=== PATIENT | female | born 1945 | race Caucasian/White ===

== ENCOUNTER 2017-08-01 10:32 | Emergency (ER) | payer MEDICARE, OTHER, SELFPAY ==
[2017-07-31 15:16] VITALS: BP 123/61; BMI 22.6
[2017-08-01 10:36] VITALS: BP 123/53; PULSE 64; RESP 14; TEMP 36.9; O2SAT 100; BMI 22.4
--- NOTE | 2017-08-01 11:00 | RAD_ITS ---
STUDY: X-RAY CHEST REASON FOR EXAM: Female, 71 years old. Weakness. TECHNIQUE: Single AP portable view of the chest. COMPARISON: None. FINDINGS: EKG electrodes are seen. Hyperinflation. The lungs are clear. There is no demonstrated pleural abnormality. Sternal cerclage wires and vascular clips are present from a prior sternotomy and coronary artery bypass graft procedure (CABG). Normal mediastinum and brendan. Normal visualized pulmonary arteries. There is atherosclerotic calcification of the aortic arch with tortuosity. Normal visualized thoracic spine. Normal visualized ribs, clavicles, and shoulders. There is no demonstrated abnormality of the visualized soft tissue structures of the upper abdomen. RAD/Chest 1 View (Portable) IMPRESSION: Hyperinflation. The lungs are clear. Electronically Signed: Erick Peter MD at 12:28 EST Tel [phone], Service support ,
--- NOTE | 2017-08-01 11:00 | EKG12_ITS ---
Test Reason : Blood Pressure : / mmHG Vent. Rate : 057 BPM Atrial Rate : 057 BPM P-R Int : 142 ms QRS Dur : 108 ms QT Int : 420 ms P-R-T Axes : 068 020 003 degrees QTc Int : 408 ms Sinus bradycardia Incomplete right bundle branch block ST & T wave abnormality, consider anterior ischemia Abnormal ECG Confirmed by SHAHID ROJAS, DALE ([id number]), editor index SAWYER WELLS ([id number]) on 08/06/2017 8:47:02 AM Referred By: ESTELITA BENNETT Confirmed By:DALE KEY MD
--- NOTE | 2017-08-01 11:01 | RAD_ITS ---
STUDY: X-RAY - RIGHT HUMERUS REASON FOR EXAM: Female, 71 years old. Known humeral fracture. TECHNIQUE: AP and lateral view(s) of the humerus. COMPARISON: None. FINDINGS: Impacted fracture of the surgical neck of the humerus with medial and superior displacement of the distal fracture fragment. Soft tissue swelling. RAD/Humerus min 2 Views IMPRESSION: Impacted fracture of the surgical neck of the humerus with medial and superior displacement of the distal fracture fragment Electronically Signed: Erick Peter MD at 12:30 EST Tel [phone], Service support ,
[2017-08-01] MEDS: 0.9% Normal Saline 1,000 ML 150 ML IV (11:14)
[2017-08-01 11:24] LABS: Absolute Lymphocyte Count 1.11 X10^3/ul (0.83-4.51); Absolute Neutrophil Count 4.7 X10^3/uL (2.0-7.7); Basophil# 0.03 X10^3/uL; Basophil% 0.5 % (0-1); Eosinophils% 1.5 % (0-5); Hematocrit 31.2 % (37-47); Hemoglobin 10.3 g/dl (12.0-15.0); Lymphocyte # 1.11 X10^3/ul (4.0); Lymphocyte % 16.9 % (19-41); Mean Corpuscular Hgb 31.9 pg (27.0-32.0); Mean Corpuscular Volume 96.6 fL (81-99); Mean Platelet Vol. 11.1 fl (6.2-12.0); Monocyte# 0.65 X10^3/uL; Monocyte% 9.9 % (0-10); Neutrophil # 4.65 X10^3/uL (2.7-7.7); POSITIVE COUNT NO; POSITIVE DIFFERENTIAL NO; POSITIVE MORPHOLOGY NO; Platelet Count 267 K/mm3 (150-450); RBC Distribution Width CV 14.1 % (11.6-14.6); RBC Distribution Width SD 49.9 fl (35.1-43.9); Red Blood Count 3.23 M/mm3 (4.2-5.4); White Blood Count 6.6 K/mm3 (4.4-11.0)
--- NOTE | 2017-08-01 11:34 | CM.ED ---
CM referred to see patient d/t patient's daughter expressing concerns of her mother's weakness and safety in the home. CM spoke with patient and daughter. Patient is scheduled for surgery on fractured humerus on Saturday. Patient's daughter states she has only a half-bath on the first level of the home and it took three hours to get her mother upstairs to the shower. Patient's daughter states she was given strict instructions to keep the operative site clean prior to surgery and is concerned she may be unable to do this properly given the circumstances. I called Juani Osuna, from . is not able to accept the patient at this time and given condition. I discussed home health care with patient and daughter. [facility] anticipates that they will be able to treat the patient, should she be discharged to home. I also suggested attempting sponge baths on the first level of home and aide services for bathing can be provided as long as patient is receiving skilled therapy from [facility]. I did inform the patient and daughter that it may take a few days until aide services and therapy services are begun. Test results are pending and care plan is undetermined at this time. RN TRINIDAD will follow-up with needs as plan develops. Daisy GARCIA, MAMADOU ABDI
[2017-08-01 11:47] LABS: Anion Gap 6 (5-15); BUN 26 mg/dL (7-18); BUN/Creat Ratio 27.7 RATIO (10-20); Calcium,Total 8.6 mg/dL (8.5-10.1); Chloride 101 mmol/L (98-107); Creatinine, Serum 0.94 mg/dL (0.55-1.02); EST Glomerular Filtration Rate 63 mL/min (>60); Est Glom Filt Rate - Afr Amer 76 mL/min (>60); Estimated Creatinine Clearance 44.26 ml/min; Glucose 80 mg/dL (70-110); Potassium 4.1 mmol/L (3.5-5.1); Sodium Level 136 mmol/L (136-145)
--- NOTE | 2017-08-01 12:52 | ED.DCSUM_ITS ---
- ER Visit Summary Date of Service: 08/01/17 Chief Complaint: Generalized weakness History of Present Illness: The patient is a 71 F who sees Mary Ann Bernabe and Dr. Rommel Sellers. She reports that she fell July 25 and has a fracture of her right proximal humerus. She was seen by Dr. Sellers 2 days ago and is scheduled to have surgery for this in 4 days. States there is 50% displacement of this. Family is concerned because she is now having bruising and swelling to her right elbow. She denies pain in this area. Family that has been caring for her at home had reports that she has had progressively increasing weakness. This is generalized. Patient complains of a headache is 2 out of 10 severity. She denies any other complaints. Physical Examination: Vitals: Stable. Afebrile. General: Well-nourished and well-developed. Head: Normocephalic atraumatic. Neck: Supple, no lymphadenopathy. No JVD. Nontender. Cardiovascular: Regular rate and rhythm. No murmurs. Respiratory: No respiratory distress. Clear to auscultation bilaterally. Abdominal: Soft, nontender, nondistended, normal bowel sounds. No guarding, rebound, or peritoneal signs. Back: Nontender. Extremities: Severe tenderness palpation with contusion over her right shoulder. This is not moved. She has edema and contusion that is dependent to the right elbow. This is not tender to palpation.. Skin: Normal color, no rash. Neurologic: Alert and oriented ?3. Cranial nerves II through XII are intact. Normal strength and sensation. Psych: Normal affect. Test Results: EKG is sinus at 60 with right bundle branch block. There is no old EKG for comparison. Troponin was negative. Chem-7 is more for BUN 26. CBC is more for an H&H 10.3 and 31.2, 7 neutrophils 71, lymphs at 17. Chest x- ray shows no acute disease. Right humerus x-ray shows an impacted surgical neck fracture with medial and superior displacement of the distal fracture fragment. Emergency Department Course and Treatment: She is resting comfortably without complaint. She was seen by case management and they were able to arrange home health with the patient and family are happy with. Treatment Plan: Patient will be discharged instructions to follow-up with surgery as previously scheduled. Return to the emergency department for any worsening symptoms. Disposition: To home in improved and stable condition. Impression: 1. Right proximal humerus fracture. 2. Generalized weakness. This note was generated with [employer] dictation software. It may contain incorrect words, spelling, and punctuation that were not noted in review of the chart prior to signing ED Disposition - Plan for ED Patient: Disposition: Home or Assisted Living Chief Complaint: Upper Extremity Injury Instructions: ED Fx Shoulder Referrals: Rommel Sellers DO [STAFF PHYSICIAN] - Keep Lyubov appointment
[2017-08-01 13:10] VITALS: PULSE 60; RESP 16; O2SAT 98
--- NOTE | 2017-08-01 13:10 | ED.RN ---
pt is waiting for case management for f/u on home care after surgery, then d/c.
--- NOTE | 2017-08-01 13:27 | CM.ED ---
CM notified patient and daughter that [facility] will be calling them to schedule start of care. Projected start of care is tomorrow or Saturday. Patient and daughter state agreement with this plan of care. Patient is staying at her daughter's house at this time: [id number] [place], [place] [id number] sent with confirmation to [facility].
== END 2017-08-01 13:30 | disposition home or self-care (01) ==
LOC: ED 11:34
PROVIDERS: Emergency Provider Emergency Medicine
DX: M62.81 Muscle weakness (generalized) (principal); S42.211D Unspecified displaced fracture of surgical neck of right humerus, subsequent encounter for fracture with routine healing; I45.10 Unspecified right bundle-branch block; I25.10 Atherosclerotic heart disease of native coronary artery without angina pectoris; I10 Essential (primary) hypertension; E78.00 Pure hypercholesterolemia, unspecified; E03.9 Hypothyroidism, unspecified; Z79.891 Long term (current) use of opiate analgesic; Z79.899 Other long term (current) drug therapy; W19.XXXD Unspecified fall, subsequent encounter
CPT/HCPCS: 71045; 73060; 80048; 84484; 85025; 93005; 96360; 96361; 99284; J7050; A4216

== ENCOUNTER 2017-08-05 14:35 | Observation (INO) | payer MEDICARE, OTHER, SELFPAY ==
[2017-07-31 15:16] VITALS: BP 123/61; PULSE 52; RESP 17; TEMP 36.8; O2SAT 99; BMI 22.6
[2017-07-31 16:29] LABS: Hematocrit 31.1 % (37-47); Hemoglobin 10.2 g/dl (12.0-15.0); Mean Corp Hgb Conc 32.8 g/gl (32-36); Mean Corpuscular Hgb 32.1 pg (27.0-32.0); Mean Corpuscular Volume 97.8 fL (81-99); Mean Platelet Vol. 11.9 fl (6.2-12.0); Platelet Count 243 K/mm3 (150-450); RBC Distribution Width SD 47.2 fl (35.1-43.9); Red Blood Count 3.18 M/mm3 (4.2-5.4); White Blood Count 6.7 K/mm3 (4.4-11.0)
[2017-07-31 16:31] LABS: Scan Indicated on CBC? Y/N NO
[2017-07-31 16:57] LABS: Hemoglobin A1c 5.1 % (4.2-6.3)
[2017-07-31 17:01] LABS: Anion Gap 7 (5-15); BUN 19 mg/dL (7-18); BUN/Creat Ratio 31.8 RATIO (10-20); Calcium,Total 8.6 mg/dL (8.5-10.1); Chloride 101 mmol/L (98-107); EST Glomerular Filtration Rate 105 mL/min (>60); Est Glom Filt Rate - Afr Amer 127 mL/min (>60); Glucose 100 mg/dL (70-110); Potassium 4.3 mmol/L (3.5-5.1); Sodium Level 138 mmol/L (136-145)
[2017-08-01 10:36] VITALS: BP 123/53
[2017-08-05] VITALS (9 sets, daily range): BP systolic 115–129; BP diastolic 53–59; PULSE 54–70; RESP 14–18; TEMP 36.2–36.6; O2SAT 98–100; BMI 22.6
[2017-08-05 09:51] LABS: Bedside Glucose 96 mg/dL (70-110)
--- NOTE | 2017-08-05 11:15 | RAD_ITS ---
STUDY: X-RAY - RIGHT HUMERUS REASON FOR EXAM: Female, 71 years old. ORIF of the proximal humeral fracture. TECHNIQUE: 3 intraoperative view(s) of the humerus. COMPARISON: Comparison is made with prior study dated August 01, 2017. FINDINGS: The patient is status post ORIF of the proximal humeral fracture using multiple screws and side plate fixation device. There is good alignment. RAD/Humerus min 2 Views IMPRESSION: Satisfactory ORIF of the proximal humeral fracture. Electronically Signed: Erick Peter MD at 15:21 EST Tel [phone], Service support ,
[2017-08-05] MEDS: Cefazolin 1 GM/50 ML BAG IV (13:09)
--- NOTE | 2017-08-05 14:48 | PCM.OPRPT ---
Report of Operation Date of Procedure: 08/05/17 Pre-Operative Diagnosis: Near type II proximal humerus fracture right Post-Operative Diagnosis: Same Surgery/Procedure Performed:: Open reduction with internal fixation of right proximal humerus Description of Surgical Findings:: Type II proximal humerus fracture with minimally displaced tuberosity split Type of Anesthesia:: General/Regional Anesthesiologist: Nuno Nascimento Specimen's removed: None Estimated Blood Loss (mL): 50 Fluids Replaced: See anesthesia report Description of Procedure: Implants: German periarticular locking plate with assorted screws locking and nonlocking Surgical indications: Toni is a 71-year-old female that fell approximately 1 week ago. She has a displaced proximal humerus fracture near type II with approximately 2 cm of displacement of the surgical neck of the above procedure Procedure description: Patient was greeted in the preoperative area. The right shoulder was marked with surgical marker. Preoperative antibiotics were administered. The patient was then taken or Suite in stable condition. After adequate anesthesia was obtained and airway secured the patient was placed in a semi-leggett's position. All bony prominences were well-padded and head was secured in the beachchair positioner. Patient's surgical arm was then prepped and draped in usual sterile fashion. Surgical timeout was performed and surgery was commenced. The Aktivito arm montanez was used during the procedure for use of manipulating the arm. Standard deltopectoral approach was then performed. Incision planned and carried out from the coracoid process towards the deltoid tuberosity. Hemostasis was perfect with Bovie cautery. Dissection was then carried to the interval between the pectoralis major and the deltoid. Cephalic vein was identified and protected. It was retracted laterally. Blunt dissection was then carried down to the anterior aspect of the humerus. Conjoined tendon was noted and a self-retaining retractor was then placed. Did use a Ventura to slightly release the deltoid. Also release the proximal one third of the pectoralis major attachment for easier exposure. The fracture was then identified. There is a displaced fracture at the surgical neck. There is also a split in between the tuberosities. This is approximately 4-5 mm in the distance. The splint was held in a reduced fashion and 2 2 mm K wires were then placed in order to maintain this in reduced fashion. I then placed the appropriate length plate approximately 1 cm distal to the greater tuberosity. This was pinned in position. I then placed locking screws in both of the tuberosities and into the humeral head. Once adequate control and fixation was identified and performed proximally I then used a pointed reduction forcep and reduce the shaft to the plate. This was held in a reduced fashion and 2 nonlocking screws were then placed to hold this in position. He was used to confirm the presence of adequate reduction. There is approximately 3 mm of step-off medial calcar which I accepted as reasonable to proceed. Additional locking screws were then placed in the proximal humerus followed by one locking screw distally and the remaining screws were filled and placed nonlocking bicortically. After confirmation of appropriate placement of all the screws and the plate was performed using biplanar fluoroscopic imaging the wound was then irrigated and closed in layers. Surgical rciki were placed in the skin and occlusive dressing was applied. Patient was then placed in a sling. Postoperatively I am going to allow the patient to initiate pendulum exercises elbow wrist and hand range of motion and gentle range of motion of the shoulder as tolerated. Nonweightbearing through this extremity. Patient is being placed in observation as she has some psychosocial limitations at home and requires some additional assistance - Admit VTE Documentation VTE Present on Admission: Yes VTE Mechan Device Prophylaxis: SCD's, Thigh High JUANCHO Hose VTE Pharm Prophylaxis ordered?: Yes
[2017-08-05 15:01] LABS: Bedside Glucose 140 mg/dL (70-110)
--- NOTE | 2017-08-05 15:52 | CASEMGMT ---
This CM spoke with the patient and family on her prior ED visit and determined would benefit from home health services including PT/OT/Aide services for bathing. Face to face was completed by ED physician and faxed to [facility] at time of ED visit. I notified Merry, from [facility], that the patient was out of surgery. Merry states that she will plan to visit with the patient and daughter today to discuss home health plans. Daisy GARCIA, RN CM
[2017-08-05] MEDS: Lactated Ringers 1,000 ML 125 ML IV (17:49)
[2017-08-05] MEDS: HYDROcodone Bitartrate/Apap 5/325 Tablet PO ×2 (21:15→21:24)
[2017-08-05] MEDS: Metoprolol Tartrate 25 MG Tablet PO (21:21)
[2017-08-06] VITALS (7 sets, daily range): BP systolic 101–120; BP diastolic 49–61; PULSE 59–70; RESP 16–18; TEMP 36.4–37.4; O2SAT 96–100
[2017-08-06] MEDS: Lactated Ringers 1,000 ML 125 ML IV (01:41)
[2017-08-06] MEDS: oxyCODONE 5 MG Tablet PO ×3 (02:44→17:27)
[2017-08-06] MEDS: Levothyroxine 75 MCG Tablet PO (06:03)
[2017-08-06] MEDS: HYDROcodone Bitartrate/Apap 5/325 Tablet PO ×2 (06:05→11:53)
[2017-08-06] MEDS: 0.9% NaCl Peripheral Flush Adult/Peds IV (06:07)
--- NOTE | 2017-08-06 07:57 | PCM.PN.ORT ---
Subjective: Patient sitting up in bed, with daughter at her bedside. Patient states she has been extremely painful through the night. Patient does not think she is able to return home at this time due to severe ongoing pain. Patient states pain is localized within her shoulder in the operative area. Denies any numbness or tingling of her hand or weakness. Denies chest pain, shortness of breath, calf pain, nausea vomiting. Objective: Dressing is clean dry intact. Patient's vitals labs all within normal limits. Patient is afebrile, neurovascular is intact. Patient has good flexion-extension of the risk of supination pronation of the right wrist good biochemist strength neurovascular is intact. - Physical Exam General: Alert, Oriented x3, Cooperative HEENT: PERRLA Oral: Moist Mucosa Neurological: Cranial nerves II-XII grossly intact Psych/Mental Status: Normal Affect, Alert and oriented to time, place, person, mood and affect Vital Signs Temp Pulse Resp BP Pulse Ox 97.6 F L 59 L 18 120/61 96 08/06/17 01:40 08/06/17 01:40 08/06/17 01:40 08/06/17 01:40 08/06/17 01:40 Oxygen Delivery Method Room Air Weight: 50.7 kg Body Mass Index (BMI) 22.6 Intake and Output for Last 24 Hours 08/04/17 08/05/17 08/06/17 23:59 23:59 23:59 Intake Total 2742 / 2742 2311 / 2311 Output Total 200 / 200 1999 / 1999 Balance 2542 / 2542 311 / 311 POC Glucose 08/05/17 08/05/17 14:55 09:43 POC Glucose 140 H 96 Assessment/Plan Post ORIF proximal humerus fracture right arm Plan 1. Continue all pain medications as prescribed 2. Begin physical therapy today 3. Continue ice to operative/fracture site 4. Continue aspirin 81 mg 1 p.o. daily 5. Possible discharge home tomorrow
--- NOTE | 2017-08-06 08:00 | PN.ORTHO_ITS ---
Subjective: Patient sitting up in bed, with daughter at her bedside. Patient states she has been extremely painful through the night. Patient does not think she is able to return home at this time due to severe ongoing pain. Patient states pain is localized within her shoulder in the operative area. Denies any numbness or tingling of her hand or weakness. Denies chest pain, shortness of breath, calf pain, nausea vomiting. Objective: Dressing is clean dry intact. Patient's vitals labs all within normal limits. Patient is afebrile, neurovascular is intact. Patient has good flexion- extension of the risk of supination pronation of the right wrist good assembly inspector strength neurovascular is intact. - Physical Exam General: Alert, Oriented x3, Cooperative HEENT: PERRLA Oral: Moist Mucosa Neurological: Cranial nerves II-XII grossly intact Psych/Mental Status: Normal Affect, Alert and oriented to time, place, person, mood and affect Vital Signs Temp Pulse Resp BP Pulse Ox 97.6 F L 59 L 18 120/61 96 08/06/17 01:40 08/06/17 01:40 08/06/17 01:40 08/06/17 01:40 08/06/17 01:40 Oxygen Delivery Method Room Air Weight: 50.7 kg Body Mass Index (BMI) 22.6 Intake and Output for Last 24 Hours 08/04/17 08/05/17 08/06/17 23:59 23:59 23:59 Intake Total 2742 / 2742 2311 / 2311 Output Total 200 / 200 1999 / 1999 Balance 2542 / 2542 311 / 311 POC Glucose 08/05/17 08/05/17 14:55 09:43 POC Glucose 140 H 96 Assessment/Plan Post ORIF proximal humerus fracture right arm Plan 1. Continue all pain medications as prescribed 2. Begin physical therapy today 3. Continue ice to operative/fracture site 4. Continue aspirin 81 mg 1 p.o. daily 5. Possible discharge home tomorrow
--- NOTE | 2017-08-06 10:37 | CASEMGMT ---
MAMADOU ABDI Face to Face with patient for initial transition planning/care coordination assessment. MAMADOU ABDI introduced self and role at [facility]. Patient lying in bed, alert and oriented, daughter at bedside. Patient willing to participate in assessment and is able to answer all questions appropriately. Care providers, pharmacy, and demographics verified. See link attached. Pt wishes to discharge to daughters home after discharge with [facility] with [facility]. Patient has been accepted by [facility]. Patient is requesting script for shower chair. MAMADOU ABDI will assist with obtaining script for shower chair. Patient states she has no further needs or concerns at this time. CM to follow for discharge planning needs that may arise. Disposition Plan: patient to discharge to daughters home with [facility], family support, and follow-up plans in place.
[2017-08-06] MEDS: Lisinopril 10 MG Tablet PO (11:50)
[2017-08-06] MEDS: Metoprolol Tartrate 25 MG Tablet PO ×2 (11:50→20:35)
[2017-08-06] MEDS: Aspirin 81 MG TAB.CHEW PO (11:50)
[2017-08-06] MEDS: Acetaminophen 500 MG Tablet 1000 MG PO (20:36)
[2017-08-07 05:30] VITALS: BP 109/55; PULSE 58; RESP 18; TEMP 36.9; O2SAT 97
[2017-08-07] MEDS: Levothyroxine 75 MCG Tablet PO (06:25)
[2017-08-07] MEDS: Acetaminophen 500 MG Tablet 1000 MG PO ×2 (06:25→13:24)
[2017-08-07] MEDS: oxyCODONE 5 MG Tablet PO (07:02)
--- NOTE | 2017-08-07 09:01 | NURSING ---
OT working with patient right now. reports pain 2/10. Will check vs and given AM meds after therapy is finished.
[2017-08-07 09:26] VITALS: BP 116/54; PULSE 67; RESP 18; TEMP 36.7; O2SAT 98
[2017-08-07 09:29] VITALS: PULSE 67
[2017-08-07] MEDS: Aspirin 81 MG TAB.CHEW PO (09:29)
[2017-08-07] MEDS: Metoprolol Tartrate 25 MG Tablet PO (09:29)
[2017-08-07] MEDS: Lisinopril 10 MG Tablet PO (09:29)
--- NOTE | 2017-08-07 09:30 | CASEMGMT ---
Social Work Note Face to face with the pt and her daughter, Mikki, to complete HCPOA paperwork per pt's request. Introduced self and role at [facility]. Pt is alert and oriented to person, place and time. Pt wanting to make her daughter he HCPOA as all other family lives 800+ miles away. Spent 20 minutes discussing advanced care planning and identifying pt's values, beliefs and desires for end of life care with pt and her daughter. Encourage to continue to openly communicate as these may change as the pt ages. Understanding expressed. Copy of newly completed HCPOA on chart and original provided to pt. No additional needs at this time. Khloe Amaya, LOGISTICS TECH, ELEVATED MOTORMAN
--- NOTE | 2017-08-07 09:47 | CASEMGMT ---
Medicare Outpatient Observation Notice reviewed with patient and daughter. Patient voiced understanding and requested daughter sign notice due to difficulty with ORIF right humerus fracture. Signed copy provided to patient and original filed on chart. Patient voiced no concerns or questions at this time.
--- NOTE | 2017-08-07 12:18 | PCM.PN.ORT ---
Subjective: Patient sitting up in bed patient's daughter at bedside. Pain is well-managed. Ready for discharge home. No other complaints. Objective: Dressing clean dry intact. Good theatrical variety agent strength right hand good flexion, extension, supination pronation of the right wrist. Neurovascular is otherwise intact. Patient vital signs labs all within normal limits. - Physical Exam General: Alert, Oriented x3, Cooperative HEENT: PERRLA Oral: Moist Mucosa Neurological: Cranial nerves II-XII grossly intact Psych/Mental Status: Normal Affect, Alert and oriented to time, place, person, mood and affect Vital Signs Temp Pulse Resp BP Pulse Ox 98.1 F 67 18 116/54 L 98 08/07/17 09:26 08/07/17 09:29 08/07/17 09:26 08/07/17 09:26 08/07/17 09:26 Oxygen Delivery Method Room Air Weight: 50.7 kg Body Mass Index (BMI) 22.6 Intake and Output for Last 24 Hours 08/05/17 08/06/17 08/07/17 23:59 23:59 23:59 Intake Total 2742 / 2742 3111 / 3111 1200 / 1200 Output Total 200 / 200 2300 / 2300 100 / 100 Balance 2542 / 2542 811 / 811 1100 / 1100 Assessment/Plan Post ORIF proximal humerus fracture right arm Plan 1. Continue all pain medications as prescribed 2. Continue physical therapy at [facility] 3. Continue ice to operative/fracture site 4. Continue aspirin 81 mg 1 p.o. daily 5. Discharge home today
--- NOTE | 2017-08-07 12:25 | PCM.DC.ORTHO ---
Discharge Diet: No Restrictions Discharge Activity: May Not Drive May shower in (days): 3 Ice area for (Minutes): 20 - Every hour while awake. Weight Bearing Status: Weight bearing as tolerated Keep extremity elevated above heart level: Operative Extremity Call your doctor if your incision/area has: Continuous Slow Oozing, Sudden Increased Bleeding, Increased Pain/ Swelling, Increased Redness, Foul Smelling Discharge Call your doctor if you observe: Fever of 101 or Higher, Coldness, Increased Pain, Numbness or Tingling, Change in Color, Calf discomfort Remove Dressing in (days):: 9 Allergies/Adverse Reactions: Allergies alendronate sodium [From Fosamax] Allergy (Verified 08/01/17 10:38) Unknown meloxicam Allergy (Verified 08/01/17 10:38) Unknown Sulfa (Sulfonamide Antibiotics) Allergy (Verified 08/01/17 10:38) Rash Medications to take at Discharge Levothyroxine [Synthroid] 75 mcg PO DAILY 07/31/17 Lisinopril [Zestril] 10 mg PO DAILY 07/31/17 Metoprolol Tartrate [Lopressor (beta riaz)] 25 mg PO BID 07/31/17 Acetaminophen [Tylenol] 1,000 mg PO Q8 #90 tab 08/07/17 Aspirin [Aspirin, Baby] 81 mg PO DAILY@0800 tab.chew 08/07/17 MorphINE [Ms Contin] 15 mg PO BID 7 Days #14 tab 08/07/17 Oxycodone [Oxyir] 1 - 2 tab PO Q6H PRN PRN 7 Days #45 tab 08/07/17 The following prescriptions were given: Oxycodone [Oxyir] 1 - 2 tab PO Q6H PRN PRN 7 Days #45 tab PRN Reason: Pain Acetaminophen [Tylenol] 1,000 mg PO Q8 #90 tab MorphINE [Ms Contin] 15 mg PO BID 7 Days #14 tab Primary Care Physician: Mary Ann Bernabe DO [Primary Care Provider] - Please Follow Up With: Rommel Sellers DO When: see pink sheet
[2017-08-07 13:40] VITALS: BP 94/48; PULSE 62; RESP 18; TEMP 36.9; O2SAT 100
--- NOTE | 2017-08-07 13:59 | CASEMGMT ---
MAMADOU ABDI obtain script for shower chair. RN TRINIDAD gave script to patient's daughter. Daughter stated she had no questions or concerns at this time. MAMADOU ABDI will continue to follow this patient and plan for a safe discharge.
== END 2017-08-07 14:45 | disposition home health service (06) ==
LOC: SDC 15:31
PROVIDERS: Anesthesiology; Admitting Provider Orthopaedic Surgery; Visit Provider Orthopaedic Surgery
PROC: (CPT 23472; principal; 2017-08-05 10:45)
DX: S42.221A 2-part displaced fracture of surgical neck of right humerus, initial encounter for closed fracture (principal); S42.254A Nondisplaced fracture of greater tuberosity of right humerus, initial encounter for closed fracture; W19.XXXA Unspecified fall, initial encounter; Y92.9 Unspecified place or not applicable; M19.90 Unspecified osteoarthritis, unspecified site; I10 Essential (primary) hypertension; E78.00 Pure hypercholesterolemia, unspecified; G47.30 Sleep apnea, unspecified; E07.9 Disorder of thyroid, unspecified; Z79.899 Other long term (current) drug therapy; E11.9 Type 2 diabetes mellitus without complications; R00.1 Bradycardia, unspecified
CPT/HCPCS: 23615; 73060; 76000; 80048; 82962; 83036; 84443; 85027; 87081; 93005; 96361; 96374; 96376; 97110; 97162; 97166; 97530; 99218; J7120; A4216; G0378; G0379; J2405

== ENCOUNTER 2018-09-19 19:49 | Emergency (ER) | payer MEDICARE, OTHER, SELFPAY ==
[2017-08-05 15:41] VITALS: BMI 22.6
[2018-09-19 19:50] VITALS: BP 155/85; PULSE 60; RESP 18; TEMP 36.8; O2SAT 98; BMI 23.3
[2018-09-19 20:39] LABS: Bacteria 0 SEEN /hpf (None Seen); Mucous, Urine 0 SEEN /hpf (<or=2+); Red Blood Cells-Urine 0 SEEN /hpf (0-5); White Blood Cells 0 SEEN /hpf (0-5)
[2018-09-19 20:45] LABS: Color, Urine Yellow (Yellow); Glucose, Dipstick Normal (Normal); Ketone-Dipstick Negative (Negative); Leukocyte Esterase-Dipstick Negative /ul (Negative); Nitrite-Dipstick Negative (Negative); Occult Blood-Urine Negative /ul (Negative); Protein-Dipstick Negative (Negative); Urine Bilirubin Dipstick Negative (Negative); Urine Clarity Sl. Cloudy (Clear); Urine Urobilinogen Normal (Normal)
--- NOTE | 2018-09-19 20:50 | CM.ED ---
Social Work Assessment Referral Date: 09/19/18 Date of Assessment: 09/19/18 Informant: DR. AZEVEDO Reason for Consult: DEPRESSION Information obtained from: PATIENT AND PATIENT'S DAUGHTER, SULEMAN Living Arrangements: PATIENT LIVES HOME ALONE IN AN APARTMENT BESIDE HER DAUGHTER. Employment/Financial: RETIRED Supports: PATIENT HAS GOOD SUPPORT FROM FAMILY AND NEIGHBORS. Social/Family Stressors: PATIENT STATES ISSUES WITH MEDICATIONS. DAUGHTER REPORTS CONCERNS FOR PATIENT DEPRESSION IS NOT GETTING BETTER. DAUGHTER FEELS PATIENT WOULD BENEFIT FROM SEEING A PSYCHIATRIST. Mental Health History: PER DAUGHTER, PATIENT HAS BEEN DIAGNOSED WITH DEPRESSION, PTSD, AND ADHD. Substance Abuse History: PATIENT AND DAUGHTER DENY ANY HX OF SUBSTANCE ABUSE. Interventions: SOCIAL SERVICE ASSESSMENT REFERRAL TO [facility]. Assessment: PATIENT IS A 72 Y/O FEMALE WHO PRESENTS TO ED WITH DEPRESSION. PATIENT REPORTS MEDICATION HAVE BEEN ADJUSTED WITHOUT ANY IMPROVEMENT. PATIENT DENIES ANY SUICIDAL IDEATION. PATIENT LIVES HOME ALONE IN AN APARTMENT NEXT DOOR TO DAUGHTER. PATIENT WITH HX OF DEPRESSION, PTSD, AND ADHD. PATIENT HAS BEEN FOLLOWING WITH THE [facility]SELING [facility]ENTER AND ATTENDS APPOINTMENTS EVERY 2 WEEKS. DAUGHTER STATES THERE HAS BEEN ISSUES WITH SCHEDULING AND SOMETIMES PATIENT IS NOT SEEN FOR 2 WEEKS. DISCUSSED OPTIONS FOR MORE INTENSIVE TREATMENT. PATIENT IN AGREEMENT WITH REFERRAL TO THE [facility]. INTAKE APPOINTMENT SCHEDULED FOR 2PM ON SATURDAY, 08/2518. UPDATED DR. AZEVEDO AND NURSING. PLAN: HOME BEFORE WITH REFERRAL TO [facility].
[2018-09-19 20:52] LABS: Squamous Epithelial Cells - UA 0-5 SEEN /hpf (5-10)
[2018-09-19 21:02] VITALS: RESP 16
[2018-09-19 21:09] LABS: Absolute Lymphocyte Count 1.09 X10^3/ul (0.83-4.51); Absolute Neutrophil Count 4.2 X10^3/uL (2.0-7.7); Basophil# 0.04 X10^3/uL; Basophil% 0.6 % (0-1); Eosinophil# 0.14 X10^3/uL; Eosinophils% 2.2 % (0-5); Hematocrit 37.5 % (37-47); Hemoglobin 12.1 g/dl (12.0-15.0); Lymphocyte # 1.09 X10^3/ul (4.0); Lymphocyte % 17.1 % (19-41); Mean Corp Hgb Conc 32.3 g/gl (32-36); Mean Corpuscular Hgb 31.6 pg (27.0-32.0); Mean Corpuscular Volume 97.9 fL (81-99); Mean Platelet Vol. 11.8 fl (6.2-12.0); Monocyte# 0.93 X10^3/uL; Monocyte% 14.6 % (0-10); Neutrophil # 4.15 X10^3/uL (2.7-7.7); Neutrophil % 65.3 % (47-70); Platelet Count 201 K/mm3 (150-450); RBC Distribution Width CV 12.8 % (11.6-14.6); RBC Distribution Width SD 44.9 fl (35.1-43.9); Red Blood Count 3.83 M/mm3 (4.2-5.4); White Blood Count 6.4 K/mm3 (4.4-11.0)
[2018-09-19 21:10] LABS: POSITIVE COUNT NO; POSITIVE DIFFERENTIAL NO; POSITIVE MORPHOLOGY NO
[2018-09-19 21:24] LABS: Amphetamine Urine VISTA NEGATIVE (<1000 ng/mL); Barbiturate Urine VISTA NEGATIVE (< 200 ng/mL); Benzodiazepine Urine VISTA NEGATIVE (< 200 ng/mL); Cocaine Urine VISTA NEGATIVE (< 300 ng/mL); Ecstacy Urine VISTA NEGATIVE (< 500 ng/mL); Methadone Urine VISTA NEGATIVE (< 300 ng/mL); PCP Urine VISTA NEGATIVE (< 25 ng/mL); THC Urine VISTA NEGATIVE (< 50 ng/mL); Vista UDS pH Range 6
[2018-09-19 21:31] LABS: Anion Gap 1 (5-15); BUN 21 mg/dL (7-18); Calcium,Total 8.8 mg/dL (8.5-10.1); Chloride 105 mmol/L (98-107); Creatinine, Serum 1.62 mg/dL (0.55-1.02); EST Glomerular Filtration Rate 33 mL/min (>60); Est Glom Filt Rate - Afr Amer 40 mL/min (>60); Estimated Creatinine Clearance 22.88 ml/min; Glucose 82 mg/dL (74-106); Potassium 4.8 mmol/L (3.5-5.1); Sodium Level 138 mmol/L (136-145); Thyroid Stim Hormone (TSH) 5.06 uIU/mL (0.358-3.74)
[2018-09-19 21:33] LABS: Alcohol, Blood (Medical)-Serum < 3.0 mg/dL
--- NOTE | 2018-09-19 21:33 | CM.ED ---
SOCIAL WORK NOTE REFERRAL FAXED TO [facility]. MIQUEL WELLS, LAUNDRY SUPERINTENDENT, CUSTOMER ASSOCIATE.
[2018-09-19 22:16] VITALS: BP 142/71; PULSE 60; RESP 18; O2SAT 99
--- NOTE | 2018-09-19 22:31 | ED.VISSUMM ---
- ER Visit Summary Date of Service: 09/19/18 Chief Complaint: Depression History of Present Illness: The patient is a 72 F who presents with depression that has been getting worse over the past several months. Patient denies any suicidal ideations. Patient daughter states that patient had a depression score done at her sleep apnea physician's office today which resulted with a level of 30. This indicates severe depression. 1 of the questions was regarding suicidal ideation. Daughter states the patient was having difficulty answering that. Patient currently denies any suicidal ideations. Daughter states patient has had decreased interest in her normal activities. Physical Examination: Vital signs are stable. Patient is afebrile. Patient is in no acute distress. Oral mucosa is pink and moist. Neck is supple. Heart was regular rate and rhythm. Lungs are clear and equal bilateral. Abdomen is soft and nontender. Cranial nerves II through XII are intact. There are no focal motor or sensory deficits noted. Patient does have a depressed mood and flat affect. Patient denies any suicidal or homicidal ideations at the present time. Test Results: CBC was normal. Basic metabolic profile shows slightly elevated creatinine 1.62. TSH was also slightly elevated at 5.06. Tox screen and a serum alcohol level were normal. Emergency Department Course and Treatment: material requirements worker was in to talk with the patient and was able to arrange for an appointment with the counseling center. Patient and her daughter were instructed to follow-up with this appointment. Patient was instructed to drink plenty of fluids. Patient was also instructed to follow-up with her primary care physician regarding her TSH. Patient and her daughter understood and were agreeable with the plan. All questions were answered. Disposition: Discharge home Impression: Depression This note was generated with [employer] dictation software. It may contain incorrect words, spelling, and punctuation that were not noted in review of the chart prior to signing ED Disposition - Plan for ED Patient: Disposition: Home or Assisted Living Diagnosis: Depression Instructions: ED Depression Referrals: Mary Ann Bernabe DO [Primary Care Provider] - Additional Instructions: Follow-up with counseling center as scheduled. Drink plenty of fluids.
--- NOTE | 2018-09-19 22:38 | ED.DCSUM_ITS ---
- ER Visit Summary Date of Service: 09/19/18 Chief Complaint: Depression History of Present Illness: The patient is a 72 F who presents with depression that has been getting worse over the past several months. Patient denies any suicidal ideations. Patient daughter states that patient had a depression score done at her sleep apnea physician's office today which resulted with a level of 30. This indicates severe depression. 1 of the questions was regarding suicidal ideation. Daughter states the patient was having difficulty answering that. Patient currently denies any suicidal ideations. Daughter states patient has had decreased interest in her normal activities. Physical Examination: Vital signs are stable. Patient is afebrile. Patient is in no acute distress. Oral mucosa is pink and moist. Neck is supple. Heart was regular rate and rhythm. Lungs are clear and equal bilateral. Abdomen is soft and nontender. Cranial nerves II through XII are intact. There are no focal motor or sensory deficits noted. Patient does have a depressed mood and flat affect. Patient denies any suicidal or homicidal ideations at the present time. Test Results: CBC was normal. Basic metabolic profile shows slightly elevated creatinine 1.62. TSH was also slightly elevated at 5.06. Tox screen and a serum alcohol level were normal. Emergency Department Course and Treatment: transfer and line up worker was in to talk with the patient and was able to arrange for an appointment with the counseling center. Patient and her daughter were instructed to follow-up with this appointment. Patient was instructed to drink plenty of fluids. Patient was also instructed to follow-up with her primary care physician regarding her TSH. Patient and her daughter understood and were agreeable with the plan. All questions were ans wered. Disposition: Discharge home Impression: Depression This note was generated with [employer] dictation software. It may contain incorrect words, spelling, and punctuation that were not noted in review of the chart prior to signing ED Disposition - Plan for ED Patient: Disposition: Home or Assisted Living Diagnosis: Depression Instructions: ED Depression Referrals: Mary Ann Bernabe DO [Primary Care Provider] - Additional Instructions: Follow-up with counseling center as scheduled. Drink plenty of fluids.
[2018-09-19 22:52] VITALS: RESP 16
== END 2018-09-19 22:52 | disposition home or self-care (01) ==
PROVIDERS: Emergency Provider Emergency Medicine
DX: F32.9 Major depressive disorder, single episode, unspecified (principal); E03.9 Hypothyroidism, unspecified; I10 Essential (primary) hypertension; F90.9 Attention-deficit hyperactivity disorder, unspecified type; F43.10 Post-traumatic stress disorder, unspecified; Z79.899 Other long term (current) drug therapy
CPT/HCPCS: 36415; 80048; 80307; 80320; 81001; 84443; 85025; 99282; G0480

== ENCOUNTER 2019-05-22 12:40 | Emergency (ER) | payer MEDICARE, OTHER, SELFPAY ==
[2019-05-22 12:41] VITALS: BP 165/74; PULSE 67; RESP 14; TEMP 36.6; O2SAT 100; BMI 21.9
--- NOTE | 2019-05-22 13:12 | EKG12_ITS ---
Test Reason : CHF Blood Pressure : / mmHG Vent. Rate : 062 BPM Atrial Rate : 062 BPM P-R Int : 116 ms QRS Dur : 112 ms QT Int : 396 ms P-R-T Axes : -17 001 -21 degrees QTc Int : 401 ms Normal sinus rhythm Incomplete right bundle branch block ST & T wave abnormality, consider anterior ischemia Abnormal ECG Confirmed by SHHAID ROJAS, DALE ([id number]), international editorial producer YOLANDA YU ([id number]) on 05/25/2019 9:45:42 AM Referred By: LOIDA Confirmed By:DALE KEY MD
--- NOTE | 2019-05-22 13:26 | ED.VIS.GEN ---
History of Present Illness Chief Complaint: Abn Labs Detail of Chief Complaint: Evaded BNP Informant: Patient, Family Onset: Days Timing: Intermittent Quality: Shortness of breath, dyspnea on exertion and malaise Location: Home Current Severity: Mild Maximum Severity: Moderate Worsened by: Activity Relieved by: Rest Associated Symptoms: Swelling of her legs and dyspnea Narrative: She is an elderly woman with history of coronary bypass surgery, 3 vessels, many years ago, hypertension and hypercholesterolemia who presents with elevated BNP and swelling of her legs. She reports malaise with dyspnea on exertion since Saturday/Saturday. Patient denies chest pain. She denies bilateral extremity pain, neck pain or jaw pain. She denies diaphoresis or nausea. She denies orthopnea or PND. She denies black or maroon stool. She had blood work performed at outside facility. CBC is unremarkable. White count is 5.2 thousand. H&H is 12.7 and 38.4. Differential is unremarkable. Basic metabolic panel is unremarkable. Sodium is 134. Potassium is 4.9. CO2 was 30. BUN and creatinine are 15 and 0.58 respectively. GFR is 102. Cholesterol is elevated to 75. TSH is normal at 2.87. History was supplemented by family member. Prior similar symptoms: Yes Recent Illness/Hospitalization: No - Past Medical History (1) History of coronary artery disease Status: Acute (2) History of hypertension Status: Acute (3) History of hypercholesterolemia Status: Acute Past Medical History - Allergies and Home Meds Allergies/Adverse Reactions: Allergies alendronate sodium [From Fosamax] Allergy (Verified 05/22/19 12:47) Unknown meloxicam Allergy (Verified 05/22/19 12:47) Unknown Sulfa (Sulfonamide Antibiotics) Allergy (Verified 05/22/19 12:47) Rash Primary Care Physician: Mary Ann Bernabe DO [Primary Care Provider] - Prior records reviewed: Yes Surgical History: coronary bypass surgery Lives: With Family Smoking Status: Never smoker Alcohol: None Drugs: None Review of Systems General: Reports: Malaise. Denies: Chills, Fever, Subjective, Sweats Eyes: Denies: Visual changes - bilaterally, Blurred Vision - bilaterally, Diplopia ENT: Denies: Bilateral ear pain, Rhinorrhea, Sore throat Cardiovascular: Denies: Chest pain, Palpitations, Heart racing Respiratory: Reports: Dyspnea, Dyspnea on exertion. Denies: Cough, Sputum, Orthopnea, Paroxysmal nocturnal dyspnea, -, - Gastrointestinal: Denies: Abdominal pain, Nausea, Vomiting, Diarrhea, Melena, Hematochezia Genitourinary: Denies: Dysuria, Hematuria, Frequency Musculoskeletal: Reports: Swelling. Denies: Myalgias, Arthralgias, Neck pain, Back pain, Extremity Pain Skin: Denies: Rash, Wounds Neurological: Denies: Headache, Weakness, Numbness Hematologic: Denies: Easy bruising, Easy bleeding Physical Exam Vital Signs/Narrative: Vital Signs Temp Pulse Resp BP Pulse Ox 05/22/19 12:41 97.9 F 67 14 165/74 H 100 Inital Vital Signs reviewed: Yes General: Well nourished, Well developed, No Acute Distress Head: Normocephalic, Atraumatic Eyes: Perrl, EOMI. Negative for: Pale conjunctiva, Scleral icterus ENT: Moist mucous membranes, No rhinorrhea Neck: Supple, Nontender, No lymphadenopathy, No JVD Cardiovascular: Regular rate, Regular rhythm, No murmurs, Normal S1, Normal S2 Respiratory: No distress, CTA bilaterally, Chest nontender Abdomen: Soft, Nontender, Nondistended, Normal bowel sounds Back: Nontender, Normal Inspection Extremities: Nontender, Edema - 2-3+ pitting Skin: Normal color, No rash, No Trauma. Negative for: Cyanosis, Diaphoresis, Jaundice Neurological: Alert, Oriented x3, Cranial nerves II-XII grossly intact, Normal Strength, Normal Sensation Psychological: Normal affect, Normal Mood Diagnostic/Tx/Re-eval Chest X-Ray - ED: 2 View, Read by ED Physician, Read by Radiologist, Normal, Heart, Lungs, Mediastinum, Bony Structures, No Acute Disease, - - Clear with mild hyper aeration. Impressions Chest X-Ray 05/22/19 13:30 IMPRESSION: Hyperinflation. The lungs are clear. Electronically Signed: Erick Peter, at 13:39 EST , Service support , 05/22/19 13:30 Chest PA and Lateral [RAD] Stat Laboratory Results 05/22/19 05/22/19 13:00 13:00 Troponin I < 0.015 B-Natriuretic Peptide 316.0 H Troponin is normal with days of symptoms. BNP is slightly elevated. Clinically patient is fluid overloaded and will place on diuretic. She will not require admission to the hospital. - Medical Decision Making Obtain chest x-ray to evaluate for evidence of CHF, pneumonia, pleural effusion. Troponin was obtained to evaluate for ischemia since symptoms have been going on for the past 4 days. EKG was obtained to evaluate for acute EKG changes. ED Disposition - Plan for ED Patient: Disposition: Home or Assisted Living Diagnosis: Bilateral edema of lower extremity, Fluid overload, History of coronary artery disease, History of hypercholesterolemia, History of hypertension Instructions: Lymphedema Prescriptions: Furosemide [Lasix] 20 mg PO DAILY #30 tab Prescription Printed Referrals: Mary Ann Bernabe DO [Primary Care Provider] - 5-7 Days
--- NOTE | 2019-05-22 13:30 | RAD_ITS ---
STUDY: X-RAY CHEST REASON FOR EXAM: Female, 73 years old. Hypertension. TECHNIQUE: PA and lateral views of the chest. COMPARISON: Comparison is made with prior study dated August 01, 2017. FINDINGS: EKG electrodes are seen. Hyperinflation. The lungs are clear. There is no demonstrated pleural abnormality. Sternal cerclage wires and vascular clips are present from a prior sternotomy and coronary artery bypass graft procedure (CABG). Normal mediastinum and brendan. Normal visualized pulmonary arteries. There is atherosclerotic calcification of the aortic arch with tortuosity. There is demineralization of the osseous structures. Increased kyphosis. Prior open reduction and internal fixation of the proximal right humerus. There is no demonstrated abnormality of the visualized soft tissue structures of the upper abdomen. RAD/Chest PA and Lateral IMPRESSION: Hyperinflation. The lungs are clear. Electronically Signed: Erick Peter, at 13:39 EST , Service support ,
[2019-05-22 14:40] VITALS: PULSE 59; RESP 16; O2SAT 100
[2019-05-22] MEDS: Furosemide 20 MG Tablet PO (15:03)
== END 2019-05-22 15:07 | disposition home or self-care (01) ==
PROVIDERS: Emergency Provider Emergency Medicine
DX: I89.0 Lymphedema, not elsewhere classified (principal); I25.10 Atherosclerotic heart disease of native coronary artery without angina pectoris; Z95.1 Presence of aortocoronary bypass graft; I10 Essential (primary) hypertension; E78.00 Pure hypercholesterolemia, unspecified; Z79.899 Other long term (current) drug therapy; R06.02 Shortness of breath
CPT/HCPCS: 71046; 83880; 84484; 93005; 99285; A4216

== ENCOUNTER 2023-09-08 19:23 | Emergency (ER) | payer MEDICARE, OTHER, SELFPAY ==
[2023-09-08 19:24] VITALS: BP 178/77; PULSE 65; RESP 15; TEMP 36; O2SAT 100; BMI 23.8
--- NOTE | 2023-09-08 19:52 | EKG12_ITS ---
Test Reason : CP Blood Pressure : / mmHG Vent. Rate : 065 BPM Atrial Rate : 065 BPM P-R Int : 152 ms QRS Dur : 114 ms QT Int : 428 ms P-R-T Axes : 057 007 -03 degrees QTc Int : 445 ms Normal sinus rhythm Incomplete right bundle branch block ST & T wave abnormality, consider anterior ischemia Abnormal ECG Confirmed by Leobardo Wilson ([id number]), newspaper editor managing SUPA SADLER ([id number]) on 09/10/2023 8:19:13 AM Referred By: Confirmed By:Leobardo Wilson
--- NOTE | 2023-09-08 19:57 | EDS_ITS ---
<Statement entered by Alivia Alfred MD - 09/08/23 23:08> I have personally performed a face to face assessment of the patient and have reviewed the CHAUNCEY Note. Patient presents secondary to chest pain. She has a history of coronary artery bypass. She states she was not feeling well earlier today and did not go to nondenominational this morning. She has felt very fatigued. She went out of the house tonight and after breathing in the cold air had pain in the central portion of her chest. It persisted after she went inside to the warm air lasted for about 30 minutes. She did not particularly feel short of breath. Patient sitting upright in bed no acute distress. Alert and talkative. Head and neck examination unremarkable. Heart is regular rate and rhythm. Lung sounds are clear. Abdomen is soft and nontender. Lower EXTR examination was no calf tenderness or edema. EKG is sinus with no evidence of acute ischemia. Right bundle branch block noted. Lab work is unremarkable. Troponin x 2 is normal. Two-view chest x-ray per my interpretation was chronic changes with no evidence of focal infiltrate. Radiology interpretation reviewed and agrees. On repeat examination patient resting comfortably has had no recurrent symptoms. She was recently seen by her sprinkling system installer and is scheduled for an echocardiogram this upcoming week as routine monitoring. She will follow-up for this testing and return instructions have been provided. HPI History of Present Illness Chief Complaint: Chest Pain Narrative Narrative: Patient presenting today due to an episode of chest pain that occurred this evening around 6 PM. She reports that she went outside to get into her daughter's car to go to nondenominational this afternoon and when she stepped outside in the cold she noticed midsternal chest pain. She reports that the pain did radiate to the left side. She got inside of the car and the pain persisted for about 30 minutes and then resolved. Her daughter then took her to the fire station where they did a twelve-lead EKG which looked normal but still recommended she be seen in the ED. Patient reports that she has felt fatigued today, she did not go to nondenominational this morning due to not feeling well. She does report a history of CABG in 2006. She had a stress test last year and is scheduled to have an echo cardiogram in the next few weeks. Patient reports that she always has slight shortness of breath with exertion that has not gotten worse. No history of blood clots/recent surgery/procedures/travel/immobilization. PMH includes CAD, hypertension, and hypothyroidism PFSH PFSH Home Medications levothyroxine 75 mcg tablet 75 mcg PO DAILY THYROID 07/31/17 [History Last Taken 08/05/17 08:00 75 MCG] lisinopril 10 mg tablet (Zestril) 10 mg PO DAILY BP 07/31/17 [History Last Taken 08/05/17 08:00 10 MG] metoprolol tartrate 25 mg tablet 25 mg PO BID HEART 07/31/17 [History Last Taken 08/05/17 08:00 25 MG] furosemide 20 mg tablet 20 mg PO DAILY #30 tabs 05/22/19 [Rx Last Taken Unknown] venlafaxine 75 mg tablet 150 mg PO BID 05/22/19 [History Last Taken Unknown] Allergy/AdvReac Type Severity Reaction Status Date / Time alendronate sodium Allergy Unknown Verified 09/08/23 19:26 [From Fosamax] meloxicam Allergy Unknown Verified 09/08/23 19:26 Sulfa (Sulfonamide Allergy Rash Verified 09/08/23 19:26 Antibiotics) Social History Smoking Status: Never smoker ROS ROS ED Constitutional Constitutional ED: Denies chills or fever(s) Cardiovascular Cardiovascular: Reports chest pain; Denies palpitations Respiratory/Chest Respiratory/Chest: Reports dyspnea on exertion; Denies cough Gastrointestinal Gastrointestinal: Denies abdominal pain, nausea or vomiting Musculoskeletal Musculoskeletal: Denies arthralgias or myalgias Integumentary Denies rash Neurologic Neurologic: Denies weakness EXAM Physical Exam Const Vital Signs: 09/08/23 19:24 09/08/23 20:24 09/08/23 20:24 Temperature 96.8 F L Temperature Source Temporal Pulse Rate 65 60 Respiratory Rate 15 17 Respiratory Effort Normal Non-Labored Blood Pressure 178/77 H 152/64 H Blood Pressure Mean 110 93 Pulse Ox 100 98 Oxygen Delivery Method Room Air Room Air Positive well nourished, well developed and no apparent distress General Appearance ED: well developed HEENT Reports normocephalic and head/scalp atraumatic Mouth ED: Yes moist mucous membranes normal Eyes PERRL and EOMs intact bilaterally Neck full ROM and supple Chest Wall inspection of chest normal Chest Narrative: Tenderness along the left parasternal border. Resp normal respiratory effort and clear to auscultation bilaterally Cardio regular rate and regular rhythm GI soft to palpation, non-tender, non-distended and no masses Back/Spine normal ROM and normal to inspection Extremity normal to inspection and full ROM Neuro oriented x3, CN's II-XII intact bilaterally, moves all extremities, no focal motor deficits and no sensory deficits noted Sensorium / Orientation: awake and alert Psych mental status grossly normal and thought process normal Skin no rashes or lesions noted and no wounds MDM MDM MDM Narrative Medical decision making narrative: Patient presenting due to an episode of chest pain that started around 6 PM. It started when she walked outside into the cold air. She is not sure if the air was irritating her lungs and causing the pain. However I did not go away for about 30 minutes causing her daughter to become concerned, she had an EKG performed at the fire station but still wanted to come in for evaluation. Her pain has resolved. She does have tenderness to palpation to the left parasternal border. Given her cardiac history, cardiac labs will be obtained to rule out ACS. She has a low Wells score, low suspicion for PE. Chest x-ray oscar l be obtained to rule out cardiopulmonary abnormality. Delta troponin is pending. Lab Data Attestation: I reviewed the patient's lab results. Lab results narrative: H&H 11.3 and 34.5, initial troponin 6 Labs: Laboratory Results - last 24 hr 09/08/23 20:09 WBC 7.0 RBC 3.65 L Hgb 11.3 L Hct 34.5 L MCV 94.5 MCH 31.0 MCHC 32.8 RDW Std Deviation 45.7 H RDW Coeff of Ade 13.1 Plt Count 183 MPV 11.8 Immature Gran % (Auto) 0.300 Neut % (Auto) 67.7 Lymph % (Auto) 18.2 L [place] % (Auto) 10.9 H Eos % (Auto) 2.3 Baso % (Auto) 0.6 Absolute Neuts (auto) 4.8 Absolute Lymphs (auto) 1.28 Nucleated RBC % 0 Sodium 141 Potassium 4.0 Chloride 105 Carbon Dioxide 32.0 Anion Gap 4 L BUN 15 Creatinine 0.78 Estim Creat Clear Calc 42.97 Est GFR (MDRD) Af Amer 92 Est GFR (MDRD) Non-Af 76 BUN/Creatinine Ratio 19.2 Glucose 129 H Calcium 9.2 Troponin I High Sens 6 EKG Initial EKG: Comments: 65 bpm, normal sinus rhythm, incomplete right bundle branch block, no ST elevation, reviewed and interpreted by attending ED physician EKG from 05/22/2019 shows incomplete right bundle branch block Discharge Plan Triage Chief Complaint: Chest Pain ED Midlevel Provider: Rosi Garcia ED Provider: Alivia Alfred Dx/Rx/DC Orders Prescriptions: No Action levothyroxine 75 MCG tablet 75 mcg PO DAILY lisinopril [Zestril] 10 MG tablet 10 mg PO DAILY metoprolol tartrate 25 MG tablet 25 mg PO BID venlafaxine 75 MG tablet 150 mg PO BID furosemide 20 MG tablet 20 mg PO DAILY Qty: 30 0RF Primary Care Provider: Mary Ann Bernabe Referrals: Mary Ann Bernabe DO [Primary Care Provider] -
--- OUTSIDE RECORDS SUMMARY | 2023-09-08 20:15 | XMS RPT_ITS | CCD ---
Author Name Unknown Address [address] [place] [address] Organization [facility] Care Team Providers Care Sales Coordinator Name Role Phone Emmanuel Sims Primary Care Provider LEVI AGUAYO, DR BENITEZ Primary Care Physician Garrett SIN, Nurys Unavailable Unavailable LEVI DO, DR BENITEZ Primary Care Physician KRISTIE HERNANDEZ Attending Unavailable EMMANUEL SIMS Primary Care Unavailable TIERNEY RN LPN [employer]ER TOWER, KURTIS Payne Attending Unavai lable LEVI DO, DR BENITEZ Primary Care Unavailable FISH RN LPN [employer]IE[employer] TOWER, KENN Attending Unavailab le LEVI DO, DR BENITEZ Primary Care Unavailable TIERNEY RN LPN [employer] TOWER, KURTIS Payne Attending Unavai lable LEVI DO, DR BENITEZ Primary Care Unavailable TJ RN LPN [employer]IE[employer] TOWER, ISELA Alcazar Attending Unavai lable LEVI DO, DR BENITEZ Primary Care Unavailable CHUCKY ROJAS, PACHECO Guillen Unavailable VIRGIL ROJAS, DR ANGEL Attending Unavailabl e LEVI DO, DR BENITEZ Primary Care Unavailable VIRGIL ROJSA, DR ANGEL Attending Unavailabl e LEVI DO, DR BENITEZ Primary Care Unavailable LEVI DO, DR BENITEZ Primary Care Unavailable LEVI DO, DR BENITEZ Attending Unavailable LEVI DO, DR BENITEZ Primary Care Unavailable LEVI DO, DR BENITEZ Attending Unavailable TIERNEY RN LPN LVN-CHIEF CONTROLLER TOWER, KURTIS Payne Attending Unavai lable LEVI DO, DR BENITEZ Primary Care Unavailable LEVI DO, DR BENITEZ Primary Care Unavailable LEVI DO, DR BENITEZ Attending Unavailable LEVI DO, DR BENITEZ Primary Care Unavailable LEVI DO, DR BENITEZ Attending Unavailable LEVI DO, DR BENITEZ Primary Care Unavailable HI ALBRIGHT MD Attending Unavailable DR EMMANUEL SIMS DO Primary Care Unavailable HI ALBRIGHT MD Attending Unavailable LEVI AGUAYO, DR BENITEZ Primary Care Unavailable LEVI AGUAYO, DR BENITEZ Attending Unavailable Allergies Allergy Classification Reported Allergen(s) Allergy Type Date of Onset Reaction(s) Facility (1 source) Alendronate Drug Allergy 9 [place], [place] (18 sources) meloxicam; 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: [meloxicam] Drug Allergy 9 Unknown (qualifier value) [place] (20 sources) Sulfamethoxazole / Trimethoprim; 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: [sulfamethoxazole-tr imethoprim] Drug Allergy 9 Unknown (qualifier value), Eruption of skin (disorder) [place] (20 sources) Alendronate; 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: [alendronate] Drug Allergy Unknown [facility] Work Phone: (20 sources) Estrogens, Conjugated (PRISON); 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: [conjugated estrogens] Drug Allergy Unknown (qualifier value) [facility] Work Phone: (17 sources) Pollen Drug allergy Unknown (qualifier value) [facility] Work Phone: (17 sources) Sulfamethoxazole; 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: [sulfamethoxazole] Drug Allergy Rash [facility] Work Phone: Medications Current Medications Medication Drug Class(es) Dates Sig (Normalized) Sig (Original) ascorbic acid 100 mg/ml oral solution (1 source) Vitamin C Start: 05-12-2019 take 1 mg by mouth once daily Vitamin C 500 mg/5 mL oral liquid mg = mL, Oral, qDay, 0 Refill(s) Start Date: 05/12/19 Status: Ordered Cholecalciferol (1 source) Vitamin D Cholecalciferol (VITAMIN D PO) Take by mouth 0 Active CoQ10 300 mg oral capsule (5 sources) Start: 10-16-2019 CoQ10 300 mg oral capsule Dose : 300 mg = 1 cap(s), Oral, qDay, # 100 cap(s), 0 Refill(s) Start Date: 4/17/20 Status: Ordered fluticasone propionate 0.05 mg/actuat metered dose nasal spray (16 sources) Corticosteroid Start: 05-28-2023 take 1 dose nasal route twice daily fluticasone 50 mcg/inh NASAL spray Dose = 1 spray(s), Nostril, each, BID, # 16 gram(s), 2 Refill(s), Pharmacy: [facility], Nasal congestion, 149.9, cm, 02/06/23 11:36:00 EDT, Height, kg, 02/06/23 11:36:00 EDT, Dosing Weight Start Date: 05/28/23 Status: Ordered Completed/Discontinued Medications Medication Drug Class(es) Dates Sig (Normalized) Sig (Original) 1 ml denosumab 60 mg/ml prefilled syringe (5 sources) RANK Ligand Inhibitor Start: 01-24-2023 Prolia 60 mg/mL subcutaneous solution Dose : 60 mg = 1 mL, Subcutaneous, q6mo, # 1 mL, 0 Refill(s) Start Date: 01/24/23 Status: Ordered Problems Active Problems Problem Classification Problem Date Documented Da te Episodic/Chronic Anxiety disorders (17 sources) Anxiety 05-07-2019 Chronic Attention-deficit, conduct, and disruptive behavior disorders (17 sources) Attention deficit hyperactivity disorder, 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 Congestive heart failure; nonhypertensive (17 sources) Acute diastolic heart failure 10-14-2019 Chronic Past or Other Problems Problem Classification Problem Date Documented Da te Episodic/Chronic Residual codes; unclassified (3 sources) Other general symptoms and signs; 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: [Other general symptoms and signs] Onset: 06-03-2023 Episodic Results Test Name Value Interpretation Reference Range Facil ity Vital Signs Date Time Vital Sign Value Performing Clinician Chavez lity 03-14-2023 11:25-0400 Body temperature 95.36 [degF] DR EMMANUEL SIMS DO [facility] 03-14-2023 11:25-0400 Diastolic Blood Pressure Non-Invasive [address] EMMANUEL SIMS DO [facility] 03-14-2023 11:25-0400 Heart rate 62 /min DR EMMANUEL SIMS DO [facility] 03-14-2023 11:25-0400 Systolic Blood Pressure Non-Invasive [address] EMMANUEL SIMS DO [facility] 09-10-2022 11:04-0400 Blood Pressure Cuff Size DR JEANNE HERMAN MD [facility] 09-10-2022 11:04-[address] JEANNE HERMAN MD [facility] 09-10-2022 11:04-[address] JEANNE HERMAN MD [facility] 09-10-2022 11:04-0400 Body height 149.[address] JEANNE HERMAN MD [facility] 09-10-2022 11:04-0400 Body temperature 97.52 [degF] DR JEANNE HERMAN MD [facility] 09-10-2022 11:04-0400 Body weight 47.[address] JEANNE HERMAN MD [facility] 09-10-2022 11:04-0400 Diastolic Blood Pressure Non-Invasive [address] JEANNE HERMAN MD [facility] 09-10-2022 11:04-0400 Heart rate 60 /min DR JEANNE HERMAN MD [facility] 09-10-2022 11:04-0400 Systolic Blood Pressure Non-Invasive [address] JEANNE HERMAN MD [facility] Encounters Encounter Date Encounter Type Care Provider Facility Start: 09-04-[address] EMMANUEL SIMS DO Fac ility:B Start: 09-04-2023 ambulatory KENN THOMAS RN LPN [employer]OWER Facility:B Start: 08-09-2023 End: 08-10-[address] EMMANUEL SIMS DO Facility:B Start: 08-09-2023 End: 08-09-2023 Patient encounter procedure HI ALBRIGHT MD [facility] Start: 08-07-2023 End: 08-08-[address] EMMANUEL SIMS DO Facility:B Start: 07-12-2023 End: 07-17-[address] EMMANUEL SIMS DO Facility:B Start: 07-12-2023 End: 07-16-[address] EMMANUEL SIMS DO [facility] Start: 07-04-2023 End: 07-05-2023 ambulatory KURTIS TIERNEY RN LPN [employer] Facility:B Start: 06-03-2023 End: 06-08-2023 ambulatory KURTIS TIERNEY RN LPN [employer] Facility:B Start: 06-03-2023 End: 06-03-2023 Patient encounter procedure KURTIS TIERNEY RN LPN [employer]OWER [facility] Start: 03-28-2023 End: 03-28-[address] [facility] Start: 03-14-2023 End: 03-14-[address] EMMANUEL SIMS DO Facility:B Start: 03-14-2023 End: 03-14-[address] EMMANUEL SIMS DO [facility] Start: 02-13-2023 End: 02-14-[address] EMMANUEL SIMS DO Facility:B Start: 02-13-2023 End: 02-13-[address] EMMANUEL SIMS DO [facility] Start: 01-07-2023 End: 01-08-[address] EMMANUEL SIMS DO Facility:B Start: 01-07-2023 End: 01-07-[address] EMMANUEL SIMS DO [facility] Start: 10-09-2022 End: 10-10-2022 ambulatory ISELA SPENCER RN LPN [employer] Facility:A Start: 10-09-2022 End: 10-09-2022 Patient encounter procedure ISELA SPENCER RN LPN [employer]OWER [facility] Start: 09-24-2022 End: 09-24-2022 ambulatory PACHECO LOCKE MD Facility:A Start: 09-10-2022 End: 09-11-[address] JEANNE HERMAN MD Facility:A Start: 09-10-2022 End: 09-10-[address] JEANNE HERMAN MD [facility] Start: 08-23-2022 End: 08-23-[address] JEANNE HERMAN MD [facility] Start: 08-10-2022 End: 08-10-2022 Patient encounter procedure KENN THOMAS RN LPN [employer] [facility] Start: 08-08-2022 End: 08-08-2022 Patient encounter procedure ISELA SPENCER RN LPN [employer] [facility] Start: 07-16-2022 End: 07-16-[address] EMMANUEL SIMS DO [facility] Start: 07-12-2022 End: 07-12-[address] EMMANUEL SIMS DO [facility] Start: 07-09-2022 End: 07-09-[address] EMMANUEL SIMS DO [facility] Start: 06-04-2022 End: 06-04-[address] EMMANUEL SIMS DO [facility] Start: 12-01-2021 End: 12-01-[address] EMMANUEL SIMS DO [facility] Start: 09-07-2021 End: 09-07-[address] EMMANUEL SIMS DO [facility] Start: 02-12-2019 End: 02-12-2019 Subsequent hospital visit by physician Amna Brown Work Phone: [facility] Dept Procedures Date Procedure Procedure Detail Performing Clinician Start: 07-01-[address] SA MURRAY HERMAN MD Start: 05-27-[address] DAQUAN SIMS DO Plan of Treatment Date Care Activity Detail Author Start: 06-04-2019 End: 06-04-2019 Office Visit 06/04/2019 Office Visit Geriatric Medicine Amna Brown MD [address] [place] [address] [facility] Start: 03-01-2019 Influenza vaccination Flu vaccine (#1) [place] Start: 12-08-2011 DEXA (modify frequency per FRAX score) DEXA (modify frequency per FRAX score) [place] Start: 12-08-2011 Pneumococcal 65+ years Vaccine (1 of 2 - PCV13) Pneumococcal 65+ years Vaccine (1 of 2 - PCV13) [place] Start: 2009 Annual Wellness Visit (AWV) Annual Wellness Visit (AWV) [place] Start: 1996 Breast cancer screen Breast cancer screen [place] Start: 1996 Colon cancer screen colonoscopy Colon cancer screen colonoscopy [place] Start: 1996 Shingles Vaccine (1 of 2) Shingles Vaccine (1 of 2) [place] Start: 1986 Lipid screen Lipid screen [place] Start: 1965 DTaP/Tdap/Td vaccine (1 - Tdap) DTaP/Tdap/Td vaccine (1 - Tdap) [place] Start: 1946 Creatinine monitoring Creatinine monitoring [place], [place] Start: 1946 Hepatitis C screen Hepatitis C screen [place], [place] Start: 1946 Potassium monitoring Potassium monitoring [place] Immunizations Immunization Date Immunization Notes Care Provider Ankush esparza 07-25-2017 tetanus toxoid, redu sergey diphtheria toxoid, and acellular pertussis vaccine, adsorbed; 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: [Boostrix (Tdap)] DR EMMANUEL SIMS DO [facility] Payers Date Payer Category Payer Unknown [id number] 2018 Medicare MEDICARE MEDICAR E PART A AND B xxxxxxxxxxx 2018-Present [phone] [place] [address] xxxxxxxxxxx [id number] 2018 Unknown [employer] [facility] MEDICARE SUPP xxxxxx-xx 2018-Present [phone] ATTN INDIVIDUAL CLAIMS [id number] [place] [address] xxxxxx-xx [id number] 2011 Medicare [id number] 1945 Unknown [id number] 1945 Unknown [id number] [id number]. 1946 Unknown [id number] 2.16.840.1.477574.3.579.2. 1945 Unknown [id number] 2.16.840.1.868809.3.579.2. 1945 Unknown [id number] 2.16840.1.905413.3.579.2. 1946 Unknown [id number] 2.16.840.1.227155.3.579.2. 1946 Unknown [id number] 2.16.840.1.450503.3.579.2. 1946 Unknown [id number] 2.16840.1.227402.3.579.2. 1946 Unknown [id number] 2.16840.1.195062.3.579.2. 1945 Unknown [id number] 2.16.840.1.617648.3.579.2. 1945 Unknown [id number] 2.16840.1.890351.3.579.2. 1945 Unknown [id number] 2.16840.1.102042.3.579.2. 1945 Unknown [id number] 2.840.1.722129.3.579.2. 1945 Unknown [id number] 2.16840.1.077169.3.579.2. Social History Date Type Detail Facility Start: 01-15-2019 End: 03-24-2020 Tobacco smoking status NHIS Never smoker [place] Start: 01-15-2019 Alcohol intake Never [place] Start: 01-15-2019 History SDOH Alcohol Frequency 1 [place] Sex Assigned At Not on file [place] Sex Assigned At [facility] Clinical Notes 07-09-2022 to 08-09-2023 LaboratoryLaboratoryLaboratoryRadiologyLaboratoryLaboratoryRadiologyLaboratoryRa diologyLaboratoryRadiologyLaboratoryRadiologyRadiologyRadiologyLaboratoryRadiolo gyLaboratory Note Date & Type Note Facility 08-09-2023 Note ORIGINAL HISTORY: Neuro cognitive disorder COMPARISON: No TECHNIQUE: Routine non-contrast head CT with sagittal and coronal reconstructions This exam was performed according to our departmental dose optimization program, and includes the following measures where applicable: automated exposure control, adjustment of the mAs and/or kVp according to patient size and/or exam, and an iterative reconstruction algorithm. FINDINGS: The ventricles and sulci are mildly enlarged. There are no abnormal intra or extra-axial fluid collections. There is mild irregular decreased attenuation in the cerebral white matter. Pimentel-white matter differentiation is maintained. The calvaria and the bones of the base of the skull are intact. IMPRESSION: Mild volume loss and small vessel ischemic disease. Interpreted by: Hamilton Mesa MD Preliminary Report By: Hamilton Mesa MD Electronically signed By Hamilton Mesa MD Dictated Date: 08/09/2023 2:05:09 PM Prelim Date: 08/09/2023 2:06:00 PM Sign Date: 08/09/2023 2:06:00 PM Ordering Provider: [facility] 06-05-2023 Note . MICRO - Microbiology PROCEDURE: Urine Culture [*1] SOURCE: Urine, Clean Catch BODY SITE: COLLECTED DATE/TIME: 06/03/2023 16:05 EST RECEIVED DATE/TIME: 06/03/2023 21:02 EST START DATE/TIME: 06/03/2023 21:02 EST FREE TEXT SOURCE: FINAL REPORTS Final Report [] Verified Date/Time/Personnel: 06/05/2023 08:12 EST No growth at 48 hours. PRELIMINARY REPORTS Preliminary Report [] Verified Date/Time/Personnel: 06/04/2023 10:13 EST No growth to date Performing Locations *1: This test was performed at: [facility], [address] [place] [address], [phone] , [facility] ([place]) 08-10-2022 Note ORIGINAL RI MYOCARDIAL SPECT STRESS/REST CLINICAL STATEMENT: CAD TECHNIQUE: Lexiscan dose:0.4 mg Radiopharmaceutical (stress): Tc-99m Sestamibi Dose:32.9 mCi Radiopharmaceutical (rest): Tc-99m Sestamibi Dose:10.7 mCi SPECT acquisition and processing Reconstruction and reorientation of SPECT images into short axis, vertical and horizontal long axis planes Quantitative LVEF assessment COMPARISON:None REPORT:Overall, image quality is good. Rotating planar images show no significant patient motion. SPECT perfusion images during rest and stress show homogeneous radiotracer uptake. No defects to suggest ischemia or infarction. Gated SPECT images show normal LV size and function. Ejection fraction is calculated at greater than 70%. IMPRESSION: 1. No evidence for ischemia. 2. No evidence of prior infarction. 3. Normal LV size and function. 4. No previous for comparison Interpreted By: Nabil Ballard Preliminary Report By: Nabil Ballard Electronically Signed By: Nabil Ballard Dictated Date: 08/10/2022 11:12:30 AM Prelim Date: 08/10/2022 11:12:30 AM Sign Date: 08/10/2022 11:14:31 AM Ordering Provider:Kenn Thomas [facility] 08-10-2022 Note ORIGINAL NM MYOCARDIAL SPECT STRESS/REST CLINICAL STATEMENT: CAD TECHNIQUE: Lexiscan dose:0.4 mg Radiopharmaceutical (stress): Tc-99m Sestamibi Dose:32.9 mCi Radiopharmaceutical (rest): Tc-99m Sestamibi Dose:10.7 mCi SPECT acquisition and processing Reconstruction and reorientation of SPECT images into short axis, vertical and horizontal long axis planes Quantitative LVEF assessment COMPARISON:None REPORT:Overall, image quality is good. Rotating planar images show no significant patient motion. SPECT perfusion images during rest and stress show homogeneous radiotracer uptake. No defects to suggest ischemia or infarction. Gated SPECT images show normal LV size and function. Ejection fraction is calculated at greater than 70%. IMPRESSION: 1. No evidence for ischemia. 2. No evidence of prior infarction. 3. Normal LV size and function. 4. No previous for comparison Interpreted By: Nabil Ballard Preliminary Report By: Nabil Ballard Electronically Signed By: Nabil Ballard Dictated Date: 08/10/2022 11:12:30 AM Prelim Date: 08/10/2022 11:12:30 AM Sign Date: 08/10/2022 11:14:31 AM Ordering Provider:Kenn Thomas [facility] 07-16-2022 Note ORIGINAL FROM: [facility] [address] [id number] PROCEDURE FOR: LESLEY BOLTON [address] [place] [address] Home: PID#: [id number] Exam#: [id number] : 1945 Age: 76 TO: EMMANUEL SIMS DO [address] [place] [address] Fax: NO FAX EXAMINATION: ULTRASOUND OF THE RIGHT BREAST AND AXILLA 07/16/2022 12:50 pm TECHNIQUE: Color flow and real-time targeted ultrasound of the right breast upper outer quadrant and right axilla were performed. COMPARISON: 07/09/2022 HISTORY: ORDERING SYSTEM PROVIDED HISTORY: Reason for Exam: ABNORMAL MAMMOGRAM Architectural distortion right breast 11 o'clock FINDINGS: There is a 1.3 cm irregular hypoechoic shadowing mass in the right breast at 11 o'clock middle depth 3 cm from the nipple. This correlates with the mammographic finding. No vascularity is seen. An incidental benign macrocalcification is seen. Normal appearing lymph nodes are seen in the right axilla. IMPRESSION: The 1.3 cm irregular mass in the right breast at 11 o'clock appears suspicious for malignancy. An ultrasound guided biopsy is recommended. BIRADS: MAMMOGRAM BI-RADS: 4: Suspicious abnormality RECALL: immediate RECALL TYPE: Biopsy followup LETTER SENT: Biopsy Recommended BI-RADS 4 and 5 Interpreted by: Mateusz Marcelino MD Preliminary Report By: Mateusz Marcelino MD Electronically signed By Mateusz Marcelino MD Dictated Date: 07/16/2022 1:21:50 PM Prelim Date: 07/16/2022 2:44:27 PM Sign Date: 07/16/2022 2:44:27 PM Ordering Provider: EMMANUEL SIMS CLINICAL: MAMMOGRAPHIC DENSITY RIGHT BREAST. Day Care Provider: ANABEL JHA RT(Inge) RDMT letter sent: Biopsy Recommended BI-RADS 4 and 5 Ultrasound BI-RADS: 4 Suspicious for malignancy [facility] 07-16-2022 Note ORIGINAL FROM: [facility] [address] [place], [place] [address] PROCEDURE FOR: LESLEY BOLTON [address] [place] [address] Home: PID#: [id number] Exam#: [id number] : 1945 Age: 76 TO: EMMANUEL SIMS DO [address] [place] [id number] Fax: NO FAX EXAMINATION: ULTRASOUND OF THE RIGHT BREAST AND AXILLA 07/16/2022 12:50 pm TECHNIQUE: Color flow and real-time targeted ultrasound of the right breast upper outer quadrant and right axilla were performed. COMPARISON: 07/09/2022 HISTORY: ORDERING SYSTEM PROVIDED HISTORY: Reason for Exam: ABNORMAL MAMMOGRAM Architectural distortion right breast 11 o'clock FINDINGS: There is a 1.3 cm irregular hypoechoic shadowing mass in the right breast at 11 o'clock middle depth 3 cm from the nipple. This correlates with the mammographic finding. No vascularity is seen. An incidental benign macrocalcification is seen. Normal appearing lymph nodes are seen in the right axilla. IMPRESSION: The 1.3 cm irregular mass in the right breast at 11 o'clock appears suspicious for malignancy. An ultrasound guided biopsy is recommended. BIRADS: MAMMOGRAM BI-RADS: 4: Suspicious abnormality RECALL: immediate RECALL TYPE: Biopsy followup LETTER SENT: Biopsy Recommended BI-RADS 4 and 5 Interpreted by: Mateusz Marcelino MD Preliminary Report By: Mateusz Marcelino MD Electronically signed By Mateusz Marcelino MD Dictated Date: 07/16/2022 1:21:50 PM Prelim Date: 07/16/2022 2:44:27 PM Sign Date: 07/16/2022 2:44:27 PM Ordering Provider: EMMANUEL SIMS CLINICAL: MAMMOGRAPHIC DENSITY RIGHT BREAST. Day Care Provider: ANABEL JIN(Inge) RDMS letter sent: Biopsy Recommended BI-RADS 4 and 5 Ultrasound BI-RADS: 4 Suspicious for malignancy [facility] 07-09-2022 Note ORIGINAL EXAMINATION: BONE DENSITOMETRY07/09/2022 10:43 am TECHNIQUE: Dual energy bone densitometry lumbar spine and left hip. COMPARISON: None. HISTORY: Reason for Exam: screening Osteoporosis screening. FINDINGS: Total bone mineral density of the L1-L4 is 0.924 grams per square centimeters, and T-score being -1.1, indicating that this patient has osteopenia. Bone mineral density of the left femoral neck is 0.577 grams per square centimeters, and T-score being -2.5, indicating that this patient has osteoporosis. Total bone mineral density of the left hip is 0.710 grams per square centimeters, and T-score being -1.9, indicating that this patient has normal bone mineral density. IMPRESSION: The patient has osteoporosis based on the left femoral neck T-score. I have personally reviewed the images of this examination and agree with the resident's findings and interpretation. Interpreted by: Debbi Valentine MD Preliminary Report By: Senait Garcia Electronically signed By Debbi Valentine MD Dictated Date: 07/09/2022 4:24:26 PM Prelim Date: 07/09/2022 11:39:29 PM Sign Date: 07/09/2022 11:39:29 PM Ordering Provider: EMMANUEL SIMS [facility] 07-09-2022 Note ORIGINAL EXAMINATION: BONE DENSITOMETRY07/09/2022 10:43 am TECHNIQUE: Dual energy bone densitometry lumbar spine and left hip. COMPARISON: None. HISTORY: Reason for Exam: screening Osteoporosis screening. FINDINGS: Total bone mineral density of the L1-L4 is 0.924 grams per square centimeters, and T-score being -1.1, indicating that this patient has osteopenia. Bone mineral density of the left femoral neck is 0.577 grams per square centimeters, and T-score being -2.5, indicating that this patient has osteoporosis. Total bone mineral density of the left hip is 0.710 grams per square centimeters, and T-score being -1.9, indicating that this patient has normal bone mineral density. IMPRESSION: The patient has osteoporosis based on the left femoral neck T-score. I have personally reviewed the images of this examination and agree with the resident's findings and interpretation. Interpreted by: Debbi Valentine MD Preliminary Report By: Senait Garcia Electronically signed By Debbi Valentine MD Dictated Date: 07/09/2022 4:24:26 PM Prelim Date: 07/09/2022 11:39:29 PM Sign Date: 07/09/2022 11:39:29 PM Ordering Provider: EMMANUEL SIMS [facility] Evaluation + Plan note Future Appointments Appointment Date:09/14/2021 10:30:00 AM Scheduled Provider:EMMANUEL SIMS DO Location:[facility] Appointment Type:PC OV Appointment Date:01/11/2022 03:00:00 PM Scheduled Provider:KENN THOMAS Location:[facility] Appointment Type:CV OV [facility] Evaluation + Plan note Future Appointments Appointment Date:12/05/2021 10:00:00 AM Scheduled Provider:EMMANUEL SIMS DO Location:[facility] Appointment Type:PC OV Appointment Date:01/11/2022 03:00:00 PM Scheduled Provider:KENN THOMAS Location:[facility] Appointment Type:CV OV [facility] Evaluation + Plan note Future Appointments Appointment Date:06/05/2022 10:00:00 AM Scheduled Provider:EMMANUEL SIMS DO Location:[facility] Appointment Type:PC OV Appointment Date:07/23/2022 10:00:00 AM Scheduled Provider:KENN THOMAS Location:[facility] Appointment Type:CV OV Future Scheduled TestsPTH, Intact 12/05/21 [facility] Evaluation + Plan note Future Appointments Appointment Date:07/23/2022 10:00:00 AM Scheduled Provider:KENN THOMAS Location:[facility] Appointment Type:CV OV Appointment Date:12/04/2022 10:00:00 AM Scheduled Provider:EMMANUEL SIMS DO Location:[facility] Appointment Type:PC OV Future Scheduled TestsThyroid Stimulating Hormone 06/05/22Thyroid Stimulating Hormone 12/04/22A1C Hemoglobin 12/04/22Complete Blood Count 12/04/22Lipid Profile 12/04/22PTH, Intact 6/7/22Vitamin D Level 12/04/22Complete Metabolic Panel 12/04/22 [facility] Evaluation + Plan note Future Appointments Appointment Date:07/16/2022 01:00:00 PM Scheduled Provider: Location:[facility] Appointment Type:US Breast Right Limited Appointment Date:07/23/2022 10:00:00 AM Scheduled Provider:KENN THOMAS Location:[facility] Appointment Type:CV OV Appointment Date:12/04/2022 10:00:00 AM Scheduled Provider:EMMANUEL SIMS DO Location:[facility] Appointment Type:PC OV Future Scheduled TestsThyroid Stimulating Hormone 12/04/22A1C Hemoglobin 12/04/22Complete Blood Count 12/04/22Lipid Profile 12/04/22PTH, Intact 6/7/22Vitamin D Level 12/04/22Complete Metabolic Panel 12/04/22US Breast Right Limited 07/16/22 [facility] Evaluation + Plan note Future Appointments Appointment Date:07/23/2022 10:00:00 AM Scheduled Provider:KENN THOMAS Location:[facility] Appointment Type:CV OV Appointment Date:12/04/2022 10:00:00 AM Scheduled Provider:EMMANUEL SIMS DO Location:[facility] Appointment Type:PC OV Future Scheduled TestsThyroid Stimulating Hormone 12/04/22A1C Hemoglobin 12/04/22Complete Blood Count 6/Lipid Profile 6/23PTH, Intact 6/7/22Vitamin D Level 12/04/22Complete Metabolic Panel 12/04/22 [facility] Evaluation + Plan note Future Appointments Appointment Date:08/10/2022 08:00:00 AM Scheduled Provider: Location:[facility] Appointment Type:NM Myocardial Spect Rest/Stress Appointment Date:12/04/2022 10:00:00 AM Scheduled Provider:EMMANUEL SIMS DO Location:[facility] Appointment Type:PC OV Appointment Date:01/23/2023 09:00:00 AM Scheduled Provider:KENN THOMAS Location:[facility] Appointment Type:CV OV Future Scheduled TestsThyroid Stimulating Hormone 12/04/22A1C Hemoglobin 12/04/22Complete Blood Count 12/04/23Lipid Profile 23PTH, Intact 6/7/22Vitamin D Level 12/04/22Complete Metabolic Panel 12/04/22NM Myocardial Spect Rest/Stress 08/10/22NM Myocardial Spect Rest/Stress 07/23/22 [facility] Evaluation + Plan note Future Appointments Appointment Date:12/04/2022 10:00:00 AM Scheduled Provider:EMMANUEL SIMS DO Location:[facility] Appointment Type:PC OV Appointment Date:01/23/2023 09:00:00 AM Scheduled Provider:KENN THOMAS Location:[facility] Appointment Type:CV OV Future Scheduled TestsThyroid Stimulating Hormone 12/04/22A1C Hemoglobin 12/04/22Complete Blood Count 23Lipid Profile 23PTH, Intact 6/7/22Vitamin D Level 12/04/22Complete Metabolic Panel 23NM Myocardial Spect Rest/Stress 07/23/22 [facility] Evaluation + Plan note Future Appointments Appointment Date:10/09/2022 11:00:00 AM Scheduled Provider:ISELA SPENCER Location:[facility] Appointment Type:BS OV Post Op Appointment Date:12/04/2022 10:00:00 AM Scheduled Provider:EMMANUEL SIMS DO Location:[facility] Appointment Type:PC OV Appointment Date:01/23/2023 09:00:00 AM Scheduled Provider:KENN THOMAS Location:[facility] Appointment Type:CV OV Future Scheduled TestsThyroid Stimulating Hormone 12/04/22A1C Hemoglobin 23Complete Blood Count 12/04/23Lipid Profile 6//23PTH, Intact 6/7/22Vitamin D Level 12/04/Complete Metabolic Panel //NM Myocardial Spect Rest/Stress 07/23/22 [facility] Evaluation + Plan note Future Appointments Appointment Date:11/28/2022 10:30:00 AM Scheduled Provider:KENN THOMAS Location:[facility] Appointment Type:CV OV Appointment Date:12/04/2022 10:00:00 AM Scheduled Provider:EMMANUEL SIMS DO Location:[facility] Appointment Type:PC OV Appointment Date:01/23/2023 09:00:00 AM Scheduled Provider:KENN THOMAS Location:[facility] Appointment Type:CV OV Future Scheduled TestsThyroid Stimulating Hormone 12/04/22A1C Hemoglobin 12/04/22Complete Blood Count 12/04/22Lipid Profile 12/04/23PTH, Intact 6/7/22Vitamin D Level 12/04/Complete Metabolic Panel //23NM Myocardial Spect Rest/Stress 07/23/22 [facility] Evaluation + Plan note Future Appointments Appointment Date:01/10/2023 11:30:00 AM Scheduled Provider:EMMANUEL SIMS DO Location:[facility] Appointment Type:PC OV Appointment Date:01/23/2023 09:00:00 AM Scheduled Provider:KENN THOMAS Location:[facility] Appointment Type:CV OV Future Scheduled TestsNM Myocardial Spect Rest/Stress 07/23/22 [facility] Evaluation + Plan note Future Appointments Appointment Date:07/12/2023 10:00:00 AM Scheduled Provider:EMMANUEL SIMS DO Location:[facility] Appointment Type:PC OV Appointment Date:09/04/2023 10:30:00 AM Scheduled Provider:KENN THOMAS Location:[facility] Appointment Type:CV OV Future Scheduled TestsNM Myocardial Spect Rest/Stress 07/23/22 [facility] Evaluation + Plan note Future Appointments Appointment Date:09/04/2023 10:30:00 AM Scheduled Provider:KENN THOMAS Location:[facility] Appointment Type:CV OV Appointment Date:01/16/2024 02:00:00 PM Scheduled Provider:EMMANUEL SIMS DO Location:[facility] Appointment Type:PC OV Future Scheduled TestsFerritin 01/10/24Iron Level 01/10/24Thyroid Stimulating Hormone 01/10/24Vitamin B12 Level 01/10/24A1C Hemoglobin 01/10/24Complete Blood Count 01/10/24Lipid Profile 01/10/24Vitamin D Level 01/10/24Complete Metabolic Panel 01/10/24NM Myocardial Spect Rest/Stress 07/23/22 [facility] Evaluation + Plan note Future Appointments Appointment Date:09/04/2023 10:30:00 AM Scheduled Provider:KENN THOMAS Location:[facility] Appointment Type:CV OV Appointment Date:01/16/2024 02:00:00 PM Scheduled Provider:EMMANUEL SIMS DO Location:[facility] Appointment Type:PC OV Future Scheduled TestsFerritin 01/10/24Iron Level 01/10/24Thyroid Stimulating Hormone 01/10/24Vitamin B12 Level 01/10/24A1C Hemoglobin 01/10/24Complete Blood Count 01/10/24Lipid Profile 01/10/24Vitamin D Level 01/10/24Complete Metabolic Panel 01/10/24 [facility] Hospital course Narrative No data available for this section [facility] Hospital Discharge instructions No data available for this section [facility] Progress note No data available for this section [facility] Advance Directives No Advanced Directives Records FoundDocuments on File Type Date 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 Advance Directives and Jorge rivera Will Power of Electrical Technician 01/15/2019 8:21 AM LUIS Peña Power of Electrical Technician 01/15/2019 8:23 AM Ashanti rowell Summary Purpose Family History No Family History Records Found Additional Source Comments Care Team (unrecognized sect ion and content) Personnel Name: EMMANUEL SIMS DO Address: [address] [place] [address] Name: Taylor Tucker Clerk [employer] PT Care Team Personnel Name: [employer] Statistical Clerk [employer] Position: P3 Scheduling - Assistant Facility Manager Advanced Member Role: Other Name: EMMANUEL SIMS DO Position: P4 Physician - Primary Care Member Role: Primary Care Physician Address: Address: [address] [place] [address] Care Team Related Persons Name: DAVI BRISCOE Care Team Personnel Name: Taylor Tucker Clerk [employer] PT Position: P3 Scheduling - Assistant Facility Manager Advanced Member Role: Other Name: EMMANUEL SIMS DO Position: P4 Physician - Primary Care Member Role: Primary Care Physician Address: Address: [address] [place] [address] Care Team Related Persons Name: DAVI BRISCOE Care Team Personnel Name: [employer] Statistical Clerk [employer] PT Position: P3 Scheduling - Assistant Facility Manager Advanced Member Role: Other Name: EMMANUEL SIMS DO Position: P4 Physician - Primary Care Member Role: Primary Care Physician Address: Address: [address] [place] [address] Care Team Related Persons Name: LOUIS BRISCOEAE Care Team Personnel Name: [employer] Statistical Clerk [employer] Position: P3 Scheduling - Assistant Facility Manager Advanced Member Role: Other Name: EMMANUEL SIMS DO Position: P4 Physician - Primary Care Member Role: Primary Care Physician Address: Address: [address] [place] [address] Care Team Related Persons Name: DAVI BRISCOE Care Team Personnel Name: [employer] Statistical Clerk [employer] PT Position: P3 Scheduling - Assistant Facility Manager Advanced Member Role: Other Name: EMMANUEL SIMS DO Position: P4 Physician - Primary Care Member Role: Primary Care Physician Address: Address: [address] [place] [address]- Care Team Related Persons Name: LUIS FELIPEDAVI Care Team Personnel Name: Taylor Tucker Clerk [employer] PT Position: P3 Scheduling - Assistant Facility Manager Advanced Member Role: Other Name: EMMANUEL SIMS DO Position: P4 Physician - Primary Care Member Role: Primary Care Physician Address: Address: [address] [place] [address]- Care Team Related Persons Name: DAVI BRISCOE Care Team Personnel Name: Taylor Tucker Clerk [employer] PT Position: P3 Scheduling - Assistant Facility Manager Advanced Member Role: Other Name: EMMANUEL SIMS DO Position: P4 Physician - Primary Care Member Role: Primary Care Physician Address: Address: [address] [place] [address]- Care Team Related Persons Name: DAVI BRISCOE Care Team (unrecognized sect ion and content) Care Team Personnel Name: Taylor Tucker Clerk [employer] PT Position: P3 Scheduling - Assistant Facility Manager Advanced Member Role: Other Name: EMMANUEL SIMS DO Position: P4 Physician - Primary Care Member Role: Primary Care Physician Address: Address: [address] [place] [address]- Care Team Related Persons Name: DAVI BRISCOE Address: [address] [place], [place] [phone] [place] Care Team Personnel Name: Taylor Tucker Clerk [employer] PT Position: P3 Scheduling - Assistant Facility Manager Advanced Member Role: Other Name: EMMANUEL SIMS DO Position: P4 Physician - Primary Care Member Role: Primary Care Physician Address: Address: [address] [place] [address]- Care Team Related Persons Name: DAVI BRISCOE Address: Home [address] [place], [place] [phone] [place] Care Team Personnel Name: Taylor Tucker Clerk [employer] PT Position: P3 Scheduling - Assistant Facility Manager Advanced Member Role: Other Name: EMMANUEL SIMS DO Position: P4 Physician - Primary Care Member Role: Primary Care Physician Address: Address: [address] [place] [address] Care Team Related Persons Name: DAVI BRISCOE Address: Home [address] [place], [place] [phone] [place] Care Team Personnel Name: Taylor Tucker Clerk [employer] PT Position: P3 Scheduling - Assistant Facility Manager Advanced Member Role: Other Name: EMMANUEL SIMS DO Position: P4 Physician - Primary Care Member Role: Primary Care Physician Address: Address: [address] [place] [address] Care Team Related Persons Name: DAVI BRISCOE Kerry Address: [place] [address] [place] [phone] [place] Care Team Personnel Name: Taylor Tucker Clerk [employer] PT Position: P3 Scheduling - Assistant Facility Manager Advanced Member Role: Other Name: EMMANUEL SIMS DO Position: P4 Physician - Primary Care Member Role: Primary Care Physician Address: Address: [address] [place] [address] Care Team Related Persons Name: DAVI BRISCOE Address: Home [address] [place], [place] [phone] [place] Care Team Personnel Name: Taylor Tucker Clerk [employer]ur[employer] PT Position: P3 Scheduling - Assistant Facility Manager Advanced Member Role: Other Name: EMMANUEL SIMS DO Position: P4 Physician - Primary Care Member Role: Primary Care Physician Address: Address: [address] [place] [address]- Care Team Related Persons Name: LUIS FELIPE DAVI Kerry Address: Home [address] [place], [place] [phone] [place] Care Team Personnel Name: Taylor Tucker Clerk Nurys PT Position: P3 Scheduling - Assistant Facility Manager Advanced Member Role: Other Name: EMMANUEL SIMS DO Position: P4 Physician - Primary Care Member Role: Primary Care Physician Address: Address: [address] [place] [id number] Care Team Related Persons Name: DAVI BRISCOE Address: Home [address] [place], [place] [phone] Care Team Personnel Name: Taylor Tucker Clerk Nurys SIN Position: P3 Scheduling - Assistant Facility Manager Advanced Member Role: Other Name: EMMANUEL SIMS DO Position: P4 Physician - Primary Care Member Role: Primary Care Physician Address: Address: [address] [place] [address] [place] Care Team Related Persons Name: DAVI BRISCOE INFORMATION SOURCE (unrecogn ized section and content) DATE CREATED AUTHOR AUTHOR'S ORGANIZ ATION 09/05/2023 [facility] [employer] ([place]) FOR RECORDS PERTAINING TO PATIENTS WHO ARE OR HAVE BEEN ENROLLED IN A CHEMICAL DEPENDENCY/SUBSTANCEABUSE PROGRAM, SOME INFORMATION MAY BE OMITTED. This clinical summary was aggregated from multiple sources. Caution should be exercised in using it in the provision of clinical care. This summary normalizes information from multiple sources, and as a consequence, information in this document may materially change the coding, format and clinical context of patient data. In addition, data may be omitted in some cases. CLINICAL DECISIONS SHOULD BE BASED ON THE PRIMARY CLINICAL RECORDS. [facility] [employer] [facility]. provides no warranty or guarantee of the accuracy or completeness of information in this document.
[2023-09-08 20:24] VITALS: BP 152/64; PULSE 60; RESP 17; O2SAT 98
[2023-09-08 20:27] LABS: Absolute Lymphocyte Count 1.28 X10^3/uL (0.83-4.51); Absolute Neutrophil Count 4.8 X10^3/uL (2.0-7.7); Basophil# 0.04 X10^3/uL; Basophil% 0.6 % (0-1); Eosinophil# 0.16 X10^3/uL; Eosinophils% 2.3 % (0-5); Hematocrit 34.5 % (37-47); Hemoglobin 11.3 g/dL (12.0-15.0); Lymphocyte # 1.28 X10^3/ul (0.83-4.51); Lymphocyte % 18.2 % (19-41); Mean Corp Hgb Conc 32.8 g/dL (32-36); Mean Corpuscular Volume 94.5 fL (81-99); Mean Platelet Vol. 11.8 fl (6.2-12.0); Monocyte# 0.77 X10^3/uL; Monocyte% 10.9 % (0-10); NRBC Flagged by Analyzer 0 % (0-5); Neutrophil # 4.77 X10^3/uL (2.7-7.7); Neutrophil % 67.7 % (47-70); Platelet Count 183 K/mm3 (150-450); RBC Distribution Width CV 13.1 % (11.6-14.6); RBC Distribution Width SD 45.7 fl (35.1-43.9); Red Blood Count 3.65 M/mm3 (4.2-5.4)
[2023-09-08 20:34] LABS: Anion Gap 4 (5-15); BUN 15 mg/dL (7-18); BUN/Creat Ratio 19.2 RATIO (10-20); Calcium,Total 9.2 mg/dL (8.5-10.1); Chloride 105 mmol/L (98-107); Creatinine, Serum 0.78 mg/dL (0.55-1.02); EST Glomerular Filtration Rate 76 mL/min (>60); Est Glom Filt Rate - Afr Amer 92 mL/min (>60); Estimated Creatinine Clearance 42.97 ml/min; Glucose 129 mg/dL (74-106); Sodium Level 141 mmol/L (136-145); Troponin-I HS (w/2H Reflex) 6 pg/mL (3.0-54.0)
[2023-09-08 21:00] VITALS: BP 158/64; PULSE 74; RESP 18; O2SAT 98
--- NOTE | 2023-09-08 21:40 | RAD_ITS ---
INDICATION: chest pain EXAMINATION/TECHNIQUE: X-RAY - XR Chest 2 Views COMPARISON: 05/22/2019 FINDINGS: LINES/DEVICES: None. LUNGS: No consolidation. No pneumothorax. MEDIASTINUM: Unremarkable. CARDIAC SILHOUETTE: Not enlarged. Sternal wires. BONES AND SOFT TISSUES: No acute abnormalities. Degenerative changes dorsal spine. Surgical hardware in the right humerus. RAD/Chest PA and Lateral IMPRESSION: No evidence of active intrathoracic disease. Electronically Signed: Tita Camacho MD at 22:26 EDT ,
[2023-09-08 22:13] LABS: Reflex Troponin-HS? (from REC) Y
[2023-09-08 22:43] LABS: Troponin-I HS 6 pg/mL (3.0-54.0)
[2023-09-08 23:05] VITALS: BP 158/64; PULSE 75; RESP 18; TEMP 36.2; O2SAT 97
== END 2023-09-08 23:06 | disposition home or self-care (01) ==
PROVIDERS: Physician Assistant; Emergency Provider Emergency Medicine; Visit Provider Emergency Medicine
DX: R07.89 Other chest pain (principal); I10 Essential (primary) hypertension; I25.10 Atherosclerotic heart disease of native coronary artery without angina pectoris; Z95.5 Presence of coronary angioplasty implant and graft; I45.10 Unspecified right bundle-branch block; E03.9 Hypothyroidism, unspecified; R06.9 Unspecified abnormalities of breathing
CPT/HCPCS: 71046; 80048; 84484; 85025; 93005; 99284; A4216

== ENCOUNTER 2023-11-16 14:20 | Emergency (ER) | payer MEDICARE, OTHER, SELFPAY ==
[2023-11-16 14:21] VITALS: BP 141/74; PULSE 82; RESP 14; TEMP 36.1; O2SAT 98; BMI 24.2
--- NOTE | 2023-11-16 14:44 | CT_ITS ---
EXAM: CT HEAD WITHOUT INTRAVENOUS CONTRAST CLINICAL INDICATION: confusion TECHNIQUE: Multiple axial images were obtained of the head without intravenous contrast. This CT exam was performed using one or more of the following dose reduction techniques: automated exposure control, adjustment of the mA and/or kV according to patient size, and/or use of iterative reconstruction technique. COMPARISON: No relevant prior studies available. FINDINGS: BRAIN AND EXTRA-AXIAL SPACES: No hemorrhage or mass effect. No acute ischemia. Areas of diminished white matter density noted within both cerebral hemispheres suggestive of chronic microvascular change. Prominence of the cortical sulci and ventricles related to volume loss change. BONES/JOINTS: Normal calvarium. SINUSES: No acute sinusitis. MASTOID AIR CELLS: Normal. Clear. CT/Brain/Head without Contrast IMPRESSION: 1. No acute intracranial abnormality. 2. Senescent changes. Electronically Signed: Collins Bradley MD at 15:31 EDT ,
--- NOTE | 2023-11-16 14:45 | EKG12_ITS ---
Test Reason : NEURO Blood Pressure : / mmHG Vent. Rate : 077 BPM Atrial Rate : 077 BPM P-R Int : 148 ms QRS Dur : 112 ms QT Int : 402 ms P-R-T Axes : 046 024 -21 degrees QTc Int : 454 ms Normal sinus rhythm Low voltage QRS Right bundle branch block Abnormal ECG Confirmed by Leobardo Wilson ([id number]), video editor SUPA SADLER ([id number]) on 11/18/2023 9:04:36 AM Referred By: Confirmed By:Leobardo Wilson
--- NOTE | 2023-11-16 15:07 | EDS_ITS ---
HPI <CORBIN Pratt - Last Filed: 11/16/23 20:21> History of Present Illness Chief Complaint: Confusion Narrative Narrative: 77-year-old female with past medical history of hypertension, hypothyroidism, Alzheimer's dementia was brought in by her daughter after acute behavioral changes over the last week. Patient lives alone and daughter lives in the house next-door. She has had longstanding history of memory issues and the neurologist is treating her for Alzheimer's with oral medications. Over the last week she has been paranoid and wandering and leaving her house knocking on the neighbors door at all times of nights. Her daughter administers her medications so she knows she is taking them but the patient is barely eating and drinking. Urinalysis is a mass. She has had no fever or illness. PFSH <CORBIN Pratt - Last Filed: 11/16/23 20:21> [facility] Home Medications ?Medication ?Instructions ?Recorded ?Last Taken ?Type levothyroxine 75 mcg tablet 75 mcg PO DAILY THYROID 07/31/17 08/05/17 08:00 History 75 MCG lisinopril 10 mg tablet (Zestril) 10 mg PO DAILY BP 07/31/17 08/05/17 08:00 History 10 MG metoprolol tartrate 25 mg tablet 25 mg PO BID HEART 07/31/17 08/05/17 08:00 History 25 MG furosemide 20 mg tablet 20 mg PO DAILY #30 tabs 05/22/19 Unknown Rx venlafaxine 75 mg tablet 150 mg PO BID 05/22/19 Unknown History Allergy/AdvReac Type Severity Reaction Status Date / Time alendronate sodium (From Allergy Unknown Verified 11/16/23 14:23 Fosamax) meloxicam Allergy Unknown Verified 11/16/23 14:23 Sulfa (Sulfonamide Allergy Rash Verified 11/16/23 14:23 Antibiotics) Social History Smoking Status: Never smoker ROS <CORBIN Pratt - Last Filed: 11/16/23 20:21> ROS ED ROS Narrative Constitutional: Negative for fever, chills, malaise. CVS: Negative for chest pain. Respiratory: Negative for shortness of breath, cough. GI: Negative for abdominal pain, nausea, vomiting, diarrhea. EXAM <CORBIN Pratt - Last Filed: 11/16/23 20:21> Physical Exam Narrative Exam Narrative: CONST: Patient sitting in no acute distress. EYES: Normal inspection. NECK: Normal inspection. RESP: No respiratory distress, CTAB. CVS: Regular rate and rhythm, no murmur, no gallop. SKIN: Color normal, no rash, warm, dry, intact. EXTREMITIES: Normal appearance, no pedal edema. NEURO: Alert to self and place. During examination noted on tangents about church themes. Sometimes hard to redirect. Follows commands, moving all extremities. PSYCH: Normal affect. Const Vital Signs: 11/16/23 14:21 11/16/23 16:21 11/16/23 18:00 Temperature 96.9 F L Temperature Source Temporal Pulse Rate 82 81 74 Respiratory Rate 14 16 16 Blood Pressure 141/74 H 136/68 H 133/96 H Blood Pressure Mean 96 90 108 Pulse Ox 98 98 98 Oxygen Delivery Method Room Air Room Air Room Air 11/16/23 20:00 Temperature Temperature Source Pulse Rate 82 Respiratory Rate 16 Blood Pressure 126/55 H Blood Pressure Mean 78 Pulse Ox 98 Oxygen Delivery Method Room Air <Dr. Husam Gaytan DO - Last Filed: 11/16/23 18:14> Physical Exam Const Vital Signs: 11/16/23 14:21 11/16/23 16:21 11/16/23 18:00 Temperature 96.9 F L Temperature Source Temporal Pulse Rate 82 81 74 Respiratory Rate 14 16 16 Blood Pressure 141/74 H 136/68 H 133/96 H Blood Pressure Mean 96 90 108 Pulse Ox 98 98 98 Oxygen Delivery Method Room Air Room Air Room Air 11/16/23 20:00 Temperature Temperature Source Pulse Rate 82 Respiratory Rate 16 Blood Pressure 126/55 H Blood Pressure Mean 78 Pulse Ox 98 Oxygen Delivery Method Room Air MDM <CORBIN Pratt - Last Filed: 11/16/23 20:21> [facility] MDM Narrative Medical decision making narrative: History gathered from: Patient and daughter Consults: Crisis Counselor Differential: Metabolic abnormality, infectious abnormality such as UTI, dementia, psychiatric condition Patient has a history of Alzheimer's dementia and over the last week developed increased confusion and behavioral disturbance. Daughter states she is suspicious and paranoid and wandering outside of her home. She appears well and nontoxic. Vital signs stable. Awake and alert to self and place. During examination she will go on tangents preoccupied with church themes or stating she lied about things. She has no focal neurological deficits. Labs show normal white count of 7.4 and stable hemoglobin of 11.4. BMP overall unremarkable. Glucose 151. TSH slightly elevated at 11.30 consistent with a history of hypothyroidism but this is not the source of her symptoms. CXR and UA negative for infection. Urine drug screen and alcohol level negative. CT brain shows no acute process. There is no medical etiology to explain her symptoms and this may be worsening of her dementia with behavioral disturbance versus underlying psychiatric condition. At this point she is medically cleared and crisis was called for evaluation. Crisis feels the patient needs placed injury psychiatric review that she lives alone and is a danger to herself in the state. Patient was pink slipped. I have personally performed a face to face assessment of the patient and have reviewed the CHAUNCEY Note. I performed a substantive portion of the visit including all aspects of the following. My hidalgo findings include: History is 77-year-old female who lives alone with her daughter next-door has a history of Alzheimer's presenting with change in mental status. Patient has church preoccupation and delusions that her neighbors are stalking her have eyes for her. She has been wandering off. She does not know the year and believes that her is alive. He more than a decade ago. Family states that she has not been eating. They are already providing her medications for her. She has been wandering off down the road over the past several days and is becoming unsafe for her to be at home. She has been seeing a neurologist for the Alzheimer's. Exam is afebrile vital signs stable no acute distress. Patient is alert to self. She is knows that she is at hospital does not know the year. She speaks nonlinear. She has church preoccupations and ideas of delusions. She denies auditory or visual hallucinations to me. Medical Decison Making Pratibha psychiatric screening was obtained to medically clear her. Crisis was consulted. I filled out a pink slip and believe the patient's best interest would be for her to [facility]. Lab Data Attestation: I reviewed the patient's lab results. Labs: Laboratory Results - last 24 hr 05/18/24 05/18/24 15:03 15:52 WBC 7.4 RBC 3.68 L Hgb 11.4 L Hct 35.2 L MCV 95.7 MCH 31.0 MCHC 32.4 RDW Std Deviation 46.2 H RDW Coeff of Ade 13.2 Plt Count 193 MPV 11.4 Immature Gran % (Auto) 0.400 Neut % (Auto) 72.5 H Lymph % (Auto) 16.4 L [place] % (Auto) 9.0 Eos % (Auto) 1.2 Baso % (Auto) 0.5 Absolute Neuts (auto) 5.3 Absolute Lymphs (auto) 1.21 Nucleated RBC % 0 Sodium 137 Potassium 3.7 Chloride 103 Carbon Dioxide 28.0 Anion Gap 6 BUN 18 Creatinine 0.86 Estim Creat Clear Calc 39.97 Est GFR (MDRD) Af Amer 82 Est GFR (MDRD) Non-Af 68 BUN/Creatinine Ratio 20.9 H Glucose 151 H Calcium 9.2 Total Bilirubin 0.40 AST 39 H ALT 35 Alkaline Phosphatase 58 Troponin I High Sens 5 Total Protein 7.0 Albumin 3.8 Globulin 3.2 Albumin/Globulin Ratio 1.2 TSH 11.30 H Urine Color Yellow Urine Clarity Clear Urine pH 6.5 Ur Specific [place] 1.010 Urine Protein Negative Urine Glucose (UA) Normal Urine Ketones Negative Urine Occult Blood Negative Urine Nitrite Negative Urine Bilirubin Negative Urine Urobilinogen Normal Ur Leukocyte Esterase Negative Urine RBC 0 SEEN Urine WBC 0 SEEN Ur Squamous Epith Cells 0 SEEN Urine Bacteria 0 SEEN Urine Mucus 0 SEEN Urine Opiates Screen NEGATIVE Urine Methadone Screen NEGATIVE Ur Barbiturates Screen NEGATIVE Ur Phencyclidine Scrn NEGATIVE Ur Amphetamines Screen NEGATIVE MDMA (Ecstasy) Screen NEGATIVE U Benzodiazepines Scrn NEGATIVE Urine Cocaine Screen NEGATIVE U Cannabinoids Screen NEGATIVE Ur Drug Screen Comment Ethyl Alcohol < 3.0 Radiography Diagnostic Testing: Clinical Impression(s) from Imaging Studies Brain CT 11/16/23 14:44 IMPRESSION: 1. No acute intracranial abnormality. 2. Senescent changes. Electronically Signed: Collins Bradley MD at 15:31 EDT , Chest X-Ray 11/16/23 15:15 IMPRESSION: No acute cardiopulmonary abnormality. Electronically Signed: Collins Bradley MD at 15:38 EDT , ED attending interpretation of 1 view chest x-ray shows normal heart size, no acute infiltrate. EKG Initial EKG: Attestation: I personally reviewed and interpreted this EKG as follows: Interpretation: Sinus Rhythm and No Acute Injury Pattern Comments: Normal sinus rhythm at 77 bpm RBBB Normal intervals <Dr. Husam Gaytan, DO - Last Filed: 11/16/23 18:14> MDM MDM Narrative Medical decision making narrative: History gathered from: Patient and daughter Patient has a history of Alzheimer's dementia and over the last week developed increased confusion and behavioral disturbance. Daughter states she is suspicious and paranoid and wandering outside of her home. She appears well and nontoxic. Vital signs stable. Awake and alert to self and place. During examination she will go on tangents preoccupied with church themes or stating she lied about things. She has no focal neurological deficits. Labs show normal white count of 7.4 and stable hemoglobin of 11.4. BMP overall unremarkable. Glucose 151. TSH slightly elevated at 11.30 consistent with a history of hypothyroidism but this is not the source of her symptoms. CXR and UA negative for infection. Urine drug screen and alcohol level negative. CT brain shows no acute process. There is no medical etiology to explain her symptoms and this may be worsening of her dementia with behavioral disturbance versus underlying psychiatric condition. At this point she is medically cleared and crisis was called for evaluation. I have personally performed a face to face assessment of the patient and have reviewed the CHAUNCEY Note. I performed a substantive portion of the visit including all aspects of the following. My hidalgo findings include: History is 77-year-old female who lives alone with her daughter next-door has a history of Alzheimer's presenting with change in mental status. Patient has church preoccupation and delusions that her neighbors are stalking her have eyes for her. She has been wandering off. She does not know the year and believes that her is alive. He more than a decade ago. Family states that she has not been eating. They are already providing her medications for her. She has been wandering off down the road over the past several days and is becoming unsafe for her to be at home. She has been seeing a neurologist for the Alzheimer's. Exam is afebrile vital signs stable no acute distress. Patient is alert to self. She is knows that she is at hospital does not know the year. She speaks nonlinear. She has church preoccupations and ideas of delusions. She denies auditory or visual hallucinations to me. Medical Decison Making Prat[place] psychiatric screening was obtained to medically clear her. Crisis was consulted. I filled out a pink slip and believe the patient's best interest would be for her to be evaluated at a [facility] facility. History & Record Review Discussion w/independent historian: Patient and Family Lab Data Labs: Laboratory Results - last 24 hr 11/16/23 11/16/23 15:03 15:52 WBC 7.4 RBC 3.68 L Hgb 11.4 L Hct 35.2 L MCV 95.7 MCH 31.0 MCHC 32.4 RDW Std Deviation 46.2 H RDW Coeff of Ade 13.2 Plt Count 193 MPV 11.4 Immature Gran % (Auto) 0.400 Neut % (Auto) 72.5 H Lymph % (Auto) 16.4 L [place] % (Auto) 9.0 Eos % (Auto) 1.2 Baso % (Auto) 0.5 Absolute Neuts (auto) 5.3 Absolute Lymphs (auto) 1.21 Nucleated RBC % 0 Sodium 137 Potassium 3.7 Chloride 103 Carbon Dioxide 28.0 Anion Gap 6 BUN 18 Creatinine 0.86 Estim Creat Clear Calc 39.97 Est GFR (MDRD) Af Amer 82 Est GFR (MDRD) Non-Af 68 BUN/Creatinine Ratio 20.9 H Glucose 151 H Calcium 9.2 Total Bilirubin 0.40 AST 39 H ALT 35 Alkaline Phosphatase 58 Troponin I High Sens 5 Total Protein 7.0 Albumin 3.8 Globulin 3.2 Albumin/Globulin Ratio 1.2 TSH 11.30 H Urine Color Yellow Urine Clarity Clear Urine pH 6.5 Ur Specific [place] 1.010 Urine Protein Negative Urine Glucose (UA) Normal Urine Ketones Negative Urine Occult Blood Negative Urine Nitrite Negative Urine Bilirubin Negative Urine Urobilinogen Normal Ur Leukocyte Esterase Negative Urine RBC 0 SEEN Urine WBC 0 SEEN Ur Squamous Epith Cells 0 SEEN Urine Bacteria 0 SEEN Urine Mucus 0 SEEN Urine Opiates Screen NEGATIVE Urine Methadone Screen NEGATIVE Ur Barbiturates Screen NEGATIVE Ur Phencyclidine Scrn NEGATIVE Ur Amphetamines Screen NEGATIVE MDMA (Ecstasy) Screen NEGATIVE U Benzodiazepines Scrn NEGATIVE Urine Cocaine Screen NEGATIVE U Cannabinoids Screen NEGATIVE Ur Drug Screen Comment Ethyl Alcohol < 3.0 Radiography Diagnostic Testing: Clinical Impression(s) from Imaging Studies Brain CT 11/16/23 14:44 IMPRESSION: 1. No acute intracranial abnormality. 2. Senescent changes. Electronically Signed: Collins Bradley MD at 15:31 EDT , Chest X-Ray 11/16/23 15:15 IMPRESSION: No acute cardiopulmonary abnormality. Electronically Signed: Collins Bradley MD at 15:38 EDT , Discharge Plan Triage Chief Complaint: Confusion ED Midlevel Provider: Nurys Marsh ED Provider: Husam Gaytan Dx/Rx/DC Orders Clinical Impression: Dementia with behavioral disturbance, Altered mental state Prescriptions: No Action levothyroxine 75 MCG tablet 75 mcg PO DAILY lisinopril [Zestril] 10 MG tablet 10 mg PO DAILY metoprolol tartrate 25 MG tablet 25 mg PO BID venlafaxine 75 MG tablet 150 mg PO BID furosemide 20 MG tablet 20 mg PO DAILY Qty: 30 0RF Primary Care Provider: Mary Ann Bernabe Referrals: Mary Ann Bernabe, [Primary Care Provider] - Print Language: [place] Citizen
[2023-11-16 15:15] LABS: Absolute Lymphocyte Count 1.21 X10^3/uL (0.83-4.51); Absolute Neutrophil Count 5.3 X10^3/uL (2.0-7.7); Basophil# 0.04 X10^3/uL; Basophil% 0.5 % (0-1); Eosinophil# 0.09 X10^3/uL; Eosinophils% 1.2 % (0-5); Hematocrit 35.2 % (37-47); Hemoglobin 11.4 g/dL (12.0-15.0); Lymphocyte # 1.21 X10^3/ul (0.83-4.51); Lymphocyte % 16.4 % (19-41); Mean Corp Hgb Conc 32.4 g/dL (32-36); Mean Corpuscular Volume 95.7 fL (81-99); Mean Platelet Vol. 11.4 fl (6.2-12.0); Monocyte# 0.66 X10^3/uL; NRBC Flagged by Analyzer 0 % (0-5); Neutrophil # 5.33 X10^3/uL (2.7-7.7); Neutrophil % 72.5 % (47-70); Platelet Count 193 K/mm3 (150-450); RBC Distribution Width CV 13.2 % (11.6-14.6); RBC Distribution Width SD 46.2 fl (35.1-43.9); Red Blood Count 3.68 M/mm3 (4.2-5.4); White Blood Count 7.4 K/mm3 (4.4-11.0)
--- NOTE | 2023-11-16 15:15 | RAD_ITS ---
EXAM: XR CHEST, 1 VIEW CLINICAL INDICATION: confusion TECHNIQUE: Frontal view of the chest. COMPARISON: No relevant prior studies available. FINDINGS: LUNGS AND PLEURAL SPACES: Normal. No consolidation or edema. No pneumothorax. No effusion. 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 Normal heart size. MEDIASTINUM: No mediastinal or hilar mass. BONES/JOINTS: Surgical plate in place along the proximal right humerus. RAD/Chest 1 View (Portable) IMPRESSION: No acute cardiopulmonary abnormality. Electronically Signed: Collins Bradley MD at 15:38 EDT ,
[2023-11-16 15:32] LABS: Alcohol, Blood (Medical)-Serum < 3.0 mg/dL
[2023-11-16 15:45] LABS: ALB/GLOB Ratio 1.2 RATIO (0.9-2.4); AST(SGOT) 39 U/L (15-37); Alanine Aminotransfer ALT/SGPT 35 U/L (13-56); Albumin, Serum 3.8 g/dL (3.2-5.0); Alkaline Phosphatase 58 U/L (45-117); Anion Gap 6 (5-15); BUN 18 mg/dL (7-18); BUN/Creat Ratio 20.9 RATIO (10-20); Calcium,Total 9.2 mg/dL (8.5-10.1); Chloride 103 mmol/L (98-107); Creatinine, Serum 0.86 mg/dL (0.55-1.02); EST Glomerular Filtration Rate 68 mL/min (>60); Est Glom Filt Rate - Afr Amer 82 mL/min (>60); Estimated Creatinine Clearance 39.97 ml/min; Globulin 3.2 g/dL (2.2-4.2); Glucose 151 mg/dL (74-106); Potassium 3.7 mmol/L (3.5-5.1); Sodium Level 137 mmol/L (136-145); Troponin-I HS 5 pg/mL (3.0-54.0)
[2023-11-16 15:56] LABS: Bacteria 0 SEEN /hpf (None Seen); Mucous, Urine 0 SEEN /hpf (<or=2+); Red Blood Cells-Urine 0 SEEN /hpf (0-5); Squamous Epithelial Cells - UA 0 SEEN /hpf (5-10); White Blood Cells 0 SEEN /hpf (0-5)
[2023-11-16 15:59] LABS: Color, Urine Yellow (Yellow); Glucose, Dipstick Normal (Normal); Ketone-Dipstick Negative (Negative); Leukocyte Esterase-Dipstick Negative /ul (Negative); Nitrite-Dipstick Negative (Negative); Occult Blood-Urine Negative /ul (Negative); Protein-Dipstick Negative (Negative); Urine Bilirubin Dipstick Negative (Negative); Urine Clarity Clear (Clear); Urine Urobilinogen Normal (Normal); Urine pH 6.5 (5.0 - 8.0)
[2023-11-16 16:17] LABS: Amphetamine Urine VISTA NEGATIVE (<1000 ng/mL); Barbiturate Urine VISTA NEGATIVE (< 200 ng/mL); Benzodiazepine Urine VISTA NEGATIVE (< 200 ng/mL); Cocaine Urine VISTA NEGATIVE (< 300 ng/mL); Ecstacy Urine VISTA NEGATIVE (< 500 ng/mL); Methadone Urine VISTA NEGATIVE (< 300 ng/mL); PCP Urine VISTA NEGATIVE (< 25 ng/mL); THC Urine VISTA NEGATIVE (< 50 ng/mL); Vista UDS pH Range 6
--- NOTE | 2023-11-16 16:19 | ED.RN ---
CRISIS CALLED, CHART FAXED, COUNSELOR TO BE IN TO EVALUATE
[2023-11-16 16:21] VITALS: BP 136/68; PULSE 81; RESP 16; O2SAT 98
[2023-11-16 18:00] VITALS: BP 133/96; PULSE 74; RESP 16; O2SAT 98
[2023-11-16 20:00] VITALS: BP 126/55; PULSE 82; RESP 16; O2SAT 98
[2023-11-16 22:00] VITALS: BP 132/97; PULSE 80; RESP 13; O2SAT 98
[2023-11-17 06:30] VITALS: BP 145/57; PULSE 86; RESP 18; TEMP 36.7; O2SAT 99
[2023-11-17 10:04] VITALS: BP 123/98; PULSE 75; RESP 16; O2SAT 99
== END 2023-11-17 10:05 ==
LOC: ED 15:49
PROVIDERS: Physician Assistant; Emergency Provider Emergency Medicine; Visit Provider Emergency Medicine
DX: G30.9 Alzheimer's disease, unspecified (principal); F02.818 Dementia in other diseases classified elsewhere, unspecified severity, with other behavioral disturbance; I10 Essential (primary) hypertension; E03.9 Hypothyroidism, unspecified; Z79.899 Other long term (current) drug therapy
CPT/HCPCS: 70450; 71045; 80053; 80307; 80320; 81001; 84443; 84484; 85025; 93005; 99285; P9612; A4216; G0480

== ENCOUNTER → 2024-05-06 | Outpatient (REF) | payer MEDICARE, OTHER, SELFPAY ==
[2024-05-06 08:30] LABS: Vitamin B12 297 pg/mL (211-911)
[2024-05-06 09:05] LABS: T4 Total, Thyroxin 8.5 ug/dL (4.8-13.9)
[2024-05-06 09:21] LABS: Hemoglobin A1c 13.4 % (3.8-5.6)
== END ==
LOC: OLS.BROOKB 05:00
PROVIDERS: Visit Provider Family Medicine
DX: D64.9 Anemia, unspecified (principal); E53.9 Vitamin B deficiency, unspecified; I10 Essential (primary) hypertension; E03.9 Hypothyroidism, unspecified; Z79.899 Other long term (current) drug therapy
CPT/HCPCS: 36415; 82607; 83036; 84436; 84443

== ENCOUNTER → 2024-06-12 19:00 | Outpatient (REF) | payer MEDICARE, OTHER, SELFPAY ==
[2024-06-13 10:16] LABS: Bacteria 0 SEEN /hpf (None Seen); Mucous, Urine 0 SEEN /hpf (<or=2+); Red Blood Cells-Urine 0 SEEN /hpf (0-5); Squamous Epithelial Cells - UA 0 SEEN /hpf (5-10); White Blood Cells 0 SEEN /hpf (0-5)
[2024-06-13 10:28] LABS: Color, Urine Yellow (Yellow); Glucose, Dipstick 1000 mg/dl (Normal); Ketone-Dipstick Negative (Negative); Leukocyte Esterase-Dipstick Negative /ul (Negative); Nitrite-Dipstick Negative (Negative); Occult Blood-Urine Negative /ul (Negative); Protein-Dipstick Negative (Negative); Specific Gravity, Urine 1.005 (1.002-1.030); Urine Bilirubin Dipstick Negative (Negative); Urine Clarity Clear (Clear); Urine Urobilinogen Normal (Normal)
== END ==
LOC: OLS.BROOKB 19:00
PROVIDERS: Visit Provider Family Medicine
DX: N39.0 Urinary tract infection, site not specified (principal)
CPT/HCPCS: 81001; 87086; 87088

== ENCOUNTER → 2024-07-08 15:00 | Outpatient (REF) | payer MEDICARE, OTHER, SELFPAY ==
[2024-07-09 09:19] LABS: Bacteria 0 SEEN /hpf (None Seen); Mucous, Urine 0 SEEN /hpf (<or=2+); Red Blood Cells-Urine 0 SEEN /hpf (0-5); Squamous Epithelial Cells - UA 0 SEEN /hpf (5-10)
[2024-07-09 09:42] LABS: Color, Urine Yellow (Yellow); Glucose, Dipstick Normal (Normal); Ketone-Dipstick Negative (Negative); Leukocyte Esterase-Dipstick 25 /ul (Negative); Nitrite-Dipstick Negative (Negative); Occult Blood-Urine Negative /ul (Negative); Protein-Dipstick Negative (Negative); Urine Bilirubin Dipstick Negative (Negative); Urine Clarity Sl. Cloudy (Clear); Urine Urobilinogen Normal (Normal)
[2024-07-09 09:50] LABS: White Blood Cells 0-5 SEEN /hpf (0-5)
== END ==
LOC: OLS.BROOKB 15:00
PROVIDERS: Visit Provider Family Medicine
DX: R30.0 Dysuria (principal)
CPT/HCPCS: 81001; 87086

== ENCOUNTER → 2024-08-07 | Outpatient (REF) | payer MEDICARE, OTHER, SELFPAY ==
[2024-08-07 08:54] LABS: Hematocrit 37.6 % (37-47); Hemoglobin 12.1 g/dL (12.0-15.0); Mean Corp Hgb Conc 32.2 g/dL (32-36); Mean Corpuscular Hgb 30.5 pg (27.0-32.0); Mean Corpuscular Volume 94.7 fL (81-99); Mean Platelet Vol. 12.5 fl (6.2-12.0); Platelet Count 188 K/mm3 (150-450); RBC Distribution Width CV 13.2 % (11.6-14.6); RBC Distribution Width SD 46.1 fl (35.1-43.9); Red Blood Count 3.97 M/mm3 (4.2-5.4); White Blood Count 7.1 K/mm3 (4.4-11.0)
[2024-08-07 09:07] LABS: Vitamin D,25 Hydroxy 45.5 ng/mL
[2024-08-07 09:13] LABS: ALB/GLOB Ratio 1.1 RATIO (0.9-2.4); AST(SGOT) 34 U/L (15-37); Alanine Aminotransfer ALT/SGPT 45 U/L (13-56); Albumin, Serum 3.7 g/dL (3.2-5.0); Alkaline Phosphatase 84 U/L (45-117); Anion Gap 11 (5-15); BUN 14 mg/dL (7-18); BUN/Creat Ratio 18.6 RATIO (10-20); Calcium,Total 9.3 mg/dL (8.5-10.1); Chloride 106 mmol/L (98-107); Creatinine, Serum 0.75 mg/dL (0.55-1.02); EST Glomerular Filtration Rate 79 mL/min (>60); Est Glom Filt Rate - Afr Amer 96 mL/min (>60); Globulin 3.5 g/dL (2.2-4.2); Glucose 195 mg/dL (74-106); Potassium 4.5 mmol/L (3.5-5.1); Protein, Total 7.2 g/dL (6.4-8.2); Sodium Level 138 mmol/L (136-145)
[2024-08-09 15:07] LABS: Hemoglobin A1c 9.2 % (3.8-5.6)
== END ==
LOC: OLS.BROOKB 05:00
PROVIDERS: Visit Provider Family Medicine
DX: D64.9 Anemia, unspecified (principal); E11.65 Type 2 diabetes mellitus with hyperglycemia; M81.0 Age-related osteoporosis without current pathological fracture
CPT/HCPCS: 36415; 80053; 82306; 83036; 85027

== ENCOUNTER → 2024-11-09 | Outpatient (REF) | payer MEDICARE, OTHER, SELFPAY ==
[2024-11-09 10:09] LABS: Hemoglobin A1c 8.2 % (<=5.6)
== END ==
LOC: OLS.BROOKB 05:00
PROVIDERS: Visit Provider Family Medicine
DX: R73.9 Hyperglycemia, unspecified (principal)
CPT/HCPCS: 36415; 83036

== ENCOUNTER 2025-01-26 12:20 | Emergency (ER) | payer MEDICARE, OTHER, SELFPAY ==
[2025-01-26] VITALS (9 sets, daily range): BP systolic 94–123; BP diastolic 54–77; PULSE 60–73; RESP 13–18; TEMP 36.4; O2SAT 98–100; BMI 27.8
--- NOTE | 2025-01-26 12:31 | RAD_ITS ---
PROCEDURE: CHEST 1 VIEW (PORTABLE) 01/26/2025 REASON FOR EXAM: CHEST PAIN TECHNIQUE: Frontal view of the chest. COMPARISON: None FINDINGS: Hardware is noted in the proximal right humerus. Sternotomy wires are present. Heart size and mediastinal configuration are within normal limits. There is no focal infiltrate or consolidation. There is no pneumothorax or effusion. There is no acute bony abnormality. Aortic calcifications are visible. RAD/Chest 1 View (Portable) IMPRESSION: No acute process is identified in the chest. Reading Location: [facility]
--- NOTE | 2025-01-26 12:31 | EKG12_ITS ---
Test Reason : CP Blood Pressure : */* mmHG Vent. Rate : 70 BPM Atrial Rate : 70 BPM P-R Int : 158 ms QRS Dur : 118 ms QT Int : 414 ms P-R-T Axes : 45 -5 -9 degrees QTcB Int : 447 ms Normal sinus rhythm Incomplete right bundle branch block ST & T wave abnormality, consider anterior ischemia Abnormal ECG Confirmed by SHAHID ROJAS, DALE ([id number]), school photograph editor CARLOS GALAN ([id number]) on 01/27/2025 8:36:18 AM Referred By: AR/RU Confirmed By: DALE KEY MD
--- NOTE | 2025-01-26 12:32 | EX.ED.DYSGE1 ---
HPI History of Present Illness Chief Complaint: Chest Pain Detail of Chief Complaint: Chest pain Informant: patient and EMS Narrative Narrative: Patient presents to the emergency department from home with complaint of chest pain. Patient apparently had had some chest pain 15 minutes prior to EMS being called. On EMS arrival she denied any pain. Patient has history of dementia and coronary artery disease with prior CABG. Patient has no complaints at this time. She tells me she lives with her daughter who is currently not here. Patient denies recent travel or surgery. Patient does not recall having chest pain. [facility] Home Medications ?Medication ?Instructions ?Recorded ?Last Taken ?Type levothyroxine 75 mcg tablet 75 mcg PO DAILY THYROID 07/31/17 01/26/25 History furosemide 20 mg tablet 20 mg PO DAILY #30 tabs 05/22/19 01/26/25 Rx donepezil 10 mg tablet 10 mg PO DAILY 11/16/23 01/25/25 History isosorbide mononitrate 30 mg 30 mg PO DAILY 11/16/23 01/26/25 History tablet,extended release 24 hr metoprolol succinate 25 mg 25 mg PO DAILY 11/16/23 01/26/25 History tablet,extended release 24 hr mirtazapine 15 mg tablet 15 mg PO QHS 11/16/23 01/25/25 History atorvastatin 20 mg tablet 20 mg PO DAILY 01/26/25 01/25/25 History glipizide 5 mg tablet 2.5 mg PO BID 01/26/25 01/26/25 History lisinopril 5 mg tablet 5 mg PO DAILY 01/26/25 01/26/25 History metformin 1,000 mg tablet 1,000 mg PO DAILY 01/26/25 01/26/25 History metformin 1,000 mg tablet 500 mg PO DAILY 01/26/25 01/25/25 History quetiapine 50 mg tablet 25 mg PO DAILY 01/26/25 01/26/25 History quetiapine 50 mg tablet (Seroquel) 75 mg PO DAILY 01/26/25 01/25/25 History trazodone 50 mg tablet 50 mg PO QHS 01/26/25 01/25/25 History Allergy/AdvReac Type Severity Reaction Status Date / Time alendronate sodium (From Allergy Unknown Verified 01/26/25 12:22 Fosamax) meloxicam Allergy Unknown Verified 01/26/25 12:22 Sulfa (Sulfonamide Allergy Rash Verified 01/26/25 12:22 Antibiotics) Social History Smoking Status: Never smoker ROS ROS ED Review of Systems ROS Unobtainable: other Constitutional Constitutional ED: Reports lethargy; Denies chills, fever(s), sweats or weight loss Eyes Eyes: Denies blurry vision, change in vision or diplopia ENT ENT ED: Denies rhinorrhea or sore throat Cardiovascular Cardiovascular: Reports chest pain; Denies orthopnea or racing heartbeat Respiratory/Chest Respiratory/Chest: Denies cough, dyspnea, dyspnea on exertion, orthopnea or sputum Gastrointestinal Gastrointestinal: Denies abdominal pain, diarrhea, nausea or vomiting Genitourinary Genitourinary ED: Denies dysuria, hematuria or urinary frequency Musculoskeletal Musculoskeletal: Denies arthralgias, back pain, myalgias or neck pain Integumentary Denies abscess, Abrasions or rash Neurologic Neurologic: Denies headache(s) or weakness Psychiatric Psychiatric: Denies anxiety, depression or suicidal thoughts Endocrine Endocrinology: Denies polydipsia, polyphagia or polyuria Hematologic/Lymphatic Hematologic/Lymphatic: Denies easy bleeding, easy bruising or lymphadenopathy Allergic/Immunologic Allergic/Immunologic ED: Denies mouth swelling, tongue swelling or urticaria EXAM Physical Exam Const Vital Signs: 01/26/25 12:20 01/26/25 12:51 01/26/25 13:59 Temperature 97.6 F L Temperature Source Oral Pulse Rate 73 62 Respiratory Rate 18 15 Blood Pressure 123/75 H 94/54 L Blood Pressure Mean 91 67 Pulse Ox 98 100 Oxygen Delivery Method Room Air Room Air Room Air Positive well nourished and well developed General Appearance ED: well developed and NAD HEENT Reports TM's clear and moist mucous membranes normocephalic and atraumatic; Negative for trauma or tenderness Tympanic Membrane ED: Yes TM's clear Eyes PERRL and EOMs intact bilaterally General Eye ED: Negative for pale conjunctiva or scleral icterus Neck no lymphadenopathy, supple and no JVD General: Negative for tenderness Chest Wall inspection of chest normal and palpation of chest normal Chest Narrative: Healed anterior chest scar from prior CABG Chest: Negative for tenderness Resp normal respiratory effort and clear to auscultation bilaterally Effort and Inspection: Negative for respiratory distress or pain with movement Auscultation: Negative for rhonchi, wheezes or diminished lung sounds Cardio regular rate, regular rhythm, S1 normal heart sound, S2 normal heart sound and no murmurs Peripheral Pulses: pulses 2+ throughout GI normal to inspection, nondistended, normoactive bowel sounds, soft to palpation, non-tender, non-distended and no masses Back/Spine no CVA tenderness and no thoracic nor lumbar tenderness Extremity normal to inspection General Extremety ED: Negative for edema General Extremity: Negative for edema Neuro oriented x3, CN's II-XII intact bilaterally, no sensory deficits noted and gait normal Sensorium / Orientation: awake, alert, oriented to person, oriented to place and oriented to time Motor Exam: strength 5/5 throughout and strength abnormal Psych mental status grossly normal Skin no rashes or lesions noted and no wounds MDM MDM MDM Narrative Medical decision making narrative: Patient presents from home via EMS at request of her daughter who noted that patient was having chest pain this morning. Patient is a very poor historian due to history of dementia. Eventually patient's daughter arrived to the emergency department was able to get more history. IV line established on arrival. EKG obtained showed sinus rhythm with ventricular rate of [address] changes and incomplete right bundle branch block. CBC with differential shows a white count of 7.1 with hemoglobin 12.2 and platelet count of 241. Chemistries unremarkable. Troponin minimally elevated at 18. 1 view chest x-ray showed no acute disease process. Will obtain a 2-hour delta troponin. Patient remains pain-free. She did receive aspirin on arrival. Prior to today apparently patient has not been complaining of chest pain. She did have triple bypass surgery in 2006. Care of patient turned over to the afternoon physician awaiting delta troponin and final disposition. 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 Lab Data Attestation: I reviewed the patient's lab results. Labs: Laboratory Results - last 24 hr 01/26/25 12:52 WBC 7.1 RBC 3.79 L Hgb 12.2 Hct 36.2 L MCV 95.5 MCH 32.2 H MCHC 33.7 RDW Std Deviation 43.0 RDW Coeff of Ade 12.3 Plt Count 241 MPV 11.1 Immature Gran % (Auto) 1.400 H Neut % (Auto) 63.9 Lymph % (Auto) 20.4 [place] % (Auto) 11.5 H Eos % (Auto) 2.1 Baso % (Auto) 0.7 Absolute Neuts (auto) 4.5 Absolute Lymphs (auto) 1.45 Nucleated RBC % 0 Sodium 139 Potassium 3.5 Chloride 103 Carbon Dioxide 23.1 Anion Gap 13 BUN 17 Creatinine 0.68 L Estim Creat Clear Calc 47.81 L Est GFR (MDRD) Non-Af 89 BUN/Creatinine Ratio 24.7 H Glucose 141 H Calcium 9.2 Troponin T High Sens 18 H Urine Color Straw Urine Clarity Clear Urine pH 6.0 Ur Specific [place] 1.010 Urine Protein 15 H Urine Glucose (UA) Normal Urine Ketones Negative Urine Occult Blood Negative Urine Nitrite Negative Urine Bilirubin Negative Urine Urobilinogen Normal Ur Leukocyte Esterase 25 H Urine RBC 0 SEEN Urine WBC 0-5 SEEN Ur Squamous Epith Cells 0-5 SEEN Urine Bacteria 0 SEEN Urine Mucus 0 SEEN Radiography Diagnostic Testing: Clinical Impression(s) from Imaging Studies Chest X-Ray 01/26/25 12:31 IMPRESSION: No acute process is identified in the chest. Reading Location: [facility] 1 view chest x-ray obtained interpreted by myself as no evidence of infiltrate or pneumothorax or acute disease process. Radiology in agreement. EKG Initial EKG: Attestation: I personally reviewed and interpreted this EKG as follows: Comments: Sinus rhythm with ventricular rate of 70 bpm with incomplete right bundle branch block and nonspecific ST changes Discharge Plan Triage Chief Complaint: Chest Pain ED Provider: Osmin Lees Dx/Rx/DC Orders Clinical Impression: Chest pain Instructions: ED Chest Pain, Uncertain Cause Prescriptions: No Action levothyroxine 75 MCG tablet 75 mcg PO DAILY furosemide 20 MG tablet 20 mg PO DAILY Qty: 30 0RF isosorbide mononitrate 30 mg tablet extended release 24 hr 30 mg PO DAILY donepezil 10 mg tablet 10 mg PO DAILY mirtazapine 15 mg tablet 15 mg PO QHS metoprolol succinate 25 mg tablet extended release 24 hr 25 mg PO DAILY atorvastatin 20 mg tablet 20 mg PO DAILY trazodone 50 mg tablet 50 mg PO QHS metformin 1,000 mg tablet 1,000 mg PO DAILY Rx Instructions: AM lisinopril 5 mg tablet 5 mg PO DAILY glipizide 5 mg tablet 2.5 mg PO BID quetiapine 50 mg tablet 25 mg PO DAILY Rx Instructions: AM quetiapine [Seroquel] 50 mg tablet 75 mg PO DAILY Rx Instructions: HS metformin 1,000 mg tablet 500 mg PO DAILY Rx Instructions: PM Primary Care Provider: Neri Hollis Referrals: Mary Ann Bernabe DO [Non-Staff] - 3-5 Days Print Language: Divehi
[2025-01-26] MEDS: 0.9% Normal Saline (1000mL) 1,000 ML 150 ML IV (12:47)
[2025-01-26 13:05] LABS: Mucous, Urine 0 SEEN /hpf (<or=2+); Red Blood Cells-Urine 0 SEEN /hpf (0-5)
[2025-01-26 13:07] LABS: Color, Urine Straw (Yellow); Glucose, Dipstick Normal (Normal); Ketone-Dipstick Negative (Negative); Leukocyte Esterase-Dipstick 25 /ul (Negative); Nitrite-Dipstick Negative (Negative); Occult Blood-Urine Negative /ul (Negative); Protein-Dipstick 15 mg/dl (Negative); Specific Gravity, Urine 1.010 (1.002-1.030); Urine Bilirubin Dipstick Negative (Negative)
[2025-01-26 13:10] LABS: Hematocrit 36.2 % (37-47); Hemoglobin 12.2 g/dL (12.0-15.0); Immature Granulocytes Count 0.100 X10^3/uL (0.0-0.0); Mean Corp Hgb Conc 33.7 g/dL (32-36); Mean Corpuscular Volume 95.5 fL (81-99); Mean Platelet Vol. 11.1 fl (6.2-12.0); NRBC Flagged by Analyzer 0 % (0-5); Platelet Count 241 K/mm3 (150-450); RBC Distribution Width CV 12.3 % (11.6-14.6); RBC Distribution Width SD 43.0 fl (35.1-43.9); Red Blood Count 3.79 M/mm3 (4.2-5.4); White Blood Count 7.1 K/mm3 (4.4-11.0)
[2025-01-26 13:13] LABS: Squamous Epithelial Cells - UA 0-5 SEEN /hpf (5-10)
[2025-01-26 13:29] LABS: Anion Gap 13 (5-15); BUN 17 mg/dL (4-19); BUN/Creat Ratio 24.7 RATIO (10-20); Calcium,Total 9.2 mg/dL (7.6-11.0); Carbon Dioxide 23.1 mmol/L (21.0-32.0); Chloride 103 mmol/L (98-108); Estimated Creatinine Clearance 47.81 ml/min (50-250); Glucose 141 mg/dL (70-99); Potassium 3.5 mmol/L (3.3-5.1); Troponin T High Sensitivity 18 ng/L (<=14)
[2025-01-26 15:09] LABS: Troponin T High Sens 2 HR 16 ng/L (<=14)
--- OUTSIDE RECORDS SUMMARY | 2025-01-26 22:21 | XMS RPT_ITS | CCD ---
Author Organization [facility] CliniSyin Care Team Providers Care Window Treatment Installer Name Role Phone Emmanuel Sims Primary Care Provider [phone] SRINIVASA AGUAYO, DR BENITEZ Primary Care Physician Nurys Tucker PT Unavailable Unavailable SRINIVASA DO, DR BENITEZ Primary Care Physician [phone] SRINIVASA , DR BENITEZ Attending Unavailable SRINIVASA DO, DR BENITEZ Primary Care Unavailable SRINIVASA DO, DR BENITEZ Attending Unavailable SRINIVASA DO, DR BENITEZ Primary Care Unavailable TIERNEY SONOGRAM TECHNICIAN-SUPPORT TEAM ASSOC, KURTIS Payne Attending Unavai lable SRINIVASA DO, DR BENITEZ Primary Care Unavailable TIERNEY SONOGRAM TECHNICIAN-SUPPORT TEAM ASSOC, KURTIS Payne Attending Unavai lable SRINIVASA DO, DR BENITEZ Primary Care Unavailable TIERNEY SONOGRAM TECHNICIAN-ROBIN, KURTIS Payne Attending Unavai lable SRINIVASA DO, DR BENITEZ Primary Care Unavailable SRINIVASA DO, DR BENITEZ Attending Unavailable SRINIVASA DO, DR BENITEZ Primary Care Unavailable HI ALBRIGHT MD Attending Unavailable SRINIVASA DO, DR BENITEZ Primary Care Unavailable SRINIVASA DO, DR BENITEZ Attending Unavailable SRINIVASA DO, DR BENITEZ Primary Care Unavailable SRINIVASA DO, DR BENITEZ Attending Unavailable SRINIVASA DO, DR BENITEZ Primary Care Unavailable HI ALBRIGHT MD Attending Unavailable SRINIVASA DO, DR BENITEZ Primary Care Unavailable FISH SONOGRAM TECHNICIAN-SUPPORT TEAM ASSOCKENN Attending Unavailab le SRINIVASA DO, DR BENITEZ Primary Care Unavailable TIERNEY SONOGRAM TECHNICIAN-SUPPORT TEAM ASSOC, KURTIS Payne Attending Unavai lable SRINVIASA DO, DR BENITEZ Primary Care Unavailable KRISTIE HERNANDEZ Attending Unavailable EMMANUEL SIMS Primary Care Unavailable Srinivasa DO, Dr. Emmanuel Borges Primary Care Provider Bunny ROJAS, Dr. He Attending Provider Unavail able Srinivasa DO, Dr. Emmanuel Borges Primary Care Provider Dr. Neri Prieto MD Attending Provider Unavail able Neri Partida Attending Unavailable Emmanuel Sims Primary Care Unavailable Neri Partida Attending Unavailable Srinivasa, Emmanuel Borges Primary Care Unavailable Neri Partida Attending Unavailable Emmanuel Sims Primary Care Unavailable Neri Partida Attending Unavailable Srinivasa, Emmanuel Borges Primary Care Unavailable Neri Partida Attending Unavailable Srinivasa, Emmanuel Borges Primary Care Unavailable NERI PRIETO DO Primary Care Physician OLGA SONOGRAM TECHNICIAN-SUPPORT TEAM ASSOC, KENN Attending Unavailab sydnie SIMS DO, DR BENITEZ Primary Care Unavailable NERI PRIETO DO Primary Care Unavailable NERI PRIETO DO Attending Unavailable BUNNY AGUAYO, NERI Magaña Primary Care Unavailable BUNNY AGUAYO, NERI Magaña Attending Unavailable BUNNY AGUAYO, NERI Magaña Primary Care Unavailable BUNNY AGUAYO, NERI Magaña Attending Unavailable Srinivasa AGUAYO, Dr. Emmanuel Borges Primary Care Provider Dr. Neri Prieto MD Attending Provider Unavail able Dr. Osmin Lees DO Emergency Provider Dr. Neri Prieto DO Primary Care Provider Allergies Allergy Classification Reported Allergen(s) Allergy Type Date of Onset Reaction(s) Facility (6 sources) Alendronate; 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: [alendronate sodium] Drug Allergy 01-16-20 19 Unknown [place], [place] (20 sources) meloxicam; 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: [meloxicam] Drug Allergy 01-16-20 Unknown (qualifier value) [place] (20 sources) Sulfamethoxazole / Trimethoprim; 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: [sulfamethoxazole-tr imethoprim] Drug Allergy 01-16-20 Unknown (qualifier value), Eruption of skin (disorder) [place] (20 sources) Alendronate; 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: [alendronate] Drug Allergy Unknown [facility] (20 sources) Estrogens, Conjugated (ALF); 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: [conjugated estrogens] Drug Allergy Unknown (qualifier value) [facility] (20 sources) Pollen Drug allergy Unknown (qualifier value) [facility] (20 sources) Sulfamethoxazole; 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: [sulfamethoxazole] Drug Allergy Rash [facility] (4 sources) Sulfonamides (Antibiotic) Allergy to substance 09-08-19 [facility] (1 source) meloxicam Drug Allergy 11-16-19 [facility] (1 source) Sulfonamides (Antibiotic) Drug allergy (disorder) 11-16-19 [facility] Medications Current Medications Medication Drug Class(es) Dates Sig (Normalized) Sig (Original) ascorbic acid 100 mg/ml oral solution (1 source) Vitamin C Start: 05-12-2019 take 1 mg by mouth once daily Vitamin C 500 mg/5 mL oral liquid mg = mL, Oral, qDay, 0 Refill(s) Start Date: 05/12/19 Status: Ordered atorvastatin 20 mg oral tablet (3 sources) HMG-CoA Reductase Inhibitor Start: 01-26-2025 take 1 tablet by mouth once daily Atorvastatin 20 mg tablet Active 20 mg PO DAILY January 26, 2025 12:00am Start: 12-08-2024 atorvastatin 2 0 mg oral tablet 0 Refill(s) Start Date: 12/08/24 Status: Ordered Repeat number: 1 Cholecalciferol (1 source) Vitamin D Cholecalciferol (VITAMIN D PO) Take by mouth 0 Active CoQ10 300 mg oral capsule (5 sources) Start: 0 CoQ10 300 mg oral capsule Dose : 300 mg = 1 cap(s), Oral, qDay, # 100 cap(s), 0 Refill(s) Start Date: 10/16/19 Status: Ordered donepezil hydrochloride 10 mg oral tablet (9 sources) Start: 4 take 1 tablet by mouth once daily Donepezil 10 mg tablet Active 10 mg PO DAILY November 16, 2023 12:00am fluticasone propionate 0.05 mg/actuat metered dose nasal spray (20 sources) Corticosteroid Start: 3 take 1 dose nasal route twice daily fluticasone 50 mcg/inh NASAL spray Dose = 1 spray(s), Nostril, each, BID, # 16 gram(s), 2 Refill(s), [place] [facility] [place], 149.9, cm, 02/06/23 11:36:00 EDT, Height, kg, 02/06/23 11:36:00 EDT, Dosing Weight Start Date: 05/28/23 Status: Ordered Quantity: 16.0 Unit: g Repeat number: 3 Indications: Nasal congestion; Start: 01-10-2023 take 1 dose nasal [place] twice daily fluticasone 50 mcg/inh NASAL spray Dose = 1 spray(s), Nostril, each, BID, # 16 gram(s), 2 Refill(s), Pharmacy: [facility]/pharmacy #[id number], Nasal congestion, 149.9, cm, 01/10/23 11:28:00 EDT, Height, kg, 01/10/23 11:28:00 EDT, Dosing Weight Start Date: 01/10/23 Status: Ordered Start: 12-05-2021 take 1 dose nasal ro [place] twice daily fluticasone 50 mcg/inh NASAL spray Dose = 1 spray(s), Nostril, each, BID, # 16 gram(s), 2 Refill(s), [id number] Nasal congestion, 149, cm, 06/05/22 9:58:00 EST, Height, kg, 06/05/22 9:58:00 EST, Dosing Weight Start Date: 06/05/22 Status: Ordered Start: 09-14-2021 take 1 dose nasal ro [place] twice daily fluticasone 50 mcg/inh NASAL spray Dose = 1 spray(s), Nostril, each, BID, # 16 gram(s), 2 Refill(s), Pharmacy: [facility]/pharmacy #[id number], Nasal congestion, 151, cm, 07/13/21 15:50:00 EST, Height, kg, 09/14/21 10:39:00 EDT, Dosing Weight Start Date: 09/14/21 Status: Ordered fluticasone 50 mcg/inh NASAL spray (1 source) Start: 06-15-2021 take 1 dose nasal route twice daily fluticasone 50 mcg/inh NASAL spray Dose = 1 spray(s), Nostril, each, BID, # 16 gram(s), 2 Refill(s), Pharmacy: [facility]/pharmacy #[id number], Nasal congestion, 151, cm, 06/15/21 10:21:00 EST, Height, kg, 06/15/21 10:21:00 EST, Dosing Weight Start Date: 06/15/21 Status: Ordered FreeStyle Anabella 3+ Sensors (2 sources) Start: 12-09-2024 FreeStyle Libr e 3+ Sensors See Instructions, Place once sensor to the back of the upper arm every 15 days. Use reader or phone dania for daily blood sugar checks. 1 month supply, # 2 EA, 0 Refill(s), Pharmacy: [facility]/pharmacy #[id number], Type 2 diabetes mellitus with cardiac complication Type 2 diabetes mellitus with hyperlipidemia, 149.6, cm, 12/08/24 14:29:00 EDT, Height, 62.6, kg, 12/08/24 14:29:00 EDT, Dosing Weight Start Date: 12/09/24 Status: Ordered Quantity: 2.0 Unit: EA Repeat number: 1 Indications: Type 2 diabetes mellitus with other specified complication; Type 2 diabetes mellitus with other circulatory complications; furosemide 20 mg oral tablet (20 sources) Loop Diuretic Start: 06-15-2021 take 1 tablet by mouth every other day furosemide 20 mg oral tablet See Instructions, TAKE 1 TABLET BY MOUTH EVERY OTHER DAY, # 45 tab(s), 1 Refill(s), Pharmacy: [facility]/pharmacy #[id number], 151, cm, 06/15/21 10:21:00 EST, Height, kg, 06/15/21 10:21:00 EST, Dosing Weight Start Date: 06/15/21 Status: Ordered Start: 05-22-2019 take 1 tablet by jami th once daily Furosemide 20 MG tablet Active 20 mg PO DAILY 30 0 May 22, 2019 1:00am glipiZIDE 5 mg oral tablet (3 sources) Sulfonylurea Start: 01-26-2025 take 2.5 mg by mouth twice daily Glipizide 5 mg tablet Active 2.5 mg PO TWICE A DAY January 26, 2025 12:00am Start: 09-29-2024 glipiZIDE 5 mg oral tablet Dose : 5 mg = 1 tab(s), Oral, BIDAC, # 180 tab(s), 0 Refill(s) Start Date: 09/29/24 Status: Ordered Quantity: 180.0 Unit: tab(s) Repeat number: 1 24 hr isosorbide mononitrate 30 mg extended release oral tablet (16 sources) Nitrate Vasodilator Start: 05-28-2023 take 1 tablet by mouth once daily, then take 1 tablet by mouth every twenty-four hours Isosorbide Mononitrate 30 mg tablet extended release 24 hr Active 30 mg PO DAILY November 16, 2023 12:00am Start: 10-22-2022 isosorbide mon onitrate 30 mg oral tablet, extended release Dose : 30 mg = 1 tab(s), Oral, qAM, # 30 tab(s), 5 Refill(s), [id number] 149.9, cm, 09/27/22 10:04:00 EDT, Height, kg, 09/27/22 10:04:00 EDT, Dosing Weight Start Date: 10/22/22 Status: Ordered Start: 09-27-2022 isosorbide mon onitrate 30 mg oral tablet, extended release Dose : 30 mg = 1 tab(s), Oral, qAM, # 30 tab(s), 5 Refill(s), [id number], 149.9, cm, 09/27/22 10:04:00 EDT, Height Start Date: 09/27/22 Status: Ordered levothyroxine sodium 0.075 mg oral tablet (20 sources) l-Thyroxine Start: 12-08-2024 levothyroxine 75 mcg (0.075 mg) oral tablet 0 Refill(s) Start Date: 12/08/24 Status: Ordered Repeat number: 1 Start: 05-28-2023 levothyroxine 50 mcg (0.05 mg) oral tablet Dose : 50 mcg = 1 tab(s), Oral, qDay, # 90 tab(s), 1 Refill(s), [place] [facility] [place], [place], 02/06/23 11:36:00 EDT, Height, kg, 02/06/23 11:36:00 EDT, Dosing Weight Start Date: 05/28/23 Status: Ordered Start: 02-19-2023 levothyroxine 50 mcg (0.05 mg) oral tablet Dose : 50 mcg = 1 tab(s), Oral, qDay, # 90 tab(s), 1 Refill(s), [id number], 149.9, cm, 02/06/23 11:36:00 EDT, Height, kg, 02/06/23 11:36:00 EDT, Dosing Weight Start Date: 02/19/23 Status: Ordered Start: 01-10-2023 levothyroxine 50 mcg (0.05 mg) oral tablet Dose : 50 mcg = 1 tab(s), Oral, qDay, Discontinue 75 mcg tablet, # 30 tab(s), 1 Refill(s), [id number], 149.9, cm, 01/10/23 11:28:00 EDT, Height Start Date: 01/10/23 Status: Ordered Start: 06-05-2022 levothyroxine 75 mcg (0.075 mg) oral tablet Dose : 75 mcg = 1 tab(s), Oral, qAM, # 90 tab(s), 1 Refill(s), [id number], 149, cm, 06/05/22 9:58:00 EST, Height, kg, 06/05/22 9:58:00 EST, Dosing Weight Start Date: 07/13/22 Status: Ordered Start: 12-05-2021 levothyroxine 50 mcg (0.05 mg) oral tablet Dose : 50 mcg = 1 tab(s), Oral, qDay, # 90 tab(s), 1 Refill(s), [id number], 151, cm, 12/05/21 9:59:00 EDT, Height, kg, 12/05/21 9:59:00 EDT, Dosing Weight Start Date: 12/05/21 Status: Ordered Start: 06-15-2021 levothyroxine 50 mcg (0.05 mg) oral tablet Dose : 50 mcg = 1 tab(s), Oral, qDay, # 90 tab(s), 1 Refill(s), [id number], 151, cm, 06/15/21 10:21:00 EST, Height, kg, 06/15/21 10:21:00 EST, Dosing Weight Start Date: 06/15/21 Status: Ordered Start: 07-31-2017 take 1 tablet by jami th once daily Levothyroxine 75 MCG tablet Active 75 ug PO DAILY July 31, 2017 1:00am THYROID lisinopril 5 mg oral tablet (20 sources) Angiotensin Converting Enzyme Inhibitor Start: 01-26-2025 take 1 tablet by mouth once daily Lisinopril 5 mg tablet Active 5 mg PO DAILY January 26, 2025 12:00am Start: 05-28-2023 lisinopril 5 m g oral tablet Dose : 5 mg = 1 tab(s), Oral, qAM, dose change, # 90 tab(s), 3 Refill(s), [place] [facility] [place], cm, 02/06/23 11:36:00 EDT, Height, kg, 02/06/23 11:36:00 EDT, Dosing Weight Start Date: 05/28/23 Status: Ordered Quantity: 90.0 Unit: tab(s) Repeat number: 4 Start: 07-23-2022 lisinopril 5 m g oral tablet Dose : 5 mg = 1 tab(s), Oral, qAM, dose change, # 90 tab(s), 3 Refill(s), [id number] 149, cm, 07/23/22 9:51:00 EST, Height, kg, 07/23/22 9:51:00 EST, Dosing Weight Start Date: 07/23/22 Status: Ordered Start: 12-05-2021 lisinopril 5 m g oral tablet Dose : 5 mg = 1 tab(s), Oral, qDay, dose change, # 90 tab(s), 1 Refill(s), [id number], 151, cm, 12/05/21 9:59:00 EDT, Height, kg, 12/05/21 9:59:00 EDT, Dosing Weight Start Date: 12/05/21 Status: Ordered Start: 07-27-2021 lisinopril 5 m g oral tablet Dose : 5 mg = 1 tab(s), Oral, qDay, dose change, # 90 tab(s), 1 Refill(s), Pharmacy: [facility]/pharmacy #[id number], 151, cm, 07/13/21 15:50:00 EST, Height, kg, 07/13/21 15:50:00 EST, Dosing Weight Start Date: 07/27/21 Status: Ordered Start: 07-31-2017 End: 01-26-2025 take 5 mg by mouth once daily Lisinopril (Zestril) 10 MG tablet Discontinued 5 mg PO DAILY July 31, 2017 1:00am January 26, 2025 1:15pm BP Start: 07-31-2017 take 1 tablet by jami th once daily Lisinopril (Zestril) 10 MG tablet Active 10 MG PO DAILY July 31, 2017 1:00am Lopressor 25mg--USE metoprol ol tartrate 25 mg oral tablet (11 sources) Start: 06-05-2022 Lopressor 25mg --USE metoprolol tartrate 25 mg oral tablet Dose : 25 mg = 1 tab(s), Oral, BID, # 180 tab(s), 1 Refill(s), Pharmacy: [facility]/pharmacy #[id number], 149, cm, 06/05/22 9:58:00 EST, Height, kg, 06/05/22 9:58:00 EST, Dosing Weight Start Date: 06/05/22 Status: Ordered Start: 12-05-2021 Lopressor 25mg --USE metoprolol tartrate 25 mg oral tablet Dose : 25 mg = 1 tab(s), Oral, BID, # 180 tab(s), 1 Refill(s), Pharmacy: [facility]/pharmacy [id number], 151, cm, 12/05/21 9:59:00 EDT, Height, kg, 12/05/21 9:59:00 EDT, Dosing Weight Start Date: 12/05/21 Status: Ordered Start: 06-15-2021 Lopressor 25mg --USE metoprolol tartrate 25 mg oral tablet Dose : 25 mg = 1 tab(s), Oral, BID, # 180 tab(s), 1 Refill(s), Pharmacy: [facility]acy [id number], 151, cm, 06/15/21 10:21:00 EST, Height, kg, 06/15/21 10:21:00 EST, Dosing Weight Start Date: 06/15/21 Status: Ordered metFORMIN hydrochloride 1000 mg oral tablet (4 sources) Biguanide Start: 01-26-2025 take 1 tablet by mouth once daily Metformin 1,000 mg tablet Active 1000 mg PO DAILY January 26, 2025 12:00am AM Start: 01-26-2025 Metformin 1,00 0 mg tablet Active 500 mg PO DAILY January 26, 2025 12:00am PM Start: 09-29-2024 MetFORMIN (Eqv -Fortamet) 1000 mg oral tablet, EXTENDED RELEASE Dose : 1,000 mg = 1 tab(s), Oral, BID, Okay to substitute for generic Glucophage XR, # 60 tab(s), 0 Refill(s) Start Date: 09/29/24 Status: Ordered Quantity: 60.0 Unit: tab(s) Repeat number: 1 24 hr metoprolol succinate 25 mg extended release oral tablet (20 sources) beta-Adrenergic Federico Start: 05-28-2023 take 1 tablet by mouth once daily Metoprolol Succinate 25 mg tablet extended release 24 hr Active 25 mg PO DAILY November 16, 2023 12:00am Start: 02-06-2023 metoprolol suc cinate 25 mg oral TABLET extended release Dose : 25 mg = 1 tab(s), Oral, qDay, Do not crush or chew (controlled release), # 30 tab(s), 0 Refill(s) Start Date: 02/06/23 Status: Ordered Start: 07-31-2017 End: 11-16-2023 take 1 tablet by mouth twice daily Metoprolol Tartrate 25 MG tablet Discontinued 25 mg PO TWICE A DAY July 31, 2017 1:00am November 16, 2023 11:41pm HEART mirtazapine 15 mg oral tablet (20 sources) Start: 09-10-2022 take 1 tablet by mouth at bedtime Mirtazapine 15 mg tablet Active 15 mg PO AT BEDTIME November 16, 2023 12:00am Start: 10-15-2019 take 0.5 tablet by m outh once daily at bedtime mirtazapine 30 mg oral tablet 0.5, Oral, qHS, # 30 tab(s), 0 Refill(s) Start Date: 10/15/19 Status: Ordered Start: 10-15-2019 mirtazapine 30 mg oral tablet Dose : 30 mg = 1 tab(s), Oral, qHS, # 30 tab(s), 0 Refill(s) Start Date: 10/15/19 Status: Ordered mupirocin 0.02 mg/mg topical ointment (1 source) RNA Synthetase Inhibitor Antibacterial Start: 09-10-2022 mupirocin 2% topical ointment Apply 1 dania, Topical, BID, Bilateral intranasal application twice daily for 5 days prior to surgery &/or as many days leading up to surgery as possible due to surgical urgency/scheduling. Send to patient's preferred pharmacy., Apply to: nostril, each,... Start Date: 09/10/22 Status: Ordered nystatin 100 unt/mg topical powder (2 sources) Polyene Antifungal Start: 12-08-2024 nystatin 10 0,000 units/g topical powder Apply 1 dania, Topical, BID, # 30 gram(s), 0 Refill(s), [place] [facility] [place] 149.6, cm, 12/08/24 14:29:00 EDT, Height, 62.6, kg, 12/08/24 14:29:00 EDT, Dosing Weight Start Date: 12/08/24 Status: Ordered Quantity: 30.0 Unit: g Repeat number: 1 Indications: Erythema intertrigo; QUEtiapine 50 mg oral tablet (5 sources) Atypical Antipsychotic Start: 01-26-2025 Quetiapine 50 mg tab let Active 25 mg PO DAILY January 26, 2025 12:00am AM Start: 01-26-2025 Quetiapine (Se roquel) 50 mg tablet Active 75 mg PO DAILY January 26, 2025 12:00am HS Start: 03-23-2024 End: 01-06-2025 take 1 tablet by mouth twice daily QUEtiapine 50 mg oral tablet Dose : 75 mg = 1.5 tab(s), Oral, qHS, changed from 50mg BID on 12/08/24, 0 Refill(s) Start Date: 03/23/24 Stop Date: 01/06/25 Status: Ordered Repeat number: 1 12 hr ranolazine 500 mg extended release oral tablet (3 sources) Anti-anginal Start: 08-10-2022 Ranexa 500 mg oral tablet, extended release Dose : 500 mg = 1 tab(s), Oral, BID, # 60 tab(s), 5 Refill(s), Pharmacy: [facility]acy #[id number], 149, cm, 07/27/22 8:06:00 EST, Height Start Date: 08/10/22 Status: Ordered Red Yeast Rice 600 mg oral capsule (3 sources) Start: 07-23-2022 take 2 capsules by mouth once daily Red Yeast Rice 600 mg oral capsule 2 cap(s), Oral, Daily, # 60 cap(s), 0 Refill(s) Start Date: 07/23/22 Status: Ordered traZODone hydrochloride 50 mg oral tablet (4 sources) Serotonin Reuptake Inhibitor Start: 01-26-2025 take 1 tablet by mouth at bedtime Trazodone 50 mg tablet Active 50 mg PO AT BEDTIME January 26, 2025 12:00am Start: 03-23-2024 traZODone 50 m g oral tablet Dose : 50 mg = 1 tab(s), Oral, qHS, # 30 tab(s), 0 Refill(s) Start Date: 03/23/24 Status: Ordered Quantity: 30.0 Unit: tab(s) Repeat number: 1 ubidecarenone 300 mg oral capsule (1 source) Start: 10-16-2019 CoQ10 300 mg o ral capsule Dose : 300 mg = 1 cap(s), Oral, qDay, # 100 cap(s), 0 Refill(s) Start Date: 10/16/19 Status: Ordered venlafaxine 75 mg oral tablet (20 sources) Serotonin and Norepinephrine Reuptake Inhibitor Start: 07-12-2023 venlafaxine 75 mg oral tablet Dose : 75 mg = 1 tab(s), Oral, BID, # 360 tab(s), 1 Refill(s), [place] [facility] [place], cm, 07/12/23 10:08:00 EST, Height, kg, 07/12/23 10:08:00 EST, Dosing Weight Start Date: 07/12/23 Status: Ordered Quantity: 360.0 Unit: tab(s) Repeat number: 2 Start: 05-22-2019 take 150 mg by mouth twice daily Venlafaxine Active 150 MG PO TWICE A DAY May 22, 2019 1:00am Start: 04-09-2019 End: 01-26-2025 take 2 tablets by mouth twice daily Venlafaxine 75 MG tablet Discontinued 150 mg PO TWICE A DAY May 22, 2019 1:00am January 26, 2025 1:19pm Start: 04-09-2019 venlafaxine 75 mg oral tablet Dose : 75 mg = 1 tab(s), Oral, BID, # 360 tab(s), 1 Refill(s), Pharmacy: [facility] #[id number] Start Date: 04/09/19 Status: Ordered take 1 tablet by jami three times daily venlafaxine (EFFEXOR) 75 MG tablet Take 75 mg by mouth 3 times daily 0 Active vitamin B12 (6 sources) Vitamin B12 Start: 03-16-2021 Vitamin C 500 mg/5 mL oral liquid (5 sources) Start: 05-12-2019 take 1 mg by mouth once daily Vitamin C 500 mg/5 mL oral liquid mg = mL, Oral, qDay, 0 Refill(s) Start Date: 05/12/19 Status: Ordered Vitamin D3 (2 sources) Start: 05-12-2019 Vitamin D3 0 Refill(s) Start Date: 05/12/19 Status: Ordered Completed/Discontinued Medications Medication Drug Class(es) Dates Sig (Normalized) Sig (Original) acetaminophen 500 mg oral tablet (4 sources) Start: 07-31-2017 End: 08-07-2017 Acetaminophen (Tylenol Extra Strength) 500 MG tablet Discontinued 500 mg PO NEEDED as needed for Pain July 31, 2017 1:00am August 07, 2017 1:23pm 1 ml denosumab 60 mg/ml prefilled syringe (10 sources) RANK Ligand Inhibitor Start: 12-08-2024 inject 1 mL by subcutaneous injection in the evening Prolia 60 mg/mL subcutaneous solution Dose : 60 mg = 1 mL, Subcutaneous, q6mo, Signed 12/08/24 at 3:18 PM M81.0, # 1 mL, 1 Refill(s), Osteoporosis Start Date: 12/08/24 Status: Ordered Quantity: 1.0 Unit: mL Repeat number: 2 Indications: Age-related osteoporosis without current pathological fracture; Start: 08-22-2023 Prolia 60 mg/m L subcutaneous solution Dose : 60 mg = 1 mL, Subcutaneous, q6mo, # 1 mL, 0 Refill(s) Start Date: 08/22/23 Status: Ordered Start: 01-24-2023 Prolia 60 mg/m L subcutaneous solution Dose : 60 mg = 1 mL, Subcutaneous, q6mo, # 1 mL, 0 Refill(s) Start Date: 01/24/23 Status: Ordered LORazepam 0.5 mg oral tablet (1 source) Benzodiazepine Start: 03-23-2024 LORazepam 0.5 mg oral tablet Dose : 0.5 mg = 1 tab(s), Oral, BID, PRN as needed for anxiety, 0 Refill(s), 53.8 Start Date: 03/23/24 Status: Ordered memantine hydrochloride 10 mg oral tablet (5 sources) O-vummsc-L-aspartate Receptor Antagonist Start: 11-14-2023 End: 01-26-2025 take 1 tablet by mouth twice daily Memantine 10 mg tablet Discontinued 10 mg PO TWICE A DAY November 16, 2023 12:00am January 26, 2025 1:19pm oxyCODONE hydrochloride 5 mg oral tablet (4 sources) Opioid Agonist Start: 07-31-2017 End: 08-07-2017 Oxycodone 5 MG tablet Discontinued 1 - 2 {tbl} PO EVERY 6 HOURS NEEDED as needed for Pain July 31, 2017 1:00am August 07, 2017 1:23pm rosuvastatin calcium 20 mg oral tablet (20 sources) HMG-CoA Reductase Inhibitor Start: 05-28-2023 End: 01-26-2025 take 1 tablet by mouth at bedtime Rosuvastatin 20 mg tablet Discontinued 20 mg PO AT BEDTIME November 16, 2023 12:00am January 26, 2025 1:19pm Start: 07-23-2022 rosuvastatin 2 0 mg oral tablet Dose : 20 mg = 1 tab(s), Oral, qAM, # 90 tab(s), 3 Refill(s), Pharmacy: [id number], 149, cm, 07/23/22 9:51:00 EST, Height, kg, 07/23/22 9:51:00 EST, Dosing Weight Start Date: 07/23/22 Status: Ordered Start: 09-14-2021 take 1 tablet by jami th once daily rosuvastatin 20 mg oral tablet See Instructions, TAKE 1 TABLET BY MOUTH EVERY DAY, # 90 tab(s), 1 Refill(s), Pharmacy: [facility]/pharmacy #[id number], 149, cm, 06/05/22 9:58:00 EST, Height, kg, 06/05/22 9:58:00 EST, Dosing Weight Start Date: 06/05/22 Status: Ordered Start: 03-16-2021 take 1 tablet by jami th once daily rosuvastatin 20 mg oral tablet See Instructions, TAKE 1 TABLET BY MOUTH EVERY DAY, # 90 tab(s), 1 Refill(s), Pharmacy: [facility]/pharmacy #[id number], 151, cm, 03/16/21 14:44:00 EDT, Height, kg, 03/16/21 14:44:00 EDT, Dosing Weight Start Date: 03/16/21 Status: Ordered Problems Active Problems Problem Classification Problem Date Documented Date Episodic/Chronic Anxiety disorders (20 sources) Anxiety 05-07-2019 Chronic Attention-deficit, conduct, and disruptive behavior disorders (20 sources) Attention deficit hyperactivity disorder, 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 BNPT was elevated at 1042, chest x-ray was clear. Patient was initiated on Lasix 20 mg p.o. daily, and edema has resolved. Recent echocardiogram showed normal EF. Coronary atherosclerosis and other heart disease (20 sources) Coronary atherosclerosis Onset: 07-01-2009 10-14-2019 Chronic Comment on above: History of CABG, she had a heart cath in 2014 which showed the MOREIRA to the LAD patent and the radial from the proximal aorta to the distal R CA patent with excellent runoff. She denies any chest pain or shortness of breath.She has declined statin in the past, recent lab work showed an LDL of 191 therefore she was started on Crestor. She seems to be tolerating it well. Deficiency and other anemia (4 sources) Anemia; 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: [Anemia, unspecified] 06-21-2020 Episodic Deficiency and other anemia (1 source) Anemia, unspecified; 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: [Anemia, unspecified] Onset: 09-04-2024 Episodic Delirium, dementia, and amnestic and other cognitive disorders (6 sources) Dementia with behavioral disturbance; 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: [Dementia with behavioral disturbance] Onset: 01-05-2025 11-25-2023 Chronic Diabetes mellitus with complications (5 sources) Hypoglycemia due to type 2 diabetes mellitus; 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: [Type 2 diabetes mellitus with other circulatory complications] Onset: 01-05-2025 12-08-2024 Chronic Diabetes mellitus without complication (6 sources) Type 2 diabetes mellitus without complications; 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: [Type 2 diabetes mellitus] Onset: 09-04-2024 12-08-2024 Chronic Diabetes mellitus without complication (20 sources) Hyperglycemia; 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: [Hyperglycemia, unspecified] Onset: 11-27-2024 06-21-2020 Episodic Disorders of lipid metabolism (20 sources) Dyslipidemia; 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: [Hyperlipidemia] Onset: 11-27-2024 07-20-2020 Chronic Comment on above: She had been off the statin by her choice. She has been restarted on Crestor by her PCP. Esophageal disorders (20 sources) Gastroesophageal reflux disease 05-07-2019 Chronic Essential hypertension (20 sources) Essential hypertension; 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: [Essential (primary) hypertension] Onset: 07-12-2023 07-20-2020 Chronic Comment on above: Controlled. BP goal is average 130/80. Fluid and electrolyte disorders (4 sources) Hypervolemia; 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: [Fluid overload, unspecified] 05-23-2019 Episodic Heart valve disorders (20 sources) Tricuspid valve regurgitation 07-14-2019 Chronic Inflammation; infection of eye (except that caused by tuberculosis or sexually transmitteddisease) (10 sources) Conjunctivitis 12-11-2022 Episodic Mood disorders (20 sources) Recurrent major depressive episodes, moderate ; 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: [Depressive disorder] Onset: 03-28-2023 06-15-2021 Chronic Nonmalignant breast conditions (17 sources) Breast lump 07-19-2022 Episodic Nonspecific chest pain (5 sources) Chest pain; 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: [Chest pain, unspecified] 09-08-2023 Episodic Nutritional deficiencies (20 sources) Cobalamin deficiency; 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: [Vitamin B deficiency] Onset: 05-29-2024 05-12-2019 Episodic Osteoporosis (20 sources) Osteoporosis; 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: [Primary osteoporosis] Onset: 09-04-2024 05-07-2019 Chronic Other aftercare (1 source) Other intermediate (current) drug therapy; 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: [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] Onset: 01-07-2025 Episodic Other aftercare (1 source) Encounter for therapeutic drug level monitoring; 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: [Encounter for therapeutic drug level monitoring] Onset: 01-07-2025 Episodic Other and unspecified benign neoplasm (20 sources) Benign neoplasm of soft tissue 07-14-2019 Episodic Other circulatory disease (4 sources) H/O: hypertension; 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: [Personal history of other diseases of the circulatory system] 05-22-2019 Episodic Other circulatory disease (4 sources) H/O: heart disorder; 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: [Personal history of other diseases of the circulatory system] 05-22-2019 Episodic Other endocrine disorders (1 source) Hypoglycemia, unspecified; 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: [Hypoglycemia, unspecified] Onset: 01-05-2025 Chronic Other lower respiratory disease (20 sources) Air trapping 07-14-2019 Episodic Comment on above: venkatesh ER xray 05/01 9 Other lower respiratory disease (2 sources) Shortness of breath; 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: [Shortness of breath] Onset: 09-17-2023 Episodic Other nutritional; endocrine; and metabolic disorders (20 sources) Hypervitaminosis D; 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: [Hypervitaminosis D] 12-15-2020 Chronic Other nutritional; endocrine; and metabolic disorders (4 sources) History of hypercholesterolemia; 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: [Personal history of other endocrine, nutritional and metabolic disease] 05-22-2019 Episodic Other upper respiratory disease (20 sources) Nasal congestion 10-16-2019 Episodic Vanda-; endo-; and myocarditis; cardiomyopathy (except that caused by tuberculosis or sexually transmitted disease) (20 sources) Ejection murmur 05-12-2019 Chronic Residual codes; unclassified (20 sources) Obstructive sleep apnea syndrome; 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: [Obstructive sleep apnea (adult) (pediatric)] 10-14-2019 Chronic Comment on above: Patient is prescribe d a CPAP at night, she has been compliant with it. She feels more rested with continued use. Residual codes; unclassified (20 sources) Memory impairment 05-07-2019 Episodic Residual codes; unclassified (20 sources) Peripheral edema 07-14-2019 Episodic Residual codes; unclassified (1 source) Disorientated; 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: [Disorientation, unspecified] Episodic Residual codes; unclassified (4 sources) Bilateral lower limb edema; 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: [Localized edema] 05-23-2019 Episodic Residual codes; unclassified (3 sources) Altered mental status; 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: [Altered mental status, unspecified] 11-25-2023 Episodic Thyroid disorders (20 sources) Hypothyroidism; 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: [Hypothyroidism, unspecified] 10-16-2019 Chronic Unclassified (20 sources) Influenza vaccination declined 05-12-2019 Unclassified (2 sources) For resuscitation 12-08-2024 Past or Other Problems Problem Classification Problem Date Documented Da te Episodic/Chronic Genitourinary symptoms and ill-defined conditions (1 source) Dysuria; 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: [Dysuria] Onset: 07-17-2024 Episodic Residual codes; unclassified (3 sources) Other general symptoms and signs; 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: [Other general symptoms and signs] Onset: 06-03-2023 Episodic Urinary tract infections (1 source) Urinary tract infection, site not specified; 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: [Urinary tract infection, site not specified] Onset: 06-15-2024 Episodic Results Test Name Value Interpretation Reference Range Facility Absolute lymphocyte countOrd ered By: Osmin Lees on 01-26-2025 Lymphocytes Auto (Unsp spec) [#/Vol] 1.45 10*3/uL 0.83-4.51 [facility] Absolute neutrophil countOrd ered By: [facility] on 01-26-2025 Neutrophils (Bld) [#/Vol] 4.5 10*3/uL 2.0-7.7 [facility] Anion gap in Serum or Plasma Ordered By: Osmin Lees on 01-26-2025 Anion gap [Moles/Vol] 13 mmol/L 5-15 [facility] Automated lymphocyte count a s percentage of total leukocytesOrdered By: Osmin Lees on 01-26-2025 Lymphocytes/100 WBC Auto (Unsp spec) 20.4 % 19-41 [facility] BUN/creatinine ratioOrdered By: [facility] on 01-26-2025 Urea nitrogen/Creatinine [Mass ratio] 24.7 mg/mg High 10-20 [facility] Basophil percentageOrdered B y: Osmin Lees on 01-26-2025 Basophils/100 WBC (Bld) 0.7 % 0-1 [facility] Bilirubin Test strip Ql (U)O rdered By: Osmin Lees on 01-26-2025 Bilirubin Ql (U) Negative Negative [facility] Carbon dioxide, total [Moles /volume] in Central venous bloodOrdered By: Osmin Lees on 01-26-2025 CO2 [Moles/Vol] 23.1 mmol/L 21.0-32.0 [facility] Chloride assayOrdered By: Delaney Lees on 01-26-2025 Chloride [Moles/Vol] 103 mmol/L 98-108 [facility] Eosinophil percentageOrdered By: Osmin Lees on 01-26-2025 Eosinophils/100 WBC (Bld) 2.1 % 0-5 [facility] Erythrocyte distribution wid th ratioOrdered By: Osmin Lees on 01-26-2025 Erythrocyte distribution width (RBC) [Ratio] 12.3 % 11.6-14.6 [facility] Erythrocyte distribution wid th standard deviationOrdered By: Osmin Lees on 01-26-2025 Erythrocyte distribution width (RBC) [Ratio] 43.0 fl 35.1-43.9 [facility] Glomerular filtration rate ( GFR) estimation/1.73 sq m using serum, plasma, or whole bOrdered By: Osmin eLes on 01-26-2025 GFR/1.73 sq M.predicted among non-blacks MDRD (S/P/Bld) [Vol rate/Area] 89 mL/min/{1.73_m2} >60 [facility] Comment on above: mL/min/1.73m2 CKD-EP I Creatinine Equation (2020) Hematocrit Auto (Bld) [Volum e fraction]Ordered By: Osmin Lees on 01-26-2025 Hematocrit (Bld) [Volume fraction] 36.2 % Low 37-47 [facility] Hemoglobin measurementOrdere d By: Osmin Lees on 01-26-2025 Hemoglobin (Bld) [Mass/Vol] 12.2 g/dL 12.0-15.0 [facility] Immature granulocytes/100 WB C Auto (Bld)Ordered By: Osmin Lees on 01-26-2025 Immature granulocytes/100 WBC (Bld) 1.400 % High 0.0-0.9 [facility] Comment on above: IG% - Immature Granu locytes (promyelocytes, myelocytes and metamyelocytes) > 1% indicates that a LEFT SHIFT is Present. Ketones Test strip Ql (U)Ord ered By: Osmin Lees on 01-26-2025 Ketones Ql (U) Negative Negative [facility] MCV (mean corpuscular volume ) determinationOrdered By: Osmin Lees on 01-26-2025 MCV (RBC) [Entitic vol] 95.5 fL 81-99 [facility] Mean corpuscular hemoglobin (MCH) determinationOrdered By: Osmin Lees on 01-26-2025 MCH (RBC) [Entitic mass] 32.2 pg High 27.0-32.0 [facility] Mean corpuscular hemoglobin concentration (MCHC) determinationOrdered By: Osmin Lees on 01-26-2025 MCHC (RBC) [Mass/Vol] 33.7 g/dL 32-36 [facility] Mean platelet volume determi nationOrdered By: Osmin Lees on 01-26-2025 Platelet mean volume (Bld) [Entitic vol] 11.1 fL 6.2-12.0 [facility] Microscopic analysis of urin e for red blood cells (RBC)Ordered By: Osmin Lees on 01-26-2025 Microscopic analysis of urine for red blood cells (RBC) 0 SEEN /hpf 0-5 [facility] Monocyte percentageOrdered B y: Osmin Lees on 01-26-2025 Monocytes/100 WBC (Bld) 11.5 % High 0-10 [facility] Mucus LM Ql (Urine sed)Order ed By: Osmin Lees on 01-26-2025 Mucus Ql (Urine sed) 0 SEEN /hpf [facility] Neutrophil percentageOrdered By: Osmin Lees on 01-26-2025 Neutrophils/100 WBC (Bld) 63.9 % 47-70 [facility] Nitrite Test strip Ql (U)Ord ered By: Omsin Lees on 01-26-2025 Nitrite Ql (U) Negative Negative [facility] Nucleated red blood cell per centageOrdered By: Osmin Lees on 01-26-2025 Nucleated RBC/100 WBC (Bld) [Ratio] 0 % 0-5 [facility] Platelet countOrdered By: Delaney Lees on 01-26-2025 Platelets (Bld) [#/Vol] 241 10*3/uL 150-450 [facility] Potassium measurement (mass/ volume)Ordered By: Osmin Lees on 01-26-2025 Potassium (Unsp spec) [Mass/Vol] 3.5 mmol/L 3.3-5.1 [facility] Protein Test strip Ql (U)Ord ered By: Osmin Lees on 01-26-2025 Protein Ql (U) 15 mg/dl High Negative [facility] RBC Auto (Bld) [#/Vol]Ordere d By: Osmin Lees on 01-26-2025 RBC (Bld) [#/Vol] 3.79 10*6/uL Low 4.2-5.4 [facility] Serum creatinine measurement (mass/volume)Ordered By: Osmin Lees on 01-26-2025 Creatinine [Mass/Vol] 0.68 mg/dL Low 0.70-1.20 [facility] Serum glucose measurement (m ass/volume)Ordered By: Osmin Lees on 01-26-2025 Glucose [Mass/Vol] 141 mg/dL High 70-99 [facility] Serum or plasma calcium marta urement (mass/volume)Ordered By: Osmin Lees on 01-26-2025 Calcium [Mass/Vol] 9.2 mg/dL 7.6-11.0 [facility] Serum or plasma urea nitroge n measurement (mass/volume)Ordered By: Osmin Lees on 01-26-2025 Urea nitrogen [Mass/Vol] 17 mg/dL 4-19 [facility] Sodium levelOrdered By: Efren Lees on 01-26-2025 Sodium [Moles/Vol] 139 mmol/L 133-145 [facility] Squamous epithelial cells de tection in urine sediment by light microscopyOrdered By: Osmin Lees on 01-26-2025 Epithelial cells.squamous LM Ql (Urine sed) 0-5 SEEN /hpf 5-10 [facility] Troponin T.cardiac [Mass/vol ume] in Serum or Plasma by High sensitivity methodOrdered By: Osmin Lees on 01-26-2025 Troponin T.cardiac High sensitivity method [Mass/Vol] 16 ng/L High <14 [facility] Troponin T.cardiac High sensitivity method [Mass/Vol] 18 ng/L High <14 [facility] Urine clarityOrdered By: Neema Lees on 01-26-2025 Clarity (U) Clear Clear [facility] Urine color determinationOrd ered By: Osmin Lees on 01-26-2025 Color (U) Straw Yellow [facility] Urine glucose detectionOrder ed By: Osmin Lees on 01-26-2025 Glucose Ql (U) Normal mg/dl Normal [facility] Urine leukocyte esterase det ection by dipstickOrdered By: Osmin Lees on 01-26-2025 Leukocyte esterase Test strip Ql (U) 25 /ul High Negative [facility] Urine pHOrdered By: Osmin Un gur on 01-26-2025 pH (U) 6.0 [pH] 5.0 - 8.0 [facility] Urine sediment bacteria coun t by microscopy (number/high power field)Ordered By: Osmin Lees on 01-26-2025 Bacteria LM.HPF (Urine sed) [#/Area] 0 /[HPF] None Seen [facility] Urine specific gravity measu rementOrdered By: Osmin Lees on 01-26-2025 Specific gravity (U) [Rel density] 1.010 1.002-1.030 [facility] Urine urobilinogen measureme ntOrdered By: Osmin Lees on 01-26-2025 Urobilinogen Ql (U) Normal mg/dl Normal [facility] White blood cell (WBC) count Ordered By: Osmin Lees on 01-26-2025 WBC (Bld) [#/Vol] 7.1 10*3/uL 4.4-11.0 [facility] White blood cell countOrdere d By: Osmin Lees on 01-26-2025 White blood cell count 0-5 SEEN /hpf 0-5 [facility] FOLon 01-06-2025 Folate 20.27 ng/mL Normal 5.38-24.00 [facility] Comment on above: Performed By: #### L IPID, TSH, ADIFF, GFR, CBC, CMP, ANEU #### [place] [id number] [place], [place] [address] #### T4 #### [address] [address] .Auto Diffon 01-05-2025 Basophil, Absolute 0.0 10 3/mcL Normal 0.0-0.3 [facility] Comment on above: Performed By: #### C BC, FERR, FES, ADIFF, FT4, PHOS, CMP, GFR, A1C, VIDH, MG, TSHR, LIPID, ANEU #### [address] [address] #### FOL #### [address] [address] Basophils/100 WBC (Bld) 0.8 % Normal 0.0-2.5 [facility] Comment on above: Performed By: #### C BC, FERR, FES, ADIFF, FT4, PHOS, CMP, GFR, A1C, VIDH, MG, TSHR, LIPID, ANEU #### [address] [address] #### FOL #### [address] [address] Eosinophil, Absolute 0.2 10 3/mcL Normal 0.0-0.7 [facility] Comment on above: Performed By: #### C BC, FERR, FES, ADIFF, FT4, PHOS, CMP, GFR, A1C, VIDH, MG, TSHR, LIPID, ANEU #### [address] [address] #### FOL #### [address] [address] Eosinophils/100 WBC (Bld) 2.9 % Normal 0.0-6.0 [facility] Comment on above: Performed By: #### C BC, FERR, FES, ADIFF, FT4, PHOS, CMP, GFR, A1C, VIDH, MG, TSHR, LIPID, ANEU #### [place] [address] #### FOL #### [address] [address] Lymphocyte, Absolute 1.3 10 3/mcL Normal 0.9-4.3 [facility] Comment on above: Performed By: #### C BC, FERR, FES, ADIFF, FT4, PHOS, CMP, GFR, A1C, VIDH, MG, TSHR, LIPID, ANEU #### [address] [address] #### FOL #### [address] [address] Lymphocytes/100 WBC (Bld) 21.4 % Normal 20.0-40.0 [facility] Comment on above: Performed By: #### C BC, FERR, FES, ADIFF, FT4, PHOS, CMP, GFR, A1C, VIDH, MG, TSHR, LIPID, ANEU #### [address] [address] #### FOL #### [address] [address] Monocyte, Absolute 0.7 10 3/mcL Normal 0.1-1.4 [facility] Comment on above: Performed By: #### C BC, FERR, FES, ADIFF, FT4, PHOS, CMP, GFR, A1C, VIDH, MG, TSHR, LIPID, ANEU #### [address] [address] #### FOL #### [address] [address] Monocytes/100 WBC (Bld) 11.3 % Normal 2.0-13.0 [facility] Comment on above: Performed By: #### C BC, FERR, FES, ADIFF, FT4, PHOS, CMP, GFR, A1C, VIDH, MG, TSHR, LIPID, ANEU #### [address] [address] #### FOL #### [address] [address] Neutrophils/100 WBC (Bld) 63.6 % Normal 50.0-75.0 [facility] Comment on above: Performed By: #### C BC, FERR, FES, ADIFF, FT4, PHOS, CMP, GFR, A1C, VIDH, MG, TSHR, LIPID, ANEU #### [address] [address] #### FOL #### [place] [id number] .GFRon 01-05-2025 Estimated Glomerular Filtration Rate 83 ml/min/1.73sqm Normal [facility] Comment on above: Result Comment: Stages of Chronic Kidney Disease (CKD) Stage Description eGFR(ml/min/1.73 sq.m.) CKD 1 Normal kidney function or >=90 normal kindney function with possible kidney damage (ex. Proteinuria) CKD 2 Kidney damage with mild loss 60-89 of kidney function CKD 3a Mild to moderate loss of kidney 45-59 function CKD 3b Moderate to severe loss of 30-44 of kindey function CKD 4 Severe loss of kidney function 15-29 CKD 5 Kidney failure <15 Note: (go live 2024) the eGFR calculation was updated to the 2020 CKD-EPI creatinine equation without a race factor to calculate the eGFR results. Performed By: #### L IPID, TSH, ADIFF, GFR, CBC, CMP, ANEU #### [place] [address] #### T4 #### [place] [address] .NEUABSon 01-05-2025 Neutrophil, Absolute 3.8 10 3/mcL Normal 2.3-8.1 [facility] Comment on above: Performed By: #### L IPID, TSH, ADIFF, GFR, CBC, CMP, ANEU #### [place] [address] #### T4 #### [place] [address] A1Con 01-05-2025 Glucose [Mass/Vol] 171 mg/dL Normal [facility] Comment on above: Result Comment: Esther mated Average Glucose calculated by equation ((28.7xA1C)-46.7) Estimated average glucose (eAG) is a calculated value from Hemoglobin A1C and is ict sales representative of the average blood glucose level in the last 2-3 month period. Normal range: less than 114 mg/dL Performed By: #### L IPID, TSH, ADIFF, GFR, CBC, CMP, ANEU #### [place] [address] #### T4 #### [address] [address] HbA1c (Bld) [Mass fraction] 7.6 % High 4.3-6.4 [facility] Comment on above: Performed By: #### L IPID, TSH, ADIFF, GFR, CBC, CMP, ANEU #### [address] [address] #### T4 #### [address] [address] CBCon 01-05-2025 Erythrocyte distribution width (RBC) [Ratio] 13.4 % Normal 11.5-15.5 [facility] Comment on above: Performed By: #### C BC, FERR, FES, ADIFF, FT4, PHOS, CMP, GFR, A1C, VIDH, MG, TSHR, LIPID, ANEU #### [place] [address] #### FOL #### [place] [address] Hematocrit (Bld) [Volume fraction] 36.0 % Normal 34.0-46.0 [facility] Comment on above: Performed By: #### C BC, FERR, FES, ADIFF, FT4, PHOS, CMP, GFR, A1C, VIDH, MG, TSHR, LIPID, ANEU #### [address] [address] #### FOL #### [address] [address] Hgb 12.3 G/dL Normal 12.0-16.0 [facility] Comment on above: Performed By: #### C BC, FERR, FES, ADIFF, FT4, PHOS, CMP, GFR, A1C, VIDH, MG, TSHR, LIPID, ANEU #### [address] [address] #### FOL #### [address] [address] MCH (RBC) [Entitic mass] 32.4 pg Normal 27.0-33.0 [facility] Comment on above: Performed By: #### C BC, FERR, FES, ADIFF, FT4, PHOS, CMP, GFR, A1C, VIDH, MG, TSHR, LIPID, ANEU #### [address] [address] #### FOL #### [address] [address] MCHC 34.2 G/dL Normal 32.0-36.0 [facility] Comment on above: Performed By: #### C BC, FERR, FES, ADIFF, FT4, PHOS, CMP, GFR, A1C, VIDH, MG, TSHR, LIPID, ANEU #### [address] [address] #### FOL #### [address] [address] MCV (RBC) [Entitic vol] 94.8 fL Normal 80.0-99.0 [facility] Comment on above: Performed By: #### C BC, FERR, FES, ADIFF, FT4, PHOS, CMP, GFR, A1C, VIDH, MG, TSHR, LIPID, ANEU #### [place] [address] #### FOL #### [place] [address] Platelet 222 10 3/mcL Normal 150-450 [facility] Comment on above: Performed By: #### C BC, FERR, FES, ADIFF, FT4, PHOS, CMP, GFR, A1C, VIDH, MG, TSHR, LIPID, ANEU #### [place] [address] #### FOL #### [place] [address] Platelet mean volume (Bld) [Entitic vol] 9.2 fL Normal 6.6-10.5 [facility] Comment on above: Performed By: #### C BC, FERR, FES, ADIFF, FT4, PHOS, CMP, GFR, A1C, VIDH, MG, TSHR, LIPID, ANEU #### [place] [address] #### FOL #### [place] [address] RBC 3.80 10 6/mcL Low 4.10-5.30 [facility] Comment on above: Performed By: #### C BC, FERR, FES, ADIFF, FT4, PHOS, CMP, GFR, A1C, VIDH, MG, TSHR, LIPID, ANEU #### [place] [address] #### FOL #### [place] [address] WBC 5.9 10 3/mcL Normal 4.5-10.8 [facility] Comment on above: Performed By: #### C BC, FERR, FES, ADIFF, FT4, PHOS, CMP, GFR, A1C, VIDH, MG, TSHR, LIPID, ANEU #### [place] [address] #### FOL #### [place] [address] CMPon 01-05-2025 Albumin Level 3.7 G/dL Normal 3.4-4.8 [facility] Comment on above: Performed By: #### L IPID, TSH, ADIFF, GFR, CBC, CMP, ANEU #### [place] [address] #### T4 #### [place] [address] Albumin/Globulin [Mass ratio] 1.1 {ratio} Normal 1.1-2.5 [facility] Comment on above: Performed By: #### L IPID, TSH, ADIFF, GFR, CBC, CMP, ANEU #### [place] [address] #### T4 #### [place] [address] ALP [Catalytic activity/Vol] 90 U/L Normal 40-135 [facility] Comment on above: Performed By: #### L IPID, TSH, ADIFF, GFR, CBC, CMP, ANEU #### [address] [address] #### T4 #### [address] [address] ALT [Catalytic activity/Vol] 69 U/L High 14-59 [facility] Comment on above: Performed By: #### L IPID, TSH, ADIFF, GFR, CBC, CMP, ANEU #### [place] [address] #### T4 #### [place] [address] AST [Catalytic activity/Vol] 34 U/L Normal 10-40 [facility] Comment on above: Performed By: #### L IPID, TSH, ADIFF, GFR, CBC, CMP, ANEU #### [place] [address] #### T4 #### [place] [address] Bili Total 0.4 mg/dL Normal 0.2-1.0 [facility] Comment on above: Result Comment: Use of this assay is not recommended for patients undergoing treatment with eltrombopag due to the potential for falsely elevated results. Performed By: #### L IPID, TSH, ADIFF, GFR, CBC, CMP, ANEU #### [place] [address] #### T4 #### [place] [address] BUN/Creatinine Ratio 20 ratio Normal 7-27 [facility] Comment on above: Performed By: #### L IPID, TSH, ADIFF, GFR, CBC, CMP, ANEU #### [place] [address] #### T4 #### [place] [address] Calcium [Mass/Vol] 9.1 mg/dL Normal 8.4-10.2 [facility] Comment on above: Performed By: #### L IPID, TSH, ADIFF, GFR, CBC, CMP, ANEU #### [address] [address] #### T4 #### [address] [address] Chloride [Moles/Vol] 103 mmol/L Normal 98-107 [facility] Comment on above: Performed By: #### L IPID, TSH, ADIFF, GFR, CBC, CMP, ANEU #### [address] [address] #### T4 #### [address] [address] CO2 [Moles/Vol] 26 mmol/L Normal 23-31 [facility] Comment on above: Performed By: #### L IPID, TSH, ADIFF, GFR, CBC, CMP, ANEU #### [address] [address] #### T4 #### [address] [address] Creatinine [Mass/Vol] 0.74 mg/dL Normal 0.51-0.95 [facility] Comment on above: Performed By: #### L IPID, TSH, ADIFF, GFR, CBC, CMP, ANEU #### [address] [address] #### T4 #### [address] [address] Electrolyte Balance 11.0 mEq/L Normal 4.0-15.0 [facility] Comment on above: Performed By: #### L IPID, TSH, ADIFF, GFR, CBC, CMP, ANEU #### [address] [address] #### T4 #### [address] [address] Globulin 3.4 G/dL Normal 2.7-4.4 [facility] Comment on above: Performed By: #### L IPID, TSH, ADIFF, GFR, CBC, CMP, ANEU #### [address] [address] #### T4 #### [address] [address] Glucose [Mass/Vol] 169 mg/dL High 83-110 [facility] Comment on above: Performed By: #### L IPID, TSH, ADIFF, GFR, CBC, CMP, ANEU #### [address] [address] #### T4 #### [address] [address] Potassium [Moles/Vol] 4.4 mmol/L Normal 3.5-5.1 [facility] Comment on above: Performed By: #### L IPID, TSH, ADIFF, GFR, CBC, CMP, ANEU #### [address] [address] #### T4 #### [address] [address] Sodium [Moles/Vol] 140 mmol/L Normal 136-145 [facility] Comment on above: Performed By: #### L IPID, TSH, ADIFF, GFR, CBC, CMP, ANEU #### [address] [address] #### T4 #### [address] [address] Total Protein 7.1 G/dL Normal 6.4-8.2 [facility] Comment on above: Performed By: #### L IPID, TSH, ADIFF, GFR, CBC, CMP, ANEU #### [address] [address] #### T4 #### [address] [address] Urea nitrogen [Mass/Vol] 15 mg/dL Normal 7-18 [facility] Comment on above: Performed By: #### L IPID, TSH, ADIFF, GFR, CBC, CMP, ANEU #### [place] [address] #### T4 #### [address] [address] Dominique 01-05-2025 Ferritin [Mass/Vol] 66.0 ng/mL Normal 8.0-252.0 [facility] Comment on above: Performed By: #### L IPID, TSH, ADIFF, GFR, CBC, CMP, ANEU #### [address] [address] #### T4 #### [address] [address] FESon 01-05-2025 Iron [Mass/Vol] 92 ug/dL Normal 50-170 [facility] Comment on above: Performed By: #### L IPID, TSH, ADIFF, GFR, CBC, CMP, ANEU #### [address] [address] #### T4 #### [place] [address] Iron Sat 27 % Normal [facility] Comment on above: Performed By: #### L IPID, TSH, ADIFF, GFR, CBC, CMP, ANEU #### [address] [address] #### T4 #### [place] [address] TIBC 347 mcg/dL Normal 250-450 [facility] Comment on above: Performed By: #### L IPID, TSH, ADIFF, GFR, CBC, CMP, ANEU #### [address] [address] #### T4 #### [address] [address] FT4on 01-05-2025 Free T4 [Mass/Vol] 1.12 ng/dL Normal 0.76-1.46 [facility] Comment on above: Order Comment: Order ed by Discern Performed By: #### L IPID, TSH, ADIFF, GFR, CBC, CMP, ANEU #### [place] [address] #### T4 #### [place] [address] LABORATORYOrdered By: SYSTEM SYSTEM on 01-05-2025 25-hydroxyvitamin D3 [Mass/Vol] 78.1 ng/mL Invalid Interpretation Code AO ADM SS Comment on above: Interpretive Data: I nterpretive Values Based on Total 25(OH) Vitamin D: Deficient <20 ng/mL Insufficient 20 - <30 ng/mL Sufficient 30-100 ng/mL Albumin BCP dye [Mass/Vol] 3.7 G/dL Normal 3.4 - 4.8 G/dL AO ADM SS Albumin/Globulin [Mass ratio] 1.1 {ratio} Normal 1.1 - 2.5 ratio AO ADM SS ALP [Catalytic activity/Vol] 90 U/L Normal 40 - 135 U/L AO ADM SS ALT With P-5'-P [Catalytic activity/Vol] 69 U/L High 14 - 59 U/L AO ADM SS AST With P-5'-P [Catalytic activity/Vol] 34 U/L Normal 10 - 40 U/L AO ADM SS Basophils (Bld) [#/Vol] 0.0 103/mcL Normal 0.0 - 0.3 10^3/mcL AO Workflow SS Basophils/100 WBC (Bld) 0.8 % Normal 0.0 - 2.5 % AO Workflow SS Bilirubin [Mass/Vol] 0.4 mg/dL Normal 0.2 - 1 .0 mg/dL AO ADM SS Comment on above: Interpretive Data: U se of this assay is not recommended for patients undergoing treatment with eltrombopag due to the potential for falsely elevated results. Calcium [Mass/Vol] 9.1 mg/dL Normal 8.4 - 10. 2 mg/dL AO ADM SS Chloride [Moles/Vol] 103 mmol/L Normal 98 - 10 7 mmol/L AO ADM SS CO2 [Moles/Vol] 26 mmol/L Normal 23 - 31 mmol/L AO ADM SS Creatinine [Mass/Vol] 0.74 mg/dL Normal 0.51 - 0.95 mg/dL AO ADM SS Electrolyte Balance 11.0 mEq/L Normal 4.0 - 15 .0 mEq/L AO ADM SS Eosinophil, Absolute 0.2 103/mcL Normal 0.0 - 0 .7 10^3/mcL AO Workflow SS Eosinophils/100 WBC (Bld) 2.9 % Normal 0.0 - 6.0 % AO Workflow SS Erythrocyte distribution width (RBC) [Ratio] 13.4 % Normal 11.5 - 15.5 % AO Workflow SS Estimated Glomerular Filtration Rate 83 ml/min/1.73sqm Invalid Interpretation Code AO Chemistry S Comment on above: Interpretive Data: Stages of Chronic Kidney Disease (CKD) Stage Description eGFR(ml/min/1.73 sq.m.) CKD 1 Normal kidney function or >=90 normal kindney function with possible kidney damage (ex. Proteinuria) CKD 2 Kidney damage with mild loss 60-89 of kidney function CKD 3a Mild to moderate loss of kidney 45-59 function CKD 3b Moderate to severe loss of 30-44 of kindey function CKD 4 Severe loss of kidney function 15-29 CKD 5 Kidney failure <15 Note: (go live 2024) the eGFR calculation was updated to the 2020 CKD-EPI creatinine equation without a race factor to calculate the eGFR results. Ferritin [Mass/Vol] 66.0 ng/mL Normal 8.0 - 25 2.0 ng/mL AO ADM SS Free T4 [Mass/Vol] 1.12 ng/dL Normal 0.76 - 1. 46 ng/dL AO ADM SS Globulin 3.4 G/dL Normal 2.7 - 4.4 G/dL AO ADM SS Glucose [Mass/Vol] 169 mg/dL High 83 - 110 mg/dL AO ADM SS Glucose [Mass/Vol] 171 mg/dL Invalid Interpretation Code AO Chemistry S Comment on above: Interpretive Data: E stimated average glucose (eAG) is a calculated value from Hemoglobin A1C and is ict sales representative of the average blood glucose level in the last 2-3 month period. Normal range: less than 114 mg/dL HbA1c (Bld) [Mass fraction] 7.6 % High 4.3 - 6.4 % AO ADM SS Hematocrit (Bld) [Volume fraction] 36.0 % Normal 34.0 - 46.0 % AO Workflow SS Hemoglobin (Bld) [Mass/Vol] 12.3 G/dL Normal 12.0 - 16.0 G/dL AO Workflow SS Iron [Mass/Vol] 92 ug/dL Normal 50 - 170 mcg/dL AO ADM SS Iron binding capacity [Mass/Vol] 347 mcg/dL Normal 250 - 450 mcg/dL AO ADM SS Iron Sat 27 % Invalid Interpretation Code AO ADM SS Lymphocytes (Bld) [#/Vol] 1.3 103/mcL Normal 0.9 - 4.3 10^3/mcL AO Workflow SS Lymphocytes/100 WBC (Bld) 21.4 % Normal 20.0 - 40.0 % AO Workflow SS Magnesium [Mass/Vol] 1.6 mg/dL Low 1.8 - 2 .4 mg/dL AO ADM SS MCH (RBC) [Entitic mass] 32.4 pg Normal 27.0 - 33.0 pg AO Workflow SS MCHC 34.2 G/dL Normal 32.0 - 36.0 G/dL AO Workflow SS MCV (RBC) [Entitic vol] 94.8 fL Normal 80.0 - 99.0 fL AO Workflow SS Monocytes (Bld) [#/Vol] 0.7 103/mcL Normal 0.1 - 1.4 10^3/mcL AO Workflow SS Monocytes/100 WBC (Bld) 11.3 % Normal 2.0 - 13.0 % AO Workflow SS Neutrophils (Bld) [#/Vol] 3.8 103/mcL Normal 2.3 - 8.1 10^3/mcL AO Workflow SS Neutrophils/100 WBC (Bld) 63.6 % Normal 50.0 - 75.0 % AO Workflow SS Phosphate [Mass/Vol] 3.8 mg/dL Normal 2.3 - 4 .1 mg/dL AO ADM SS Platelet mean volume (Bld) [Entitic vol] 9.2 fL Normal 6.6 - 10.5 fL AO Workflow SS Platelets (Bld) [#/Vol] 222 103/mcL Normal 150 - 450 10^3/mcL AO Workflow SS Potassium [Moles/Vol] 4.4 mmol/L Normal 3.5 - 5.1 mmol/L AO ADM SS Protein [Mass/Vol] 7.1 G/dL Normal 6.4 - 8.2 G/dL AO ADM SS RBC (Bld) [#/Vol] 3.80 106/mcL Low 4.10 - 5.3 0 10^6/mcL AO Workflow SS Sodium [Moles/Vol] 140 mmol/L Normal 136 - 145 mmol/L AO ADM SS TSH Qn 0.14 m[IU]/L Low 0.36 - 3.74 mcIU/mL AO ADM SS Urea nitrogen [Mass/Vol] 15 mg/dL Normal 7 - 18 mg/dL AO ADM SS Urea nitrogen/Creatinine [Mass ratio] 20 ratio Normal 7 - 27 ratio AO ADM SS WBC (Bld) [#/Vol] 5.9 103/mcL Normal 4.5 - 10.8 10^3/mcL AO Workflow SS LABORATORYOrdered By: Joselyn Mixon on 01-05-2025 Cholesterol [Mass/Vol] 129 mg/dL Normal 0 - 2 00 mg/dL AO ADM SS Comment on above: Interpretive Data: C holesterol Reference Interval: Less than 200 Desirable 200-239 Borderline high risk 240 and above High risk Cholesterol in HDL [Mass/Vol] 38 mg/dL Low 40 - 60 mg/dL AO ADM SS Cholesterol in LDL [Mass/Vol] 51 mg/dL Normal 0 - 130 mg/dL AO ADM SS Triglyceride [Mass/Vol] 202 mg/dL High 0 - 150 mg/dL AO ADM SS Comment on above: Interpretive Data: T riglyceride Reference Interval: Less than 150 Normal 150-199 Borderline high risk 200-499 High risk 500 or higher Very high risk LIPIDon 01-05-2025 Cholesterol [Mass/Vol] 129 mg/dL Normal 0-200 [facility] Comment on above: Result Comment: Chol esterol Reference Interval: Less than 200 Desirable 200-239 Borderline high risk 240 and above High risk Performed By: #### L IPID, TSH, ADIFF, GFR, CBC, CMP, ANEU #### [address] [address] #### T4 #### [address] [address] Cholesterol in HDL [Mass/Vol] 38 mg/dL Low 40-60 [facility] Comment on above: Performed By: #### L IPID, TSH, ADIFF, GFR, CBC, CMP, ANEU #### [address] [address] #### T4 #### [address] [address] Cholesterol in LDL [Mass/Vol] 51 mg/dL Normal 0-130 [facility] Comment on above: Performed By: #### L IPID, TSH, ADIFF, GFR, CBC, CMP, ANEU #### [address] [address] #### T4 #### [place] [address] Triglyceride [Mass/Vol] 202 mg/dL High 0-150 [facility] Comment on above: Result Comment: Trig lyceride Reference Interval: Less than 150 Normal 150-199 Borderline high risk 200-499 High risk 500 or higher Very high risk Performed By: #### L IPID, TSH, ADIFF, GFR, CBC, CMP, ANEU #### [place] [address] #### T4 #### [place] [address] MGon 01-05-2025 Magnesium [Mass/Vol] 1.6 mg/dL Low 1.8-2.4 [facility] Comment on above: Performed By: #### L IPID, TSH, ADIFF, GFR, CBC, CMP, ANEU #### [place] [address] #### T4 #### [place] [address] PHOSon 01-05-2025 Phosphate [Mass/Vol] 3.8 mg/dL Normal 2.3-4.1 [facility] Comment on above: Performed By: #### L IPID, TSH, ADIFF, GFR, CBC, CMP, ANEU #### [place] [address] #### T4 #### [place] [address] TSHRon 01-05-2025 TSH Qn 0.14 m[IU]/L Low 0.36-3.74 [facility] Comment on above: Performed By: #### L IPID, TSH, ADIFF, GFR, CBC, CMP, ANEU #### [place] [address] #### T4 #### [place] [address] VIDHon 01-05-2025 Vit. D 25-Hydroxy 78.1 ng/mL Normal [facility] Comment on above: Result Comment: Inte rpretive Values Based on Total 25(OH) Vitamin D: Deficient <20 ng/mL Insufficient 20 - <30 ng/mL Sufficient 30-100 ng/mL Performed By: #### L IPID, TSH, ADIFF, GFR, CBC, CMP, ANEU #### [facility] [address] [place], [place] [address] #### T4 #### [facility] [address] [place] [address] Hemoglobin A1c percentageOrd ered By: Neri Prieto on 11-09-2024 HbA1c (Bld) [Mass fraction] 8.2 % High <5.7 [facility] Comment on above: Normal < 5.7 % Predi abetic 5.7 - 6.4 % Diabetic >or= 6.5 % Please note range changes. [id number] DOrdered By: Isabel Prieto on 08-07-2024 Vitamin D 25-Hydroxy 45.5 ng/mL [facility] Comment on above: Vitamin D 25(OH) Sta tus Range Deficiency <20 ng/mL (50nmol/L) Insufficiency 20 - 30 ng/mL (50 - 75 nmol/L) Sufficiency 30 - 100 ng/mL (75 - 250 nmol/L) Toxicity >100 ng/mL (>250 nmol/L) Albumin to globulin ratioOrd ered By: Neri Prieto on 08-07-2024 Albumin/Globulin [Mass ratio] 1.1 {ratio} 0.9-2.4 [facility] Bilirubin, totalOrdered By: Neri Prieto on 08-07-2024 Bilirubin [Mass/Vol] 0.40 mg/dL 0.20-1.00 [facility] Comment on above: For patients on eltr ombopag therapy, use of Dimension [place] TBIL is not recommended. Blood urea nitrogen (BUN)/cr eatinine ratioOrdered By: Neri Prieto on 08-07-2024 Urea nitrogen/Creatinine [Mass ratio] 18.6 mg/mg 10-20 [facility] Carbon dioxide measurementOr dered By: Neri Prieto on 08-07-2024 CO2 [Moles/Vol] 21.0 mmol/L 21.0-32.0 [facility] Chloride measurementOrdered By: Neri Prieto on 08-07-2024 Chloride [Moles/Vol] 106 mmol/L 98-107 [facility] Erythrocyte distribution wid th ratioOrdered By: Neri Prieto on 08-07-2024 Erythrocyte distribution width (RBC) [Ratio] 13.2 % 11.6-14.6 [facility] Erythrocyte distribution wid th standard deviationOrdered By: Neri Prieto on 08-07-2024 Erythrocyte distribution width (RBC) [Entitic vol] 46.1 fL High 35.1-43.9 [facility] Erythrocyte distribution width (RBC) [Ratio] 46.1 fl High 35.1-43.9 [facility] Estimated glomerular filtrat ion rate (GFR) AmericanOrdered By: Neri Prieto on 08-07-2024 Estimated GFR (MDRD) Amer 96 mL/min >60 [facility] Comment on above: GFR Calc Glomerular filtration rate ( GFR) estimationOrdered By: Neri Prieto on 08-07-2024 Estimated GFR (MDRD) Non-Af Amer 79 mL/min >60 [facility] Comment on above: Non- GFR Calc GFR/1.73 sq M.predicted among non-blacks MDRD (S/P/Bld) [Vol rate/Area] 79 mL/min/{1.73_m2} >60 [facility] Comment on above: Non- GFR Calc Glucose measurementOrdered B y: Neri Prieto on 08-07-2024 Glucose [Mass/Vol] 195 mg/dL High 74-106 [facility] Comment on above: Fasting Glucose resu lt greater than or equal to 126 mg/dL suggests DIABETES MELLITUS per A.D.A. criteria. Hematocrit Auto (Bld) [Volum e fraction]Ordered By: Neri Prieto on 08-07-2024 Hematocrit (Bld) [Volume fraction] 37.6 % 37-47 [facility] Hemoglobin A1c percentageOrd ered By: Neri Prieto on 08-07-2024 HbA1c (Bld) [Mass fraction] 9.2 % High 3.8-5.6 [facility] Comment on above: Normal < 5.7 % Predi abetic 5.7 - 6.4 % Diabetic >or= 6.5 % Please note range changes. Hemoglobin measurementOrdere d By: Neri Prieto on 08-07-2024 Hemoglobin (Bld) [Mass/Vol] 12.1 g/dL 12.0-15.0 [facility] Laboratory - Chemistry and C hemistry - challengeOrdered By: Neri Prieto on 08-07-2024 AST [Catalytic activity/Vol] 34 U/L 15-37 [facility] Comment on above: Slight Hemolysis, Re sult may be falsely increased. MCV (mean corpuscular volume ) determinationOrdered By: Neri Prieto on 08-07-2024 MCV (RBC) [Entitic vol] 94.7 fL 81-99 [facility] Mean corpuscular hemoglobin (MCH) determinationOrdered By: Neri Prieto on 08-07-2024 MCH (RBC) [Entitic mass] 30.5 pg 27.0-32.0 [facility] Mean corpuscular hemoglobin concentration (MCHC) determinationOrdered By: Neri Prieto on 08-07-2024 MCHC (RBC) [Mass/Vol] 32.2 g/dL 32-36 [facility] Mean platelet volume determi nationOrdered By: Neri Prieto on 08-07-2024 Platelet mean volume (Bld) [Entitic vol] 12.5 fL High 6.2-12.0 [facility] Platelet countOrdered By: Luther Prieto on 08-07-2024 Platelets (Bld) [#/Vol] 188 10*3/uL 150-450 [facility] Potassium measurementOrdered By: Neri Prieto on 08-07-2024 Potassium [Moles/Vol] 4.5 mmol/L 3.5-5.1 [facility] Comment on above: Slight Hemolysis, Re sult may be falsely increased. RBC Auto (Bld) [#/Vol]Ordere d By: Neri Prieto on 08-07-2024 RBC (Bld) [#/Vol] 3.97 10*6/uL Low 4.2-5.4 [facility] Serum anion gap measurementO rdered By: Neri Prieto on 08-07-2024 Anion gap [Moles/Vol] 11 mmol/L 5-15 [facility] Serum globulin measurementOr dered By: Neri Prieto on 08-07-2024 Globulin (S) [Mass/Vol] 3.5 g/dL 2.2-4.2 [facility] Serum or plasma alanine spaulding otransferase (ALT) measurementOrdered By: Neri Prieto on 08-07-2024 ALT [Catalytic activity/Vol] 45 U/L 13-56 [facility] Serum or plasma albumin marta urement (mass/volume)Ordered By: Neri Prieto on 08-07-2024 Albumin [Mass/Vol] 3.7 g/dL 3.2-5.0 [facility] Serum or plasma alkaline adelfo sphatase measurementOrdered By: Neri Prieto on 08-07-2024 ALP [Catalytic activity/Vol] 84 U/L 45-117 [facility] Serum or plasma calcium marta urement (mass/volume)Ordered By: Neri Prieto on 08-07-2024 Calcium [Mass/Vol] 9.3 mg/dL 8.5-10.1 [facility] Serum or plasma creatinine m easurement (mass/volume)Ordered By: Neri Prieto on 08-07-2024 Creatinine [Mass/Vol] 0.75 mg/dL 0.55-1.02 [facility] Comment on above: The validity of the calculated GFR & GFRAA in patients over 70 years has not been determined. Clinical correlation is essential. Serum or plasma urea nitroge n measurement (mass/volume)Ordered By: Neri Prieto on 08-07-2024 Urea nitrogen [Mass/Vol] 14 mg/dL 7-18 [facility] Sodium levelOrdered By: Fredy Prieto on 08-07-2024 Sodium [Moles/Vol] 138 mmol/L 136-145 [facility] Total proteinOrdered By: Avery Prieto on 08-07-2024 Protein [Mass/Vol] 7.2 g/dL 6.4-8.2 [facility] White blood cell (WBC) count Ordered By: Neri Prieto on 08-07-2024 WBC (Bld) [#/Vol] 7.1 10*3/uL 4.4-11.0 [facility] Bilirubin Test strip Ql (U)O rdered By: Neri Prieto on 07-08-2024 Bilirubin Ql (U) Negative Negative [facility] Epithelial cells.squamous LM Ql (Urine sed)Ordered By: Neri Prieto on 07-08-2024 Epithelial cells.squamous LM.HPF (Urine sed) [#/Area] 0 /[HPF] 5-10 [facility] Glucose Ql (U)Ordered By: Luther Prieto on 07-08-2024 Urine Glucose (UA) Normal mg/dl Normal [facility] Ketones Test strip Ql (U)Ord ered By: Neri Prieto on 07-08-2024 Ketones Ql (U) Negative Negative [facility] Microscopic analysis of urin e for red blood cells (RBC)Ordered By: Neri Prieto on 07-08-2024 Urine RBC 0 SEEN /hpf 0-5 [facility] Mucus LM Ql (Urine sed)Order ed By: Neri Prieto on 07-08-2024 Mucus Ql (Urine sed) 0 SEEN /hpf [facility] Nitrite Test strip Ql (U)Ord ered By: Neri Prieto on 07-08-2024 Nitrite Ql (U) Negative Negative [facility] Protein Test strip Ql (U)Ord ered By: Neri Prieto on 07-08-2024 Protein Ql (U) Negative Negative [facility] Urine blood detectionOrdered By: Neri Prieto on 07-08-2024 Urine Occult Blood Negative Negative [facility] Urine clarityOrdered By: Avery Prieto on 07-08-2024 Clarity (U) Sl. Cloudy Clear [facility] Urine color determinationOrd ered By: Neri Prieto on 07-08-2024 Color (U) Yellow Yellow [facility] Urine cultureOrdered By: Avery Prieto on 07-08-2024 Bacteria identified Cx Nom (U) Culture exhibits no growth. [facility] Urine leukocyte esterase det ection by dipstickOrdered By: Neri Prieto on 07-08-2024 Leukocyte esterase Test strip Ql (U) 25 /ul High Negative [facility] Urine pHOrdered By: Neri hill on 07-08-2024 pH (U) 6.0 [pH] 5.0 - 8.0 [facility] Urine sediment bacteria coun t by microscopy (number/high power field)Ordered By: Neri Prieto on 07-08-2024 Bacteria LM.HPF (Urine sed) [#/Area] 0 /[HPF] None Seen [facility] Urine specific gravity measu rementOrdered By: Neri Prieto on 07-08-2024 Specific gravity (U) [Rel density] 1.010 1.002-1.030 [facility] Urobilinogen Ql (U)Ordered B y: Neri Prieto on 07-08-2024 Urine Urobilinogen Normal mg/dl Normal [facility] White blood cell countOrdere d By: Neri Prieto on 07-08-2024 Urine WBC 0-5 SEEN /hpf 0-5 [facility] Bilirubin Test strip Ql (U)O rdered By: Neri Prieto on 06-12-2024 Bilirubin Ql (U) Negative Negative [facility] Epithelial cells.squamous LM Ql (Urine sed)Ordered By: Neri Prieto on 06-12-2024 Epithelial cells.squamous LM.HPF (Urine sed) [#/Area] 0 /[HPF] 5-10 [facility] Glucose Ql (U)Ordered By: Luther Prieto on 06-12-2024 Glucose (U) [Mass/Vol] 1000 mg/dL High Normal [facility] Ketones Test strip Ql (U)Ord ered By: Neri Prieto on 06-12-2024 Ketones Ql (U) Negative Negative [facility] Microscopic analysis of urin e for red blood cells (RBC)Ordered By: Neri Prieto on 06-12-2024 Urine RBC 0 SEEN /hpf 0-5 [facility] Mucus LM Ql (Urine sed)Order ed By: Neri Prieto on 06-12-2024 Mucus Ql (Urine sed) 0 SEEN /hpf [facility] Nitrite Test strip Ql (U)Ord ered By: Neri Prieto on 06-12-2024 Nitrite Ql (U) Negative Negative [facility] Protein Test strip Ql (U)Ord ered By: Neri Prieto on 06-12-2024 Protein Ql (U) Negative Negative [facility] Urine blood detectionOrdered By: Neri Prieto on 06-12-2024 Urine Occult Blood Negative Negative [facility] Urine clarityOrdered By: Avery Prieto on 06-12-2024 Clarity (U) Clear Clear [facility] Urine color determinationOrd ered By: Neri Prieto on 06-12-2024 Color (U) Yellow Yellow [facility] Urine cultureOrdered By: Avery Prieto on 12-13-2024 Bacteria identified Cx Nom (U) Positive Abnormal [facility] Urine leukocyte esterase det ection by dipstickOrdered By: Neri Prieto on 06-12-2024 Leukocyte esterase Test strip Ql (U) Negative Negative [facility] Urine pHOrdered By: Neri hill on 06-12-2024 pH (U) 7.0 [pH] 5.0 - 8.0 [facility] Urine sediment bacteria coun t by microscopy (number/high power field)Ordered By: Neri Prieto on 06-12-2024 Bacteria LM.HPF (Urine sed) [#/Area] 0 /[HPF] None Seen [facility] Urine specific gravity measu rementOrdered By: Neri Prieto on 06-12-2024 Specific gravity (U) [Rel density] 1.005 1.002-1.030 [facility] Urobilinogen Ql (U)Ordered B y: Neri Prieto on 06-12-2024 Urine Urobilinogen Normal mg/dl Normal [facility] White blood cell countOrdere d By: Neri Prieto on 06-12-2024 Urine WBC 0 SEEN /hpf 0-5 [facility] .Auto Diffon 03-23-2024 Basophil, Absolute 0.0 10 3/mcL Normal 0.0-0.2 [facility] Comment on above: Performed By: #### L IPID, TSH, ADIFF, GFR, CBC, CMP, ANEU #### [address] [address] #### T4 #### [address] [address] Basophils/100 WBC (Bld) 0.7 % Normal 0.0-2.5 [facility] Comment on above: Performed By: #### L IPID, TSH, ADIFF, GFR, CBC, CMP, ANEU #### [address] [address] #### T4 #### [address] [address] Eosinophil, Absolute 0.2 10 3/mcL Normal 0.0-0.7 [facility] Comment on above: Performed By: #### L IPID, TSH, ADIFF, GFR, CBC, CMP, ANEU #### [address] [address] #### T4 #### [address] [address] Eosinophils/100 WBC (Bld) 3.6 % Normal 0.0-7.0 [facility] Comment on above: Performed By: #### L IPID, TSH, ADIFF, GFR, CBC, CMP, ANEU #### [place] [address] #### T4 #### [address] [address] Lymphocyte, Absolute 1.0 10 3/mcL Normal 0.9-4.3 [facility] Comment on above: Performed By: #### L IPID, TSH, ADIFF, GFR, CBC, CMP, ANEU #### [place] [address] #### T4 #### [address] [address] Lymphocytes/100 WBC (Bld) 17.5 % Low 20.0-40.0 [facility] Comment on above: Performed By: #### L IPID, TSH, ADIFF, GFR, CBC, CMP, ANEU #### [place] [address] #### T4 #### [address] [address] Monocyte, Absolute 0.5 10 3/mcL Normal 0.1-1.4 [facility] Comment on above: Performed By: #### L IPID, TSH, ADIFF, GFR, CBC, CMP, ANEU #### [place] [address] #### T4 #### [address] [address] Monocytes/100 WBC (Bld) 9.7 % Normal 2.0-13.0 [facility] Comment on above: Performed By: #### L IPID, TSH, ADIFF, GFR, CBC, CMP, ANEU #### [address] [address] #### T4 #### [address] [address] Neutrophils/100 WBC (Bld) 68.5 % Normal 50.0-75.0 [facility] Comment on above: Performed By: #### L IPID, TSH, ADIFF, GFR, CBC, CMP, ANEU #### [address] [address] #### T4 #### [address] [address] .GFRon 03-23-2024 GFR Non- 53 ml/min/1.73sqm Normal [facility] Comment on above: Result Comment: GFR Population mean for , Non- Americans Ages 20-29 = 116 mL/min/1.73 sq.m. Ages 30-39 = 107 mL/min/1.73 sq.m. Ages 40-49 = 99 mL/min/1.73 sq.m. Ages 50-59 = 93 mL/min/1.73 sq.m. Ages 60-69 = 85 mL/min/1.73 sq.m. Ages 70+ = 75 mL/min/1.73 sq.m. Chronic Kidney Disease: Less than 60 mL/min/1.73 square meters End Stage Renal Disease: Less than 15 mL/min/1.73 square meters Performed By: #### L IPID, TSH, ADIFF, GFR, CBC, CMP, ANEU #### [address] [address] #### T4 #### [address] [address] GFR 64 ml/min/1.73sqm Normal [facility] Comment on above: Result Comment: GFR Population mean for , Non- Americans Ages 20-29 = 116 mL/min/1.73 sq.m. Ages 30-39 = 107 mL/min/1.73 sq.m. Ages 40-49 = 99 mL/min/1.73 sq.m. Ages 50-59 = 93 mL/min/1.73 sq.m. Ages 60-69 = 85 mL/min/1.73 sq.m. Ages 70+ = 75 mL/min/1.73 sq.m. Chronic Kidney Disease: Less than 60 mL/min/1.73 square meters End Stage Renal Disease: Less than 15 mL/min/1.73 square meters Performed By: #### L IPID, TSH, ADIFF, GFR, CBC, CMP, ANEU #### [place] [address] #### T4 #### [place] [address] .NEUABSon 03-23-2024 Neutrophil, Absolute 3.8 10 3/mcL Normal 2.3-8.1 [facility] Comment on above: Performed By: #### L IPID, TSH, ADIFF, GFR, CBC, CMP, ANEU #### [place] [address] #### T4 #### [place] [address] CBCon 03-23-2024 Erythrocyte distribution width (RBC) [Ratio] 13.8 % Normal 11.5-15.5 [facility] [facility] Comment on above: Performed By: #### L IPID, TSH, ADIFF, GFR, CBC, CMP, ANEU #### [place] [address] #### T4 #### [place] [address] Hematocrit (Bld) [Volume fraction] 37.8 % Normal 34.0-46.0 [facility] Comment on above: Performed By: #### L IPID, TSH, ADIFF, GFR, CBC, CMP, ANEU #### [place] [address] #### T4 #### [place] [address] Hgb 12.6 G/dL Normal 12.0-16.0 [facility] Comment on above: Performed By: #### L IPID, TSH, ADIFF, GFR, CBC, CMP, ANEU #### [place] [address] #### T4 #### [place] [address] MCH (RBC) [Entitic mass] 31.3 pg Normal 27.0-33.0 [facility] Comment on above: Performed By: #### L IPID, TSH, ADIFF, GFR, CBC, CMP, ANEU #### [place] [address] #### T4 #### [place] [address] MCHC 33.4 G/dL Normal 32.0-36.0 [facility] Comment on above: Performed By: #### L IPID, TSH, ADIFF, GFR, CBC, CMP, ANEU #### [place] [address] #### T4 #### [place] [address] MCV (RBC) [Entitic vol] 93.8 fL Normal 80.0-99.0 [facility] Comment on above: Performed By: #### L IPID, TSH, ADIFF, GFR, CBC, CMP, ANEU #### [place] [address] #### T4 #### [place] [address] Platelet 185 10 3/mcL Normal 150-450 [facility] Comment on above: Performed By: #### L IPID, TSH, ADIFF, GFR, CBC, CMP, ANEU #### [place] [address] #### T4 #### [place] [address] Platelet mean volume (Bld) [Entitic vol] 9.7 fL Normal 6.6-10.5 [facility] Comment on above: Performed By: #### L IPID, TSH, ADIFF, GFR, CBC, CMP, ANEU #### [place] [address] #### T4 #### [address] [address] RBC 4.03 10 6/mcL Low 4.10-5.30 [facility] Comment on above: Performed By: #### L IPID, TSH, ADIFF, GFR, CBC, CMP, ANEU #### [address] [address] #### T4 #### [place] [address] WBC 5.5 10 3/mcL Normal 4.5-10.8 [facility] Comment on above: Performed By: #### L IPID, TSH, ADIFF, GFR, CBC, CMP, ANEU #### [place] [address] #### T4 #### [place] [address] CMPon 03-23-2024 Albumin Level 3.7 G/dL Normal 3.4-4.8 [facility] Comment on above: Performed By: #### L IPID, TSH, ADIFF, GFR, CBC, CMP, ANEU #### [place] [address] #### T4 #### [place] [address] Albumin/Globulin [Mass ratio] 1.2 {ratio} Normal 1.1-2.5 [facility] Comment on above: Performed By: #### L IPID, TSH, ADIFF, GFR, CBC, CMP, ANEU #### [place] [address] #### T4 #### [place] [address] ALP [Catalytic activity/Vol] 102 U/L Normal 40-135 [facility] Comment on above: Performed By: #### L IPID, TSH, ADIFF, GFR, CBC, CMP, ANEU #### [place] [address] #### T4 #### [facility] [address] [place], [place] [address] ALT [Catalytic activity/Vol] 53 U/L Normal 14-59 [facility] Comment on above: Performed By: #### L IPID, TSH, ADIFF, GFR, CBC, CMP, ANEU #### [address] [address] #### T4 #### [address] [address] AST [Catalytic activity/Vol] 34 U/L Normal 10-40 [facility] Comment on above: Performed By: #### L IPID, TSH, ADIFF, GFR, CBC, CMP, ANEU #### [address] [address] #### T4 #### [place] [address] Bili Total 0.4 mg/dL Normal 0.2-1.0 [facility] Comment on above: Result Comment: Use of this assay is not recommended for patients undergoing treatment with eltrombopag due to the potential for falsely elevated results. Performed By: #### L IPID, TSH, ADIFF, GFR, CBC, CMP, ANEU #### [place] [address] #### T4 #### [place] [address] BUN/Creatinine Ratio 13 ratio Normal 7-27 [facility] Comment on above: Performed By: #### L IPID, TSH, ADIFF, GFR, CBC, CMP, ANEU #### [place] [address] #### T4 #### [address] [address] Calcium [Mass/Vol] 9.2 mg/dL Normal 8.4-10.2 [facility] Comment on above: Performed By: #### L IPID, TSH, ADIFF, GFR, CBC, CMP, ANEU #### [place] [address] #### T4 #### [place] [address] Chloride [Moles/Vol] 99 mmol/L Normal 98-107 [facility] Comment on above: Performed By: #### L IPID, TSH, ADIFF, GFR, CBC, CMP, ANEU #### [address] [address] #### T4 #### [address] [address] CO2 [Moles/Vol] 30 mmol/L Normal 23-31 [facility] Comment on above: Performed By: #### L IPID, TSH, ADIFF, GFR, CBC, CMP, ANEU #### [address] [address] #### T4 #### [address] [address] Creatinine [Mass/Vol] 1.01 mg/dL Normal 0.55-1.02 [facility] Comment on above: Result Comment: Test ing performed on Siemens Dimension EXL analyzer using a modified kinetic Alex technique. Performed By: #### L IPID, TSH, ADIFF, GFR, CBC, CMP, ANEU #### [address] [address] #### T4 #### [address] [address] Electrolyte Balance 8.0 mEq/L Normal 4.0-15.0 [facility] Comment on above: Performed By: #### L IPID, TSH, ADIFF, GFR, CBC, CMP, ANEU #### [address] [address] #### T4 #### [address] [address] Globulin 3.2 G/dL Normal [facility] Comment on above: Performed By: #### L IPID, TSH, ADIFF, GFR, CBC, CMP, ANEU #### [address] [address] #### T4 #### [address] [address] Glucose [Mass/Vol] 387 mg/dL High 83-110 [facility] Comment on above: Performed By: #### L IPID, TSH, ADIFF, GFR, CBC, CMP, ANEU #### [address] [address] #### T4 #### [address] [address] Potassium [Moles/Vol] 3.9 mmol/L Normal 3.5-5.1 [facility] Comment on above: Performed By: #### L IPID, TSH, ADIFF, GFR, CBC, CMP, ANEU #### [place] [address] #### T4 #### [address] [address] Sodium [Moles/Vol] 137 mmol/L Normal 136-145 [facility] Comment on above: Performed By: #### L IPID, TSH, ADIFF, GFR, CBC, CMP, ANEU #### [place] [address] #### T4 #### [address] [address] Total Protein 6.9 G/dL Normal 6.4-8.2 [facility] Comment on above: Performed By: #### L IPID, TSH, ADIFF, GFR, CBC, CMP, ANEU #### [place] [address] #### T4 #### [address] [address] Urea nitrogen [Mass/Vol] 13 mg/dL Normal 7-18 [facility] Comment on above: Performed By: #### L IPID, TSH, ADIFF, GFR, CBC, CMP, ANEU #### [place] [address] #### T4 #### [address] [address] LABORATORYOrdered By: SYSTEM SYSTEM on 03-23-2024 Albumin BCP dye [Mass/Vol] 3.7 G/dL Normal 3.4 - 4.8 G/dL AO ADM SS Albumin/Globulin [Mass ratio] 1.2 {ratio} Normal 1.1 - 2.5 ratio AO ADM SS ALP [Catalytic activity/Vol] 102 U/L Normal 40 - 135 U/L AO ADM SS ALT With P-5'-P [Catalytic activity/Vol] 53 U/L Normal 14 - 59 U/L AO ADM SS AST With P-5'-P [Catalytic activity/Vol] 34 U/L Normal 10 - 40 U/L AO ADM SS Basophils (Bld) [#/Vol] 0.0 103/mcL Normal 0.0 - 0.2 10^3/mcL AO Workflow SS Basophils/100 WBC (Bld) 0.7 % Normal 0.0 - 2.5 % AO Workflow SS Bilirubin [Mass/Vol] 0.4 mg/dL Normal 0.2 - 1 .0 mg/dL AO ADM SS Comment on above: Interpretive Data: U se of this assay is not recommended for patients undergoing treatment with eltrombopag due to the potential for falsely elevated results. Calcium [Mass/Vol] 9.2 mg/dL Normal 8.4 - 10. 2 mg/dL AO ADM SS Chloride [Moles/Vol] 99 mmol/L Normal 98 - 10 7 mmol/L AO ADM SS CO2 [Moles/Vol] 30 mmol/L Normal 23 - 31 mmol/L AO ADM SS Creatinine [Mass/Vol] 1.01 mg/dL Normal 0.55 - 1.02 mg/dL AO ADM SS Comment on above: Interpretive Data: T esting performed on Siemens Dimension EXL analyzer using a modified kinetic Alex technique. Electrolyte Balance 8.0 mEq/L Normal 4.0 - 15 .0 mEq/L AO ADM SS Eosinophil, Absolute 0.2 103/mcL Normal 0.0 - 0 .7 10^3/mcL AO Workflow SS Eosinophils/100 WBC (Bld) 3.6 % Normal 0.0 - 7.0 % AO Workflow SS Erythrocyte distribution width (RBC) [Ratio] 13.8 % Normal 11.5 - 15.5 % AO Workflow SS GFR/1.73 sq M.predicted among blacks MDRD (S/P/Bld) [Vol rate/Area] 64 ml/min/1.73sqm Invalid Interpretation Code AO Chemistry S Comment on above: Interpretive Data: GFR Population mean for , Non- Americans Ages 20-29 = 116 mL/min/1.73 sq.m. Ages 30-39 = 107 mL/min/1.73 sq.m. Ages 40-49 = 99 mL/min/1.73 sq.m. Ages 50-59 = 93 mL/min/1.73 sq.m. Ages 60-69 = 85 mL/min/1.73 sq.m. Ages 70+ = 75 mL/min/1.73 sq.m. Chronic Kidney Disease: Less than 60 mL/min/1.73 square meters End Stage Renal Disease: Less than 15 mL/min/1.73 square meters GFR/1.73 sq M.predicted among non-blacks MDRD (S/P/Bld) [Vol rate/Area] 53 ml/min/1.73sqm Invalid Interpretation Code AO Chemistry S Comment on above: Interpretive Data: GFR Population mean for , Non- Americans Ages 20-29 = 116 mL/min/1.73 sq.m. Ages 30-39 = 107 mL/min/1.73 sq.m. Ages 40-49 = 99 mL/min/1.73 sq.m. Ages 50-59 = 93 mL/min/1.73 sq.m. Ages 60-69 = 85 mL/min/1.73 sq.m. Ages 70+ = 75 mL/min/1.73 sq.m. Chronic Kidney Disease: Less than 60 mL/min/1.73 square meters End Stage Renal Disease: Less than 15 mL/min/1.73 square meters Globulin 3.2 G/dL Invalid Interpretation Code AO ADM SS Glucose [Mass/Vol] 387 mg/dL High 83 - 110 mg/dL AO ADM SS Hematocrit (Bld) [Volume fraction] 37.8 % Normal 34.0 - 46.0 % AO Workflow SS Hemoglobin (Bld) [Mass/Vol] 12.6 G/dL Normal 12.0 - 16.0 G/dL AO Workflow SS Lymphocytes (Bld) [#/Vol] 1.0 103/mcL Normal 0.9 - 4.3 10^3/mcL AO Workflow SS Lymphocytes/100 WBC (Bld) 17.5 % Low 20.0 - 40.0 % AO Workflow SS MCH (RBC) [Entitic mass] 31.3 pg Normal 27.0 - 33.0 pg AO Workflow SS MCHC 33.4 G/dL Normal 32.0 - 36.0 G/dL AO Workflow SS MCV (RBC) [Entitic vol] 93.8 fL Normal 80.0 - 99.0 fL AO Workflow SS Monocytes (Bld) [#/Vol] 0.5 103/mcL Normal 0.1 - 1.4 10^3/mcL AO Workflow SS Monocytes/100 WBC (Bld) 9.7 % Normal 2.0 - 13.0 % AO Workflow SS Neutrophils (Bld) [#/Vol] 3.8 103/mcL Normal 2.3 - 8.1 10^3/mcL AO Workflow SS Neutrophils/100 WBC (Bld) 68.5 % Normal 50.0 - 75.0 % AO Workflow SS Platelet mean volume (Bld) [Entitic vol] 9.7 fL Normal 6.6 - 10.5 fL AO Workflow SS Platelets (Bld) [#/Vol] 185 103/mcL Normal 150 - 450 10^3/mcL AO Workflow SS Potassium [Moles/Vol] 3.9 mmol/L Normal 3.5 - 5.1 mmol/L AO ADM SS Protein [Mass/Vol] 6.9 G/dL Normal 6.4 - 8.2 G/dL AO ADM SS RBC (Bld) [#/Vol] 4.03 106/mcL Low 4.10 - 5.3 0 10^6/mcL AO Workflow SS Sodium [Moles/Vol] 137 mmol/L Normal 136 - 145 mmol/L AO ADM SS T4 [Mass/Vol] 5.9 ug/dL Normal 4.5 - 10.9 mcg/dL AH ADM SS Comment on above: Interpretive Data: * *Note - New Reference Range in effect 20 TSH Qn 8.07 m[IU]/L High 0.36 - 3.74 mcIU/mL AO ADM SS Urea nitrogen [Mass/Vol] 13 mg/dL Normal 7 - 18 mg/dL AO ADM SS Urea nitrogen/Creatinine [Mass ratio] 13 ratio Normal 7 - 27 ratio AO ADM SS WBC (Bld) [#/Vol] 5.5 103/mcL Normal 4.5 - 10.8 10^3/mcL AO Workflow SS LABORATORYOrdered By: Alexandru Parker on 03-23-2024 Cholesterol [Mass/Vol] 180 mg/dL Normal 0 - 2 00 mg/dL AO ADM SS Comment on above: Interpretive Data: C holesterol Reference Interval: Less than 200 Desirable 200-239 Borderline high risk 240 and above High risk Cholesterol in HDL [Mass/Vol] 54 mg/dL Normal 40 - 60 mg/dL AO ADM SS Cholesterol in LDL [Mass/Vol] 91 mg/dL Normal 0 - 130 mg/dL AO ADM SS Triglyceride [Mass/Vol] 175 mg/dL High 0 - 150 mg/dL AO ADM SS Comment on above: Interpretive Data: T riglyceride Reference Interval: Less than 150 Normal 150-199 Borderline high risk 200-499 High risk 500 or higher Very high risk LIPIDon 03-23-2024 Cholesterol [Mass/Vol] 180 mg/dL Normal 0-200 [facility] Comment on above: Result Comment: Chol esterol Reference Interval: Less than 200 Desirable 200-239 Borderline high risk 240 and above High risk Performed By: #### L IPID, TSH, ADIFF, GFR, CBC, CMP, ANEU #### [address] [address] #### T4 #### [address] [address] Cholesterol in HDL [Mass/Vol] 54 mg/dL Normal 40-60 [facility] Comment on above: Performed By: #### L IPID, TSH, ADIFF, GFR, CBC, CMP, ANEU #### [address] [address] #### T4 #### [address] [address] Cholesterol in LDL [Mass/Vol] 91 mg/dL Normal 0-130 [facility] Comment on above: Performed By: #### L IPID, TSH, ADIFF, GFR, CBC, CMP, ANEU #### [address] [address] #### T4 #### [address] [address] Triglyceride [Mass/Vol] 175 mg/dL High 0-150 [facility] Comment on above: Result Comment: Trig lyceride Reference Interval: Less than 150 Normal 150-199 Borderline high risk 200-499 High risk 500 or higher Very high risk Performed By: #### L IPID, TSH, ADIFF, GFR, CBC, CMP, ANEU #### [place] [address] #### T4 #### [address] [address] T4on 03-23-2024 T4 [Mass/Vol] 5.9 ug/dL Normal 4.5-10.9 [facility] Comment on above: Result Comment: No te - New Reference Range in effect 20 Performed By: #### L IPID, TSH, ADIFF, GFR, CBC, CMP, ANEU #### [place] [address] #### T4 #### [place] [address] TSHon 03-23-2024 TSH Qn 8.07 m[IU]/L High 0.36-3.74 [facility] Comment on above: Performed By: #### L IPID, TSH, ADIFF, GFR, CBC, CMP, ANEU #### [place] [address] #### T4 #### [address] [address] 36on 12-19-2023 36 Spoke w Aylin, josefats daughter. Pnt has been moved to a new facility and they are taking care of all her psychiatry needs. If there are any questions please call [facility] .Auto Diffon 11-14-2023 Basophil, Absolute 0.0 10 3/mcL Normal 0.0-0.2 [facility] ([place]) Comment on above: Performed By: #### A DIFF, TSH, VIDH, ANEU, CMP, GFR, CBC #### [place] [address] #### B12 #### [address] [address] Basophils/100 WBC (Bld) 0.8 % Normal 0.0-2.5 [facility] ([place]) Comment on above: Performed By: #### A DIFF, TSH, VIDH, ANEU, CMP, GFR, CBC #### [place] [address] #### B12 #### [address] [address] Eosinophil, Absolute 0.1 10 3/mcL Normal 0.0-0.4 [facility] ([place]) Comment on above: Performed By: #### A DIFF, TSH, VIDH, ANEU, CMP, GFR, CBC #### [place] [address] #### B12 #### [address] [address] Eosinophils/100 WBC (Bld) 1.7 % Normal 0.0-7.0 [facility] ([place]) Comment on above: Performed By: #### A DIFF, TSH, VIDH, ANEU, CMP, GFR, CBC #### [place] [address] #### B12 #### [address] [address] Lymphocyte, Absolute 1.0 10 3/mcL Normal 0.8-3.9 [facility] ([place]) Comment on above: Performed By: #### A DIFF, TSH, VIDH, ANEU, CMP, GFR, CBC #### [place] [address] #### B12 #### [address] [address] Lymphocytes/100 WBC (Bld) 20.7 % Normal 10.0-50.0 [facility] ([place]) Comment on above: Performed By: #### A DIFF, TSH, VIDH, ANEU, CMP, GFR, CBC #### [place] [address] #### B12 #### [address] [address] Monocyte, Absolute 0.6 10 3/mcL Normal 0.2-1.0 [facility] ([place]) Comment on above: Performed By: #### A DIFF, TSH, VIDH, ANEU, CMP, GFR, CBC #### [address] [address] #### B12 #### [address] [address] Monocytes/100 WBC (Bld) 12.5 % Normal 1.7-13.0 [facility] ([place]) Comment on above: Performed By: #### A DIFF, TSH, VIDH, ANEU, CMP, GFR, CBC #### [address] [address] #### B12 #### [address] [address] Neutrophils/100 WBC (Bld) 64.3 % Normal 37.0-80.0 [facility] ([place]) Comment on above: Performed By: #### A DIFF, TSH, VIDH, ANEU, CMP, GFR, CBC #### [address] [address] #### B12 #### [address] [address] .GFRon 11-14-2023 GFR 76 ml/min/1.73sqm Normal [facility] ([place]) Comment on above: Result Comment: GFR Population mean for , Non- Americans Ages 20-29 = 116 mL/min/1.73 sq.m. Ages 30-39 = 107 mL/min/1.73 sq.m. Ages 40-49 = 99 mL/min/1.73 sq.m. Ages 50-59 = 93 mL/min/1.73 sq.m. Ages 60-69 = 85 mL/min/1.73 sq.m. Ages 70+ = 75 mL/min/1.73 sq.m. Chronic Kidney Disease: Less than 60 mL/min/1.73 square meters End Stage Renal Disease: Less than 15 mL/min/1.73 square meters Performed By: #### A DIFF, TSH, VIDH, ANEU, CMP, GFR, CBC #### [address] [address] #### B12 #### [address] [address] GFR Non- 62 ml/min/1.73sqm Normal [facility] ([place]) Comment on above: Result Comment: GFR Population mean for , Non- Americans Ages 20-29 = 116 mL/min/1.73 sq.m. Ages 30-39 = 107 mL/min/1.73 sq.m. Ages 40-49 = 99 mL/min/1.73 sq.m. Ages 50-59 = 93 mL/min/1.73 sq.m. Ages 60-69 = 85 mL/min/1.73 sq.m. Ages 70+ = 75 mL/min/1.73 sq.m. Chronic Kidney Disease: Less than 60 mL/min/1.73 square meters End Stage Renal Disease: Less than 15 mL/min/1.73 square meters Performed By: #### A DIFF, TSH, VIDH, ANEU, CMP, GFR, CBC #### [place] [address] #### B12 #### [place] [address] .NEUABSon 11-14-2023 Neutrophil, Absolute 3.0 10 3/mcL Normal 2.9-6.2 [facility] ([place]) Comment on above: Performed By: #### A DIFF, TSH, VIDH, ANEU, CMP, GFR, CBC #### [address] [address] #### B12 #### [place] [address] B12on 11-14-2023 Cobalamin (Vitamin B12) [Mass/Vol] 285 pg/mL Normal 211-911 [facility] ([place]) Comment on above: Performed By: #### A DIFF, TSH, VIDH, ANEU, CMP, GFR, CBC #### [place] [id number] #### B12 #### [address] [address] CBCon 11-14-2023 Erythrocyte distribution width (RBC) [Ratio] 13.8 % Normal 11.5-14.5 [facility] ([place]) Comment on above: Performed By: #### A DIFF, TSH, VIDH, ANEU, CMP, GFR, CBC #### [place] [address] #### B12 #### [address] [address] Hematocrit (Bld) [Volume fraction] 34.7 % Low 37.0-47.0 [facility] ([place]) Comment on above: Performed By: #### A DIFF, TSH, VIDH, ANEU, CMP, GFR, CBC #### [place] [address] #### B12 #### [place] [address] Hgb 12.2 G/dL Normal 12.0-16.0 [facility] ([place]) Comment on above: Performed By: #### A DIFF, TSH, VIDH, ANEU, CMP, GFR, CBC #### [place] [address] #### B12 #### [place] [address] MCH (RBC) [Entitic mass] 32.0 pg High 27.0-31.2 [facility] ([place]) Comment on above: Performed By: #### A DIFF, TSH, VIDH, ANEU, CMP, GFR, CBC #### [place] [address] #### B12 #### [place] [address] MCHC 35.1 G/dL Normal 33.0-37.0 [facility] ([place]) Comment on above: Performed By: #### A DIFF, TSH, VIDH, ANEU, CMP, GFR, CBC #### [place] [address] #### B12 #### [place] [address] MCV (RBC) [Entitic vol] 91.0 fL Normal 80.0-94.0 [facility] ([place]) Comment on above: Performed By: #### A DIFF, TSH, VIDH, ANEU, CMP, GFR, CBC #### [place] [address] #### B12 #### [place] [address] Platelet 186 10 3/mcL Normal 130-400 [facility] ([place]) Comment on above: Performed By: #### A DIFF, TSH, VIDH, ANEU, CMP, GFR, CBC #### [place] [address] #### B12 #### [place] [address] Platelet mean volume (Bld) [Entitic vol] 10.3 fL Normal 7.4-10.4 [facility] ([place]) Comment on above: Performed By: #### A DIFF, TSH, VIDH, ANEU, CMP, GFR, CBC #### [place] [address] #### B12 #### [place] [address] RBC 3.81 10 6/mcL Low 4.20-5.40 [facility] ([place]) Comment on above: Performed By: #### A DIFF, TSH, VIDH, ANEU, CMP, GFR, CBC #### [place] [address] #### B12 #### [place] [address] WBC 4.7 10 3/mcL Normal 4.6-10.8 [facility] ([place]) Comment on above: Performed By: #### A DIFF, TSH, VIDH, ANEU, CMP, GFR, CBC #### [place] [address] #### B12 #### [place] [address] CMPon 11-14-2023 Albumin Level 3.7 G/dL Normal 3.4-4.8 [facility] ([place]) Comment on above: Performed By: #### A DIFF, TSH, VIDH, ANEU, CMP, GFR, CBC #### [place] [address] #### B12 #### [address] [address] Albumin/Globulin [Mass ratio] 1.2 {ratio} Normal 1.1-2.5 [facility] ([place]) Comment on above: Performed By: #### A DIFF, TSH, VIDH, ANEU, CMP, GFR, CBC #### [place] [address] #### B12 #### [address] [address] ALP [Catalytic activity/Vol] 58 U/L Normal 40-135 [facility] ([place]) Comment on above: Performed By: #### A DIFF, TSH, VIDH, ANEU, CMP, GFR, CBC #### [place] [address] #### B12 #### [place] [address] ALT [Catalytic activity/Vol] 38 U/L Normal 14-59 [facility] ([place]) Comment on above: Performed By: #### A DIFF, TSH, VIDH, ANEU, CMP, GFR, CBC #### [place] [address] #### B12 #### [address] [address] AST [Catalytic activity/Vol] 29 U/L Normal 10-40 [facility] ([place]) Comment on above: Performed By: #### A DIFF, TSH, VIDH, ANEU, CMP, GFR, CBC #### [place] [address] #### B12 #### [place] [id number] Bili Total 0.4 mg/dL Normal 0.2-1.0 [facility] ([place]) Comment on above: Result Comment: Use of this assay is not recommended for patients undergoing treatment with eltrombopag due to the potential for falsely elevated results. Performed By: #### A DIFF, TSH, VIDH, ANEU, CMP, GFR, CBC #### [address] [address] #### B12 #### [address] [address] BUN/Creatinine Ratio 19 ratio Normal 7-27 [facility] ([place]) Comment on above: Performed By: #### A DIFF, TSH, VIDH, ANEU, CMP, GFR, CBC #### [place] [address] #### B12 #### [address] [address] Calcium [Mass/Vol] 9.0 mg/dL Normal 8.4-10.2 [facility] ([place]) Comment on above: Performed By: #### A DIFF, TSH, VIDH, ANEU, CMP, GFR, CBC #### [place] [address] #### B12 #### [address] [address] Chloride [Moles/Vol] 103 mmol/L Normal 98-107 [facility] ([place]) Comment on above: Performed By: #### A DIFF, TSH, VIDH, ANEU, CMP, GFR, CBC #### [place] [address] #### B12 #### [address] [address] CO2 [Moles/Vol] 32 mmol/L High 23-31 [facility] ([place]) Comment on above: Performed By: #### A DIFF, TSH, VIDH, ANEU, CMP, GFR, CBC #### [place] [address] #### B12 #### [address] [address] Creatinine [Mass/Vol] 0.88 mg/dL Normal 0.55-1.02 [facility] ([place]) Comment on above: Performed By: #### A DIFF, TSH, VIDH, ANEU, CMP, GFR, CBC #### [place] [address]147 #### B12 #### [address] [address] Electrolyte Balance 6.0 mEq/L Normal 4.0-15.0 [facility] ([place]) Comment on above: Performed By: #### A DIFF, TSH, VIDH, ANEU, CMP, GFR, CBC #### [address] [address] #### B12 #### [address] [address] Globulin 3.1 G/dL Normal [facility] ([place]) Comment on above: Performed By: #### A DIFF, TSH, VIDH, ANEU, CMP, GFR, CBC #### [address] [address] #### B12 #### [address] [address] Glucose [Mass/Vol] 140 mg/dL High 83-110 [facility] ([place]) Comment on above: Performed By: #### A DIFF, TSH, VIDH, ANEU, CMP, GFR, CBC #### [address] [address] #### B12 #### [address] [address] Potassium [Moles/Vol] 4.8 mmol/L Normal 3.5-5.1 Formerly [facility] ([place]) Comment on above: Performed By: #### A DIFF, TSH, VIDH, ANEU, CMP, GFR, CBC #### [address] [address] #### B12 #### [address] [address] Sodium [Moles/Vol] 141 mmol/L Normal 136-145 [facility] ([place]) Comment on above: Performed By: #### A DIFF, TSH, VIDH, ANEU, CMP, GFR, CBC #### [address] [address] #### B12 #### [address] [address] Total Protein 6.8 G/dL Normal 6.4-8.2 [facility]ly [facility] ([place]) Comment on above: Performed By: #### A DIFF, TSH, VIDH, ANEU, CMP, GFR, CBC #### [address] [address] #### B12 #### [place] [address] Urea nitrogen [Mass/Vol] 17 mg/dL Normal 7-18 [facility] ([place]) Comment on above: Performed By: #### A DIFF, TSH, VIDH, ANEU, CMP, GFR, CBC #### [address] [address] #### B12 #### [place] [address] LABORATORYOrdered By: SYSTEM SYSTEM on 11-14-2023 25-hydroxyvitamin D3 [Mass/Vol] 98.2 ng/mL Invalid Interpretation Code AO ADM SS Comment on above: Interpretive Data: I nterpretive Values Based on Total 25(OH) Vitamin D: Deficient <20 ng/mL Insufficient 20 - <30 ng/mL Sufficient 30-100 ng/mL Albumin BCP dye [Mass/Vol] 3.7 G/dL Normal 3.4 - 4.8 G/dL AO ADM SS Albumin/Globulin [Mass ratio] 1.2 {ratio} Normal 1.1 - 2.5 ratio AO ADM SS ALP [Catalytic activity/Vol] 58 U/L Normal 40 - 135 U/L AO ADM SS ALT With P-5'-P [Catalytic activity/Vol] 38 U/L Normal 14 - 59 U/L AO ADM SS AST With P-5'-P [Catalytic activity/Vol] 29 U/L Normal 10 - 40 U/L AO ADM SS Basophil, Absolute 0.0 103/mcL Normal 0.0 - 0.2 10^3/mcL AO Workflow SS Basophils/100 WBC (Bld) 0.8 % Normal 0.0 - 2.5 % AO Workflow SS Bilirubin [Mass/Vol] 0.4 mg/dL Normal 0.2 - 1 .0 mg/dL AO ADM SS Comment on above: Interpretive Data: U se of this assay is not recommended for patients undergoing treatment with eltrombopag due to the potential for falsely elevated results. Calcium [Mass/Vol] 9.0 mg/dL Normal 8.4 - 10. 2 mg/dL AO ADM SS Chloride [Moles/Vol] 103 mmol/L Normal 98 - 10 7 mmol/L AO ADM SS CO2 [Moles/Vol] 32 mmol/L High 23 - 31 mmol/L AO ADM SS Cobalamin (Vitamin B12) [Mass/Vol] 285 pg/mL Normal 211 - 911 pg/mL AH ADM SS Creatinine [Mass/Vol] 0.88 mg/dL Normal 0.55 - 1.02 mg/dL AO ADM SS Electrolyte Balance 6.0 mEq/L Normal 4.0 - 15 .0 mEq/L AO ADM SS Eosinophil, Absolute 0.1 103/mcL Normal 0.0 - 0 .4 10^3/mcL AO Workflow SS Eosinophils/100 WBC (Bld) 1.7 % Normal 0.0 - 7.0 % AO Workflow SS Erythrocyte distribution width (RBC) [Ratio] 13.8 % Normal 11.5 - 14.5 % AO Workflow SS GFR/1.73 sq M.predicted among blacks MDRD (S/P/Bld) [Vol rate/Area] 76 ml/min/1.73sqm Invalid Interpretation Code AO Chemistry S Comment on above: Interpretive Data: GFR Population mean for , Non- Americans Ages 20-29 = 116 mL/min/1.73 sq.m. Ages 30-39 = 107 mL/min/1.73 sq.m. Ages 40-49 = 99 mL/min/1.73 sq.m. Ages 50-59 = 93 mL/min/1.73 sq.m. Ages 60-69 = 85 mL/min/1.73 sq.m. Ages 70+ = 75 mL/min/1.73 sq.m. Chronic Kidney Disease: Less than 60 mL/min/1.73 square meters End Stage Renal Disease: Less than 15 mL/min/1.73 square meters GFR/1.73 sq M.predicted among non-blacks MDRD (S/P/Bld) [Vol rate/Area] 62 ml/min/1.73sqm Invalid Interpretation Code AO Chemistry S Comment on above: Interpretive Data: GFR Population mean for , Non- Americans Ages 20-29 = 116 mL/min/1.73 sq.m. Ages 30-39 = 107 mL/min/1.73 sq.m. Ages 40-49 = 99 mL/min/1.73 sq.m. Ages 50-59 = 93 mL/min/1.73 sq.m. Ages 60-69 = 85 mL/min/1.73 sq.m. Ages 70+ = 75 mL/min/1.73 sq.m. Chronic Kidney Disease: Less than 60 mL/min/1.73 square meters End Stage Renal Disease: Less than 15 mL/min/1.73 square meters Globulin 3.1 G/dL Invalid Interpretation Code AO ADM SS Glucose [Mass/Vol] 140 mg/dL High 83 - 110 mg/dL AO ADM SS Hematocrit (Bld) [Volume fraction] 34.7 % Low 37.0 - 47.0 % AO Workflow SS Hemoglobin (Bld) [Mass/Vol] 12.2 G/dL Normal 12.0 - 16.0 G/dL AO Workflow SS Lymphocyte, Absolute 1.0 103/mcL Normal 0.8 - 3 .9 10^3/mcL AO Workflow SS Lymphocytes/100 WBC (Bld) 20.7 % Normal 10.0 - 50.0 % AO Workflow SS MCH (RBC) [Entitic mass] 32.0 pg High 27.0 - 31.2 pg AO Workflow SS MCHC 35.1 G/dL Normal 33.0 - 37.0 G/dL AO Workflow SS MCV (RBC) [Entitic vol] 91.0 fL Normal 80.0 - 94.0 fL AO Workflow SS Monocyte, Absolute 0.6 103/mcL Normal 0.2 - 1.0 10^3/mcL AO Workflow SS Monocytes/100 WBC (Bld) 12.5 % Normal 1.7 - 13.0 % AO Workflow SS Neutrophil, Absolute 3.0 103/mcL Normal 2.9 - 6 .2 10^3/mcL AO Workflow SS Neutrophils/100 WBC (Bld) 64.3 % Normal 37.0 - 80.0 % AO Workflow SS Platelet mean volume (Bld) [Entitic vol] 10.3 fL Normal 7.4 - 10.4 fL AO Workflow SS Platelets (Bld) [#/Vol] 186 103/mcL Normal 130 - 400 10^3/mcL AO Workflow SS Potassium [Moles/Vol] 4.8 mmol/L Normal 3.5 - 5.1 mmol/L AO ADM SS Protein [Mass/Vol] 6.8 G/dL Normal 6.4 - 8.2 G/dL AO ADM SS RBC (Bld) [#/Vol] 3.81 106/mcL Low 4.20 - 5.4 0 10^6/mcL AO Workflow SS Sodium [Moles/Vol] 141 mmol/L Normal 136 - 145 mmol/L AO ADM SS TSH Qn 13.63 m[IU]/L High 0.36 - 3.74 mcIU/mL AO ADM SS Urea nitrogen [Mass/Vol] 17 mg/dL Normal 7 - 18 mg/dL AO ADM SS Urea nitrogen/Creatinine [Mass ratio] 19 ratio Normal 7 - 27 ratio AO ADM SS WBC (Bld) [#/Vol] 4.7 103/mcL Normal 4.6 - 10.8 10^3/mcL AO Workflow SS TSHon 11-14-2023 TSH Qn 13.63 m[IU]/L High 0.36-3.74 [facility] ([place]) Comment on above: Performed By: #### A DIFF, TSH, VIDH, ANEU, CMP, GFR, CBC #### [address] [address] #### B12 #### [address] 11-14-2023 Vit. D 25-Hydroxy 98.2 ng/mL Normal [facility] ([place]) Comment on above: Result Comment: Inte rpretive Values Based on Total 25(OH) Vitamin D: Deficient <20 ng/mL Insufficient 20 - <30 ng/mL Sufficient 30-100 ng/mL Performed By: #### A DIFF, TSH, VIDH, ANEU, CMP, GFR, CBC #### [address] [address] #### B12 #### [address] [address] Absolute lymphocyte countOrd ered By: Rosi Garcia on 09-08-2023 Lymphocytes Auto (Unsp spec) [#/Vol] 1.28 10*3/uL 0.83-4.51 [facility] Automated lymphocyte count a s percentage of total leukocytesOrdered By: Rosi Garcia on 09-08-2023 Lymphocytes/100 WBC Auto (Unsp spec) 18.2 % 19-41 [facility] Basophil percentageOrdered B y: Rosi Garcia on 09-08-2023 Basophils/100 WBC (Bld) 0.6 % 0-1 [facility] Chloride [Moles/Vol] 105 mmol/L 98-107 [facility] Eosinophils/100 WBC (Bld) 2.3 % 0-5 [facility] Glucose [Mass/Vol] 129 mg/dL 74-106 [facility] Comment on above: Fasting Glucose resu lt greater than or equal to 126 mg/dL suggests DIABETES MELLITUS per A.D.A. criteria. Hemoglobin (Bld) [Mass/Vol] 11.3 g/dL 12.0-15.0 [facility] Monocytes/100 WBC (Bld) 10.9 % 0-10 [facility] Neutrophils (Bld) [#/Vol] 4.8 10*3/uL 2.0-7.7 [facility] Neutrophils/100 WBC (Bld) 67.7 % 47-70 [facility] Potassium [Moles/Vol] 4.0 mmol/L 3.5-5.1 [facility] Sodium [Moles/Vol] 141 mmol/L 136-145 [facility] WBC (Bld) [#/Vol] 7.0 10*3/uL 4.4-11.0 [facility] Determination of erythrocyte mean corpuscular volume (MCV)Ordered By: Rosi Garcia on 09-08-2023 MCV (RBC) [Entitic vol] 94.5 fL 81-99 [facility] Erythrocyte distribution wid th ratioOrdered By: Rosi Garcia on 09-08-2023 Erythrocyte distribution width (RBC) [Ratio] 13.1 % 11.6-14.6 [facility] Erythrocyte distribution wid th standard deviationOrdered By: Rosi Garcia on 09-08-2023 Erythrocyte distribution width (RBC) [Entitic vol] 45.7 fL 35.1-43.9 [facility] Hematocrit Auto (Bld) [Volum e fraction]Ordered By: Rosi Garcia on 09-08-2023 Hematocrit (Bld) [Volume fraction] 34.5 % 37-47 [facility] Immature granulocytes/100 WB C Auto (Bld)Ordered By: Rosi Garcia on 09-08-2023 Immature granulocytes/100 WBC (Bld) 0.300 % 0.0-0.9 [facility] Comment on above: IG% - Immature Granu locytes (promyelocytes, myelocytes and metamyelocytes) > 1% indicates that a LEFT SHIFT is Present. Laboratory - Chemistry and C hemistry - challengeOrdered By: Rosi Garcia on 09-08-2023 CO2 [Moles/Vol] 32.0 mmol/L 21.0-32.0 [facility] Urea nitrogen/Creatinine [Mass ratio] 19.2 mg/mg 10-20 [facility] Laboratory - Hematology and Cell countsOrdered By: Rosi Garcia on 09-08-2023 MCH (RBC) [Entitic mass] 31.0 pg 27.0-32.0 [facility] MCHC (RBC) [Mass/Vol] 32.8 g/dL 32-36 [facility] Nucleated RBC/100 WBC (Bld) [Ratio] 0 % 0-5 [facility] Platelet mean volume (Bld) [Entitic vol] 11.8 fL 6.2-12.0 [facility] Platelets (Bld) [#/Vol] 183 10*3/uL 150-450 [facility] No Panel InformationOrdered By: Rosi Garcia on 09-08-2023 Troponin I High Sensitivity 6 pg/mL 3.0-54.0 [facility] Comment on above: Please Note: New Barbra t Units and Gender Specific Reference Ranges. For more information see Policy Stat Procedure [place] High Sensitivity Troponin (TNIH) and attachments. Estimated Creatinine Clearance Calc 42.97 ml/min [facility] Estimated GFR (MDRD) Amer 92 mL/min >60 [facility] Comment on above: GFR Calc Estimated GFR (MDRD) Non-Af Amer 76 mL/min >60 [facility] Comment on above: Non- GFR Calc RBC Auto (Bld) [#/Vol]Ordere d By: Rosi Garcia on 09-08-2023 RBC (Bld) [#/Vol] 3.65 10*6/uL 4.2-5.4 [facility] Serum or plasma calcium marta urement (mass/volume)Ordered By: Rosi Garcia on 09-08-2023 Calcium [Mass/Vol] 9.2 mg/dL 8.5-10.1 [facility] Serum or plasma creatinine m easurement (mass/volume)Ordered By: Rosi Garcia on 09-08-2023 Creatinine [Mass/Vol] 0.78 mg/dL 0.55-1.02 [facility] Comment on above: The validity of the calculated GFR & GFRAA in patients over 70 years has not been determined. Clinical correlation is essential. Serum or plasma urea nitroge n measurement (mass/volume)Ordered By: Rosi Garcia on 09-08-2023 Urea nitrogen [Mass/Vol] 15 mg/dL 7-18 [facility] Thin prep Papanicolaou smear with manual screeningOrdered By: Rosi Garcia on 09-08-2023 Thin prep Papanicolaou smear with manual screening 4 - [facility] Misc LCon 08-14-2023 Order Number [id number] Normal [facility]) Comment on above: Performed By: #### [id number] ####[address]ash [place] Test Name beta amyloid Normal [facility]) Comment on above: Performed By: #### [id number] ####Arash [address] Test Source blood Normal [facility]) Comment on above: Performed By: #### 9 [id number] ####Arash [address] [place], [place] [address] CT HEAD OR BRAIN W/O CONTRAS Ton 08-09-2023 CT HEAD OR BRAIN W/O CONTRAST ORIGINAL HISTORY: Neuro cognitive disorder COMPARISON: No [...] Sign Date: 08/09/2023 2:06:00 PM Ordering Provider: HI ALBRIGHT [facility] ([place]) [facility] 08-09-2023 [facility] Result COMMENT [facility]) Comment on above: Result Comment: Test Ordered: [id number] Beta Amyloid 42/40 Ratio Beta-amyloid 42/40 Ratio 0.096 [L ] BN Reference Range: >0.102 This test was developed and its performance characteristics determined by [facility]. It has not been cleared or approved by the Food and Drug Administration. Beta-amyloid 42 17.47 pg/mL BN This test was developed and its performance characteristics determined by [facility]. It has not been cleared or approved by the Food and Drug Administration. Beta-amyloid 40 181.13 pg/mL BN This test was developed and its performance characteristics determined by [facility]. It has not been cleared or approved by the Food and Drug Administration. Plasma beta-amyloid 1-42/1-40 ratios less than or equal to 0.102 suggest a higher probability of a patient being clinically diagnosed with Alzheimer's Disease (AD), while values above 0.102 suggest a lower probability of AD diagnosis. Precise plasma testing of Beta Amyloid 42 and Beta Amyloid 40 has demonstrated comparable effectiveness to traditional cerebrospinal fluid testing and amyloid positron emission tomography (PET) scans. When assessing the risk of AD pathology as the underlying cause for mild cognitive impairment (MCI) or dementia, it is important to consider various factors such as medical and family history, nutritional deficiency biomarkers, neuroimaging, and physical, neurological, and neuropsychological examinations. Methodology: [employer] Chemiluminescence Enzyme Immunoassay (CLEIA). Values obtained with different methods cannot be used interchangeably. Performed At: [facility] [address] [id number] Thanh Pride PhD Ph:[phone] Performed At: [facility] [address] [id number] Fabio Slade MD Ph:[phone] Performed By: #### 9 [id number] ####Arash [address] [place], [place] [address] LABORATORYOrdered By: Barbie Shipman on 07-12-2023 Albumin DL <= 20 mg/L (U) [Mass/Vol] 141 mcg/dL Invalid Interpretation Code AO ADM SS Albumin/Creatinine DL <= 20 mg/L (U) [Mass ratio] Unable to Calcu Invalid Interpretation Code 0 - 30 AO Chemistry S Creatinine (U) [Mass/Vol] mg/dL Low 28.0 - 117.0 mg/dL AO ADM SS MALBRon 07-12-2023 U Creatinine <13.0 Low 28.0-117.0 [facility] ([place]) Comment on above: Performed By: #### M ALBR ####[address] [place] [place], [place] [address] U Microalb 141 mcg/dL Normal [facility] ([place]) Comment on above: Performed By: #### M ALBR ####[address] [place] [place], [place] [address] U Ratio Alb/Cre Unable to Calcu Normal 0-30 [facility] ([place]) Comment on above: Performed By: #### M ALBR ####[address] [place] [place], [place] [address] TSHon 07-04-2023 TSH Qn 4.13 m[IU]/L High 0.36-3.74 [facility] ([place]) Comment on above: Performed By: #### T SH ####[address] [place] [place], [place] [address] .Auto Diffon 06-03-2023 Basophil, Absolute 0.0 10 3/mcL Normal 0.0-0.2 [facility] ([place]) Comment on above: Performed By: #### A DIFF, TSH, VIDH, ANEU, CMP, GFR, CBC #### Arash [address] [address] #### B12 #### [address] [address] Basophils/100 WBC (Bld) 0.5 % Normal 0.0-2.5 A [facility] ([place]) Comment on above: Performed By: #### A DIFF, TSH, VIDH, ANEU, CMP, GFR, CBC #### [address] [address] #### B12 #### [address] [address] Eosinophil, Absolute 0.1 10 3/mcL Normal 0.0-0.4 [facility] ([place]) Comment on above: Performed By: #### A DIFF, TSH, VIDH, ANEU, CMP, GFR, CBC #### [address] [address] #### B12 #### [address] [address] Eosinophils/100 WBC (Bld) 0.8 % Normal 0.0-7.0 [facility] ([place]) Comment on above: Performed By: #### A DIFF, TSH, VIDH, ANEU, CMP, GFR, CBC #### [place] [address] #### B12 #### [address] [address] Lymphocyte, Absolute 1.1 10 3/mcL Normal 0.8-3.9 [facility] ([place]) Comment on above: Performed By: #### A DIFF, TSH, VIDH, ANEU, CMP, GFR, CBC #### [address] [address] #### B12 #### [address] [address] Lymphocytes/100 WBC (Bld) 15.7 % Normal 10.0-50.0 [facility] ([place]) Comment on above: Performed By: #### A DIFF, TSH, VIDH, ANEU, CMP, GFR, CBC #### [place] [address] #### B12 #### [address] [address] Monocyte, Absolute 0.8 10 3/mcL Normal 0.2-1.0 [facility] ([place]) Comment on above: Performed By: #### A DIFF, TSH, VIDH, ANEU, CMP, GFR, CBC #### [address] [address] #### B12 #### [address] [address] Monocytes/100 WBC (Bld) 11.1 % Normal 1.7-13.0 A [facility] ([place]) Comment on above: Performed By: #### A DIFF, TSH, VIDH, ANEU, CMP, GFR, CBC #### [address] [address] #### B12 #### [address] [address] Neutrophils/100 WBC (Bld) 71.9 % Normal 37.0-80.0 [facility] ([place]) Comment on above: Performed By: #### A DIFF, TSH, VIDH, ANEU, CMP, GFR, CBC #### [address] [address] #### B12 #### [address] [address] .GFRon 06-03-2023 GFR Non- 74 ml/min/1.73sqm Normal [facility] ([place]) Comment on above: Result Comment: GFR Population mean for , Non- Americans Ages 20-29 = 116 mL/min/1.73 sq.m. Ages 30-39 = 107 mL/min/1.73 sq.m. Ages 40-49 = 99 mL/min/1.73 sq.m. Ages 50-59 = 93 mL/min/1.73 sq.m. Ages 60-69 = 85 mL/min/1.73 sq.m. Ages 70+ = 75 mL/min/1.73 sq.m. Chronic Kidney Disease: Less than 60 mL/min/1.73 square meters End Stage Renal Disease: Less than 15 mL/min/1.73 square meters Performed By: #### A DIFF, TSH, VIDH, ANEU, CMP, GFR, CBC #### [address] [address] #### B12 #### [address] [address] GFR 90 ml/min/1.73sqm Normal [facility] ([place]) Comment on above: Result Comment: GFR Population mean for , Non- Americans Ages 20-29 = 116 mL/min/1.73 sq.m. Ages 30-39 = 107 mL/min/1.73 sq.m. Ages 40-49 = 99 mL/min/1.73 sq.m. Ages 50-59 = 93 mL/min/1.73 sq.m. Ages 60-69 = 85 mL/min/1.73 sq.m. Ages 70+ = 75 mL/min/1.73 sq.m. Chronic Kidney Disease: Less than 60 mL/min/1.73 square meters End Stage Renal Disease: Less than 15 mL/min/1.73 square meters Performed By: #### A DIFF, TSH, VIDH, ANEU, CMP, GFR, CBC #### [place] [address] #### B12 #### [address] [address] .NEUABSon 06-03-2023 Neutrophil, Absolute 5.1 10 3/mcL Normal 2.9-6.2 [facility] ([place]) Comment on above: Performed By: #### A DIFF, TSH, VIDH, ANEU, CMP, GFR, CBC #### [address] [address] #### B12 #### [address] [address] B12on 06-03-2023 Cobalamin (Vitamin B12) [Mass/Vol] 222 pg/mL Normal 211-911 [facility] ([place]) Comment on above: Performed By: #### A DIFF, TSH, VIDH, ANEU, CMP, GFR, CBC #### [place] [address] #### B12 #### [address] [address] CBCon 06-03-2023 Erythrocyte distribution width (RBC) [Ratio] 13.6 % Normal 11.5-14.5 [facility] ([place]) Comment on above: Performed By: #### A DIFF, TSH, VIDH, ANEU, CMP, GFR, CBC #### [place] [address] #### B12 #### [place] [address] Hematocrit (Bld) [Volume fraction] 31.7 % Low 37.0-47.0 [facility] ([place]) Comment on above: Performed By: #### A DIFF, TSH, VIDH, ANEU, CMP, GFR, CBC #### [place] [address] #### B12 #### [place] [address] Hgb 10.5 G/dL Low 12.0-16.0 [facility] ([place]) Comment on above: Performed By: #### A DIFF, TSH, VIDH, ANEU, CMP, GFR, CBC #### [place] [address] #### B12 #### [place] [address] MCH (RBC) [Entitic mass] 31.0 pg Normal 27.0-31.2 [facility] ([place]) Comment on above: Performed By: #### A DIFF, TSH, VIDH, ANEU, CMP, GFR, CBC #### [place] [address] #### B12 #### [place] [address] MCHC 33.2 G/dL Normal 33.0-37.0 [facility] ([place]) Comment on above: Performed By: #### A DIFF, TSH, VIDH, ANEU, CMP, GFR, CBC #### [place] [address] #### B12 #### [place] [address] MCV (RBC) [Entitic vol] 93.4 fL Normal 80.0-94.0 A [facility] ([place]) Comment on above: Performed By: #### A DIFF, TSH, VIDH, ANEU, CMP, GFR, CBC #### [place] [address] #### B12 #### [place] [address] Platelet 183 10 3/mcL Normal 130-400 [facility] ([place]) Comment on above: Performed By: #### A DIFF, TSH, VIDH, ANEU, CMP, GFR, CBC #### [place] [address] #### B12 #### [place] [address] Platelet mean volume (Bld) [Entitic vol] 9.2 fL Normal 7.4-10.4 [facility] ([place]) Comment on above: Performed By: #### A DIFF, TSH, VIDH, ANEU, CMP, GFR, CBC #### [place] [address] #### B12 #### [place] [address] RBC 3.39 10 6/mcL Low 4.20-5.40 [facility] ([place]) Comment on above: Performed By: #### A DIFF, TSH, VIDH, ANEU, CMP, GFR, CBC #### [place] [address] #### B12 #### [place] [address] WBC 7.0 10 3/mcL Normal 4.6-10.8 [facility] ([place]) Comment on above: Performed By: #### A DIFF, TSH, VIDH, ANEU, CMP, GFR, CBC #### [place] [address] #### B12 #### [place] [address] CMPon 06-03-2023 Albumin Level 3.5 G/dL Normal 3.4-4.8 [facility] ([place]) Comment on above: Performed By: #### A DIFF, TSH, VIDH, ANEU, CMP, GFR, CBC #### [address] [address] #### B12 #### [address] [address] Albumin/Globulin [Mass ratio] 1.2 {ratio} Normal 1.1-2.5 [facility] ([place]) Comment on above: Performed By: #### A DIFF, TSH, VIDH, ANEU, CMP, GFR, CBC #### [address] [address] #### B12 #### [address] [address] ALP [Catalytic activity/Vol] 69 U/L Normal 40-135 [facility] ([place]) Comment on above: Performed By: #### A DIFF, TSH, VIDH, ANEU, CMP, GFR, CBC #### [address] [address] #### B12 #### [address] [address] ALT [Catalytic activity/Vol] 29 U/L Normal 14-59 [facility] ([place]) Comment on above: Performed By: #### A DIFF, TSH, VIDH, ANEU, CMP, GFR, CBC #### [address] [address] #### B12 #### [address] [address] AST [Catalytic activity/Vol] 27 U/L Normal 10-40 [facility] ([place]) Comment on above: Performed By: #### A DIFF, TSH, VIDH, ANEU, CMP, GFR, CBC #### [address] [address] #### B12 #### [address] [address] Bili Total 0.2 mg/dL Normal 0.2-1.0 [facility] ([place]) Comment on above: Result Comment: Use of this assay is not recommended for patients undergoing treatment with eltrombopag due to the potential for falsely elevated results. Performed By: #### A DIFF, TSH, VIDH, ANEU, CMP, GFR, CBC #### [address] [address] #### B12 #### [address] [address] BUN/Creatinine Ratio 18 ratio Normal 7-27 [facility] ([place]) Comment on above: Performed By: #### A DIFF, TSH, VIDH, ANEU, CMP, GFR, CBC #### [place] [address] #### B12 #### [address] [address] Calcium [Mass/Vol] 8.4 mg/dL Normal 8.4-10.2 [facility] ([place]) Comment on above: Performed By: #### A DIFF, TSH, VIDH, ANEU, CMP, GFR, CBC #### [place] [address] #### B12 #### [address] [address] Chloride [Moles/Vol] 100 mmol/L Normal 98-107 [facility] ([place]) Comment on above: Performed By: #### A DIFF, TSH, VIDH, ANEU, CMP, GFR, CBC #### [place] [address] #### B12 #### [address] [address] CO2 [Moles/Vol] 28 mmol/L Normal 23-31 [facility] ([place]) Comment on above: Performed By: #### A DIFF, TSH, VIDH, ANEU, CMP, GFR, CBC #### [place] [address] #### B12 #### [address] [address] Creatinine [Mass/Vol] 0.76 mg/dL Normal 0.55-1.02 [facility] ([place]) Comment on above: Performed By: #### A DIFF, TSH, VIDH, ANEU, CMP, GFR, CBC #### [address] [address] #### B12 #### [address] [address] Electrolyte Balance 8.0 mEq/L Normal 4.0-15.0 [facility] ([place]) Comment on above: Performed By: #### A DIFF, TSH, VIDH, ANEU, CMP, GFR, CBC #### [address] [address] #### B12 #### [address] [address] Globulin 2.8 G/dL Normal [facility] ([place]) Comment on above: Performed By: #### A DIFF, TSH, VIDH, ANEU, CMP, GFR, CBC #### [address] [address] #### B12 #### [address] [address] Glucose [Mass/Vol] 92 mg/dL Normal 83-110 [facility] ([place]) Comment on above: Performed By: #### A DIFF, TSH, VIDH, ANEU, CMP, GFR, CBC #### [address] [address] #### B12 #### [address] [address] Potassium [Moles/Vol] 4.4 mmol/L Normal 3.5-5.1 [facility] ([place]) Comment on above: Performed By: #### A DIFF, TSH, VIDH, ANEU, CMP, GFR, CBC #### [address] [address] #### B12 #### [address] [address] Sodium [Moles/Vol] 136 mmol/L Normal 136-145 [facility] ([place]) Comment on above: Performed By: #### A DIFF, TSH, VIDH, ANEU, CMP, GFR, CBC #### [address] [address] #### B12 #### [place] [address] Total Protein 6.3 G/dL Low 6.4-8.2 [facility] ([place]) Comment on above: Performed By: #### A DIFF, TSH, VIDH, ANEU, CMP, GFR, CBC #### [place] [address] #### B12 #### [place] [address] Urea nitrogen [Mass/Vol] 14 mg/dL Normal 7-18 [facility] ([place]) Comment on above: Performed By: #### A DIFF, TSH, VIDH, ANEU, CMP, GFR, CBC #### [place] [address] #### B12 #### [place] [address] FEon 06-03-2023 Iron [Mass/Vol] 62 ug/dL Normal 50-170 [facility] ([place]) Comment on above: Performed By: #### A DIFF, TSH, VIDH, ANEU, CMP, GFR, CBC #### [place] [id number] #### B12 #### [place] [address] LABORATORYOrdered By: SYSTEM SYSTEM on 06-03-2023 25-hydroxyvitamin D3 [Mass/Vol] 98.2 ng/mL Invalid Interpretation Code AO ADM SS Comment on above: Interpretive Data: I nterpretive Values Based on Total 25(OH) Vitamin D: Deficient <20 ng/mL Insufficient 20 - <30 ng/mL Sufficient 30-100 ng/mL Albumin BCP dye [Mass/Vol] 3.5 G/dL Normal 3.4 - 4.8 G/dL AO ADM SS Albumin/Globulin [Mass ratio] 1.2 {ratio} Normal 1.1 - 2.5 ratio AO ADM SS ALP [Catalytic activity/Vol] 69 U/L Normal 40 - 135 U/L AO ADM SS ALT With P-5'-P [Catalytic activity/Vol] 29 U/L Normal 14 - 59 U/L AO ADM SS AST With P-5'-P [Catalytic activity/Vol] 27 U/L Normal 10 - 40 U/L AO ADM SS Basophil, Absolute 0.0 103/mcL Normal 0.0 - 0.2 10^3/mcL AO Workflow SS Basophils/100 WBC (Bld) 0.5 % Normal 0.0 - 2.5 % AO Workflow SS Bilirubin [Mass/Vol] 0.2 mg/dL Normal 0.2 - 1 .0 mg/dL AO ADM SS Comment on above: Interpretive Data: U se of this assay is not recommended for patients undergoing treatment with eltrombopag due to the potential for falsely elevated results. Calcium [Mass/Vol] 8.4 mg/dL Normal 8.4 - 10. 2 mg/dL AO ADM SS Chloride [Moles/Vol] 100 mmol/L Normal 98 - 10 7 mmol/L AO ADM SS CO2 [Moles/Vol] 28 mmol/L Normal 23 - 31 mmol/L AO ADM SS Cobalamin (Vitamin B12) [Mass/Vol] 222 pg/mL Normal 211 - 911 pg/mL AH ADM SS Creatinine [Mass/Vol] 0.76 mg/dL Normal 0.55 - 1.02 mg/dL AO ADM SS Electrolyte Balance 8.0 mEq/L Normal 4.0 - 15 .0 mEq/L AO ADM SS Eosinophil, Absolute 0.1 103/mcL Normal 0.0 - 0 .4 10^3/mcL AO Workflow SS Eosinophils/100 WBC (Bld) 0.8 % Normal 0.0 - 7.0 % AO Workflow SS Erythrocyte distribution width (RBC) [Ratio] 13.6 % Normal 11.5 - 14.5 % AO Workflow SS GFR/1.73 sq M.predicted among blacks MDRD (S/P/Bld) [Vol rate/Area] 90 ml/min/1.73sqm Invalid Interpretation Code AO Chemistry S Comment on above: Interpretive Data: GFR Population mean for , Non- Americans Ages 20-29 = 116 mL/min/1.73 sq.m. Ages 30-39 = 107 mL/min/1.73 sq.m. Ages 40-49 = 99 mL/min/1.73 sq.m. Ages 50-59 = 93 mL/min/1.73 sq.m. Ages 60-69 = 85 mL/min/1.73 sq.m. Ages 70+ = 75 mL/min/1.73 sq.m. Chronic Kidney Disease: Less than 60 mL/min/1.73 square meters End Stage Renal Disease: Less than 15 mL/min/1.73 square meters GFR/1.73 sq M.predicted among non-blacks MDRD (S/P/Bld) [Vol rate/Area] 74 ml/min/1.73sqm Invalid Interpretation Code AO Chemistry S Comment on above: Interpretive Data: GFR Population mean for , Non- Americans Ages 20-29 = 116 mL/min/1.73 sq.m. Ages 30-39 = 107 mL/min/1.73 sq.m. Ages 40-49 = 99 mL/min/1.73 sq.m. Ages 50-59 = 93 mL/min/1.73 sq.m. Ages 60-69 = 85 mL/min/1.73 sq.m. Ages 70+ = 75 mL/min/1.73 sq.m. Chronic Kidney Disease: Less than 60 mL/min/1.73 square meters End Stage Renal Disease: Less than 15 mL/min/1.73 square meters Globulin 2.8 G/dL Invalid Interpretation Code AO ADM SS Glucose [Mass/Vol] 92 mg/dL Normal 83 - 110 mg/dL AO ADM SS Hematocrit (Bld) [Volume fraction] 31.7 % Low 37.0 - 47.0 % AO Workflow SS Hemoglobin (Bld) [Mass/Vol] 10.5 G/dL Low 12.0 - 16.0 G/dL AO Workflow SS Iron [Mass/Vol] 62 ug/dL Normal 50 - 170 mcg/dL AO ADM SS Lymphocyte, Absolute 1.1 103/mcL Normal 0.8 - 3 .9 10^3/mcL AO Workflow SS Lymphocytes/100 WBC (Bld) 15.7 % Normal 10.0 - 50.0 % AO Workflow SS MCH (RBC) [Entitic mass] 31.0 pg Normal 27.0 - 31.2 pg AO Workflow SS MCHC 33.2 G/dL Normal 33.0 - 37.0 G/dL AO Workflow SS MCV (RBC) [Entitic vol] 93.4 fL Normal 80.0 - 94.0 fL AO Workflow SS Monocyte, Absolute 0.8 103/mcL Normal 0.2 - 1.0 10^3/mcL AO Workflow SS Monocytes/100 WBC (Bld) 11.1 % Normal 1.7 - 13.0 % AO Workflow SS Neutrophil, Absolute 5.1 103/mcL Normal 2.9 - 6 .2 10^3/mcL AO Workflow SS Neutrophils/100 WBC (Bld) 71.9 % Normal 37.0 - 80.0 % AO Workflow SS Platelet mean volume (Bld) [Entitic vol] 9.2 fL Normal 7.4 - 10.4 fL AO Workflow SS Platelets (Bld) [#/Vol] 183 103/mcL Normal 130 - 400 10^3/mcL AO Workflow SS Potassium [Moles/Vol] 4.4 mmol/L Normal 3.5 - 5.1 mmol/L AO ADM SS Protein [Mass/Vol] 6.3 G/dL Low 6.4 - 8.2 G/dL AO ADM SS RBC (Bld) [#/Vol] 3.39 106/mcL Low 4.20 - 5.4 0 10^6/mcL AO Workflow SS Sodium [Moles/Vol] 136 mmol/L Normal 136 - 145 mmol/L AO ADM SS TSH Qn 8.36 m[IU]/L High 0.36 - 3.74 mcIU/mL AO ADM SS Urea nitrogen [Mass/Vol] 14 mg/dL Normal 7 - 18 mg/dL AO ADM SS Urea nitrogen/Creatinine [Mass ratio] 18 ratio Normal 7 - 27 ratio AO ADM SS WBC (Bld) [#/Vol] 7.0 103/mcL Normal 4.6 - 10.8 10^3/mcL AO Workflow SS TSHon 06-03-2023 TSH Qn 8.36 m[IU]/L High 0.36-3.74 [facility] ([place]) Comment on above: Performed By: #### A DIFF, TSH, VIDH, ANEU, CMP, GFR, CBC #### [place] [address] [place], [place] [address] #### B12 #### [address] [address] VIDHon 06-03-2023 Vit. D 25-Hydroxy 98.2 ng/mL Normal [facility] ([place]) Comment on above: Result Comment: Inte rpretive Values Based on Total 25(OH) Vitamin D: Deficient <20 ng/mL Insufficient 20 - <30 ng/mL Sufficient 30-100 ng/mL Performed By: #### A DIFF, TSH, VIDH, ANEU, CMP, GFR, CBC #### [place] [address] [place], [place] [address] #### B12 #### [facility] [address] [place] [address] 36on 05-28-2023 36 Name of caller: Willie Musa Contact phone number: [phone] Relationship to Patient: Daughter Provider: Kristie Hernandez [facility] Practice: [facility]/ location Chief Complaint/Reason for Call: 05.28.23 Pt Daughter calling to change Pts PHARMACY in chart to USE [facility] [address] [facility] [address] Pls call DAUGHTER and confirm change Best time of day caller can be reached: AM Patient advised that office/PCP has 24-48 business hours to return their call: Yes [facility] Office Visiton 03-28-2023 Follow-up visit [id number] Lesley Barillas 1945 F Date Provider Department Center 03/28/2023 [id number] None Family History Problem Relation Age of Onset Alzheimer's disease Mother Heart attack Father Diabetes Brother Diabetes Brother Family Status - Relation Status Age at Mother Father Brother Alive Brother Alive Brother Alive Level of Service:66157 [place] OFFICE/OUTPATIENT ESTABLISHED LOW MDM 20-29 MIN Reason for Visit and Comments: Follow-up [[id number]] Med Refill [[id number]] Normal [facility] Progress Noteon 03-28-2023 Progress Note Lesley Barillas is a 77 y.o. female Subjective: Chief Complaint Patient presents with Follow-up Med Refill HPI: Visit Duration: :15/11:30/15 min Interim History: Pt present for 1 yr f/u, established with this provider Jul 2019. Daughter (Aylin) accompanied her and remained in the waiting area. Pt continues to manage her mild cognitive impairment noted but no dx of dementia. Pt is slightly mildly seasonally affected, enjoys the warmer weather. Pt reports sleep good. Wearing CPAP nightly. Appetite good. Still taking Venlafaxine IR 75mg bid and also Mirtazapine 15mg. Medications are effective in managing mood. Denies adverse SEs. Agreed to continue current regime. Mood slightly better, eating more and sleep has improved. Pt is attending the adult day center every other week or so. Denies auditory hallucinations, delusions, paranoia. Denies instability of mood, denies OCD symptoms. Denies self harm, SI HI Target Signs/Symptoms: Anxiety, depression- improved with medication therapy.. Body Maker History: post menopausal Medications: Current Outpatient Medications Medication Sig Dispense Refill fluticasone (Flonase) 50 MCG/ACT nasal spray Dose = 1 spray(s), Nostril, each, BID, # 16 gram(s), 2 Refill(s), Pharmacy: [facility]/pharmacy #[id number], Nasal congestion, 149.9, cm, 01/10/23 11:28:00 EDT, Height, kg, 01/10/23 11:28:00 EDT, Dosing Weight furosemide (Lasix) 20 MG tablet TAKE 1 TABLET BY MOUTH EVERY DAY NEEDED LOWER LEG SWELLING levothyroxine (Synthroid, Levoxyl) 50 MCG tablet Take 50 mcg by mouth daily. lisinopril 5 MG tablet TAKE 1 TABLET BY MOUTH EVERY DAY - DOSE CHANGE metoprolol succinate XL (Toprol-XL) 25 MG 24 hr tablet 25 mg. rosuvastatin (Crestor) 20 MG tablet Take 20 mg by mouth daily. mirtazapine (Remeron) 15 MG tablet Take 1 tablet (15 mg) by mouth Nightly. 90 tablet 3 venlafaxine (Effexor) 75 MG tablet Take 1 tablet (75 mg) by mouth 2 times daily. 180 tablet 3 No current facility-administered medications for this visit. Allergies: Allergies Allergen Reactions Meloxicam Unknown Sulfamethoxazole-Trim ethoprim Rash and Unknown Objective: Examination: Mental Status Exam: Appearance appropriate Demeanor cooperative Activity normal. Eye Contact good SPEECH Rate normal Volume appropriate Articulation clear. Coherent yes. Spontaneous no. MOOD & AFFECT :. Depression moderate Anxiety moderate Anger denies Anhedonia mild Euphoria denies Irritability mild Affect Improved, less depressed, less anxious Associations logical at times, some memory issues Process Blocking THOUGHT CONTENT :. Hallucinations No Delusions. No Suicidality no plan Homicidality no plan Judgement fair Insight Limited Orientation time yes person yes situation yes place yes. Attention fair Concentration fair Memory Recent: intact Remote: intact. Language Naming: intact Repetition: intact. Condition: not changed Prognosis: fair ASSESSMENT/PLAN: Problem List Items Addressed This Visit None Visit Diagnoses Moderate episode of recurrent major depressive disorder (HCC) Relevant Medications mirtazapine (Remeron) 15 MG tablet venlafaxine (Effexor) 75 MG tablet Discussed medications- importance of compliance, risks, benefits and interactions. FOLLOW-UP: 1 yr Encouraged healthy lifestyle- which includes keeping a sleep schedule, healthy diet and daily activity/exercise as tolerated. Limit caffeine intake. Electronically signed by Kristie Hernandez APRN - [employer] EQUIPMENT OPERATOR Normal [facility] .Auto Diffon 02-13-2023 Basophil, Absolute 0.0 10 3/mcL Normal 0.0-0.2 [facility] ([place]) Comment on above: Performed By: #### F T4, ADIFF, TSH, CBC, FERR, FE, FT3, ANEU ####[place] [address]#### B12 ####[address] [address] Basophils/100 WBC (Bld) 0.8 % Normal 0.0-2.5 A [facility] ([place]) Comment on above: Performed By: #### F T4, ADIFF, TSH, CBC, FERR, FE, FT3, ANEU ####[place] [address]#### B12 ####[address] [address] Eosinophil, Absolute 0.1 10 3/mcL Normal 0.0-0.4 [facility] ([place]) Comment on above: Performed By: #### F T4, ADIFF, TSH, CBC, FERR, FE, FT3, ANEU ####[place] [address]#### B12 ####[address] [address] Eosinophils/100 WBC (Bld) 2.3 % Normal 0.0-7.0 [facility] ([place]) Comment on above: Performed By: #### F T4, ADIFF, TSH, CBC, FERR, FE, FT3, ANEU ####[place] [address]#### B12 ####[address] [address] Lymphocyte, Absolute 1.4 10 3/mcL Normal 0.8-3.9 [facility] ([place]) Comment on above: Performed By: #### F T4, ADIFF, TSH, CBC, FERR, FE, FT3, ANEU ####[place] [address]#### B12 ####[address] [address] Lymphocytes/100 WBC (Bld) 27.7 % Normal 10.0-50.0 [facility] ([place]) Comment on above: Performed By: #### F T4, ADIFF, TSH, CBC, FERR, FE, FT3, ANEU ####[place] [address]#### B12 ####[address] [address] Monocyte, Absolute 0.7 10 3/mcL Normal 0.2-1.0 [facility] ([place]) Comment on above: Performed By: #### F T4, ADIFF, TSH, CBC, FERR, FE, FT3, ANEU ####[place] [address]#### B12 ####[address] [address] Monocytes/100 WBC (Bld) 13.8 % High 1.7-13.0 A [facility] ([place]) Comment on above: Performed By: #### F T4, ADIFF, TSH, CBC, FERR, FE, FT3, ANEU ####[place] [address]#### B12 ####[address] [address] Neutrophils/100 WBC (Bld) 55.4 % Normal 37.0-80.0 [facility] ([place]) Comment on above: Performed By: #### F T4, ADIFF, TSH, CBC, FERR, FE, FT3, ANEU ####[place] [address]#### B12 ####[place] [address] .NEUABSon 02-13-2023 Neutrophil, Absolute 2.8 10 3/mcL Low 2.9-6.2 [facility] ([place]) Comment on above: Performed By: #### F T4, ADIFF, TSH, CBC, FERR, FE, FT3, ANEU ####[place] [address]#### B12 ####[place] [address] B12on 02-13-2023 Cobalamin (Vitamin B12) [Mass/Vol] 233 pg/mL Normal 211-911 [facility] ([place]) Comment on above: Performed By: #### A DIFF, TSH, VIDH, ANEU, CMP, GFR, CBC #### [place] [address] #### B12 #### [place] [address] CBCon 02-13-2023 Erythrocyte distribution width (RBC) [Ratio] 13.2 % Normal 11.5-14.5 [facility] ([place]) Comment on above: Performed By: #### F T4, ADIFF, TSH, CBC, FERR, FE, FT3, ANEU ####[place] [address]#### B12 ####[place] [address] Hematocrit (Bld) [Volume fraction] 35.6 % Low 37.0-47.0 [facility] ([place]) Comment on above: Performed By: #### F T4, ADIFF, TSH, CBC, FERR, FE, FT3, ANEU ####[place] [id number]#### B12 ####[place] [address] Hgb 11.9 G/dL Low 12.0-16.0 [facility] ([place]) Comment on above: Performed By: #### F T4, ADIFF, TSH, CBC, FERR, FE, FT3, ANEU ####[place] [address]#### B12 ####[place] [address] MCH (RBC) [Entitic mass] 30.6 pg Normal 27.0-31.2 [facility] ([place]) Comment on above: Performed By: #### F T4, ADIFF, TSH, CBC, FERR, FE, FT3, ANEU ####[place] [address]#### B12 ####[place] [address] MCHC 33.4 G/dL Normal 33.0-37.0 [facility] ([place]) Comment on above: Performed By: #### F T4, ADIFF, TSH, CBC, FERR, FE, FT3, ANEU ####[place] [address]#### B12 ####[place] [address] MCV (RBC) [Entitic vol] 91.5 fL Normal 80.0-94.0 A [facility] ([place]) Comment on above: Performed By: #### F T4, ADIFF, TSH, CBC, FERR, FE, FT3, ANEU ####[place] [address]#### B12 ####[place] [address] Platelet 161 10 3/mcL Normal 130-400 [facility] ([place]) Comment on above: Performed By: #### F T4, ADIFF, TSH, CBC, FERR, FE, FT3, ANEU ####[place] [address]#### B12 ####[place] [address] Platelet mean volume (Bld) [Entitic vol] 10.2 fL Normal 7.4-10.4 [facility] ([place]) Comment on above: Performed By: #### F T4, ADIFF, TSH, CBC, FERR, FE, FT3, ANEU ####[place] [address]#### B12 ####[place] [address] RBC 3.89 10 6/mcL Low 4.20-5.40 [facility] ([place]) Comment on above: Performed By: #### F T4, ADIFF, TSH, CBC, FERR, FE, FT3, ANEU ####[place] [address]#### B12 ####[place] [address] WBC 5.0 10 3/mcL Normal 4.6-10.8 [facility] ([place]) Comment on above: Performed By: #### F T4, ADIFF, TSH, CBC, FERR, FE, FT3, ANEU ####[place] [address]#### B12 ####[place] [address] FEon 02-13-2023 Iron [Mass/Vol] 76 ug/dL Normal 50-170 [facility] ([place]) Comment on above: Performed By: #### F T4, ADIFF, TSH, CBC, FERR, FE, FT3, ANEU ####[place] [address]#### B12 ####[place] [address] Dominique 02-13-2023 Ferritin [Mass/Vol] 105.0 ng/mL Normal 8.0-252.0 [facility] ([place]) Comment on above: Performed By: #### F T4, ADIFF, TSH, CBC, FERR, FE, FT3, ANEU ####[facility] [place], [place] [address]#### B12 ####[facility] [place] [address] FT3on 02-13-2023 Free T3 [Mass/Vol] 1.75 pg/mL Low 2.30-4.00 [facility] ([place]) Comment on above: Performed By: #### A DIFF, TSH, VIDH, ANEU, CMP, GFR, CBC #### [place] [address] [place], [place] [address] #### B12 #### [facility] [address] [place] [address] FT4on 02-13-2023 Free T4 [Mass/Vol] 0.85 ng/dL Normal 0.76-1.46 [facility] ([place]) Comment on above: Performed By: #### F T4, ADIFF, TSH, CBC, FERR, FE, FT3, ANEU ####[address] [place], [place] [address]#### B12 ####[place] [address] LABORATORYOrdered By: SYSTEM SYSTEM on 02-13-2023 Basophil, Absolute 0.0 103/mcL Invalid Interpretation Code 0.0 - 0.2 10^3/mcL AO Workflow SS Basophils/100 WBC (Bld) 0.8 % Invalid Interpretation Code 0.0 - 2.5 % AO Workflow SS Cobalamin (Vitamin B12) [Mass/Vol] 233 pg/mL Invalid Interpretation Code 211 - 911 pg/mL ADM SS Eosinophil, Absolute 0.1 103/mcL Invalid Interpretation Code 0.0 - 0.4 10^3/mcL AO Workflow SS Eosinophils/100 WBC (Bld) 2.3 % Invalid Interpretation Code 0.0 - 7.0 % AO Workflow SS Erythrocyte distribution width (RBC) [Ratio] 13.2 % Invalid Interpretation Code 11.5 - 14.5 % AO Workflow SS Ferritin [Mass/Vol] 105.0 ng/mL Invalid Interpretation Code 8.0 - 252.0 ng/mL AO ADM SS Free T3 [Mass/Vol] 1.75 pg/mL Invalid Interpretation Code 2.30 - 4.00 pg/mL AO ADM SS Free T4 [Mass/Vol] 0.85 ng/dL Invalid Interpretation Code 0.76 - 1.46 ng/dL AO ADM SS Hematocrit (Bld) [Volume fraction] 35.6 % Invalid Interpretation Code 37.0 - 47.0 % AO Workflow SS Hemoglobin (Bld) [Mass/Vol] 11.9 G/dL Invalid Interpretation Code 12.0 - 16.0 G/dL AO Workflow SS Iron [Mass/Vol] 76 ug/dL Invalid Interpretation Code 50 - 170 mcg/dL AO ADM SS Lymphocyte, Absolute 1.4 103/mcL Invalid Interpretation Code 0.8 - 3.9 10^3/mcL AO Workflow SS Lymphocytes/100 WBC (Bld) 27.7 % Invalid Interpretation Code 10.0 - 50.0 % AO Workflow SS MCH (RBC) [Entitic mass] 30.6 pg Invalid Interpretation Code 27.0 - 31.2 pg AO Workflow SS MCHC 33.4 G/dL Invalid Interpretation Code 33.0 - 37.0 G/dL AO Workflow SS MCV (RBC) [Entitic vol] 91.5 fL Invalid Interpretation Code 80.0 - 94.0 fL AO Workflow SS Monocyte, Absolute 0.7 103/mcL Invalid Interpretation Code 0.2 - 1.0 10^3/mcL AO Workflow SS Monocytes/100 WBC (Bld) 13.8 % Invalid Interpretation Code 1.7 - 13.0 % AO Workflow SS Neutrophil, Absolute 2.8 103/mcL Invalid Interpretation Code 2.9 - 6.2 10^3/mcL AO Workflow SS Neutrophils/100 WBC (Bld) 55.4 % Invalid Interpretation Code 37.0 - 80.0 % AO Workflow SS Platelet mean volume (Bld) [Entitic vol] 10.2 fL Invalid Interpretation Code 7.4 - 10.4 fL AO Workflow SS Platelets (Bld) [#/Vol] 161 103/mcL Invalid Interpretation Code 130 - 400 10^3/mcL AO Workflow SS RBC (Bld) [#/Vol] 3.89 106/mcL Invalid Interpretation Code 4.20 - 5.40 10^6/mcL AO Workflow SS TSH Qn 2.18 m[IU]/L Invalid Interpretation Code 0.36 - 3.74 mcIU/mL AO ADM SS WBC (Bld) [#/Vol] 5.0 103/mcL Invalid Interpretation Code 4.6 - 10.8 10^3/mcL AO Workflow SS TSHon 02-13-2023 TSH Qn 2.18 m[IU]/L Normal 0.36-3.74 [facility] ([place]) Comment on above: Performed By: #### F T4, ADIFF, TSH, CBC, FERR, FE, FT3, ANEU ####[address] [address]#### B12 ####[address] [address] .Auto Diffon 01-07-2023 Basophil, Absolute 0.0 10 3/mcL Normal 0.0-0.2 [facility] ([place]) Comment on above: Performed By: #### A DIFF, TSH, VIDH, ANEU, CMP, GFR, CBC #### [place] [address] #### B12 #### [address] [address] Basophils/100 WBC (Bld) 0.7 % Normal 0.0-2.5 A [facility] ([place]) Comment on above: Performed By: #### A DIFF, TSH, VIDH, ANEU, CMP, GFR, CBC #### [place] [address] #### B12 #### [address] [address] Eosinophil, Absolute 0.1 10 3/mcL Normal 0.0-0.4 [facility] ([place]) Comment on above: Performed By: #### A DIFF, TSH, VIDH, ANEU, CMP, GFR, CBC #### [place] [address] #### B12 #### [address] [address] Eosinophils/100 WBC (Bld) 2.0 % Normal 0.0-7.0 [facility] ([place]) Comment on above: Performed By: #### A DIFF, TSH, VIDH, ANEU, CMP, GFR, CBC #### [place] [address] #### B12 #### [address] [address] Lymphocyte, Absolute 1.4 10 3/mcL Normal 0.8-3.9 [facility] ([place]) Comment on above: Performed By: #### A DIFF, TSH, VIDH, ANEU, CMP, GFR, CBC #### [address] [address] #### B12 #### [address] [address] Lymphocytes/100 WBC (Bld) 25.1 % Normal 10.0-50.0 [facility] ([place]) Comment on above: Performed By: #### A DIFF, TSH, VIDH, ANEU, CMP, GFR, CBC #### [address] [address] #### B12 #### [address] [address] Monocyte, Absolute 0.7 10 3/mcL Normal 0.2-1.0 [facility] ([place]) Comment on above: Performed By: #### A DIFF, TSH, VIDH, ANEU, CMP, GFR, CBC #### [address] [address] #### B12 #### [address] [address] Monocytes/100 WBC (Bld) 12.7 % Normal 1.7-13.0 A [facility] ([place]) Comment on above: Performed By: #### A DIFF, TSH, VIDH, ANEU, CMP, GFR, CBC #### [address] [address] #### B12 #### [address] [address] Neutrophils/100 WBC (Bld) 59.5 % Normal 37.0-80.0 [facility] ([place]) Comment on above: Performed By: #### A DIFF, TSH, VIDH, ANEU, CMP, GFR, CBC #### [address] [address] #### B12 #### [address] [address] .GFRon 01-07-2023 GFR 97 ml/min/1.73sqm Normal [facility] ([place]) Comment on above: Result Comment: GFR Population mean for , Non- Americans Ages 20-29 = 116 mL/min/1.73 sq.m. Ages 30-39 = 107 mL/min/1.73 sq.m. Ages 40-49 = 99 mL/min/1.73 sq.m. Ages 50-59 = 93 mL/min/1.73 sq.m. Ages 60-69 = 85 mL/min/1.73 sq.m. Ages 70+ = 75 mL/min/1.73 sq.m. Chronic Kidney Disease: Less than 60 mL/min/1.73 square meters End Stage Renal Disease: Less than 15 mL/min/1.73 square meters Performed By: #### A DIFF, TSH, VIDH, ANEU, CMP, GFR, CBC #### [address] [address] #### B12 #### [address] [address] GFR Non- 80 ml/min/1.73sqm Normal [facility] ([place]) Comment on above: Result Comment: GFR Population mean for , Non- Americans Ages 20-29 = 116 mL/min/1.73 sq.m. Ages 30-39 = 107 mL/min/1.73 sq.m. Ages 40-49 = 99 mL/min/1.73 sq.m. Ages 50-59 = 93 mL/min/1.73 sq.m. Ages 60-69 = 85 mL/min/1.73 sq.m. Ages 70+ = 75 mL/min/1.73 sq.m. Chronic Kidney Disease: Less than 60 mL/min/1.73 square meters End Stage Renal Disease: Less than 15 mL/min/1.73 square meters Performed By: #### A DIFF, TSH, VIDH, ANEU, CMP, GFR, CBC #### [address] [address] #### B12 #### [address] [address] .NEUABSon 01-07-2023 Neutrophil, Absolute 3.4 10 3/mcL Normal 2.9-6.2 [facility] ([place]) Comment on above: Performed By: #### A DIFF, TSH, VIDH, ANEU, CMP, GFR, CBC #### [address] [address] #### B12 #### [place] [address] A1Con 01-07-2023 HbA1c (Bld) [Mass fraction] 6.1 % Normal 4.3-6.4 [facility] ([place]) Comment on above: Performed By: #### A DIFF, TSH, VIDH, ANEU, CMP, GFR, CBC #### [place] [address] #### B12 #### [place] [address] CBCon 01-07-2023 Erythrocyte distribution width (RBC) [Ratio] 13.5 % Normal 11.5-14.5 [facility] ([place]) Comment on above: Performed By: #### A DIFF, TSH, VIDH, ANEU, CMP, GFR, CBC #### [place] [address] #### B12 #### [place] [address] Hematocrit (Bld) [Volume fraction] 31.3 % Low 37.0-47.0 [facility] ([place]) Comment on above: Performed By: #### A DIFF, TSH, VIDH, ANEU, CMP, GFR, CBC #### [place] [address] #### B12 #### [place] [address] Hgb 10.5 G/dL Low 12.0-16.0 [facility] ([place]) Comment on above: Performed By: #### A DIFF, TSH, VIDH, ANEU, CMP, GFR, CBC #### [place] [address] #### B12 #### [place] [address] MCH (RBC) [Entitic mass] 31.0 pg Normal 27.0-31.2 [facility] ([place]) Comment on above: Performed By: #### A DIFF, TSH, VIDH, ANEU, CMP, GFR, CBC #### [place] [address] #### B12 #### [place] [address] MCHC 33.6 G/dL Normal 33.0-37.0 [facility] ([place]) Comment on above: Performed By: #### A DIFF, TSH, VIDH, ANEU, CMP, GFR, CBC #### [place] [address] #### B12 #### [place] [address] MCV (RBC) [Entitic vol] 92.3 fL Normal 80.0-94.0 A [facility] ([place]) Comment on above: Performed By: #### A DIFF, TSH, VIDH, ANEU, CMP, GFR, CBC #### [place] [address] #### B12 #### [place] [address] Platelet 183 10 3/mcL Normal 130-400 Formerly [facility], [facility] ([place]) Comment on above: Performed By: #### A DIFF, TSH, VIDH, ANEU, CMP, GFR, CBC #### [place] [address] #### B12 #### [place] [address] Platelet mean volume (Bld) [Entitic vol] 9.8 fL Normal 7.4-10.4 [facility]ly [facility] ([place]) Comment on above: Performed By: #### A DIFF, TSH, VIDH, ANEU, CMP, GFR, CBC #### [place] [address] #### B12 #### [place] [address] RBC 3.40 10 6/mcL Low 4.20-5.40 [facility] ([place]) Comment on above: Performed By: #### A DIFF, TSH, VIDH, ANEU, CMP, GFR, CBC #### [address] [address] #### B12 #### [place] [address] WBC 5.7 10 3/mcL Normal 4.6-10.8 [facility] ([place]) Comment on above: Performed By: #### A DIFF, TSH, VIDH, ANEU, CMP, GFR, CBC #### [address] [address] #### B12 #### [place] [address] CMPon 01-07-2023 Albumin Level 3.8 G/dL Normal 3.4-4.8 [facility] ([place]) Comment on above: Performed By: #### A DIFF, TSH, VIDH, ANEU, CMP, GFR, CBC #### [address] [address] #### B12 #### [place] [address] Albumin/Globulin [Mass ratio] 1.4 {ratio} Normal 1.1-2.5 [facility] ([place]) Comment on above: Performed By: #### A DIFF, TSH, VIDH, ANEU, CMP, GFR, CBC #### [address] [address] #### B12 #### [address] [address] ALP [Catalytic activity/Vol] 73 U/L Normal 40-135 [facility] ([place]) Comment on above: Performed By: #### A DIFF, TSH, VIDH, ANEU, CMP, GFR, CBC #### [address] [address] #### B12 #### [place] [address] ALT [Catalytic activity/Vol] 30 U/L Normal 14-59 [facility] ([place]) Comment on above: Performed By: #### A DIFF, TSH, VIDH, ANEU, CMP, GFR, CBC #### [address] [address] #### B12 #### [address] [address] AST [Catalytic activity/Vol] 25 U/L Normal 10-40 [facility] ([place] Comment on above: Performed By: #### A DIFF, TSH, VIDH, ANEU, CMP, GFR, CBC #### [address] [address] #### B12 #### [address] [address] Bili Total 0.2 mg/dL Normal 0.2-1.0 [facility] ([place]) Comment on above: Result Comment: Use of this assay is not recommended for patients undergoing treatment with eltrombopag due to the potential for falsely elevated results. Performed By: #### A DIFF, TSH, VIDH, ANEU, CMP, GFR, CBC #### [address] [address] #### B12 #### [address] [address] BUN/Creatinine Ratio 25 ratio Normal 7-27 [facility] ([place]) Comment on above: Performed By: #### A DIFF, TSH, VIDH, ANEU, CMP, GFR, CBC #### [address] [address] #### B12 #### [address] [address] Calcium [Mass/Vol] 8.7 mg/dL Normal 8.4-10.2 [facility] ([place]) Comment on above: Performed By: #### A DIFF, TSH, VIDH, ANEU, CMP, GFR, CBC #### [address] [address] #### B12 #### [address] [address] Chloride [Moles/Vol] 102 mmol/L Normal 98-107 [facility] ([place]) Comment on above: Performed By: #### A DIFF, TSH, VIDH, ANEU, CMP, GFR, CBC #### [place] [address] #### B12 #### [address] [address] CO2 [Moles/Vol] 33 mmol/L High 23-31 [facility] ([place] Comment on above: Performed By: #### A DIFF, TSH, VIDH, ANEU, CMP, GFR, CBC #### [place] [address] #### B12 #### [place] [address] Creatinine [Mass/Vol] 0.71 mg/dL Normal 0.55-1.02 Formerly [facility] ([place]) Comment on above: Performed By: #### A DIFF, TSH, VIDH, ANEU, CMP, GFR, CBC #### [place] [address] #### B12 #### [place] [address] Electrolyte Balance 2.0 mEq/L Low 4.0-15.0 Formerly [facility] ([place]) Comment on above: Performed By: #### A DIFF, TSH, VIDH, ANEU, CMP, GFR, CBC #### [place] [address] #### B12 #### [place] [address] Globulin 2.8 G/dL Normal [facility] ([place] Comment on above: Performed By: #### A DIFF, TSH, VIDH, ANEU, CMP, GFR, CBC #### [place] [address] #### B12 #### [place] [address] Glucose [Mass/Vol] 85 mg/dL Normal 83-110 [facility] ([place] Comment on above: Performed By: #### A DIFF, TSH, VIDH, ANEU, CMP, GFR, CBC #### [address] [address] #### B12 #### [address] [address] Potassium [Moles/Vol] 4.6 mmol/L Normal 3.5-5.1 [facility] ([place]) Comment on above: Performed By: #### A DIFF, TSH, VIDH, ANEU, CMP, GFR, CBC #### [place] [address] #### B12 #### [address] [address] Sodium [Moles/Vol] 137 mmol/L Normal 136-145 [facility] ([place] Comment on above: Performed By: #### A DIFF, TSH, VIDH, ANEU, CMP, GFR, CBC #### [place] [address] #### B12 #### [place] [address] Total Protein 6.6 G/dL Normal 6.4-8.2 [facility] ([place] Comment on above: Performed By: #### A DIFF, TSH, VIDH, ANEU, CMP, GFR, CBC #### [place] [address] #### B12 #### [address] [address] Urea nitrogen [Mass/Vol] 18 mg/dL Normal 7-18 [facility] ([place] Comment on above: Performed By: #### A DIFF, TSH, VIDH, ANEU, CMP, GFR, CBC #### [place] [address] #### B12 #### [address] [address] LABORATORYOrdered By: SYSTEM SYSTEM on 01-07-2023 25-hydroxyvitamin D3 [Mass/Vol] 112.8 ng/mL Invalid Interpretation Code AO ADM SS Albumin BCP dye [Mass/Vol] 3.8 G/dL Invalid Interpretation Code 3.4 - 4.8 G/dL AO ADM SS Albumin/Globulin [Mass ratio] 1.4 {ratio} Invalid Interpretation Code 1.1 - 2.5 ratio AO ADM SS ALP [Catalytic activity/Vol] 73 U/L Invalid Interpretation Code 40 - 135 U/L AO ADM SS ALT With P-5'-P [Catalytic activity/Vol] 30 U/L Invalid Interpretation Code 14 - 59 U/L AO ADM SS AST With P-5'-P [Catalytic activity/Vol] 25 U/L Invalid Interpretation Code 10 - 40 U/L AO ADM SS Basophil, Absolute 0.0 103/mcL Invalid Interpretation Code 0.0 - 0.2 10^3/mcL AO Workflow SS Basophils/100 WBC (Bld) 0.7 % Invalid Interpretation Code 0.0 - 2.5 % AO Workflow SS Bilirubin [Mass/Vol] 0.2 mg/dL Invalid Interpretation Code 0.2 - 1.0 mg/dL AO ADM SS Calcium [Mass/Vol] 8.7 mg/dL Invalid Interpretation Code 8.4 - 10.2 mg/dL AO ADM SS Chloride [Moles/Vol] 102 mmol/L Invalid Interpretation Code 98 - 107 mmol/L AO ADM SS CO2 [Moles/Vol] 33 mmol/L Invalid Interpretation Code 23 - 31 mmol/L AO ADM SS Creatinine [Mass/Vol] 0.71 mg/dL Invalid Interpretation Code 0.55 - 1.02 mg/dL AO ADM SS Electrolyte Balance 2.0 mEq/L Invalid Interpretation Code 4.0 - 15.0 mEq/L AO ADM SS Eosinophil, Absolute 0.1 103/mcL Invalid Interpretation Code 0.0 - 0.4 10^3/mcL AO Workflow SS Eosinophils/100 WBC (Bld) 2.0 % Invalid Interpretation Code 0.0 - 7.0 % AO Workflow SS Erythrocyte distribution width (RBC) [Ratio] 13.5 % Invalid Interpretation Code 11.5 - 14.5 % AO Workflow SS GFR/1.73 sq M.predicted among blacks MDRD (S/P/Bld) [Vol rate/Area] 97 ml/min/1.73sqm Invalid Interpretation Code AO Chemistry S GFR/1.73 sq M.predicted among non-blacks MDRD (S/P/Bld) [Vol rate/Area] 80 ml/min/1.73sqm Invalid Interpretation Code AO Chemistry S Globulin 2.8 G/dL Invalid Interpretation Code AO ADM SS Glucose [Mass/Vol] 85 mg/dL Invalid Interpretation Code 83 - 110 mg/dL AO ADM SS HbA1c (Bld) [Mass fraction] 6.1 % Invalid Interpretation Code 4.3 - 6.4 % AO ADM SS Hematocrit (Bld) [Volume fraction] 31.3 % Invalid Interpretation Code 37.0 - 47.0 % AO Workflow SS Hemoglobin (Bld) [Mass/Vol] 10.5 G/dL Invalid Interpretation Code 12.0 - 16.0 G/dL AO Workflow SS Lymphocyte, Absolute 1.4 103/mcL Invalid Interpretation Code 0.8 - 3.9 10^3/mcL AO Workflow SS Lymphocytes/100 WBC (Bld) 25.1 % Invalid Interpretation Code 10.0 - 50.0 % AO Workflow SS MCH (RBC) [Entitic mass] 31.0 pg Invalid Interpretation Code 27.0 - 31.2 pg AO Workflow SS MCHC 33.6 G/dL Invalid Interpretation Code 33.0 - 37.0 G/dL AO Workflow SS MCV (RBC) [Entitic vol] 92.3 fL Invalid Interpretation Code 80.0 - 94.0 fL AO Workflow SS Monocyte, Absolute 0.7 103/mcL Invalid Interpretation Code 0.2 - 1.0 10^3/mcL AO Workflow SS Monocytes/100 WBC (Bld) 12.7 % Invalid Interpretation Code 1.7 - 13.0 % AO Workflow SS Neutrophil, Absolute 3.4 103/mcL Invalid Interpretation Code 2.9 - 6.2 10^3/mcL AO Workflow SS Neutrophils/100 WBC (Bld) 59.5 % Invalid Interpretation Code 37.0 - 80.0 % AO Workflow SS Platelet mean volume (Bld) [Entitic vol] 9.8 fL Invalid Interpretation Code 7.4 - 10.4 fL AO Workflow SS Platelets (Bld) [#/Vol] 183 103/mcL Invalid Interpretation Code 130 - 400 10^3/mcL AO Workflow SS Potassium [Moles/Vol] 4.6 mmol/L Invalid Interpretation Code 3.5 - 5.1 mmol/L AO ADM SS Protein [Mass/Vol] 6.6 G/dL Invalid Interpretation Code 6.4 - 8.2 G/dL AO ADM SS RBC (Bld) [#/Vol] 3.40 106/mcL Invalid Interpretation Code 4.20 - 5.40 10^6/mcL AO Workflow SS Sodium [Moles/Vol] 137 mmol/L Invalid Interpretation Code 136 - 145 mmol/L AO ADM SS TSH Qn 0.19 m[IU]/L Invalid Interpretation Code 0.36 - 3.74 mcIU/mL AO ADM SS Urea nitrogen [Mass/Vol] 18 mg/dL Invalid Interpretation Code 7 - 18 mg/dL AO ADM SS Urea nitrogen/Creatinine [Mass ratio] 25 ratio Invalid Interpretation Code 7 - 27 ratio AO ADM SS WBC (Bld) [#/Vol] 5.7 103/mcL Invalid Interpretation Code 4.6 - 10.8 10^3/mcL AO Workflow SS LABORATORYOrdered By: Kobe Bethea on 01-07-2023 Cholesterol [Mass/Vol] 141 mg/dL Invalid Interpretation Code 0 - 200 mg/dL AO ADM SS Cholesterol in HDL [Mass/Vol] 70 mg/dL Invalid Interpretation Code 40 - 60 mg/dL AO ADM SS Cholesterol in LDL [Mass/Vol] 53 mg/dL Invalid Interpretation Code 0 - 130 mg/dL AO ADM SS Triglyceride [Mass/Vol] 92 mg/dL Invalid Interpretation Code 0 - 150 mg/dL AO ADM SS LIPIDon 01-07-2023 Cholesterol [Mass/Vol] 141 mg/dL Normal 0-200 [facility] ([place]) Comment on above: Result Comment: Chol esterol Reference Interval: Less than 200 Desirable 200-239 Borderline high risk 240 and above High risk Performed By: #### A DIFF, TSH, VIDH, ANEU, CMP, GFR, CBC #### [address] [address] #### B12 #### [address] [address] Cholesterol in HDL [Mass/Vol] 70 mg/dL High 40-60 [facility] ([place]) Comment on above: Performed By: #### A DIFF, TSH, VIDH, ANEU, CMP, GFR, CBC #### [address] [address] #### B12 #### [address] [address] Cholesterol in LDL [Mass/Vol] 53 mg/dL Normal 0-130 [facility] ([place]) Comment on above: Performed By: #### A DIFF, TSH, VIDH, ANEU, CMP, GFR, CBC #### [place] [address] #### B12 #### [place] [address] Triglyceride [Mass/Vol] 92 mg/dL Normal 0-150 A [facility] ([place]) Comment on above: Result Comment: Trig lyceride Reference Interval: Less than 150 Normal 150-199 Borderline high risk 200-499 High risk 500 or higher Very high risk Performed By: #### A DIFF, TSH, VIDH, ANEU, CMP, GFR, CBC #### [place] [address] #### B12 #### [place] [address] TSHon 01-07-2023 TSH Qn 0.19 m[IU]/L Low 0.36-3.74 [facility] ([place]) Comment on above: Performed By: #### A DIFF, TSH, VIDH, ANEU, CMP, GFR, CBC #### [place] [address] #### B12 #### [place] [address] VIDHon 01-07-2023 Vit. D 25-Hydroxy 112.8 ng/mL Normal [facility] ([place]) Comment on above: Result Comment: Inte rpretive Values Based on Total 25(OH) Vitamin D: Deficient <20 ng/mL Insufficient 20 - <30 ng/mL Sufficient 30-100 ng/mL Performed By: #### A DIFF, TSH, VIDH, ANEU, CMP, GFR, CBC #### [place] [address] #### B12 #### [place] [address] LABORATORYOrdered By: Kobe Barajas on 09-10-2022 FLUAV RNA JAMARI+probe Ql (Resp) Negative 2 (09/10/22 12:21 PM) Invalid Interpretation Code Negative AH Auto Viro/Sero SS Comment on above: [place]: [place] [id number] FLUBV RNA JAMARI+probe Ql (Resp) Negative 3 (09/10/22 12:21 PM) Invalid Interpretation Code Negative Auto Viro/Sero SS Comment on above: Result Comment: [place] [id number] RSV PCR Negative 4 (09/10/22 12:21 PM) Invalid Interpretation Code Negative AH Auto Viro/Sero SS Comment on above: Result Comment: Note s [id number] SARS-CoV-2 (COVID-19) RNA JAMARI+probe Ql (Resp) Negative 1 (09/10/22 12:21 PM) Invalid Interpretation Code Negative Auto Viro/Sero SS Comment on above: Result Comment: [place] [id number] LABORATORYOrdered By: SYSTEM SYSTEM on 09-10-2022 Basophils (Bld) [#/Vol] 0.0 103/mcL Invalid Interpretation Code 0.0 - 0.3 10^3/mcL Workflow SS Basophils/100 WBC (Bld) 0.9 % Invalid Interpretation Code 0.0 - 2.5 % AH Workflow SS Calcium [Mass/Vol] 9.6 mg/dL Invalid Interpretation Code 8.7 - 10.4 mg/dL ADM SS Chloride [Moles/Vol] 105 mmol/L Invalid Interpretation Code 98 - 110 mEq/L ADM SS CO2 [Moles/Vol] 29 mmol/L Invalid Interpretation Code 22 - 32 mEq/L ADM SS Creatinine [Mass/Vol] 0.75 mg/dL Invalid Interpretation Code 0.50 - 1.20 mg/dL ADM SS Electrolyte Balance 5.0 mEq/L Invalid Interpretation Code 4.0 - 15.0 mEq/L ADM SS Eosinophils (Bld) [#/Vol] 0.1 103/mcL Invalid Interpretation Code 0.0 - 0.7 10^3/mcL Workflow SS Eosinophils/100 WBC (Bld) 2.5 % Invalid Interpretation Code 0.0 - 6.0 % Workflow SS Erythrocyte distribution width (RBC) [Ratio] 13.3 % Invalid Interpretation Code 11.5 - 15.5 % Workflow SS GFR/1.73 sq M.predicted among blacks MDRD (S/P/Bld) [Vol rate/Area] ml/min/1.73sqm Invalid Interpretation Code Chemistry S GFR/1.73 sq M.predicted among non-blacks MDRD (S/P/Bld) [Vol rate/Area] ml/min/1.73sqm Invalid Interpretation Code Chemistry S Glucose [Mass/Vol] 98 mg/dL Invalid Interpretation Code 82 - 115 mg/dL ADM SS Hematocrit (Bld) [Volume fraction] 32.7 % Invalid Interpretation Code 34.0 - 46.0 % AH Workflow SS Hemoglobin (Bld) [Mass/Vol] 11.0 G/dL Invalid Interpretation Code 12.0 - 16.0 G/dL AH Workflow SS Lymphocytes (Bld) [#/Vol] 1.1 103/mcL Invalid Interpretation Code 0.9 - 4.3 10^3/mcL AH Workflow SS Lymphocytes/100 WBC (Bld) 23.9 % Invalid Interpretation Code 20.0 - 40.0 % Workflow SS MCH (RBC) [Entitic mass] 31.1 pg Invalid Interpretation Code 27.0 - 33.0 pg AH Workflow SS MCHC 33.7 G/dL Invalid Interpretation Code 32.0 - 36.0 G/dL Workflow SS MCV (RBC) [Entitic vol] 92.2 fL Invalid Interpretation Code 80.0 - 99.0 fL Workflow SS Monocytes (Bld) [#/Vol] 0.6 103/mcL Invalid Interpretation Code 0.1 - 1.4 10^3/mcL Workflow SS Monocytes/100 WBC (Bld) 11.8 % Invalid Interpretation Code 2.0 - 13.0 % Workflow SS Neutrophils (Bld) [#/Vol] 2.9 103/mcL Invalid Interpretation Code 2.3 - 8.1 10^3/mcL Workflow SS Neutrophils/100 WBC (Bld) 60.9 % Invalid Interpretation Code 50.0 - 75.0 % Workflow SS Platelet mean volume (Bld) [Entitic vol] 10.4 fL Invalid Interpretation Code 6.6 - 10.5 fL AH Workflow SS Platelets (Bld) [#/Vol] 157 103/mcL Invalid Interpretation Code 150 - 450 10^3/mcL Workflow SS Potassium [Moles/Vol] 4.8 mmol/L Invalid Interpretation Code 3.5 - 5.0 mEq/L ADM SS RBC (Bld) [#/Vol] 3.55 106/mcL Invalid Interpretation Code 4.10 - 5.30 10^6/mcL AH Workflow SS Sodium [Moles/Vol] 139 mmol/L Invalid Interpretation Code 136 - 145 mEq/L ADM SS Urea nitrogen [Mass/Vol] 18.0 mg/dL Invalid Interpretation Code 8.0 - 22.0 mg/dL AH ADM SS Urea nitrogen/Creatinine [Mass ratio] 24.0 ratio Invalid Interpretation Code 10.0 - 22.0 ratio AH ADM SS WBC (Bld) [#/Vol] 4.8 103/mcL Invalid Interpretation Code 4.5 - 10.8 10^3/mcL AH Workflow SS LABORATORYOrdered By: SYSTEM SYSTEM on 07-12-2022 TSH Qn 1.32 m[IU]/L Invalid Interpretation Code 0.36 - 3.74 mcIU/mL AO ADM SS LABORATORYOrdered By: Ashley Dueñas on 06-04-2022 Albumin BCP dye [Mass/Vol] 3.9 G/dL Invalid Interpretation Code 3.4 - 4.8 G/dL AO ADM SS Albumin/Globulin [Mass ratio] 1.3 {ratio} Invalid Interpretation Code 1.1 - 2.5 ratio AO ADM SS ALP [Catalytic activity/Vol] 97 U/L Invalid Interpretation Code 40 - 135 U/L AO ADM SS ALT With P-5'-P [Catalytic activity/Vol] 24 U/L Invalid Interpretation Code 14 - 59 U/L AO ADM SS AST With P-5'-P [Catalytic activity/Vol] 26 U/L Invalid Interpretation Code 10 - 40 U/L AO ADM SS Bilirubin [Mass/Vol] 0.2 mg/dL Invalid Interpretation Code 0.2 - 1.0 mg/dL AO ADM SS Calcium [Mass/Vol] 9.1 mg/dL Invalid Interpretation Code 8.4 - 10.2 mg/dL AO ADM SS Chloride [Moles/Vol] 103 mmol/L Invalid Interpretation Code 98 - 107 mmol/L AO ADM SS Cholesterol [Mass/Vol] 186 mg/dL Invalid Interpretation Code 0 - 200 mg/dL AO ADM SS Cholesterol in HDL [Mass/Vol] 70 mg/dL Invalid Interpretation Code 40 - 60 mg/dL AO ADM SS Cholesterol in LDL [Mass/Vol] 99 mg/dL Invalid Interpretation Code 0 - 130 mg/dL AO ADM SS CO2 [Moles/Vol] 30 mmol/L Invalid Interpretation Code 23 - 31 mmol/L AO ADM SS Creatinine [Mass/Vol] 0.74 mg/dL Invalid Interpretation Code 0.55 - 1.02 mg/dL AO ADM SS Electrolyte Balance 8.0 mEq/L Invalid Interpretation Code 4.0 - 15.0 mEq/L AO ADM SS Globulin 2.9 G/dL Invalid Interpretation Code AO ADM SS Glucose [Mass/Vol] 99 mg/dL Invalid Interpretation Code 83 - 110 mg/dL AO ADM SS HbA1c (Bld) [Mass fraction] 5.9 % Invalid Interpretation Code 4.3 - 6.4 % AO ADM SS Potassium [Moles/Vol] 4.6 mmol/L Invalid Interpretation Code 3.5 - 5.1 mmol/L AO ADM SS Protein [Mass/Vol] 6.8 G/dL Invalid Interpretation Code 6.4 - 8.2 G/dL AO ADM SS Sodium [Moles/Vol] 141 mmol/L Invalid Interpretation Code 136 - 145 mmol/L AO ADM SS Triglyceride [Mass/Vol] 83 mg/dL Invalid Interpretation Code 0 - 150 mg/dL AO ADM SS TSH Qn 9.61 m[IU]/L Invalid Interpretation Code 0.36 - 3.74 mcIU/mL AO ADM SS Urea nitrogen [Mass/Vol] 16 mg/dL Invalid Interpretation Code 7 - 18 mg/dL AO ADM SS Urea nitrogen/Creatinine [Mass ratio] 22 ratio Invalid Interpretation Code 7 - 27 ratio AO ADM SS Vit. D 25-Hydroxy 133.9 ng/mL Invalid Interpretation Code AO ADM SS LABORATORYOrdered By: Chyna Spence on 06-04-2022 Basophil, Absolute 0.1 103/mcL Invalid Interpretation Code 0.0 - 0.2 10^3/mcL AO Workflow SS Basophils/100 WBC (Bld) 0.9 % Invalid Interpretation Code 0.0 - 2.5 % AO Workflow SS Eosinophil, Absolute 0.2 103/mcL Invalid Interpretation Code 0.0 - 0.4 10^3/mcL AO Workflow SS Eosinophils/100 WBC (Bld) 3.0 % Invalid Interpretation Code 0.0 - 7.0 % AO Workflow SS Erythrocyte distribution width (RBC) [Ratio] 14.0 % Invalid Interpretation Code 11.5 - 14.5 % AO Workflow SS Hematocrit (Bld) [Volume fraction] 35.6 % Invalid Interpretation Code 37.0 - 47.0 % AO Workflow SS Hemoglobin (Bld) [Mass/Vol] 12.0 G/dL Invalid Interpretation Code 12.0 - 16.0 G/dL AO Workflow SS Lymphocyte, Absolute 1.4 103/mcL Invalid Interpretation Code 0.8 - 3.9 10^3/mcL AO Workflow SS Lymphocytes/100 WBC (Bld) 24.8 % Invalid Interpretation Code 10.0 - 50.0 % AO Workflow SS MCH (RBC) [Entitic mass] 30.8 pg Invalid Interpretation Code 27.0 - 31.2 pg AO Workflow SS MCHC 33.6 G/dL Invalid Interpretation Code 33.0 - 37.0 G/dL AO Workflow SS MCV (RBC) [Entitic vol] 91.8 fL Invalid Interpretation Code 80.0 - 94.0 fL AO Workflow SS Monocyte, Absolute 0.7 103/mcL Invalid Interpretation Code 0.2 - 1.0 10^3/mcL AO Workflow SS Monocytes/100 WBC (Bld) 12.1 % Invalid Interpretation Code 1.7 - 13.0 % AO Workflow SS Neutrophil, Absolute 3.4 103/mcL Invalid Interpretation Code 2.9 - 6.2 10^3/mcL AO Workflow SS Neutrophils/100 WBC (Bld) 59.2 % Invalid Interpretation Code 37.0 - 80.0 % AO Workflow SS Platelet mean volume (Bld) [Entitic vol] 10.4 fL Invalid Interpretation Code 7.4 - 10.4 fL AO Workflow SS Platelets (Bld) [#/Vol] 179 103/mcL Invalid Interpretation Code 130 - 400 10^3/mcL AO Workflow SS RBC (Bld) [#/Vol] 3.88 106/mcL Invalid Interpretation Code 4.20 - 5.40 10^6/mcL AO Workflow SS WBC (Bld) [#/Vol] 5.7 103/mcL Invalid Interpretation Code 4.6 - 10.8 10^3/mcL AO Workflow SS LABORATORYOrdered By: SYSTEM SYSTEM on 06-04-2022 GFR 93 ml/min/1.73sqm Invalid Interpretation Code AO Chemistry S GFR Non- 77 ml/min/1.73sqm Invalid Interpretation Code AO Chemistry S LABORATORYOrdered By: Nav Valentine on 12-01-2021 Albumin BCP dye [Mass/Vol] 3.9 G/dL Invalid Interpretation Code 3.4 - 4.8 G/dL AO ADM SS Albumin/Globulin [Mass ratio] 1.4 {ratio} Invalid Interpretation Code 1.1 - 2.5 ratio AO ADM SS ALP [Catalytic activity/Vol] 92 U/L Invalid Interpretation Code 40 - 135 U/L AO ADM SS ALT With P-5'-P [Catalytic activity/Vol] 26 U/L Invalid Interpretation Code 14 - 59 U/L AO ADM SS AST With P-5'-P [Catalytic activity/Vol] 29 U/L Invalid Interpretation Code 10 - 40 U/L AO ADM SS Bilirubin [Mass/Vol] 0.2 mg/dL Invalid Interpretation Code 0.2 - 1.0 mg/dL AO ADM SS Calcium [Mass/Vol] 8.8 mg/dL Invalid Interpretation Code 8.4 - 10.2 mg/dL AO ADM SS Chloride [Moles/Vol] 102 mmol/L Invalid Interpretation Code 98 - 107 mmol/L AO ADM SS CO2 [Moles/Vol] 29 mmol/L Invalid Interpretation Code 23 - 31 mmol/L AO ADM SS Creatinine [Mass/Vol] 0.69 mg/dL Invalid Interpretation Code 0.55 - 1.02 mg/dL AO ADM SS Electrolyte Balance 7.0 mEq/L Invalid Interpretation Code 4.0 - 15.0 mEq/L AO ADM SS Globulin 2.7 G/dL Invalid Interpretation Code AO ADM SS Glucose [Mass/Vol] 93 mg/dL Invalid Interpretation Code 83 - 110 mg/dL AO ADM SS Potassium [Moles/Vol] 4.3 mmol/L Invalid Interpretation Code 3.5 - 5.1 mmol/L AO ADM SS Protein [Mass/Vol] 6.6 G/dL Invalid Interpretation Code 6.4 - 8.2 G/dL AO ADM SS Sodium [Moles/Vol] 138 mmol/L Invalid Interpretation Code 136 - 145 mmol/L AO ADM SS TSH Qn 3.36 m[IU]/L Invalid Interpretation Code 0.36 - 3.74 mcIU/mL AO ADM SS Urea nitrogen [Mass/Vol] 13 mg/dL Invalid Interpretation Code 7 - 18 mg/dL AO ADM SS Urea nitrogen/Creatinine [Mass ratio] 19 ratio Invalid Interpretation Code 7 - 27 ratio AO ADM SS Vit. D 25-Hydroxy 149.1 ng/mL Invalid Interpretation Code AO ADM SS LABORATORYOrdered By: Chyna Spence on 12-01-2021 Basophil, Absolute 0.0 103/mcL Invalid Interpretation Code 0.0 - 0.2 10^3/mcL AO Workflow SS Basophils/100 WBC (Bld) 0.8 % Invalid Interpretation Code 0.0 - 2.5 % AO Workflow SS Eosinophil, Absolute 0.1 103/mcL Invalid Interpretation Code 0.0 - 0.4 10^3/mcL AO Workflow SS Eosinophils/100 WBC (Bld) 2.1 % Invalid Interpretation Code 0.0 - 7.0 % AO Workflow SS Erythrocyte distribution width (RBC) [Ratio] 13.7 % Invalid Interpretation Code 11.5 - 14.5 % AO Workflow SS Hematocrit (Bld) [Volume fraction] 33.5 % Invalid Interpretation Code 37.0 - 47.0 % AO Workflow SS Hgb 11.2 G/dL Invalid Interpretation Code 12.0 - 16.0 G/dL AO Workflow SS Lymphocyte, Absolute 1.0 103/mcL Invalid Interpretation Code 0.8 - 3.9 10^3/mcL AO Workflow SS Lymphocytes/100 WBC (Bld) 17.5 % Invalid Interpretation Code 10.0 - 50.0 % AO Workflow SS MCH (RBC) [Entitic mass] 30.7 pg Invalid Interpretation Code 27.0 - 31.2 pg AO Workflow SS MCHC 33.4 G/dL Invalid Interpretation Code 33.0 - 37.0 G/dL AO Workflow SS MCV (RBC) [Entitic vol] 92.1 fL Invalid Interpretation Code 80.0 - 94.0 fL AO Workflow SS Monocyte, Absolute 0.7 103/mcL Invalid Interpretation Code 0.2 - 1.0 10^3/mcL AO Workflow SS Monocytes/100 WBC (Bld) 12.3 % Invalid Interpretation Code 1.7 - 13.0 % AO Workflow SS Neutrophil, Absolute 3.8 103/mcL Invalid Interpretation Code 2.9 - 6.2 10^3/mcL AO Workflow SS Neutrophils/100 WBC (Bld) 67.3 % Invalid Interpretation Code 37.0 - 80.0 % AO Workflow SS Platelet 176 103/mcL Invalid Interpretation Code 130 - 400 10^3/mcL AO Workflow SS Platelet mean volume (Bld) [Entitic vol] 10.1 fL Invalid Interpretation Code 7.4 - 10.4 fL AO Workflow SS RBC 3.64 106/mcL Invalid Interpretation Code 4.20 - 5.40 10^6/mcL AO Workflow SS WBC 5.7 103/mcL Invalid Interpretation Code 4.6 - 10.8 10^3/mcL AO Workflow SS LABORATORYOrdered By: SYSTEM SYSTEM on 12-01-2021 GFR 101 ml/min/1.73sqm Invalid Interpretation Code AO Chemistry S GFR Non- 83 ml/min/1.73sqm Invalid Interpretation Code AO Chemistry S Monocyte distribution width Auto (Bld) [Entitic vol] Not Performed 1 *NA* (12/01/21 8:43 AM) Invalid Interpretation Code 0.00 - 20.00 AO Hematology S Comment on above: Result Comment: MDW testing performed only on adult ER patients between the ages of 18-89 years. LABORATORYOrdered By: Ashley Dueñas on 12-01-2021 HbA1c (Bld) [Mass fraction] 5.8 % Invalid Interpretation Code 4.3 - 6.4 % AO ADM SS LABORATORYOrdered By: Kobe Eid on 09-07-2021 Albumin BCP dye [Mass/Vol] 4.0 G/dL Invalid Interpretation Code 3.4 - 4.8 G/dL AO ADM SS Albumin/Globulin [Mass ratio] 1.4 {ratio} Invalid Interpretation Code 1.1 - 2.5 ratio AO ADM SS ALP [Catalytic activity/Vol] 89 U/L Invalid Interpretation Code 40 - 135 U/L AO ADM SS ALT With P-5'-P [Catalytic activity/Vol] 30 U/L Invalid Interpretation Code 14 - 59 U/L AO ADM SS AST With P-5'-P [Catalytic activity/Vol] 29 U/L Invalid Interpretation Code 10 - 40 U/L AO ADM SS Basophil, Absolute 0.00 103/mcL Invalid Interpretation Code 0.00 - 0.19 10^3/mcL AO Auto Heme SS Basophils/100 WBC (Bld) 0.7 % Invalid Interpretation Code 0.0 - 2.5 % AO Auto Heme SS Bilirubin [Mass/Vol] 0.3 mg/dL Invalid Interpretation Code 0.2 - 1.0 mg/dL AO ADM SS Calcium [Mass/Vol] 8.8 mg/dL Invalid Interpretation Code 8.4 - 10.2 mg/dL AO ADM SS Chloride [Moles/Vol] 99 mmol/L Invalid Interpretation Code 98 - 107 mmol/L AO ADM SS Cholesterol [Mass/Vol] 169 mg/dL Invalid Interpretation Code 0 - 200 mg/dL AO ADM SS Cholesterol in HDL [Mass/Vol] 70 mg/dL Invalid Interpretation Code 40 - 60 mg/dL AO ADM SS Cholesterol in LDL [Mass/Vol] 87 mg/dL Invalid Interpretation Code 0 - 130 mg/dL AO ADM SS CO2 [Moles/Vol] 28 mmol/L Invalid Interpretation Code 23 - 31 mmol/L AO ADM SS Creatinine [Mass/Vol] 0.76 mg/dL Invalid Interpretation Code 0.55 - 1.02 mg/dL AO ADM SS Electrolyte Balance 10.0 mEq/L Invalid Interpretation Code 4.0 - 15.0 mEq/L AO ADM SS Eosinophil, Absolute 0.20 103/mcL Invalid Interpretation Code 0.00 - 0.40 10^3/mcL AO Auto Heme SS Eosinophils/100 WBC (Bld) 2.6 % Invalid Interpretation Code 0.0 - 7.0 % AO Auto Heme SS Erythrocyte distribution width (RBC) [Ratio] 13.5 % Invalid Interpretation Code 11.5 - 14.5 % AO Auto Heme SS Globulin 2.8 G/dL Invalid Interpretation Code AO ADM SS Glucose [Mass/Vol] 78 mg/dL Invalid Interpretation Code 83 - 110 mg/dL AO ADM SS HbA1c (Bld) [Mass fraction] 6.4 % Invalid Interpretation Code 4.3 - 6.4 % AO ADM SS Hematocrit (Bld) [Volume fraction] 32.8 % Invalid Interpretation Code 37.0 - 47.0 % AO Auto Heme SS Hemoglobin (Bld) [Mass/Vol] 11.0 G/dL Invalid Interpretation Code 12.0 - 16.0 G/dL AO Auto Heme SS Lymphocyte, Absolute 1.10 103/mcL Invalid Interpretation Code 0.77 - 3.85 10^3/mcL AO Auto Heme SS Lymphocytes/100 WBC (Bld) 17.7 % Invalid Interpretation Code 10.0 - 50.0 % AO Auto Heme SS MCH (RBC) [Entitic mass] 31.0 pg Invalid Interpretation Code 27.0 - 31.2 pg AO Auto Heme SS MCHC (RBC) [Mass/Vol] 33.7 G/dL Invalid Interpretation Code 33.0 - 37.0 G/dL AO Auto Heme SS MCV (RBC) [Entitic vol] 91.8 fL Invalid Interpretation Code 80.0 - 94.0 fL AO Auto Heme SS Monocyte, Absolute 0.80 103/mcL Invalid Interpretation Code 0.15 - 1.00 10^3/mcL AO Auto Heme SS Monocytes/100 WBC (Bld) 12.6 % Invalid Interpretation Code 1.7 - 13.0 % AO Auto Heme SS Neutrophil, Absolute 4.20 103/mcL Invalid Interpretation Code 2.85 - 6.16 10^3/mcL AO Auto Heme SS Neutrophils/100 WBC (Bld) 66.4 % Invalid Interpretation Code 37.0 - 80.0 % AO Auto Heme SS Platelet mean volume (Bld) [Entitic vol] 10.8 fL Invalid Interpretation Code 7.4 - 10.4 fL AO Auto Heme SS Platelets (Bld) [#/Vol] 174 103/mcL Invalid Interpretation Code 130 - 400 10^3/mcL AO Auto Heme SS Potassium [Moles/Vol] 4.6 mmol/L Invalid Interpretation Code 3.5 - 5.1 mmol/L AO ADM SS Protein [Mass/Vol] 6.8 G/dL Invalid Interpretation Code 6.4 - 8.2 G/dL AO ADM SS RBC (Bld) [#/Vol] 3.57 106/mcL Invalid Interpretation Code 4.20 - 5.40 10^6/mcL AO Auto Heme SS Sodium [Moles/Vol] 137 mmol/L Invalid Interpretation Code 136 - 145 mmol/L AO ADM SS Triglyceride [Mass/Vol] 62 mg/dL Invalid Interpretation Code 0 - 150 mg/dL AO ADM SS TSH Qn 7.14 m[IU]/L Invalid Interpretation Code 0.36 - 3.74 mcIU/mL AO ADM SS Urea nitrogen [Mass/Vol] 15 mg/dL Invalid Interpretation Code 7 - 18 mg/dL AO ADM SS Urea nitrogen/Creatinine [Mass ratio] 20 ratio Invalid Interpretation Code 7 - 27 ratio AO ADM SS Vit. D 25-Hydroxy ng/mL Invalid Interpretation Code AO ADM SS WBC (Bld) [#/Vol] 6.30 103/mcL Invalid Interpretation Code 4.60 - 10.80 10^3/mcL AO Auto Heme SS LABORATORYOrdered By: SYSTEM SYSTEM on 09-07-2021 GFR 90 ml/min/1.73sqm Invalid Interpretation Code AO Chemistry S GFR Non- 74 ml/min/1.73sqm Invalid Interpretation Code AO Chemistry S Vital Signs Date Time Vital Sign Value Performing Clinician Facility 01-26-2025 15:51-0400 Body temperature 97.6 [degF] Dr. Emmanuel Sims DO Work Phone: [facility] 01-26-2025 15:51-0400 Diastolic blood pressure 77 mm[Hg] Dr. Emmanuel Sims DO Work Phone: [facility] 01-26-2025 15:51-0400 Heart rate 67 /min Dr. Emmanuel Sims DO Work Phone: [facility] 01-26-2025 15:51-0400 Respiratory rate 16 /min Dr. Emmanuel Sims DO Work Phone: [facility] 01-26-2025 15:51-0400 SaO2% (BldA) [Mass fraction] 100 % Dr. Emmanuel Sims DO Work Phone: [facility] 01-26-2025 15:51-0400 Systolic blood pressure 105 mm[Hg] Dr. Emmanuel Sims DO Work Phone: [facility] 01-26-2025 12:20-0400 Body height 149.[address] Emmanuel Sims DO Work Phone: [facility] 01-26-2025 12:20-0400 Body mass index (BMI) [Ratio] 27.8 kg/m2 Dr. Emmanuel Sims DO Work Phone: [facility] 01-26-2025 12:20-0400 Body weight 62.[address] Emmanuel Sims DO Work Phone: [facility] 09-20-2023 11:03-[address] EMMANUEL SIMS DO [facility] 09-20-2023 11:03-[address] EMMANUEL Carreno O [facility] 09-20-2023 11:03-0400 Body temperature 97.52 [degF] DR EMMANUEL SIMS DO [facility] 09-20-2023 11:03-0400 Diastolic Blood Pressure Non-Invasive 70 mm[Hg] DR EMMANUEL SIMS DO [facility] 09-20-2023 11:03-0400 Heart rate 56 /min DR EMMANUEL SIMS DO [facility] 09-20-2023 11:03-0400 Respiratory rate 16 /min DR EMMANUEL SIMS DO [facility] 09-20-2023 11:03-0400 Systolic Blood Pressure Non-Invasive 146 mm[Hg] DR EMMANUEL SIMS DO [facility] 09-08-2023 23:05-0400 Body temperature 97.2 [degF] [facility] 09-08-2023 23:05-0400 Diastolic blood pressure 64 mm[Hg] [facility] 09-08-2023 23:05-0400 Heart rate 75 /min [facility] 09-08-2023 23:05-0400 Respiratory rate 18 /min [facility] 09-08-2023 23:05-0400 SaO2% (BldA) [Mass fraction] 97 % [facility] 09-08-2023 23:05-0400 Systolic blood pressure 158 mm[Hg] [facility] 09-08-2023 19:24-0400 Body height 149.86 cm [facility] 09-08-2023 19:24-0400 Body mass index (BMI) [Ratio] 23.8 kg/m2 [facility] 09-08-2023 19:24-0400 Body weight 53.52 kg [facility] 03-14-2023 11:25-0400 Body temperature 95.36 [degF] DR EMMANUEL SIMS DO [facility] 03-14-2023 11:25-0400 Diastolic Blood Pressure Non-Invasive [address] EMMANUEL SIMS DO [facility] 03-14-2023 11:25-0400 Heart rate 62 /min DR EMMANUEL SIMS DO [facility] 03-14-2023 11:25-0400 Systolic Blood Pressure Non-Invasive [address] EMMANUEL SIMS DO [facility] 09-10-2022 11:04-04[address] Pressure Cuff Size DR JEANNE HERMAN MD [facility] 09-10-2022 11:04-[address] JEANNE HERMAN MD [facility] 09-10-2022 11:04-[address] JEANNE HERMAN MD [facility] 09-10-2022 11:04-0400 Body height 149.[address] JEANNE HERMAN MD [facility] 09-10-2022 11:04-0400 Body temperature 97.52 [degF] DR JEANNE HERMAN MD [facility] 09-10-2022 11:04-0400 Body weight 47.[address] JEANNE HERMAN MD [facility] 09-10-2022 11:04-0400 Diastolic Blood Pressure Non-Invasive [address] JEANNE HERMAN MD [facility] 09-10-2022 11:04-0400 Heart rate 60 /min DR JEANNE HERMAN MD [facility] 09-10-2022 11:04-0400 Systolic Blood Pressure Non-Invasive [address] JEANNE HERMAN MD [facility] Encounters Encounter Date Encounter Type Care Provider Facility Start: 01-26-2025 End: 01-26-2025 Emergency department patient visit Dr. Emmanuel Sims DO Work Phone: -Emergency Department Work Phone: Start: 01-07-2025 ambulatory [facility] Start: 01-05-2025 End: 01-05-2025 ambulatory NERI PRIETO DO Facility:[facility] Start: 01-05-2025 Encounter for genera l adult medical examination without abnormal findings NERI PRIETO DO [facility] Start: 01-05-2025 End: 01-05-2025 Patient encounter procedure NERI PRIETO DO [facility] Start: 12-23-2024 End: 12-23-2024 ambulatory NERI PRIETO DO Facility:[facility] Start: 12-23-2024 End: 12-23-2024 Patient encounter procedure NERI PRIETO DO [facility] Start: 11-09-2024 End: 11-09-[address] Emmanuel Sims DO Work Phone: [facility] Work Phone: Start: 11-09-2024 End: 11-09-[address] Neri Prieto MD -[facility] [place] [facility] Work Phone: Start: 11-09-2024 End: 11-09-2024 ambulatory Neri MILLS Facility:[facility] Start: 08-07-2024 End: 08-07-[address] Emmanuel Sims DO Work Phone: [facility] Work Phone: Start: 08-07-2024 End: 08-07-[address] Neri Prieto MD [facility] [place] [facility] Work Phone: Start: 08-07-2024 End: 08-07-2024 ambulatory Neri MILLS Facility:[facility] Start: 07-08-2024 ambulatory Neri MILLS Facil ity:[facility] Start: 07-08-[address] [facility] [place] [facility] Work Phone: Start: 06-12-2024 ambulatory Neri MILLS Facil ity:[facility] Start: 06-12-[address] Neri [place] Work Phone: Start: 05-06-2024 End: 05-06-2024 ambulatory Neri Prieto GENE Facility:[facility] Start: 03-23-2024 End: 03-23-2024 ambulatory KENN ESPINOZA [employer] Facility:[facility] Start: 03-23-2024 End: 03-23-2024 Patient encounter procedure KENN ESPINOZA [employer] [facility] Start: 11-14-2023 End: 11-15-2023 ambulatory KURTIS TIERNEY [employer] TE[employer] Facility:[facility] Start: 11-14-2023 End: 11-14-2023 Patient encounter procedure KURTIS TIERNEY [employer] [facility] Start: 09-20-2023 End: 09-20-[address] EMMANUEL SIMS DO Facility:[facility] Start: 09-20-2023 End: 09-20-[address] EMMANUEL SIMS DO [facility] Start: 09-17-2023 End: 09-18-2023 ambulatory KENN ESPINOZA [employer] Facility:[facility] Start: 09-17-2023 End: 09-17-2023 Patient encounter procedure KENN ESPINOZA [employer] TE[employer] [facility] Start: 09-08-2023 End: 09-08-2023 Emergency department patient visit [facility] Work Phone: Start: 08-09-2023 End: 08-10-2023 ambulatory HI ALBRIGHT MD Facility:[facility] Start: 08-09-2023 End: 08-09-2023 Patient encounter procedure HI ALBRIGHT MD [facility] Start: 08-07-2023 End: 08-08-2023 ambulatory HI ALBRIGHT MD Facility:[facility] Start: 07-12-2023 End: 07-17-[address] EMMANUEL SIMS DO Facility:[facility] Start: 07-12-2023 End: 07-16-[address] EMMANUEL SIMS DO [facility] Start: 07-04-2023 End: 07-05-2023 ambulatory KURTIS TIERNEY [employer] Facility:[facility] Start: 06-03-2023 End: 06-08-2023 ambulatory KURTIS TIERNEY [employer] Facility:[facility] Start: 06-03-2023 End: 06-03-2023 Patient encounter procedure KURTIS TIERNEY [employer] [facility] Start: 03-28-2023 End: 03-28-2023 ambulatory [facility] Start: 03-14-2023 End: 03-14-[address] EMMANUEL SIMS DO Facility:[facility] Start: 03-14-2023 End: 03-14-[address] EMMANUEL SIMS DO [facility] Start: 02-13-2023 End: 02-14-[address] EMMANUEL SIMS DO Facility:[facility] Start: 02-13-2023 End: 02-13-[address] EMMANUEL SIMS DO [facility] Start: 01-07-2023 End: 01-08-[address] EMMANUEL SIMS DO Facility:[facility] Start: 01-07-2023 End: 01-07-[address] EMMANUEL SIMS DO [facility] Start: 10-09-2022 End: 10-09-2022 Patient encounter procedure ISELA SPENCER [employer]OGRAM 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[employer] [facility] Start: 09-10-2022 End: 09-10-[address] JEANNE HERMAN MD [facility] Start: 08-23-2022 End: 08-23-[address] JEANNE HERMAN MD [facility] Start: 08-10-2022 End: 08-10-2022 Patient encounter procedure KENN ESPINOZA [employer] TECHNICIAN[employer] [facility] Start: 08-08-2022 End: 08-08-2022 Patient encounter procedure ISELA SPENCER [employer] TECHNICIAN[employer] [facility] Start: 07-16-2022 End: 07-16-[address] EMMANUEL SIMS DO [facility] Start: 07-12-2022 End: 07-12-[address] EMMANUEL SIMS DO [facility] Start: 07-09-2022 End: 07-09-[address] EMMANUEL SIMS DO [facility] Start: 06-04-2022 End: 06-04-[address] EMMANUEL SIMS DO [facility] Start: 12-01-2021 End: 12-01-[address] EMMANUEL SIMS DO [facility] Start: 09-07-2021 End: 09-07-[address] EMMANUEL SIMS DO [facility] Start: 02-12-2019 End: 02-12-2019 Subsequent hospital visit by physician Amna Brown Work Phone: [facility] Dept Procedures Date Procedure Procedure Detail Performing Clinician Start: 01-26-[address] Emmanuel Sims DO Work Phone: Start: 01-26-2025 Urnls dip stick/tabl et reagent auto microscopy Dr. Emmanuel Sims DO Work Phone: Start: 01-26-2025 Plain chest X-ray Dr. Suresh Sims DO Work Phone: Start: 08-07-2024 Measurement of renal function Dr. Emmanuel Sims DO Work Phone: Comment on above: GFR Calc Start: 08-07-2024 Vitamin D, 25-hydrox y measurement Dr. Emmanuel Sims DO Work Phone: Comment on above: Vitamin D 25(OH) Sta tus Range Deficiency <20 ng/mL (50nmol/L) Insufficiency 20 - 30 ng/mL (50 - 75 nmol/L) Sufficiency 30 - 100 ng/mL (75 - 250 nmol/L) Toxicity >100 ng/mL (>250 nmol/L) Start: 07-08-[address] Emmanuel Sims DO Work Phone: Start: 06-12-[address] Emmanuel Sims DO Work Phone: Start: 09-08-2023 Plain chest X-ray Start: 07-01-[address] SA MURRAY HERMAN MD Start: 05-27-[address] DAQUAN SIMS DO Comment on above: EF 60-65%, mild MR, moderate TR Start: 07-07-[address] EMMANUEL SIMS DO Comment on above: total (cystocele, re ctocele, and prolapsed uterus) - [facility] Cataract (disorder) DR EMMANUEL SIMS DO Cataract (disorder) DR MINESH HERMAN MD Comment on above: bialteral Coronary artery bypa ss grafts x [address] EMMANUEL SIMS DO History of coronary artery bypass grafting S/P CABG (coronary artery bypass graft)( Confirmed ) DR EMMANUEL SIMS DO Urinary bladder stru cture (body structure) DR EMMANUEL SIMS DO Comment on above: mesh bladder lift Plan of Treatment Date Care Activity Detail Author Start: 01-26-2025 [facility] Start: 01-26-2025 [facility] Start: 09-08-2023 [facility] Start: 06-04-2019 End: 06-04-2019 Office Visit 06/04/2019 Office Visit Geriatric Medicine Amna Brown MD [address] [place] [phone] [facility] Start: 03-01-2019 Influenza vaccination Flu vaccine (#1) [place], [place] Start: 12-08-2011 DEXA (modify frequency per FRAX score) DEXA (modify frequency per FRAX score) [place] Start: 12-08-2011 Pneumococcal 65+ years Vaccine (1 of 2 - PCV13) Pneumococcal 65+ years Vaccine (1 of 2 - PCV13) [place] Start: 2009 Annual Wellness Visit (AWV) Annual Wellness Visit (AWV) [place] Start: 1996 Breast cancer screen Breast cancer screen [place], [place] Start: 1996 Colon cancer screen colonoscopy Colon cancer screen colonoscopy [place] Start: 1996 Shingles Vaccine (1 of 2) Shingles Vaccine (1 of 2) [place] Start: 1986 Lipid screen Lipid screen [place] Start: 1965 DTaP/Tdap/Td vaccine (1 - Tdap) DTaP/Tdap/Td vaccine (1 - Tdap) [place], [place] Start: 1946 Creatinine monitoring Creatinine monitoring [place], [place] Start: 1946 Hepatitis C screen Hepatitis C screen [place], [place] Start: 1946 Potassium monitoring Potassium monitoring [place], [place] Patient Education ED Chest Pain, Uncertain Cause [facility] Work Phone: Patient referral [facility] Work Phone: Immunizations Immunization Date Immunization Notes Care Provider Fa cility 07-25-2017 tetanus toxoid, redu sergey diphtheria toxoid, and acellular pertussis vaccine, adsorbed; 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: [Boostrix (Tdap)] DR EMMANUEL SIMS DO [facility] Payers Date Payer Category Payer Private Health Insurance [id number] 2023 Self-pay [id number] 2021 Medicare [id number] 2018 Medicare MEDICARE MEDICAR E PART A AND B [id number] 2018-Present [phone] [place] [address] xxxxxxxxxxx [id number] 2018 Unknown [employer] [place] MEDICARE SUPP [id number] 2018-Present [phone] ATTN INDIVIDUAL CLAIMS [id number] [place] [address] [id number] 2011 Medicare [id number] 2011 Medicare [id number] 1946 Unknown [id number] 2.16.840.1.689137.3.579.2. 1946 Unknown [id number] 2.16.840.1.870275.3.579.2. 1946 Unknown [id number] 2.16.840.1.908448.3.579.2. 1946 Unknown [id number] 2.16.840.1.758666.3.579.2. 1946 Unknown [id number] 2.16.840.1.473307.3.579.2. 1946 Unknown [id number] 2.16.840.1.734805.3.579.2. 1946 Unknown [id number] 2.16.840.1.100342.3.579.2. 1946 Unknown [id number] 2.16.840.1.578766.3.579.2. 1946 Unknown [id number] 2.16.840.1.791412.3.579.2. 1946 Unknown [id number] 2.16.840.1.846888.3.579.2. 1946 Unknown [id number] 2.16.840.1.399711.3.579.2. 1946 Unknown [id number] 2.16.840.1.366336.3.579.2. 1946 Unknown [id number] 2.16.840.1.724475.3.579.2. 1946 Unknown [id number] 2.16.840.1.444427.3.579.2. 627 1946 Unknown [id number] 2.16.840.1.873041.3.579.2. 627 1946 Unknown [id number] 2.16.840.1.439355.3.579.2. 627 Unknown [facility] [id number] Unknown [id number] 2.16.840.1.205107.3.579.2. 462 Unknown [id number] 2.16.840.1.148574.3.579.2. 462 Unknown [id number] 2.16.840.1.917860.3.579.2. 462 Unknown [id number] 2.16.840.1.326768.3.579.2. 462 Unknown [id number] 2.16.840.1.846295.3.579.2. 462 Social History Date Type Detail Facility Start: 01-15-2019 End: 01-26-2025 Tobacco smoking status NYIS Never smoker [place] Start: 01-15-2019 Alcohol intake Never [place], [place] Start: 01-15-2019 History SDOH Alcohol Frequency 1 [place] Sex Assigned At Not on file [place] Sex Assigned At [facility] Start: 09-08-2023 Tobacco smoking stat [facility] Unknown if ever smoked [facility] Start: 05-22-2019 None [facility] Start: 05-22-2019 With Family [facility] Start: 1945 Sex Assigned At Female [facility] Start: 07-25-2017 End: 09-04-2024 Sex Female (finding) [facility] Medical Equipment Procedure Code Equipment Code Equipment Origin al Text Equipment Identifier Dates 2.0MM K-WIRE FDA Start: 08-05-2017 3.5MM NON LOCKIN G SCREWS FDA Start: 08-05-2017 PROX HUMERAL HI PLATE 4H FDA Start: 08-05-2017 2.0MM K-WIRE FDA Start: 08-05-2017 2.0MM K-WIRE FDA Start: 08-05-2017 2.7MMX 160MM DRI LL BIT CALIB FDA Start: 08-05-2017 3.5MM CORTICAL LOCKING SCREW FDA Start: 08-05-2017 3.5MM CORTICAL LOCKING SCREWA FDA Start: 08-05-2017 3.5MM CORTICAL LOCKING SCREWS FDA Start: 08-05-2017 3.5MM NON LOCKIN G SCREWS FDA Start: 08-05-2017 3.5MM NON LOCKIN G SCREWS FDA Start: 08-05-2017 2.0MM K-WIRE FDA Start: 08-05-2017 3.5MM NON LOCKIN G SCREWS FDA Start: 08-05-2017 PROX HUMERAL HI PLATE 4H FDA Start: 08-05-2017 2.0MM K-WIRE FDA Start: 08-05-2017 2.0MM K-WIRE FDA Start: 08-05-2017 2.7MMX 160MM DRI LL BIT CALIB FDA Start: 08-05-2017 3.5MM CORTICAL LOCKING SCREW FDA Start: 08-05-2017 3.5MM CORTICAL LOCKING SCREWA FDA Start: 08-05-2017 3.5MM CORTICAL LOCKING SCREWS FDA Start: 08-05-2017 3.5MM NON LOCKIN G SCREWS FDA Start: 08-05-2017 3.5MM NON LOCKIN G SCREWS FDA Start: 08-05-2017 2.0MM K-WIRE FDA Start: 08-05-2017 3.5MM NON LOCKIN G SCREWS FDA Start: 08-05-2017 PROX HUMERAL HI PLATE 4H FDA Start: 08-05-2017 2.0MM K-WIRE FDA Start: 08-05-2017 2.0MM K-WIRE FDA Start: 08-05-2017 2.7MMX 160MM DRI LL BIT CALIB FDA Start: 08-05-2017 3.5MM CORTICAL LOCKING SCREW FDA Start: 08-05-2017 3.5MM CORTICAL LOCKING SCREWA FDA Start: 08-05-2017 3.5MM CORTICAL LOCKING SCREWS FDA Start: 08-05-2017 3.5MM NON LOCKIN G SCREWS FDA Start: 08-05-2017 3.5MM NON LOCKIN G SCREWS FDA Start: 08-05-2017 2.0MM K-WIRE FDA Start: 08-05-2017 3.5MM NON LOCKIN G SCREWS FDA Start: 08-05-2017 PROX HUMERAL HI PLATE 4H FDA Start: 08-05-2017 2.0MM K-WIRE FDA Start: 08-05-2017 2.0MM K-WIRE FDA Start: 08-05-2017 2.7MMX 160MM DRI LL BIT CALIB FDA Start: 08-05-2017 3.5MM CORTICAL LOCKING SCREW FDA Start: 08-05-2017 3.5MM CORTICAL LOCKING SCREWA FDA Start: 08-05-2017 3.5MM CORTICAL LOCKING SCREWS FDA Start: 08-05-2017 3.5MM NON LOCKIN G SCREWS FDA Start: 08-05-2017 3.5MM NON LOCKIN G SCREWS FDA Start: 08-05-2017 Mental Status Date Assessment Result Facility 09-08-2023 Cognitive function Voice/Name [facility] Work Phone: Clinical Notes 07-09-2022 to 01-26-2025 Note Date & Type Note Facility 01-26-2025 Discharge summary [facility] 01-26-2025 Discharge summary Note Date/Time January 26, 2025 3:50pm [facility] Medical Records Department [address] [place] [address] Emergency Department Summary 01/26/25 MR#: [id number] Acct: [id number] Name: LESLEY BARILLAS Rep #:[id number] : 1945 79 From: Osmin Lees DO PCP: Dr. Neri Prieto DO Status:REG ER Location: ED ADDENDUM by Dr. Annabella Wills DO on 01/26/25 at 1550 Patient signed out to me pending repeat high-sensitivity troponin. Initial troponin was 18 and repeat is 16. Delta is low and not uptrending. Patient is currently pain-free. Will follow-up with her manager personal at [place] (Dr. Woodson). Patient and daughter agreeable plan of care. Patient given return precautions. Discharged home in stable condition. Diagnosis Chest pain?uncertain etiology History of coronary artery disease History of dementia 01/26/25 1550<Electronically signed by Annabella Wills DO> Cosigner Signature (if applicable): cc: Dr. Neri Prieto DO ~* Signed HPI History of Present Illness Chief Complaint: Chest Pain Detail of Chief Complaint: Chest pain Informant: patient and EMS Narrative Narrative: Patient presents to the emergency department from home with complaint of chest pain. Patient apparently had had some chest pain 15 minutes prior to EMS being called. On EMS arrival she denied any pain. Patient has history of dementia and coronary artery disease with prior CABG. Patient has no complaints at this time. She tells me she lives with her daughter who is currently not here. Patient denies recent travel or surgery. Patient does not recall having chest pain. PFSH PFS Home Medications ?Medication ?Instructions ?Recorded ?Last Taken ?Type levothyroxine 75 mcg tablet 75 mcg PO DAILY THYROID 01/26/25 History furosemide 20 mg tablet 20 mg PO DAILY #30 tabs 05/0201/26/25 Rx donepezil 10 mg tablet 10 mg PO DAILY 11/16/2312/30 History isosorbide mononitrate 30 mg 30 mg PO DAILY 11/16/23 0 01/26/25 History tablet,extended release 24 hr metoprolol succinate 25 mg 25 mg PO DAILY 11/16/23 History tablet,extended release 24 hr mirtazapine 15 mg tablet 15 mg PO QHS 11/16/23 History atorvastatin 20 mg tablet 20 mg PO DAILY 01/26/2512/30 History glipizide 5 mg tablet 2.5 mg PO BID 01/26/2501/26 History lisinopril 5 mg tablet 5 mg PO DAILY 01/26/2501/26 History metformin 1,000 mg tablet 1,000 mg PO DAILY 01/26/25 0 01/26/25 History metformin 1,000 mg tablet 500 mg PO DAILY 01/26/25 History quetiapine 50 mg tablet 25 mg PO DAILY 01/26/2512/30 History quetiapine 50 mg tablet (Seroquel) 75 mg PO DAILY 12/3001/25/25 History trazodone 50 mg tablet 50 mg PO QHS 01/26/25 History Allergy/AdvReac Type Severity Reaction Status Date / Time alendronate sodium (From Allergy Unknown Verified 01/26/25 12:22 Fosamax) meloxicam Allergy Unknown Verified 01/26/25 12:22 Sulfa (Sulfonamide Allergy Rash Verified 01/26/25 12:22 Antibiotics) Social History Smoking Status: Never smoker ROS ROS ED Review of Systems ROS Unobtainable: other Constitutional Constitutional ED: Reports lethargy; Denies chills, fever(s), sweats or weight loss Eyes Eyes: Denies blurry vision, change in vision or diplopia ENT ENT ED: Denies rhinorrhea or sore throat Cardiovascular Cardiovascular: Reports chest pain; Denies orthopnea or racing heartbeat Respiratory/Chest Respiratory/Chest: Denies cough, dyspnea, dyspnea on exertion, orthopnea or sputum Gastrointestinal Gastrointestinal: Denies abdominal pain, diarrhea, nausea or vomiting Genitourinary Genitourinary ED: Denies dysuria, hematuria or urinary frequency Musculoskeletal Musculoskeletal: Denies arthralgias, back pain, myalgias or neck pain Integumentary Denies abscess, Abrasions or rash Neurologic Neurologic: Denies headache(s) or weakness Psychiatric Psychiatric: Denies anxiety, depression or suicidal thoughts Endocrine Endocrinology: Denies polydipsia, polyphagia or polyuria Hematologic/Lymphatic Hematologic/Lymphatic: Denies easy bleeding, easy bruising or lymphadenopathy Allergic/Immunologic Allergic/Immunologic ED: Denies mouth swelling, tongue swelling or urticaria EXAM Physical Exam Const Vital Signs: 01/26/25 12:20 01/26/25 12:51 01/26/25 13:59 Temperature 97.6 F L Temperature Source Oral Pulse Rate 73 62 Respiratory Rate 18 15 Blood Pressure 123/75 H 94/54 L Blood Pressure Mean 91 67 Pulse Ox 98 100 Oxygen Delivery Method Room Air Room Air Room Air Positive well nourished and well developed General Appearance ED: well developed and NAD HEENT Reports TM's clear and moist mucous membranes normocephalic and atraumatic; Negative for trauma or tenderness Tympanic Membrane ED: Yes TM's clear Eyes PERRL and EOMs intact bilaterally General Eye ED: Negative for pale conjunctiva or scleral icterus Neck no lymphadenopathy, supple and no JVD General: Negative for tenderness Chest Wall inspection of chest normal and palpation of chest normal Chest Narrative: Healed anterior chest scar from prior CABG Chest: Negative for tenderness Resp normal respiratory effort and clear to auscultation bilaterally Effort and Inspection: Negative for respiratory distress or pain with movement Auscultation: Negative for rhonchi, wheezes or diminished lung sounds Cardio regular rate, regular rhythm, S1 normal heart sound, S2 normal heart sound and no murmurs Peripheral Pulses: pulses 2+ throughout GI normal to inspection, nondistended, normoactive bowel sounds, soft to palpation,non-tender, non-distended and no masses Back/Spine no CVA tenderness and no thoracic nor lumbar tenderness Extremity normal to inspection General Extremety ED: Negative for edema General Extremity: Negative for edema Neuro oriented x3, CN's II-XII intact bilaterally, no sensory deficits noted and gait normal Sensorium / Orientation: awake, alert, oriented to person, oriented to place andoriented to time Motor Exam: strength 5/5 throughout and strength abnormal Psych mental status grossly normal Skin no rashes or lesions noted and no wounds MDM MDM MDM Narrative Medical decision making narrative: Patient presents from home via EMS at request of her daughter who noted that patient was having chest pain this morning. Patient is a very poor historian due to history of dementia. Eventually patient's daughter arrived to the emergency department was able to get more history. IV line established on arrival. EKG obtained showed sinus rhythm with ventricular rate of [address] changes and incomplete right bundle branch block. CBC with differential shows a white count of 7.1 with hemoglobin 12.2 and platelet count of 241. Chemistries unremarkable. Troponin minimally elevated at 18. 1 view chest x-ray showed no acute disease process. Will obtain a 2-hour delta troponin. Patient remains pain-free. She did receive aspirin on arrival. Prior to today apparently patient has not been complaining of chest pain. She did have triple bypass surgery in 2006. Care of patient turned over to the afternoon physician awaiting delta troponin and final disposition. Suspect thatif she is still symptom-free and negative delta troponin she may be safely discharged home to follow-up with primary care physician and manager personal. Lab Data Attestation: I reviewed the patient's lab results. Labs: Laboratory Results - last 24 hr 01/26/25 12:52 WBC 7.1 RBC 3.79 L Hgb 12.2 Hct 36.2 L MCV 95.5 MCH 32.2 H MCHC 33.7 RDW Std Deviation 43.0 RDW Coeff of Ade 12.3 Plt Count 241 MPV 11.1 Immature Gran % (Auto) 1.400 H Neut % (Auto) 63.9 Lymph % (Auto) 20.4 [place] % (Auto) 11.5 H Eos % (Auto) 2.1 Baso % (Auto) 0.7 Absolute Neuts (auto) 4.5 Absolute Lymphs (auto) 1.45 Nucleated RBC % 0 Sodium 139 Potassium 3.5 Chloride 103 Carbon Dioxide 23.1 Anion Gap 13 BUN 17 Creatinine 0.68 L Estim Creat Clear Calc 47.81 L Est GFR (MDRD) Non-Af 89 BUN/Creatinine Ratio 24.7 H Glucose 141 H Calcium 9.2 Troponin T High Sens 18 H Urine Color Straw Urine Clarity Clear Urine pH 6.0 Ur Specific [place] 1.010 Urine Protein 15 H Urine Glucose (UA) Normal Urine Ketones Negative Urine Occult Blood Negative Urine Nitrite Negative Urine Bilirubin Negative Urine Urobilinogen Normal Ur Leukocyte Esterase 25 H Urine RBC 0 SEEN Urine WBC 0-5 SEEN Ur Squamous Epith Cells 0-5 SEEN Urine Bacteria 0 SEEN Urine Mucus 0 SEEN Radiography Diagnostic Testing: Clinical Impression(s) from Imaging Studies Chest X-Ray 01/26/25 12:31 IMPRESSION: No acute process is identified in the chest. Reading Location: [facility] 1 view chest x-ray obtained interpreted by myself as no evidence of infiltrate or pneumothorax or acute disease process. Radiology in agreement. EKG Initial EKG: Attestation: I personally reviewed and interpreted this EKG as follows: Comments: Sinus rhythm with ventricular rate of 70 bpm with incomplete right bundle branch block and nonspecific ST changes Discharge Plan Triage Chief Complaint: Chest Pain ED Provider: Osmin Lees Dx/Rx/DC Orders Clinical Impression: Chest pain Instructions: ED Chest Pain, Uncertain Cause Prescriptions: No Action levothyroxine 75 MCG tablet 75 mcg PO DAILY furosemide 20 MG tablet 20 mg PO DAILY Qty: 30 0RF isosorbide mononitrate 30 mg tablet extended release 24 hr 30 mg PO DAILY donepezil 10 mg tablet 10 mg PO DAILY mirtazapine 15 mg tablet 15 mg PO QHS metoprolol succinate 25 mg tablet extended release 24 hr 25 mg PO DAILY atorvastatin 20 mg tablet 20 mg PO DAILY trazodone 50 mg tablet 50 mg PO QHS metformin 1,000 mg tablet 1,000 mg PO DAILY Rx Instructions: AM lisinopril 5 mg tablet 5 mg PO DAILY glipizide 5 mg tablet 2.5 mg PO BID quetiapine 50 mg tablet 25 mg PO DAILY Rx Instructions: AM quetiapine [Seroquel] 50 mg tablet 75 mg PO DAILY Rx Instructions: HS metformin 1,000 mg tablet 500 mg PO DAILY Rx Instructions: PM Primary Care Provider: Neri Prieto Referrals: Emmanuel Sims DO [Non-Staff] - 3-5 Days Print Language: Kenyan What to do if you have Problems For any increased pain, shortness of breath, bleeding, nausea or vomiting, chestpain, or any unexpected problems, contact your Primary Care Provider. Call [facility] ([phone]) or report to the closest Emergency Room. Call 911 if necessary. 01/26/25 1512 <Electronically signed by Osmin Lees DO> Cosigner Signature (if applicable): CC: Dr. Neri Prieto DO ~ Signed [facility] Work Phone: [phone] Radiology Diagnostic study note [facility] Imaging Services [address] [place] [address] Chest 1 View (Portable) MR#: [id number] Acct: [id number] Name: LESLEY BARILLAS Rep #: [id number] : 1945 F 79 From: Shannon Thapa MD PCP: Dr. Neri Prieto DO Status: [facility] ER Study:Chest 1 View (Portable) Date of Exam: 01/26/25 Exam# [id number] Ordering Dr: Delaney Lees DO PROCEDURE: CHEST 1 VIEW (PORTABLE) 01/26/2025 REASON FOR EXAM: CHEST PAIN TECHNIQUE: Frontal view of the chest. COMPARISON: None FINDINGS: Hardware is noted in the proximal right humerus. Sternotomy wires are present. Heart size and mediastinal configuration are within normal limits. There is no focal infiltrate or consolidation. There is no pneumothorax or effusion. There is no acute bony abnormality. Aortic calcifications are visible. RAD/Chest 1 View (Portable) IMPRESSION: No acute process is identified in the chest. Reading Location: [facility] CC: Dr. Osmin Lees DO; Dr. Neri Prieto DO ~ Supervisor Frame Assembly: Signed [facility]03-19-2024 Note* Exam Date Time Procedure Performing Provider Status 09/17/23 2:58 PM Echocardiogram, Adult - CV Auth (Verified) [facility] 02-09-2024 Note ORIGINAL HISTORY: Neuro cognitive disorder COMPARISON: [...] By: Hamilton Mesa MD Electronically signed By Hamliton Mesa MD Dictated Date: 08/09/2023 2:05:09 PM Prelim Date: 08/09/2023 2:06:00 PM Sign Date: 08/09/2023 2:06:00 PM Ordering Provider: [facility]12-06-2023 Note. MICRO - Microbiology PROCEDURE: Urine Culture [*1] [...] Locations *1: This test was performed at: [facility], [address] [place] [address], [phone] , [facility] ([place])08-10-2022 Note ORIGINAL NM MYOCARDIAL SPECT STRESS/REST CLINICAL STATEMENT: CAD TECHNIQUE: Lexiscan dose:0.4 mg Radiopharmaceutical (stress): Tc-99m Sestamibi Dose:32.9 mCi Radiopharmaceutical (rest): Tc-99m Sestamibi Dose:10.7 mCi SPECT acquisition and processing Reconstruction and reorientation of SPECT images into short axis, vertical and horizontal long axisplanes Quantitative LVEF assessment COMPARISON:None REPORT:Overall, image quality [...] Report By: Nabil Ballard Electronically Signed By: aNbil Ballard Dictated Date: 08/10/2022 11:12:30 AM Prelim Date: 08/10/2022 11:12:30 AM Sign Date: 08/10/2022 11:14:31 AM Ordering Provider:[facility]02-10-2023 Note ORIGINAL NM MYOCARDIAL SPECT STRESS/REST CLINICAL STATEMENT: CAD TECHNIQUE: Lexiscan dose:0.4 mg Radiopharmaceutical (stress): Tc-99m Sestamibi Dose:32.9 mCi Radiopharmaceutical (rest): Tc-99m Sestamibi Dose:10.7 mCi SPECT acquisition and processing Reconstruction and reorientation of SPECT images into short axis, vertical and horizontal long axisplanes Quantitative LVEF assessment COMPARISON:None REPORT:Overall, image quality [...] Sign Date: 08/10/2022 11:14:31 AM Ordering Provider:Kenn [facility]01-16-2023 Note ORIGINAL FROM: [facility] [address], [place] [address] PROCEDURE FOR: LESLEY BARILLAS [address] [place] [address] Home: PID#: [id number] Exam#: [id number] : 1945 Age: 76 TO: EMMANUEL SIMS [address] [address] Fax: NO FAX EXAMINATION: ULTRASOUND OF THE [...] EMMANUEL SIMS CLINICAL: MAMMOGRAPHIC DENSITY RIGHT BREAST. Orchard Worker: ANABEL JAH RT(R) RDMS letter sent: Biopsy Recommended BI-RADS 4 and 5 Ultrasound BI[facility]RADS: 4 [facility] ORIGINAL FROM: [facility] [address], [place] [address] PROCEDURE FOR: LESLEY BARILLAS [address] [place] [address] Home: PID#: [id number] Exam#: [id number] : 1945 Age: 76 TO: EMMANUEL SIMS DO [address] [place] [address] Fax: NO FAX EXAMINATION: ULTRASOUND OF THE [...] EMMANUEL SIMS CLINICAL: MAMMOGRAPHIC DENSITY RIGHT BREAST. Orchard Worker: ANABEL JHA RT(R) RDMS letter sent: Biopsy Recommended BI-RADS 4 and 5 Ultrasound BI-RADS: 4 Suspicious for malignancy [facility]01-09-2023 Note ORIGINAL EXAMINATION: BONE DENSITOMETRY07/09/2022 10:43 am [...] 07/09/2022 11:39:29 PM Ordering Provider: EMMANUEL SIMS [facility]01-09-2023 Note ORIGINAL EXAMINATION: BONE DENSITOMETRY07/09/2022 10:43 am [...] Date: 07/09/2022 11:39:29 PM Ordering [facility] Future App[facility]ments Appointment Date:09/14/2021 10:30:00 AM Scheduled Provider:EMMANUEL SIMS DO Location:[facility] Appointment Type:PC OV Appointment Date:01/11/2022 03:00:00 PM Scheduled Provider:KENN ESPINOZA Location:[facility] Appointment Type:CV OV [facility] Evaluation + Plan note Future Appointments Appointment Date:12/05/2021 10:00:00 AM Scheduled Provider:EMMANUEL SIMS DO Location:[facility] Appointment Type:PC OV Appointment Date:01/11/2022 03:00:00 PM Scheduled Provider:KENN ESPINOZA Location:[facility] Appointment Type:CV OV [facility] Evaluation + Plan note Future Appointments Appointment Date:06/05/2022 10:00:00 AM Scheduled Provider:EMMANUEL SIMS DO Location:[facility] Appointment Type:PC OV Appointment Date:07/23/2022 10:00:00 AM Scheduled Provider:KENN ESPINOZA Location:[facility] Appointment Type:CV OV Future Scheduled Tests Laboratory* PTH, Intact 12/05/21 [facility] Evaluation + Plan note Future Appointments Appointment Date:07/23/2022 10:00:00 AM Scheduled Provider:KENN ESPINOZA Location:[facility] Appointment Type:CV OV Appointment Date:12/04/2022 10:00:00 AM Scheduled Provider:EMMANUEL SIMS DO Location:[facility] Appointment Type:PC OV Future Scheduled Tests Laboratory* Thyroid Stimulating Hormone 06/05/22 * Thyroid Stimulating Hormone 12/04/22 * A1C Hemoglobin 12/04/22 * Complete Blood Count 12/04/22 * Lipid Profile 12/04/22 * PTH, Intact 12/05/21 * Vitamin D Level 12/04/22 * Complete Metabolic Panel 12/04/22 [facility] Evaluation + Plan note Future Appointments Appointment Date:07/16/2022 01:00:00 PM Scheduled Provider: Location:[facility] Appointment Type:US Breast Right Limited Appointment Date:07/23/2022 10:00:00 AM Scheduled Provider:KENN ESPINOZA Location:[facility] Appointment Type:CV OV Appointment Date:12/04/2022 10:00:00 AM Scheduled Provider:EMMANUEL SIMS DO Location:[facility] Appointment Type:PC OV Future Scheduled Tests Laboratory* Thyroid Stimulating Hormone 12/04/22 * A1C Hemoglobin 12/04/22 * Complete Blood Count 12/04/22 * Lipid Profile 12/04/22 * PTH, Intact 12/05/21 * Vitamin D Level 12/04/22 * Complete Metabolic Panel 12/04/22 Radiology* US Breast Right Limited 07/16/22 [facility] Evaluation + Plan note Future Appointments Appointment Date:07/23/2022 10:00:00 AM Scheduled Provider:KENN ESPINOZA Location:[facility] Appointment Type:CV OV Appointment Date:12/04/2022 10:00:00 AM Scheduled Provider:EMMANUEL SIMS DO Location:[facility] Appointment Type:PC OV Future Scheduled Tests Laboratory* Thyroid Stimulating Hormone 12/04/22 * A1C Hemoglobin 12/04/22 * Complete Blood Count 12/04/22 * Lipid Profile 12/04/22 * PTH, Intact 12/05/21 * Vitamin D Level 12/04/22 * Complete Metabolic Panel 12/04/22 [facility] evaluation + Plan note Future Appointments Appointment Date:08/10/2022 08:00:00 AM Scheduled Provider: Location:[facility] Appointment Type:NM Myocardial Spect Rest/Stress Appointment Date:12/04/2022 10:00:00 AM Scheduled Provider:EMMANUEL SIMS DO Location:[facility] Appointment Type:PC OV Appointment Date:01/23/2023 09:00:00 AM Scheduled Provider:KENN ESPINOZA Location:[facility] Appointment Type:CV OV Future Scheduled Tests Laboratory* Thyroid Stimulating Hormone 12/04/22 * A1C Hemoglobin 12/04/22 * Complete Blood Count 12/04/22 * Lipid Profile 12/04/22 * PTH, Intact 12/05/21 * Vitamin D Level 12/04/22 * Complete Metabolic Panel 12/04/22 Radiology* NM Myocardial Spect Rest/Stress 08/10/22 * NM Myocardial Spect Rest/Stress 07/23/22 [facility] Evaluation + Plan note Future Appointments Appointment Date:12/04/2022 10:00:00 AM Scheduled Provider:EMMANUEL SIMS DO Location:[facility] Appointment Type:PC OV Appointment Date:01/23/2023 09:00:00 AM Scheduled Provider:KENN ESPINOZA Location:[facility] Appointment Type:CV OV Future Scheduled Tests Laboratory* Thyroid Stimulating Hormone 12/04/22 * A1C Hemoglobin 12/04/22 * Complete Blood Count 12/04/22 * Lipid Profile 12/04/22 * PTH, Intact 12/05/21 * Vitamin D Level 12/04/22 * Complete Metabolic Panel 12/04/22 Radiology* NM Myocardial Spect Rest/Stress 07/23/22 [facility] Evaluation + Plan note Future Appointments Appointment Date:10/09/2022 11:00:00 AM Scheduled Provider:ISELA SPENCER Location:[facility] Appointment Type:BS OV Post Op Appointment Date:12/04/2022 10:00:00 AM Scheduled Provider:EMMANUEL SIMS DO Location:[facility] Appointment Type:PC OV Appointment Date:01/23/2023 09:00:00 AM Scheduled Provider:KENN ESPINOZA Location:[facility] Appointment Type:CV OV Future Scheduled Tests Laboratory* Thyroid Stimulating Hormone 12/04/22 * A1C Hemoglobin 12/04/22 * Complete Blood Count 12/04/22 * Lipid Profile 12/04/22 * PTH, Intact 12/05/21 * Vitamin D Level 12/04/22 * Complete Metabolic Panel 12/04/22 Radiology* NM Myocardial Spect Rest/Stress 07/23/22 [facility] Evaluation + Plan note Future Appointments Appointment Date:11/28/2022 10:30:00 AM Scheduled Provider:KENN ESPINOZA Location:[facility] Appointment Type:CV OV Appointment Date:12/04/2022 10:00:00 AM Scheduled Provider:EMMANUEL SIMS DO Location:[facility] Appointment Type:PC OV Appointment Date:01/23/2023 09:00:00 AM Scheduled Provider:KENN ESPINOZA Location:[facility] Appointment Type:CV OV Future Scheduled Tests Laboratory* Thyroid Stimulating Hormone 12/04/22 * A1C Hemoglobin 12/04/22 * Complete Blood Count 12/04/22 * Lipid Profile 12/04/22 * PTH, Intact 12/05/21 * Vitamin D Level 12/04/22 * Complete Metabolic Panel 12/04/22 Radiology* NM Myocardial Spect Rest/Stress 07/23/22 [facility] Evaluation + Plan note Future Appointments Appointment Date:01/10/2023 11:30:00 AM Scheduled Provider:EMMANUEL SIMS DO Location:[facility] Appointment Type:PC OV Appointment Date:01/23/2023 09:00:00 AM Scheduled Provider:KENN ESPINOZA Location:[facility] Appointment Type:CV OV Future Scheduled Tests Radiology* NM Myocardial Spect Rest/Stress 07/23/22 [facility] Evaluation + Plan note Future Appointments Appointment Date:07/12/2023 10:00:00 AM Scheduled Provider:EMMANUEL SIMS DO Location:[facility] Appointment Type:PC OV Appointment Date:09/04/2023 10:30:00 AM Scheduled Provider:KENN ESPINOZA Location:[facility] Appointment Type:CV OV Future Scheduled Tests Radiology* NM Myocardial Spect Rest/Stress 07/23/22 [facility] Evaluation + Plan note Future Appointments Appointment Date:09/04/2023 10:30:00 AM Scheduled Provider:KENN ESPINOZA Location:[facility] Appointment Type:CV OV Appointment Date:01/16/2024 02:00:00 PM Scheduled Provider:EMMANUEL SIMS DO Location:[facility] Appointment Type:PC OV Future Scheduled Tests Laboratory* Ferritin 01/10/24 * Iron Level 01/10/24 * Thyroid Stimulating Hormone 01/10/24 * Vitamin B12 Level 01/10/24 * A1C Hemoglobin 01/10/24 * Complete Blood Count 01/10/24 * Lipid Profile 01/10/24 * Vitamin D Level 01/10/24 * Complete Metabolic Panel 01/10/24 Radiology* NM Myocardial Spect Rest/Stress 07/23/22 [facility] Evaluation + Plan note Future Appointments Appointment Date:09/04/2023 10:30:00 AM Scheduled Provider:KENN ESPINOZA Location:[facility] Appointment Type:CV OV Appointment Date:01/16/2024 02:00:00 PM Scheduled Provider:EMMANUEL SIMS DO Location:[facility] Appointment Type:PC OV Future Scheduled Tests Laboratory* Ferritin 01/10/24 * Iron Level 01/10/24 * Thyroid Stimulating Hormone 01/10/24 * Vitamin B12 Level 01/10/24 * A1C Hemoglobin 01/10/24 * Complete Blood Count 01/10/24 * Lipid Profile 01/10/24 * Vitamin D Level 01/10/24 * Complete Metabolic Panel 01/10/24 [facility] evaluation + Plan note Future Appointments Appointment Date:09/20/2023 11:00:00 AM Scheduled Provider: Janay:KEKE Appointment Type:INF Injection - Prolia Appointment Date:01/16/2024 02:00:00 PM Scheduled Provider:EMMANUEL SIMS DO Location:[facility] Appointment Type:PC OV Appointment Date:03/23/2024 01:30:00 PM Scheduled Provider:KENN ESPINOZA Location:[facility] Appointment Type:CV OV Future Scheduled Tests Laboratory* Ferritin 01/10/24 * Iron Level 01/10/24 * Thyroid Stimulating Hormone 01/10/24 * Vitamin B12 Level 01/10/24 * A1C Hemoglobin 01/10/24 * Complete Blood Count 01/10/24 * Lipid Profile 01/10/24 * Vitamin D Level 01/10/24 * Complete Metabolic Panel 01/10/24 [facility] Evaluation + Plan note Future Appointments Appointment Date:01/16/2024 02:00:00 PM Scheduled Provider:EMMANUEL SIMS DO Location:[facility] Appointment Type:PC OV Appointment Date:03/23/2024 01:30:00 PM Scheduled Provider:KENN ESPINOZA Location:[facility] Appointment Type:CV OV Future Scheduled Tests Laboratory* Ferritin 01/10/24 * Iron Level 01/10/24 * Thyroid Stimulating Hormone 01/10/24 * Vitamin B12 Level 01/10/24 * A1C Hemoglobin 01/10/24 * Complete Blood Count 01/10/24 * Lipid Profile 01/10/24 * Vitamin D Level 01/10/24 * Complete Metabolic Panel 01/10/24 [facility] Evaluation + Plan note Future Appointments Appointment Date:09/29/2024 02:00:00 PM Scheduled Provider:KENN ESPINOZA Location:[facility] Appointment Type:CV OV Future Scheduled Tests Laboratory* Ferritin 01/10/24 * Iron Level 01/10/24 * Thyroid Stimulating Hormone 01/10/24 * Vitamin B12 Level 01/10/24 * A1C Hemoglobin 01/10/24 * Complete Blood Count 01/10/24 * Lipid Profile 01/10/24 * Vitamin D Level 01/10/24 * Complete Metabolic Panel 01/10/24 [facility] Evaluation + Plan note Future Appointments Appointment Date:01/07/2025 09:00:00 AM Scheduled Provider: Location:[facility] Appointment Type:MEDS - Diabetic Individual Visit Appointment Date:01/12/2025 10:15:00 AM Scheduled Provider:NERI PRIETO DO Location:[facility] Appointment Type:PC OV Future Scheduled Tests Laboratory* TSH with Reflex to FT4 12/08/24 * Ferritin 01/10/24 * Ferritin 12/08/24 * Folate Level 12/08/24 * Iron Level 01/10/24 * Magnesium Level 12/08/24 * Phosphorus Level 12/08/24 * Thyroid Stimulating Hormone 01/10/24 * Vitamin B12 Level 01/10/24 * A1C Hemoglobin 01/10/24 * A1C Hemoglobin 12/08/24 * Complete Blood Count 01/10/24 * Complete Blood Count 12/08/24 * Lipid Profile 01/10/24 * Lipid Profile 12/08/24 * Iron Studies 12/08/24 * Vitamin D Level 01/10/24 * Vitamin D Level 12/08/24 * Complete Metabolic Panel 01/10/24 * Complete Metabolic Panel 12/08/24 [facility] Evaluation + Plan note Future Appointments Appointment Date:01/07/2025 09:00:00 AM Scheduled Provider: Location:[facility] Appointment Type:MEDS - Diabetic Individual Visit Appointment Date:01/12/2025 10:15:00 AM Scheduled Provider:NERI PRIETO DO Location:[facility] Appointment Type:PC OV Diagnostic Tests Pending * Folate Level 01/05/25 Future Scheduled Tests Laboratory* Ferritin 01/10/24 * Iron Level 01/10/24 * Thyroid Stimulating Hormone 01/10/24 * Vitamin B12 Level 01/10/24 * A1C Hemoglobin 01/10/24 * Complete Blood Count 01/10/24 * Lipid Profile 01/10/24 * Vitamin D Level 01/10/24 * Complete Metabolic Panel 01/10/24 [facility] Evaluation noteNo assessment information available [facility] Work Phone: Hospital course Narrative No data available for this section [facility] Discharge instructions No data available for this section [facility] Discharge instructions Additional Instructions Please follow-up with for your echocardiogram this coming week as scheduled. [facility] Work Phone: Hospital Discharge instructionsAdditional Instructions Lesley's cardiac workup today was largely reassuring. No acute changes in her EKG and her high sensitive troponin was stable and not consistent with acute coronary syndrome/heart attack. Please follow-up with her manager personal. 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 Advance Directives and Livin g Will Power of Airveyor Operator 01/15/2019 8:21 AM HC PO A Power of Airveyor Operator 01/15/2019 8:23 AM Ashanti rowell Advance Directive Response Recorded Date/ Time Advance Directives No August 01, 2017 11:46am Living Will No September 08, 2023 8:24pm Power of Airveyor Operator No September 07 8:24pm Advance Directive Response Recorded Date/ Time Advance Directives No August 01, 2017 10:46am Advance Directive Response Recorded Date/ Time Advance Directives No August 01, 2017 11:46am Advance Directive Response Recorded Date/ Time Do you have a Healthcare Power of Airveyor Operator? No January 26, 2025 12:54pm Advance Directives No August 01, 2017 11:46am Chief Complaint and Reason for Visit Chief Complaint CP Chief Complaint Admit Date LABWORK June 12, 2024 7:00pm CORRECTION LAB WORK July 08, 2024 3:00pm LABWORK August 07, 2024 5 :00am Chief Complaint Admit Date LABWORK August 07, 2024 5 :00am LABWORK' November 09, 2024 5:00a m Chief Complaint Admit Date LABWORK' November 09, 2024 5:00a m chest pain January 26, 2025 12:2 0pm Summary Purpose Family History No Family History Records Found Additional Source Comments Care Team (unrecognized sect ion and content) Team Status: Active Member Role Status Dates Dr. Emmanuel Sims DO Family Provider Active Dr. Emmanuel Sims DO Primary Care Provider Activ e Team Status: Inactive Member Role Status Dates Dr. Emmanuel Sims DO Primary Care Provider Activ e Dr. Alivia Alfred MD Emergency Provider Active Team Status: Active Member Role Status Dates Dr. Emmanuel Sims DO Primary Care Provider Activ e Start: June 12, 2024 Dr. Neri MILLS MD Attending Provider Active Start: June 12, 2024 Team Status: Active Member Role Status Dates Dr. Emmanuel Sims DO Primary Care Provider Activ e Start: July 08, 2024 Dr. Neri MILLS MD Attending Provider Active Start: July 08, 2024 Team Status: Inactive Member Role Status Dates Dr. Emmanuel Sims DO Primary Care Provider Activ e Start: August 07, 2024 End: August 07, 2024 Dr. Neri MILLS MD Attending Provider Active Start: August 07, 2024 End: August 07, 2024 Team Status: Inactive Member Role Status Dates Dr. Emmanuel Sims DO Primary Care Provider Activ e Start: November 09, 2024 End: November 09, 2024 Dr. Neri MILLS MD Attending Provider Active Start: November 09, 2024 End: November 09, 2024 Team Status: Active Member Role/Relationship Status Dates Dr. Neri Prieto DO Primary Care Provider Active Team Status: Inactive Member Role/Relationship Status Dates Dr. Emmanuel Sims DO Primary Care Provider Activ e Start: November 09, 2024 End: November 09, 2024 Dr. Neri MILLS MD Attending Provider Active Start: November 09, 2024 End: November 09, 2024 Team Status: Inactive Member Role/Relationship Status Dates Dr. Osmin Lees DO Emergency Provider Active S tart: January 26, 2025 End: January 26, 2025 Dr. Neri Prieto DO Primary Care Provider Active Start: January 26, 2025 End: January 26, 2025 Care Team (unrecognized sect ion and content) Care Team Personnel Name: Taylor Tucker Clersuresh Nuno PT Position: P3 Scheduling - Mechanical Engineering Specialist Advanced Member Role: Other Name: EMMANUEL SIMS DO Position: P4 Physician - Primary Care Member Role: Primary Care Physician Address: Address: [address] [facility] [place] [address]- Care Team Related Persons Name: DAVI MUSA Address: Home [address] [place], [place] [phone] [place] Care Team Personnel Name: Taylor Tuckerrsuresh Nuno PT Position: P3 Scheduling - Mechanical Engineering Specialist Advanced Member Role: Other Name: EMMANUEL SIMS DO Position: P4 Physician - Primary Care Member Role: Primary Care Physician Address: Address: [address] [place] [phone]- Care Team Related Persons Name: DAVI MUSA Address: Home [address] [place], [place] [phone] [place] Care Team Personnel Name: Taylor Tucker Clerk Nurys PT Position: P3 Scheduling - Mechanical Engineering Specialist Advanced Member Role: Other Name: EMMANUEL SIMS DO Position: P4 Physician - Primary Care Member Role: Primary Care Physician Address: Address: [address] [place] [phone]- Care Team Related Persons Name: DAVI MUSA Address: Home [address] [place], [place] [phone] [place] Care Team Personnel Name: Taylor Tuckerrsuresh Nuno PT Position: P3 Scheduling - Mechanical Engineering Specialist Advanced Member Role: Other Name: EMMANUEL SIMS DO Position: P4 Physician - Primary Care Member Role: Primary Care Physician Address: Address: [address] [place] [phone]- Care Team Related Persons Name: DAVI MSUA Address: Home [address] [place], [place] [phone] [place] Care Team Personnel Name: Taylor Tucker Clerk Nurys PT Position: P3 Scheduling - Mechanical Engineering Specialist Advanced Member Role: Other Name: EMMANUEL SIMS DO Position: P4 Physician - Primary Care Member Role: Primary Care Physician Address: Address: [address] [place] [phone]- Care Team Related Persons Name: LUIS FELIPE DAVI Kerry Address: Home [address] [place], [place] [phone] Care Team Personnel Name: Garrett Drugless Doctor Nurys PT Position: P3 Scheduling - Mechanical Engineering Specialist Advanced Member Role: Other Name: EMMANUEL SIMS DO Position: P4 Physician - Primary Care Member Role: Primary Care Physician Address: Address: [address] [place] [phone]- Care Team Related Persons Name: DAVI MUSA Address: Home [id number] [place] [phone] [place] Care Team Personnel Name: Taylor Tucker Clerk Nurys PT Position: P3 Scheduling - Mechanical Engineering Specialist Advanced Member Role: Other Name: EMMANUEL SIMS DO Position: P4 Physician - Primary Care Member Role: Primary Care Physician Address: Address: [address] [place] [phone] [place] [address] Care Team Related Persons Name: DAVI MUSA Address: Home [address] [place] [phone] [place] Care Team Personnel Name: Taylor Tucker Clerk Nurys PT Position: P3 Scheduling - Mechanical Engineering Specialist Advanced Member Role: Other Name: EMMANUEL SIMS DO Position: P4 Physician - Primary Care Member Role: Primary Care Physician Address: Address: [address] [place] [phone] [place] [address] Care Team Related Persons Name: DAVI MUSA Goals (unrecognized section and content) Goals may be documented in a n alternate section INFORMATION SOURCE (unrecogn ized section and content) DATE CREATED AUTHOR 11/16/2023 [facility] ([place]) DATE CREATED AUTHOR AUTHOR'S ORGANIZ ATION 12/21/2023 [facility] DATE CREATED AUTHOR AUTHOR'S ORGANIZ ATION 11/29/2024 [facility] DATE CREATED AUTHOR AUTHOR'S ORGANIZ ATION 01/16/2025 [facility] FOR RECORDS PERTAINING TO PATIENTS WHO ARE [...] BE BASED ON THE PRIMARY CLINICAL RECORDS. [facility] [employer] [facility]. provides no warranty or guarantee of the accuracy or completeness of information in this document.
== END 2025-01-26 15:58 | disposition home or self-care (01) ==
PROVIDERS: Emergency Provider Emergency Medicine; Visit Provider Emergency Medicine
DX: R07.9 Chest pain, unspecified (principal); F03.90 Unspecified dementia, unspecified severity, without behavioral disturbance, psychotic disturbance, mood disturbance, and anxiety; I25.10 Atherosclerotic heart disease of native coronary artery without angina pectoris
CPT/HCPCS: 71045; 80048; 81001; 84484; 85025; 93005; 96360; 96361; 99285; A4216